=== PATIENT | male | born 1960 | race Caucasian/White ===

== ENCOUNTER 2023-03-01 18:35 | Emergency (ER) | payer OTHER, SELFPAY ==
[2023-03-01 18:36] VITALS: BP 174/98; PULSE 112; RESP 24; TEMP 36.7; O2SAT 95; BMI 31.4
[2023-03-01 18:44] VITALS: O2SAT 95
[2023-03-01 18:58] VITALS: PULSE 117; RESP 20
[2023-03-01] MEDS: Ipratropium/Albuterol Sulfate 3 ML AMPUL.NEB INHALATION (18:58)
[2023-03-01] MEDS: Albuterol 2.5 MG/3 ML VIAL.NEB. INHALATION ×3 (19:06→19:38)
[2023-03-01 19:08] LABS: Absolute Lymphocyte Count 1.52 X10^3/uL (0.83-4.51); Basophil# 0.08 X10^3/uL; Basophil% 0.9 % (0-1); Eosinophil# 0.14 X10^3/uL; Eosinophils% 1.6 % (0-5); Hematocrit 46.3 % (40-54); Hemoglobin 15.5 g/dL (13.0-16.5); Lymphocyte # 1.52 X10^3/ul (0.83-4.51); Lymphocyte % 17.6 % (19-41); Mean Corp Hgb Conc 33.5 g/dL (32-36); Mean Corpuscular Volume 89.6 fL (80-94); Mean Platelet Vol. 8.4 fl (6.2-12.0); Monocyte# 0.89 X10^3/uL; Monocyte% 10.3 % (0-10); NRBC Flagged by Analyzer 0 % (0-5); Neutrophil # 5.97 X10^3/uL (2.7-7.7); Neutrophil % 69.3 % (47-70); Platelet Count 230 K/mm3 (150-450); RBC Distribution Width CV 12.3 % (11.6-14.6); RBC Distribution Width SD 40.7 fl (35.1-43.9); Red Blood Count 5.17 M/mm3 (4.6-6.2); White Blood Count 8.6 K/mm3 (4.4-11.0)
--- NOTE | 2023-03-01 19:15 | RAD_ITS ---
STUDY: X-RAY CHEST REASON FOR EXAM: Male, 63 years old. Chest tightness and dyspnea with cough and wheezin TECHNIQUE: PA and lateral views of the chest. COMPARISON: None. FINDINGS: Mild linear atelectasis in the lung bases. No airspace consolidation. There is no demonstrated pleural abnormality. Normal size heart. Normal mediastinum and shantal. Normal visualized pulmonary arteries. There is atherosclerotic tortuosity of the aortic arch and descending thoracic aorta. There are diffuse degenerative changes of the visualized thoracic spine. Normal visualized ribs, clavicles, and shoulders. There is no demonstrated abnormality of the visualized soft tissue structures of the upper abdomen. RAD/Chest PA and Lateral IMPRESSION: No acute cardiopulmonary process. Electronically Signed: Kel Morales MD ([place]) at 19:30 EST ,
[2023-03-01 19:29] LABS: ALB/GLOB Ratio 1.1 RATIO (0.9-2.4); AST(SGOT) 16 U/L (15-37); Alanine Aminotransfer ALT/SGPT 34 U/L (16-61); Albumin, Serum 3.8 g/dL (3.2-5.0); Alkaline Phosphatase 86 U/L (45-117); Anion Gap 6 (5-15); BUN 20 mg/dL (7-18); BUN/Creat Ratio 22.7 RATIO (10-20); Calcium,Total 8.8 mg/dL (8.5-10.1); Chloride 103 mmol/L (98-107); Creatinine, Serum 0.88 mg/dL (0.70-1.30); EST Glomerular Filtration Rate 92 mL/min (>60); Est Glom Filt Rate - Afr Amer 112 mL/min (>60); Estimated Creatinine Clearance 82.05 ml/min; Globulin 3.5 g/dL (2.2-4.2); Glucose 191 mg/dL (74-106); Potassium 3.4 mmol/L (3.5-5.1); Protein, Total 7.3 g/dL (6.4-8.2); Sodium Level 136 mmol/L (136-145); Troponin-I HS 60 pg/mL (3.0-78.0)
[2023-03-01 19:31] VITALS: PULSE 108; RESP 20; O2SAT 91
[2023-03-01 19:40] LABS: Lactic Acid 3.1 mmol/L (0.4-1.9)
--- NOTE | 2023-03-01 20:10 | CPS ---
x3 Albuterol given to pt. in ER as well
[2023-03-01 20:23] VITALS: BP 174/98; PULSE 102; RESP 15; TEMP 36.1; O2SAT 100
--- NOTE | 2023-03-01 20:48 | EX.ED.DYSGE1 ---
HPI History of Present Illness Chief Complaint: Shortness of Breath Detail of Chief Complaint: Respiratory symptoms that started 2 to 3 weeks ago Informant: patient and spouse/S.O. Onset/Context/Timing Onset: Weeks Context: Gradual Onset Timing: Continuous and Waxes and wanes Quality: Cough, wheezing and dyspnea Location: Respiratory Current Severity: Mild Maximum Severity: Severe Worsened by: Activity Relieved by: Nothing Associated Symptoms Associated Symptoms: Upper respiratory symptoms. Narrative Narrative: Patient is a 63-year-old male who is a former smoker. He denies history of asthma or COPD. He denies fever or chills. He denies headache. He denies visual, ocular auditory symptoms. He has had problems with dysphonia for 1 year. Etiology of his voice change is unknown. He has a remote history of DVT, 2011. He is presently on no anticoagulant. He reports a cough and shortness of breath that started 2 to 3 weeks ago. His symptoms got worse today. He denies pleuritic chest pain. He denies abdominal pain, nausea, vomiting or diarrhea. He denies leg pain, swelling or discoloration. Prior similar symptoms: Yes Recent Illness/Hospitalization: No PFSH PFSH Medical History (Updated 03/01/23 @ 20:[address] Logan Callejas MD) DVT (deep venous thrombosis) Medical History no medical history Home Medications albuterol sulfate 90 mcg/actuation aerosol inhaler (Ventolin HFA) 2 puff inhalation Q4H PRN PRN Wheezing ##1 03/01/23 [Rx Last Taken Unknown] doxycycline monohydrate 100 mg capsule 100 mg PO BID #13 CAPSULES 03/01/23 [Rx Last Taken Unknown] prednisone 20 mg tablet 60 mg (3 x 20 mg) PO DAILY #12 TABLETS 03/01/23 [Rx Last Taken Unknown] Allergy/AdvReac Type Severity Reaction Status Date / Time bee venom protein (honey bee) Allergy Severe Anaphylaxis Verified 03/01/23 18:41 Penicillins Allergy Mild Hives Verified 03/01/23 18:41 Family History no significant family his Surgical History no surgical history Social History (Updated 03/01/23 @ 20:[address] Logan Callejas MD) household members: spouse Smoking Status: Former smoker alcohol intake: former substance use type: does not use ROS ROS ED Constitutional Constitutional ED: Denies chills, fever(s), subjective, sweats or weight loss Eyes Eyes: Denies blurry vision, change in vision or diplopia ENT ENT ED: Reports rhinorrhea; Denies ear pain or sore throat Cardiovascular Cardiovascular: Denies chest pain, orthopnea, palpitations, paroxysmal nocturnal dyspnea or racing heartbeat Respiratory/Chest Respiratory/Chest: Reports cough, dyspnea and dyspnea on exertion; Denies orthopnea, paroxysmal nocturnal dyspnea or sputum Gastrointestinal Gastrointestinal: Denies abdominal pain, diarrhea, nausea or vomiting Genitourinary Genitourinary ED: Denies dysuria, hematuria or urinary frequency Musculoskeletal Musculoskeletal: Denies arthralgias, myalgias or neck pain Integumentary Denies rash Neurologic Neurologic: Denies headache(s), paresthesias or weakness Psychiatric Psychiatric: Denies anxiety Hematologic/Lymphatic Hematologic/Lymphatic: Reports systems reviewed and no addt'l complaints, except as documented EXAM Physical Exam Const Vital Signs: 03/01/23 18:36 03/01/23 18:44 03/01/23 19:31 Temperature 98.1 F Temperature Source Oral Pulse Rate 112 H 108 H Respiratory Rate 24 H 20 H Respiratory Effort Short of Breath Labored Respiratory Pattern Blood Pressure 174/98 H Blood Pressure Mean 123 Pulse Ox 95 91 Oxygen Delivery Method Room Air Room Air Room Air 03/01/23 18:58 03/01/23 20:23 Temperature 97 F L Temperature Source Temporal Pulse Rate 117 H 102 H Respiratory Rate 20 H 15 Respiratory Effort Respiratory Pattern Normal Blood Pressure 174/98 H Blood Pressure Mean 123 Pulse Ox 100 Oxygen Delivery Method Room Air Positive well nourished, well developed and obese Constitutional Narrative: Patient speaks in short sentences. He is tachypneic. He does have dysphonia of unknown etiology. General Appearance ED: well developed; Negative for cyanotic, diaphoretic, NAD or pallor Nutritional Appearance: obese HEENT Reports moist mucous membranes HEENT Narrative: Head is atraumatic and normocephalic. Ears are normal. TMs are normal. Posterior pharynx not erythema or exudate. Nose remarkable for slight clear drainage. There is no frontal, ethmoid or maxillary sinus tenderness. Eyes PERRL and EOMs intact bilaterally General Eye ED: Negative for pale conjunctiva or scleral icterus Neck no lymphadenopathy, supple and no JVD Chest Wall inspection of chest normal and palpation of chest normal Resp No normal respiratory effort and No clear to auscultation bilaterally Resp Narrative: There is minimal use of accessory muscles. Effort and Inspection: Negative for retractions or pain with movement Auscultation: wheezes expiratory wheezes and throughout (There is delayed expiratory phase.) Cardio regular rhythm, S1 normal heart sound, S2 normal heart sound and no murmurs Rate: tachycardic GI normal to inspection, nondistended, normoactive bowel sounds, non-tender, non-distended and no masses; Negative for hepatosplenomegaly Back/Spine no CVA tenderness Extremity normal to inspection Extremity Narrative: There is no asymmetry, swelling, discoloration, leg vein distention, palpable cords or tenderness along the distribution of the deep venous system. General Extremety ED: Negative for edema or tenderness General Extremity: Negative for edema Neuro oriented x3, CN's II-XII intact bilaterally and no sensory deficits noted Sensorium / Orientation: alert Psych mental status grossly normal Skin no rashes or lesions noted, no wounds and skin turgor normal General Skin Exam: Negative for jaundice or pallor MDM MDM MDM Narrative Medical decision making narrative: With patient having respiratory symptoms started 2 to 3 weeks ago need to evaluate for chronic bronchitis versus pneumonia. Doubt pulmonary embolus. Patient's history and symptoms were not consistent with CHF. To evaluate patient's presentation chest x-ray was obtained as well as appropriate blood work to assess for endorgan dysfunction as well as white count differential. EKG was obtained per nurse protocol. History & Record Review Discussion w/independent historian: Patient and Significant other Lab Data Attestation: I reviewed the patient's lab results. Lab results narrative: Count is normal. Differential is normal. Comprehensive metabolic panel is remarkable for glucose of 191 with a normal CO2 and anion gap. Lactate is elevated. Labs: Laboratory Results - last 24 hr 03/01/23 03/01/23 18:45 19:01 WBC 8.6 RBC 5.17 Hgb 15.5 Hct 46.3 MCV 89.6 MCH 30.0 MCHC 33.5 RDW Std Deviation 40.7 RDW Coeff of Ruddy 12.3 Plt Count 230 MPV 8.4 Immature Gran % (Auto) 0.300 Neut % (Auto) 69.3 Lymph % (Auto) 17.6 L [place] % (Auto) 10.3 H Eos % (Auto) 1.6 Baso % (Auto) 0.9 Absolute Neuts (auto) 6.0 Absolute Lymphs (auto) 1.52 Nucleated RBC % 0 Sodium 136 Potassium 3.4 L Chloride 103 Carbon Dioxide 27.0 Anion Gap 6 BUN 20 H Creatinine 0.88 Estim Creat Clear Calc 82.05 Est GFR (MDRD) Af Amer 112 Est GFR (MDRD) Non-Af 92 BUN/Creatinine Ratio 22.7 H Glucose 191 H Lactic Acid 3.1 H* Calcium 8.8 Total Bilirubin 0.40 AST 16 ALT 34 Alkaline Phosphatase 86 Troponin I High Sens 60 Total Protein 7.3 Albumin 3.8 Globulin 3.5 Albumin/Globulin Ratio 1.1 Radiography Chest X-Ray - ED: 2 View and Read by ED Physician (2 view chest x-ray was independently reviewed interpreted by me as negative for any acute process. Cardiac silhouette and size normal. Lung parenchyma normal. Perihilar region normal. Osseous structures were unremarkable.) Diagnostic Testing: Clinical Impression(s) from Imaging Studies Chest X-Ray 03/01/23 19:15 IMPRESSION: No acute cardiopulmonary process. 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, pneumonia Reason(s) pneumonia less likely: Positive for no infiltrate on CXR, no elevation in WBC count and no noted fever, aortic dissection Reason(s) Aortic dissection less likely:: Positive for normal vascular exam, no history of HTN, normal neurological exam, no significant risk factors for dissection, no widened mediastinum on CXR, pain not sudden onset, no ripping/tearing pain, no pain to back and blood pressure appropriate in ED and CHF Reason(s) CHF less likely: Positive for no significant peripheral edema, no orthopnea and no evidence of fluid overload on CXR Treatment and Re-Evaluation :: Patient was reassessed at 2049. He is moving significantly more air. There is slight wheeze at the left base on forced expiration. Patient was discharged with prescription for albuterol metered-dose inhaler and burst of prednisone. He received his first dose of prednisone in the emergency department. Discharge Plan Triage Chief Complaint: Shortness of Breath ED Provider: Logan Callejas Dx/Rx/DC Orders Clinical Impression: Dyspnea, Acute bronchospasm, Chronic bronchitis Prescriptions: New prednisone 20 mg tablet 60 mg PO DAILY Qty: 12 0RF doxycycline monohydrate 100 mg capsule 100 mg PO BID Qty: 13 0RF albuterol sulfate [Ventolin HFA] 90 mcg/actuation HFA aerosol inhaler 2 puff inhalation Q4H PRN PRN (Reason: Wheezing) Qty: 1 0RF Primary Care Provider: Care Physician,No Primary Referrals: Xander Correia MD [Non-Staff] - 3-5 Days if not improving Care Physician,No Primary [Primary Care Provider] - Disposition Disposition: Home, Self Care
[2023-03-01] MEDS: Doxycycline 100 MG CAPSULE PO (21:06)
[2023-03-01] MEDS: predniSONE 20 MG Tablet 60 MG PO (21:06)
[2023-03-01 21:14] VITALS: PULSE 100; RESP 20; O2SAT 95
[2023-03-01 23:05] LABS: Reflex Lactate? Y
== END 2023-03-01 22:10 | disposition home or self-care (01) ==
PROVIDERS: Emergency Provider Emergency Medicine; Visit Provider Emergency Medicine
DX: R06.00 Dyspnea, unspecified (principal); J42 Unspecified chronic bronchitis; J98.01 Acute bronchospasm; E66.9 Obesity, unspecified; Z87.891 Personal history of nicotine dependence; Z86.718 Personal history of other venous thrombosis and embolism
CPT/HCPCS: 71046; 80053; 83605; 84484; 85025; 93005; 94640; 99285; A4216

== ENCOUNTER 2023-06-06 09:13 | Day surgery (SDC) | payer SELFPAY, OTHER ==
[2023-06-06 09:48] VITALS: BP 148/81; PULSE 88; RESP 18; TEMP 37.1; O2SAT 95; BMI 32.1
[2023-06-06] MEDS: Lactated Ringers 1,000 ML 15 ML IV (09:58)
--- OUTSIDE RECORDS SUMMARY | 2023-06-06 10:11 | XMS RPT_ITS | CCD ---
Author Name Unknown Address [address] [place] [address] Organization [facility] Care Team Providers Care Environmental Lead Name Role Phone Generic Provider MD, No Assigned Pcp Primary Car e Provider Unavailable GENERIC PROVIDER, NO ASSIGNED PCP Primary Care Unavailable ENOC DONG Attending UnavailDARLENE Rodriguez Admitting Unavailable ARIS SLAUGHTER Referring Unavailable GENERIC PROVIDER, NO ASSIGNED PCP Primary Care Unavailable Allergies Allergy Classification Reported Allergen(s) Allergy Type Date of Onset Reaction(s) Facility (2 sources) Penicillins; Translations: [PENICILLINS] Propensity to adverse reactions 3 Unknown [facility] Medications Current Medications Medication Drug Class(es) Dates Sig (Normalized) Sig (Original) acetaminophen 32 mg/ml oral solution (1 source) Start: 04-07-2023 acetaminophen (Tylenol) oral liquid 1,000 mg albuterol 0.83 mg/ml inhalation solution (1 source) beta2-Adrenergic Agonist Start: 04-06-2023 take 2.5 mg by inhalation every four hours as needed albuterol 2.5 mg /3 mL (0.083 %) nebulizer solution 2.5 mg b complex vitamins capsule (1 source) take 1 capsule by mouth once daily b complex vitamins capsule Take 1 capsule by mouth once daily. 0 Active chlorhexidine gluconate 1.2 mg/ml mouthwash (2 sources) Start: 04-05-2023 End: 04-06-2023 chlorhexidine (Peridex) 0.12 % solution 15 mL 1 ml heparin sodium, porcine 5000 unt/ml injection (2 sources) Unfractionated Heparin, Anti-coagulant Start: 04-05-2023 End: 04-06-2023 inject 5000 [IU] by subcutaneous injection every eight hours heparin (porcine) injection 5,000 Units 1 ml hydrALAZINE hydrochloride 20 mg/ml injection (1 source) Arteriolar Vasodilator Start: 04-05-2023 take 5 mg intravenously every four hours as needed hydrALAZINE (Apresoline) injection 5 mg lidocaine 0.04 mg/mg medicated patch (1 source) Antiarrhythmic, Amide Local Anesthetic Start: 04-06-2023 lidocaine 4 % patch 1 patch Naloxone (1 source) Opioid Antagonist Start: 04-05-2023 naloxone (Narcan) injection 0.2 mg 2 ml ondansetron 2 mg/ml injection (1 source) Serotonin-3 Receptor Antagonist Start: 04-05-2023 take 4 mg intravenously every eight hours as needed ondansetron (Zofran) injection 4 mg oxygen (O2) therapy (1 source) Start: 04-05-2023 oxygen (O2) therapy polyethylene glycol 3350 83587 mg powder for oral solution (2 sources) Osmotic Laxative Start: 04-05-2023 End: 04-06-2023 polyethylene glycol (Glycolax, Miralax) packet 17 g sennosides, intermediate 1.76 mg/ml oral solution (2 sources) Start: 04-05-2023 End: 04-06-2023 senna (Senokot) 8.8 mg/5 mL syrup 10 mL sodium chloride 9 mg/ml inhalation solution (2 sources) Start: 04-13-2023 sodium chloride 0.9 % nebulizer solution Indications: Lesion of glottis , Airway obstruction, anatomic , Acute on chronic respiratory failure with hypoxia (CMS/HCC) Take 3 mL by nebulization 3 times a day. Instill 2-3mL into the Tracheostomy tube as needed for thick secretions. 90 mL 12 04/13/2023 Active Completed/Discontinued Medications Medication Drug Class(es) Dates Sig (Normalized) Sig (Original) barium sulfate (Varibar [place], Varibar Honey) 40 % (w/v) suspension 10 mL (1 source) Start: 04-07-2023 End: 04-07-2023 barium sulfate (Varibar [place], Varibar Honey) 40 % (w/v) suspension 10 mL barium sulfate (Varibar Pudding) 40 % (w/v), 30% (w/w) oral paste 15 mL (1 source) Start: 04-07-2023 End: 04-07-2023 barium sulfate (Varibar Pudding) 40 % (w/v), 30% (w/w) oral paste 15 mL barium sulfate (Varibar THIN Liquid) 81 % (w/w) suspension 30 mL (1 source) Start: 04-07-2023 End: 04-07-2023 barium sulfate (Varibar THIN Liquid) 81 % (w/w) suspension 30 mL calcium chloride 0.0014 meq/ml / potassium chloride 0.004 meq/ml / sodium chloride 0.103 meq/ml / sodium lactate 0.028 meq/ml injectable solution (3 sources) Start: 04-05-2023 End: 04-07-2023 take 75 mL intravenously every hour 75 mL/hr, intravenous, Continuous, Starting on Mon04/05/23 at 2330 Problems Problem Classification Problem Date Documented Date Episodic/Chronic Complications of surgical procedures or medical care (3 sources) Postprocedural respiratory disorders; Translations: [Postprocedural pneumothorax] Onset: 04-05-2023 04-07-2023 Episodic Neoplasms of unspecified nature or uncertain behavior (2 sources) Neoplasm of uncertain behavior of glottis; 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] Onset: 04-05-2023 Resolved: 04-05-2023 04-05-2023 Episodic Other lower respiratory disease (4 sources) Dyspnea; Translations: [Shortness of breath] Onset: 04-05-2023 Resolved: 04-13-2023 04-07-2023 Episodic Other lower respiratory disease (3 sources) Respiratory obstruction; Translations: [Other specified respiratory disorders] Onset: 04-05-2023 04-13-2023 Episodic Other lower respiratory disease (1 source) Shortness of breath; Translations: [Shortness of breath] Onset: 04-13-2023 Episodic Other lower respiratory disease (2 sources) Other specified respiratory disorders; Translations: [Other specified respiratory disorders] Onset: 04-05-2023 Episodic Other upper respiratory disease (3 sources) Lesion of larynx; Translations: [Other diseases of larynx] Onset: 04-05-2023 04-07-2023 Episodic Other upper respiratory disease (2 sources) Stridor; Translations: [Stridor] Onset: 04-05-2023 04-07-2023 Episodic Other upper respiratory disease (2 sources) Biphasic stridor; Translations: [Stridor] Onset: 04-05-2023 Resolved: 04-13-2023 04-13-2023 Episodic Other upper respiratory disease (2 sources) Other diseases of larynx; Translations: [Other diseases of larynx] Onset: 04-05-2023 Episodic Other upper respiratory disease (1 source) Stridor; Translations: [Stridor] Onset: 04-05-2023 Episodic Respiratory failure; insufficiency; arrest (adult) (5 sources) [id number] respiratory failure; Translations: [Acute and chronic respiratory failure with hypoxia] Onset: 04-05-2023 04-13-2023 Chronic Results Test Name Value Interpretation Reference Range Facil ity Vital Signs Date Time Vital Sign Value Performing Clinician Facility 04-13-2023 08:56-0500 Body temperature 98.1 [degF] Guillermo Chand MD Work Phone: [facility] 04-13-2023 08:56-0500 Diastolic blood pressure 76 mm[Hg] Guillermo Chand MD Work Phone: [facility] 04-13-2023 08:56-0500 Heart rate 74 /min Guillermo Chand MD Work Phone: [facility] 04-13-2023 08:56-0500 Respiratory rate 18 /min Guillermo Chand MD Work Phone: [facility] 04-13-2023 08:56-0500 SaO2% (BldA) [Mass fraction] 93 % Guillermo Chand MD Work Phone: [facility] 04-13-2023 08:56-0500 Systolic blood pressure 116 mm[Hg] Guillermo Chand MD Work Phone: [facility] 04-06-2023 04:00-0500 Body mass index (BMI) [Ratio] 30.64 kg/m2 Guillermo Chand MD Work Phone: [facility] 04-06-2023 04:00-0500 Body weight 91.4 kg Guillermo Chand MD Work Phone: [facility] 04-06-2023 01:270500 Body temperature 37.0 degrees Celsius NO GENERIC PROVIDER [facility] Encounters Encounter Date Encounter Type Care Provider Facility Start: 04-05-2023 End: 04-06-2023 Emergency department patient visit ARIS SLAUGHTER [facility] Start: 04-05-2023 End: 04-13-2023 Evaluation and management of inpatient NO ASSIGNED PCP GENERIC PROVIDER [facility] Start: 04-05-2023 End: 04-13-2023 Evaluation and management of inpatient Guillermo Chand MD Work Phone: [facility] 5 Procedures Date Procedure Procedure Detail Performing Clinician Start: 04-13-2023 DISCHARGE PATIENT NO GE NERIC PROVIDER Start: 04-13-2023 DISCHARGE TRACH CARE NO GENERIC PROVIDER Start: 04-13-2023 STOMA CARE NO GENERIC PROVIDER Start: 04-13-2023 CT CHEST WO IV CONTRAST NO GENERIC PROVIDER Start: 04-12-2023 Ct thorax w/o contra st material Ana Haines MD Work Phone: Start: 04-11-2023 RENAL FUNCTION PANEL NO GENERIC PROVIDER Start: 04-11-2023 Renal function panel Deirdre Kurtz MD Work Phone: Start: 04-10-2023 CBC panel - Blood by Automated count NO GENERIC PROVIDER Start: 04-10-2023 Magnesium [Mass/volu me] in Serum or Plasma NO GENERIC PROVIDER Start: 04-10-2023 RENAL FUNCTION PANEL NO GENERIC PROVIDER Start: 04-10-2023 Renal function panel Jose Luis Garcia MD Work Phone: Start: 04-09-2023 CBC panel - Blood by Automated count NO GENERIC PROVIDER Start: 04-09-2023 Magnesium [Mass/volu me] in Serum or Plasma NO GENERIC PROVIDER Start: 04-09-2023 RENAL FUNCTION PANEL NO GENERIC PROVIDER Start: 04-09-2023 Renal function panel Jose Luis Garcia MD Work Phone: Start: 04-08-2023 CBC panel - Blood by Automated count NO GENERIC PROVIDER Start: 04-08-2023 Magnesium [Mass/volu me] in Serum or Plasma NO GENERIC PROVIDER Start: 04-08-2023 RENAL FUNCTION PANEL NO GENERIC PROVIDER Start: 04-08-2023 Renal function panel Jose Luis Garcia MD Work Phone: Start: 04-08-2023 Glucose [Mass/volume ] in Serum or Plasma NO GENERIC PROVIDER Start: 04-07-2023 Glucose quantitative blood xcpt reagent strip Enoc Dong MD Work Phone: Start: 04-07-2023 Glucose [Mass/volume ] in Serum or Plasma NO GENERIC PROVIDER Start: 04-07-2023 XR CHEST 1 VIEW NO GENE ANGELITO PROVIDER Start: 04-07-2023 Glucose quantitative blood xcpt reagent strip Enoc Dong MD Work Phone: Start: 04-07-2023 Radiologic exam ches t single view Marilyn Beasley PA-C Work Phone: Start: 04-07-2023 Glucose [Mass/volume ] in Serum or Plasma NO GENERIC PROVIDER Start: 04-07-2023 BAG MACHINE SET UP OPERATOR MODIFIED BARIUM SWALLOW EVALUATION NO GENERIC PROVIDER Start: 04-07-2023 XR CHEST 1 VIEW NO GENE ANGELITO PROVIDER Start: 04-07-2023 ADULT DISCHARGE DIET NO GENERIC PROVIDER Start: 04-07-2023 DISCHARGE ACTIVITY NO G ENERIC PROVIDER Start: 04-07-2023 DISCHARGE INSTRUCTIONS NO GENERIC PROVIDER Start: 04-07-2023 FL MODIFIED BARIUM S WALLOW STUDY NO GENERIC PROVIDER Start: 04-07-2023 Glucose quantitative blood xcpt reagent strip Enoc Dong MD Work Phone: Start: 04-07-2023 BAG MACHINE SET UP OPERATOR MODIFIED BARIUM SWALLOW EVALUATION Enoc Garcia MD Work Phone: Start: 04-07-2023 Radiologic exam ches t single view Tammy Garcia MD Work Phone: Start: 04-07-2023 HOME TRACH CARE SUPPLIES NO GENERIC PROVIDER Start: 04-07-2023 Radiologic exam swal low function contrast study Enoc Garcia MD Work Phone: Start: 04-07-2023 XR CHEST 1 VIEW NO GENE ANGELITO PROVIDER Start: 04-07-2023 CBC panel - Blood by Automated count NO GENERIC PROVIDER Start: 04-07-2023 Magnesium [Mass/volu me] in Serum or Plasma NO GENERIC PROVIDER Start: 04-07-2023 RENAL FUNCTION PANEL NO GENERIC PROVIDER Start: 04-07-2023 Radiologic exam ches t single view Enoc Garcia MD Work Phone: Start: 04-07-2023 Glucose [Mass/volume ] in Serum or Plasma NO GENERIC PROVIDER Start: 04-07-2023 Renal function panel Os car Emery Ochoayn DO Start: 04-07-2023 Glucose quantitative blood xcpt reagent strip Enoc Dong MD Work Phone: Start: 04-07-2023 Glucose [Mass/volume ] in Serum or Plasma NO GENERIC PROVIDER Start: 04-07-2023 Glucose quantitative blood xcpt reagent strip Enoc Dong MD Work Phone: Start: 04-07-2023 Glucose [Mass/volume ] in Serum or Plasma NO GENERIC PROVIDER Start: 04-06-2023 Glucose quantitative blood xcpt reagent strip Enoc Dong MD Work Phone: Start: 04-06-2023 Glucose [Mass/volume ] in Serum or Plasma NO GENERIC PROVIDER Start: 04-06-2023 TRANSFER PATIENT TO NEW UNIT NO GENERIC PROVIDER Start: 04-06-2023 Glucose quantitative blood xcpt reagent strip Enoc Dong MD Work Phone: Start: 04-06-2023 Glucose [Mass/volume ] in Serum or Plasma NO GENERIC PROVIDER Start: 04-06-2023 CHEST TUBE CARE NO GENE ANGELITO PROVIDER Start: 04-06-2023 Glucose quantitative blood xcpt reagent strip Enoc Dong MD Work Phone: Start: 04-06-2023 ECG 12-LEAD NO GENERIC PROVIDER Start: 04-06-2023 Glucose [Mass/volume ] in Serum or Plasma NO GENERIC PROVIDER Start: 04-06-2023 XR CHEST 1 VIEW NO GENE ANGELITO PROVIDER Start: 04-06-2023 Ecg routine ecg w/le ast 12 lds trcg only w/o i&r Enoc Garcia MD Work Phone: Start: 04-06-2023 Glucose quantitative blood xcpt reagent strip Enoc Dong MD Work Phone: Start: 04-06-2023 Radiologic exam ches t single view Jeanette Hopkins MD Work Phone: Start: 04-06-2023 CALCIUM, IONIZED NO GEN BRUNILDA PROVIDER Start: 04-06-2023 CBC panel - Blood by Automated count NO GENERIC PROVIDER Start: 04-06-2023 COAGULATION SCREEN NO G ENERIC PROVIDER Start: 04-06-2023 Magnesium [Mass/volu me] in Serum or Plasma NO GENERIC PROVIDER Start: 04-06-2023 RENAL FUNCTION PANEL NO GENERIC PROVIDER Start: 04-06-2023 Glucose [Mass/volume ] in Serum or Plasma NO GENERIC PROVIDER Start: 04-06-2023 End: 04-06-2023 Renal function panel Amy Casiano O Work Phone: Start: 04-06-2023 XR CHEST 1 VIEW NO GENE ANGELITO PROVIDER Start: 04-06-2023 ADMIT TO INPATIENT NO G ENERIC PROVIDER Start: 04-06-2023 CALCIUM, IONIZED NO GEN BRUNILDA PROVIDER Start: 04-06-2023 CBC panel - Blood by Automated count NO GENERIC PROVIDER Start: 04-06-2023 COAGULATION SCREEN NO G ENERIC PROVIDER Start: 04-06-2023 Magnesium [Mass/volu me] in Serum or Plasma NO GENERIC PROVIDER Start: 04-06-2023 RENAL FUNCTION PANEL NO GENERIC PROVIDER Start: 04-06-2023 BLOOD GAS ARTERIAL F ULL PANEL NO GENERIC PROVIDER Start: 04-06-2023 REASON FOR NO DVT PROPHYLAXIS - HOSPITAL ADMISSION - MEDICATIONS NO GENERIC PROVIDER Start: 04-06-2023 MEASURE HEIGHT NO GENER IC PROVIDER Start: 04-06-2023 OT EVAL AND TREAT NO GE NERIC PROVIDER Start: 04-06-2023 WEIGH PATIENT NO GENERI C PROVIDER Start: 04-06-2023 TRANSFER PATIENT TO NEW UNIT NO GENERIC PROVIDER Start: 04-05-2023 CHEST TUBE INSERTION NO GENERIC PROVIDER Start: 04-05-2023 Radiologic exam ches t single view Amy Crow DO Work Phone: Start: 04-05-2023 XR CHEST 1 VIEW NO GENE ANGELITO PROVIDER Start: 04-05-2023 End: 04-05-2023 Chloride bld Prasad Alberts MD Work Phone: Start: 04-05-2023 Tube thoracostomy in cludes water seal Scooby Santacruz MD Work Phone: Start: 04-05-2023 XR CHEST 1 VIEW NO GENE ANGELITO PROVIDER Start: 04-05-2023 Radiologic exam ches t single view Scooby Santacruz MD Work Phone: Start: 04-05-2023 OT EVAL AND TREAT NO GE NERIC PROVIDER Start: 04-05-2023 ADMIT TO INPATIENT NO G ENERIC PROVIDER Start: 04-05-2023 FULL CODE NO GENERIC PROVIDER Start: 04-05-2023 TELEMETRY MONITORING NO GENERIC PROVIDER Start: 04-05-2023 PULSE OXIMETRY, CONTINUOUS NO GENERIC PROVIDER Start: 04-05-2023 SURGICAL PATHOLOGY EXAM NO GENERIC PROVIDER Start: 04-05-2023 Radiologic exam ches t single view Prasad Alberts MD Work Phone: Start: 04-05-2023 ED TO FLOOR BED REQUEST NO GENERIC PROVIDER Start: 04-05-2023 PULSE OXIMETRY, CONTINUOUS Cristina Bailey MD Work Phone: Start: 04-05-2023 Surgical pathology study Guillermo Chand MD Work Phone: Start: 04-05-2023 CASE REQUEST OPERATI NG ROOM NO GENERIC PROVIDER Start: 04-05-2023 End: 04-05-2023 [facility] brushing/protected brushings Enoc Dong MD Work Phone: Start: 04-05-2023 End: 04-05-2023 Esophagoscopy flexible transoral diagnostic Enoc Dong MD Work Phone: Start: 04-05-2023 End: 04-05-2023 Tracheostomy emergency procedure transtracheal Enoc Dong MD Work Phone: Start: 12-27-2023 CT SOFT TISSUE NECK W IV CONTRAST NO GENERIC PROVIDER Start: 04-05-2023 ECG 12-LEAD NO GENERIC PROVIDER Start: 04-05-2023 Ct soft tissue neck w/contrast material Aris Slaughter PA-C Work Phone: Start: 04-05-2023 CBC W Auto Different ial panel - Blood NO GENERIC PROVIDER Start: 04-05-2023 COAGULATION SCREEN NO G ENERIC PROVIDER Start: 04-05-2023 Comprehensive metabo lic 2000 panel - Serum or Plasma NO GENERIC PROVIDER Start: 04-05-2023 TYPE AND SCREEN NO GENE ANGELITO PROVIDER Start: 04-05-2023 SARS-COV-2 AND INFLU KONG A/B PCR NO GENERIC PROVIDER Start: 04-05-2023 XR CHEST 1 VIEW NO GENE ANGELITO PROVIDER Start: 04-05-2023 BLOOD GAS VENOUS FUL L PANEL UNSOLICITED NO GENERIC PROVIDER Start: 04-05-2023 Ecg routine ecg w/le ast 12 lds trcg only w/o i&r Aris Slaughter PA-C Work Phone: Start: 04-05-2023 Blood typing serolog ic rh (d) Aris Slaughter PA-C Work Phone: Start: 04-05-2023 End: 04-05-2023 Comprehensive metabolic panel Aris Slaughter PA-C Work Phone: Start: 04-05-2023 Influenza virus A an d B and SARS-CoV-2 (COVID-19) identified in Respiratory specimen by LIBERTY with probe detection Aris Slaughter PA-C Work Phone: Start: 04-05-2023 Radiologic exam ches t single view Aris Slaughter PA-C Work Phone: Plan of Treatment Date Care Activity Detail Author Start: 04-28-2023 End: 04-28-2023 Patient encounter procedure 04/28/2023 1:30 PM EST Office Visit [facility] [address] [place] [address] John [place] [address] [place] [address] [facility] Start: 12-09-2022 Influenza vaccination Influenza Vaccine (#1) [facility] Start: 2009 Zoster Vaccines (1 of 2) Zoster Vaccines (1 of 2) [facility] Start: 1981 DTaP/Tdap/Td Vaccines (1 - Tdap) DTaP/Tdap/Td Vaccines (1 - Tdap) [facility] Start: 1977 Hepatitis C screening Hepatitis C Screening [facility] Start: 1965 Pneumococcal Vaccine: 65+ Years (1 - PCV) Pneumococcal Vaccine: 65+ Years (1 - PCV) [facility] Start: 1965 Pneumococcal Vaccine: Pediatrics (0 to 5 Years) and At-Risk Patients (6 to 64 Years) (1 - PCV) Pneumococcal Vaccine: Pediatrics (0 to 5 Years) and At-Risk Patients (6 to 64 Years) (1 - PCV) [facility] Start: 02-16-1960 MMR Vaccines (1 of 1 - Standard series) MMR Vaccines (1 of 1 - Standard series) [facility] Start: 1959 COVID-19 Vaccine (#1) COVID-19 Vaccine (#1) [facility] Start: 1959 HIV screening HIV Screening [facility] Start: 1959 Lipid panel Lipid Panel [facility] Start: 1959 Screening for malignant neoplasm of colon [facility] Start: 1959 Yearly Adult Physical Yearly Adult Physical [facility] Electrocardiogram, 12-lead PRN ACS symptoms Electrocardiogram, 12-lead PRN ACS symptoms ECG Routine As needed until discontinued starting 04/05/2023, 1 completed [facility] Work Phone: Payers Date Payer Category Payer Unknown [facility] [employer] [facility] [employer] [id number] 2023-Present [address] [place] [address] [id number] 2023 Unknown [id number] 1959 Unknown [id number] 1959 Unknown [id number] Social History Date Type Detail Facility Start: 04-06-2023 Tobacco smoking status NHIS Ex-smoker [facility] Start: 04-10-1984 End: 04-10-1989 History of tobacco use Current smoker [facility] Work Phone: Start: 04-10-1984 End: 04-10-1989 History of tobacco use Cigarette Smoker [facility] Work Phone: Start: 04-06-2023 Cigarettes smoked current (pack per day) - Reported 0.5 [facility] Work Phone: Start: 04-06-2023 Tobacco use and exposure Smokeless tobacco non-user [facility] Work Phone: Start: 04-06-2023 Alcohol Use Disorder Identification Test - Consumption [AUDIT-C] [facility] Work Phone: How often to you hav e a drink containing alcohol? Never [facility] Work Phone: How many standard dr inks containing alcohol do you have on a typical day? Patient does not drink [facility] Work Phone: In the past 12 month s, was there a time when you were not able to pay the mortgage or rent on time? No [facility] Work Phone: At any time in the p ast 12 months, were you homeless or living in jail [including now]? Yes [facility] Work Phone: Start: 1960 Sex Assigned At Not on file [facility] Work Phone: Start: 03-26-2023 End: 04-05-2023 Exposure to SARS-CoV-2 (event) Not sure [facility] Clinical Notes 04-05-2023 to 04-13-2023 Rae Torres RN - 04/13/2023 11:11 AM Radha Torres RN - 04/13/2023 11:11 AM ESTCare Plan - Rae Torres RN - 04/13/2023 10:36 AM ESTCare Plan - Edwige Jackson RN - 04/10/2023 2:48 PM EST Note Date & Type Note Facility 04-13-2023 Nurse Note Discharge Planning Note: 04/13/2022 @ 1100: Patient discharged home with tracheostomy in place. Patient and independent with suctioning and trach care. RN did review tracheostomy emergencies such as what to do if difficulty breathing or tracheostomy comes out. RN verified suction machine was delivered- which it was. RN did verbalize that it is battery operated and should be charged prior to leaving home. RN emphasized taking trach kit and suction machine whenever leaving the home. RN also gave patient's spouse written prescriptions for normal saline bottles and irrigation. RN explained these prescriptions and what they are for and recommended they be taken to a pharmacy to fill. Patient was not discharged with any other medications- which patient and spouse are aware. RN verbalized to resume diet a home, verbalized follow up appointment day/time/location, and stoma care. RN was unable select preferred pharmacy since patient and spouse do not use these services typically. All questions answered as needed. Bilateral peripheral Ivs were removed with tip and catheter intact. Patient to be transported off unit when ride arrives. Rae Torres RN [facility] 04-13-2023 Nurse Note Discharge Planning Note: 04/13/2022 @ 1100: Patient discharged home with tracheostomy in place. Patient and independent with suctioning and trach care. RN did review tracheostomy emergencies such as what to do if difficulty breathing or tracheostomy comes out. RN verified suction machine was delivered- which it was. RN did verbalize that it is battery operated and should be charged prior to leaving home. RN emphasized taking trach kit and suction machine whenever leaving the home. RN also gave patient's spouse written prescriptions for normal saline bottles and irrigation. RN explained these prescriptions and what they are for and recommended they be taken to a pharmacy to fill. Patient was not discharged with any other medications- which patient and spouse are aware. RN verbalized to resume diet a home, verbalized follow up appointment day/time/location, and stoma care. RN was unable select preferred pharmacy since patient and spouse do not use these services typically. All questions answered as needed. Bilateral peripheral Ivs were removed with tip and catheter intact. Patient to be transported off unit when ride arrives. Rae Torres RN documented in this encounter [facility] Work Phone: 04-13-2023 Plan of care note The patient's goals for the shift include Problem: Fall/Injury Goal: Not fall by end of shift Outcome: Adequate for Discharge Goal: Be free from injury by end of the shift Outcome: Adequate for Discharge Goal: Verbalize understanding of personal risk factors for fall in the hospital Outcome: Adequate for Discharge Goal: Verbalize understanding of risk factor reduction measures to prevent injury from fall in the home Outcome: Adequate for Discharge Goal: Use assistive devices by end of the shift Outcome: Adequate for Discharge Goal: Pace activities to prevent fatigue by end of the shift Outcome: Adequate for Discharge Problem: Pain Goal: My pain/discomfort is manageable Outcome: Adequate for Discharge Problem: Safety Goal: Patient will be injury free during hospitalization Outcome: Adequate for Discharge Goal: I will remain free of falls Outcome: Adequate for Discharge Problem: Daily Care Goal: Daily care needs are met Outcome: Adequate for Discharge Problem: Psychosocial Needs Goal: Demonstrates ability to cope with hospitalization/illness Outcome: Adequate for Discharge Goal: Collaborate with me, my family, and caregiver to identify my specific goals Outcome: Adequate for Discharge Problem: Discharge Barriers Goal: My discharge needs are met Outcome: Adequate for Discharge Problem: Pain Goal: Takes deep breaths with improved pain control throughout the shift Outcome: Adequate for Discharge Goal: Turns in bed with improved pain control throughout the shift Outcome: Adequate for Discharge Goal: Walks with improved pain control throughout the shift Outcome: Adequate for Discharge Goal: Performs ADL's with improved pain control throughout shift Outcome: Adequate for Discharge Goal: Participates in PT with improved pain control throughout the shift Outcome: Adequate for Discharge Goal: Free from opioid side effects throughout the shift Outcome: Adequate for Discharge Goal: Free from acute confusion related to pain meds throughout the shift Outcome: Adequate for Discharge Problem: Balance Goal: Pt will demonstrated ability to score at least 24/28 on the Tinetti balance assessment tool to ensure safety upon D/C. Outcome: Adequate for Discharge Problem: Mobility Goal: Pt will demonstrated ability to ambulate >/=300ft with proper form and no balance deficits for safe home going. Outcome: Adequate for Discharge Goal: Pt will be able to tolerate >15 minutes of standing activity continuously without seated rest break with stable vitals and RPD Outcome: Adequate for Discharge Problem: Transfers Goal: Pt will demonstrate ability to complete 5X STS in < 12 sec with good from and consistency between transfers for safe D/C. Outcome: Adequate for Discharge The clinical goals for the shift include Patient will be free from signs and symptoms of respiratory distress by 04/13/2023 1400 Over the shift, the patient did make progress to following goals. Patient was free from respiratory distress and independent with trach care and suctioning. [facility] Work Phone: 04-13-2023 Miscellaneous Notes The patient's goals for the shift include Problem: Fall/Injury Goal: Not fall by end of shift Outcome: Adequate for Discharge Goal: Be free from injury by end of the shift Outcome: Adequate for Discharge Goal: Verbalize understanding of personal risk factors for fall in the hospital Outcome: Adequate for Discharge Goal: Verbalize understanding of risk factor reduction measures to prevent injury from fall in the home Outcome: Adequate for Discharge Goal: Use assistive devices by end of the shift Outcome: Adequate for Discharge Goal: Pace activities to prevent fatigue by end of the shift Outcome: Adequate for Discharge Problem: Pain Goal: My pain/discomfort is manageable Outcome: Adequate for Discharge Problem: Safety Goal: Patient will be injury free during hospitalization Outcome: Adequate for Discharge Goal: I will remain free of falls Outcome: Adequate for Discharge Problem: Daily Care Goal: Daily care needs are met Outcome: Adequate for Discharge Problem: Psychosocial Needs Goal: Demonstrates ability to cope with hospitalization/illness Outcome: Adequate for Discharge Goal: Collaborate with me, my family, and caregiver to identify my specific goals Outcome: Adequate for Discharge Problem: Discharge Barriers Goal: My discharge needs are met Outcome: Adequate for Discharge Problem: Pain Goal: Takes deep breaths with improved pain control throughout the shift Outcome: Adequate for Discharge Goal: Turns in bed with improved pain control throughout the shift Outcome: Adequate for Discharge Goal: Walks with improved pain control throughout the shift Outcome: Adequate for Discharge Goal: Performs ADL's with improved pain control throughout shift Outcome: Adequate for Discharge Goal: Participates in PT with improved pain control throughout the shift Outcome: Adequate for Discharge Goal: Free from opioid side effects throughout the shift Outcome: Adequate for Discharge Goal: Free from acute confusion related to pain meds throughout the shift Outcome: Adequate for Discharge Problem: Balance Goal: Pt will demonstrated ability to score at least 24/28 on the Tinetti balance assessment tool to ensure safety upon D/C. Outcome: Adequate for Discharge Problem: Mobility Goal: Pt will demonstrated ability to ambulate >/=300ft with proper form and no balance deficits for safe home going. Outcome: Adequate for Discharge Goal: Pt will be able to tolerate >15 minutes of standing activity continuously without seated rest break with stable vitals and RPD </=3/10 and RPE </=13/20 for improved functional mobility Outcome: Adequate for Discharge Problem: Transfers Goal: Pt will demonstrate ability to complete 5X STS in < 12 sec with good from and consistency between transfers for safe D/C. Outcome: Adequate for Discharge The clinical goals for the shift include Patient will be free from signs and symptoms of respiratory distress by 04/13/2023 1400 Over the shift, the patient did make progress to following goals. Patient was free from respiratory distress and independent with trach care and suctioning. The patient's goals for the shift include The clinical goals for the shift include Pt will maintin patent airway overnight The patient's goals for the shift include comfort and safe discharge home. The clinical goals for the shift include Pt will maintain patent airway and prepare for safe discharge by end of shift. Over the shift, the patient did not make progress toward the following goals. Barriers to progression include . Recommendations to address these barriers include . Problem: Fall/Injury Goal: Not fall by end of shift Outcome: Progressing Goal: Be free from injury by end of the shift Outcome: Progressing Goal: Verbalize understanding of personal risk factors for fall in the hospital Outcome: Progressing Goal: Verbalize understanding of risk factor reduction measures to prevent injury from fall in the home Outcome: Progressing Goal: Use assistive devices by end of the shift Outcome: Progressing Goal: Pace activities to prevent fatigue by end of the shift Outcome: Progressing Problem: Pain Goal: My pain/discomfort is manageable Outcome: Progressing Problem: Safety Goal: Patient will be injury free during hospitalization Outcome: Progressing Goal: I will remain free of falls Outcome: Progressing Problem: Daily Care Goal: Daily care needs are met Outcome: Progressing Problem: Psychosocial Needs Goal: Demonstrates ability to cope with hospitalization/illness Outcome: Progressing Goal: Collaborate with me, my family, and caregiver to identify my specific goals Outcome: Progressing Problem: Discharge Barriers Goal: My discharge needs are met Outcome: Progressing Problem: Pain Goal: Takes deep breaths with improved pain control throughout the shift Outcome: Progressing Goal: Turns in bed with improved pain control throughout the shift Outcome: Progressing Goal: Walks with improved pain control throughout the shift Outcome: Progressing Goal: Performs ADL's with improved pain control throughout shift Outcome: Progressing Goal: Participates in PT with improved pain control throughout the shift Outcome: Progressing Goal: Free from opioid side effects throughout the shift Outcome: Progressing Goal: Free from acute confusion related to pain meds throughout the shift Outcome: Progressing The patient's goals for the shift include The clinical goals for the shift include Pt will maintain patent airway overnight. Problem: Fall/Injury Goal: Not fall by end of shift Outcome: Progressing Goal: Be free from injury by end of the shift Outcome: Progressing Goal: Verbalize understanding of personal risk factors for fall in the hospital Outcome: Progressing Goal: Verbalize understanding of risk factor reduction measures to prevent injury from fall in the home Outcome: Progressing Goal: Use assistive devices by end of the shift Outcome: Progressing Goal: Pace activities to prevent fatigue by end of the shift Outcome: Progressing Problem: Pain Goal: My pain/discomfort is manageable Outcome: Progressing The patient's goals for the shift include safe ambulation and preparation for discharge. The clinical goals for the shift include Pt will ambulate safely and remain free from falls throughout shift. Over the shift, the patient did not make progress toward the following goals. Barriers to progression include . Recommendations to address these barriers include . Problem: Fall/Injury Goal: Not fall by end of shift 04/11/2023 1007 by Nessa Gray RN Outcome: Progressing 04/11/2023 1006 by Nessa Gray RN Outcome: Progressing Goal: Be free from injury by end of the shift 04/11/2023 1007 by Nessa Gray RN Outcome: Progressing 04/11/2023 1006 by Nessa Gray RN Outcome: Progressing Goal: Verbalize understanding of personal risk factors for fall in the hospital 04/11/2023 1007 by Nessa Gray RN Outcome: Progressing 04/11/2023 1006 by Nessa Gray RN Outcome: Progressing Goal: Verbalize understanding of risk factor reduction measures to prevent injury from fall in the home 04/11/2023 1007 by Nessa Gray RN Outcome: Progressing 04/11/2023 1006 by Nessa Gray RN Outcome: Progressing Goal: Use assistive devices by end of the shift 04/11/2023 1007 by Nessa Gray RN Outcome: Progressing 04/11/2023 1006 by Nessa Gray RN Outcome: Progressing Goal: Pace activities to prevent fatigue by end of the shift 04/11/2023 1007 by Nessa Gray RN Outcome: Progressing 04/11/2023 1006 by Nessa Gray RN Outcome: Progressing Problem: Safety Goal: Patient will be injury free during hospitalization 04/11/2023 1007 by Nessa Gray RN Outcome: Progressing 04/11/2023 1006 by Nessa Gray RN Outcome: Progressing Goal: I will remain free of falls 04/11/2023 1007 by Nessa Gray RN Outcome: Progressing 04/11/2023 1006 by Nessa Gray RN Outcome: Progressing Problem: Daily Care Goal: Daily care needs are met 04/11/2023 1007 by Nessa Gray RN Outcome: Progressing 04/11/2023 1006 by Nessa Gray RN Outcome: Progressing Problem: Psychosocial Needs Goal: Demonstrates ability to cope with hospitalization/illness 04/11/2023 1007 by Nessa Gray RN Outcome: Progressing 04/11/2023 1006 by Nessa Gray RN Outcome: Progressing Goal: Collaborate with me, my family, and caregiver to identify my specific goals 04/11/2023 1007 by Nessa Gray RN Outcome: Progressing 04/11/2023 1006 by Nessa Gray RN Outcome: Progressing Problem: Discharge Barriers Goal: My discharge needs are met 04/11/2023 1007 by Nessa Gray RN Outcome: Progressing 04/11/2023 1006 by Nessa Gray RN Outcome: Progressing The clinical goals for the shift include pt will remain HDS by shift Patient remained safe and VSS during shift. Pt and at bedside have been able to suction and clean trach independently. The patient's & clinical goals for the shift include free of respiratory distress. Patient with stable VS. No pain or SOB. Refused pain meds. Patient suctioned self with 's assistance and cleaned inner cannula. Patient did very well! Continue to promote patient suctioning himself and have his due again. Patient remained safe this shift. Edwige Jackson RN The patient's goals for the shift include The clinical goals for the shift include Pt will remain HD stable and have an adequate pain control. Problem: Fall/Injury Goal: Not fall by end of shift Outcome: Progressing Goal: Be free from injury by end of the shift Outcome: Progressing Goal: Verbalize understanding of personal risk factors for fall in the hospital Outcome: Progressing Goal: Verbalize understanding of risk factor reduction measures to prevent injury from fall in the home Outcome: Progressing Goal: Use assistive devices by end of the shift Outcome: Progressing Goal: Pace activities to prevent fatigue by end of the shift Outcome: Progressing The patient's goals for the shift include The clinical goals for the shift include Pt will remain HD stable with adequate pain control overnight. Problem: Fall/Injury Goal: Not fall by end of shift Outcome: Progressing Goal: Be free from injury by end of the shift Outcome: Progressing Goal: Verbalize understanding of personal risk factors for fall in the hospital Outcome: Progressing Goal: Verbalize understanding of risk factor reduction measures to prevent injury from fall in the home Outcome: Progressing Goal: Use assistive devices by end of the shift Outcome: Progressing Goal: Pace activities to prevent fatigue by end of the shift Outcome: Progressing The patient's goals for the shift include more practice with suction and trach care. The clinical goals for the shift include Patient's airway will remain patent throughout shift Patient now on humidified room air. The patient's goals for the shift include The clinical goals for the shift include Pt's airway will remain patent throughout the nightshift Problem: Fall/Injury Goal: Not fall by end of shift 04/07/20232225 by Barbara Madera RN Outcome: Progressing 04/07/20232225 by Barbara Madera RN Outcome: Progressing Goal: Be free from injury by end of the shift 04/07/20232225 by Barbara Madera RN Outcome: Progressing 04/07/20232225 by Barbara Madera RN Outcome: Progressing Goal: Verbalize understanding of personal risk factors for fall in the hospital 04/07/20232225 by Barbara Madera RN Outcome: Progressing 04/07/20232225 by Barbara Madera RN Outcome: Progressing Goal: Verbalize understanding of risk factor reduction measures to prevent injury from fall in the home 04/07/20232225 by Barbara Madera RN Outcome: Progressing 04/07/20232225 by Barbara Madera RN Outcome: Progressing Goal: Use assistive devices by end of the shift 04/07/20232225 by Barbara Madera RN Outcome: Progressing 04/07/20232225 by Barbara Madera RN Outcome: Progressing Goal: Pace activities to prevent fatigue by end of the shift 04/07/20232225 by Barbara Madera RN Outcome: Progressing 04/07/20232225 by Barbara Madera RN Outcome: Progressing Fabricio Nunes is a 63 y.o. male with bilateral ulcerative glottic lesions with stridor who presented for emergent tracheostomy, triple endoscopy with biopsy from ED by Dr Dong on 04/05. Patient had an uncomplicated surgical course. While in PACU, patient was found to have large right pneumothorax necessitating pigtail catheter placement by thoracic surgery. Patient recovered in PACU and was transferred to [place] [id number] for post-operative care. Patient post-operative course was uncomplicated. Tracheostomy cuff was deflated 04/07. Daily chest imaging was followed and once pneumothorax was resolved chest catheter was removed by thoracic surgery. BAG MACHINE SET UP OPERATOR was consulted as well and MBS was done revealing no aspiration, ok for thin liquids and regular diet. Prior to discharge, 6-0 shiley cuffed tracheostomy tube was replaced with 6-0 cuffless shiley tracheostomy tube. On day of discharge, post-operative pain was well controlled with enteral pain medication, breathing on room air, voiding spontaneously, ambulating well, and was tolerating a diet. Follow-up arranged. Battery-powered trach suction was delivered to the patient's bedside prior to discharge. The patient's goals for the shift include The clinical goals for the shift include pain management Problem: Fall/Injury Goal: Not fall by end of shift Outcome: Progressing Goal: Be free from injury by end of the shift Outcome: Progressing Goal: Verbalize understanding of personal risk factors for fall in the hospital Outcome: Progressing Goal: Verbalize understanding of risk factor reduction measures to prevent injury from fall in the home Outcome: Progressing Goal: Use assistive devices by end of the shift Outcome: Progressing Goal: Pace activities to prevent fatigue by end of the shift Outcome: Progressing The patient's goals for the shift include Problem: Fall/Injury Goal: Not fall by end of shift Outcome: Progressing Goal: Be free from injury by end of the shift Outcome: Progressing Goal: Verbalize understanding of personal risk factors for fall in the hospital Outcome: Progressing Goal: Verbalize understanding of risk factor reduction measures to prevent injury from fall in the home Outcome: Progressing Goal: Use assistive devices by end of the shift Outcome: Progressing Goal: Pace activities to prevent fatigue by end of the shift Outcome: Progressing Problem: Skin Goal: Decreased wound size/increased tissue granulation at next dressing change Outcome: Progressing Goal: Participates in plan/prevention/treatment measures Outcome: Progressing Goal: Prevent/manage excess moisture Outcome: Progressing Goal: Prevent/minimize sheer/friction injuries Outcome: Progressing Goal: Promote/optimize nutrition Outcome: Progressing Goal: Promote skin healing Outcome: Progressing Problem: Pain Goal: My pain/discomfort is manageable Outcome: Progressing Problem: Safety Goal: Patient will be injury free during hospitalization Outcome: Progressing Goal: I will remain free of falls Outcome: Progressing Problem: Daily Care Goal: Daily care needs are met Outcome: Progressing Problem: Psychosocial Needs Goal: Demonstrates ability to cope with hospitalization/illness Outcome: Progressing Goal: Collaborate with me, my family, and caregiver to identify my specific goals Outcome: Progressing Problem: Discharge Barriers Goal: My discharge needs are met Outcome: Progressing Problem: Pain Goal: Takes deep breaths with improved pain control throughout the shift Outcome: Progressing Goal: Turns in bed with improved pain control throughout the shift Outcome: Progressing Goal: Walks with improved pain control throughout the shift Outcome: Progressing Goal: Performs ADL's with improved pain control throughout shift Outcome: Progressing Goal: Participates in PT with improved pain control throughout the shift Outcome: Progressing Goal: Free from opioid side effects throughout the shift Outcome: Progressing Goal: Free from acute confusion related to pain meds throughout the shift Outcome: Progressing The clinical goals for the shift include maintain trach site and control pain. Over the shift, the patient did not make progress toward the following goals. Barriers to progression include unable to take oral pills such as oxy. Recommendations to address these barriers include request order for iv diladid. Creation Tracheostomy, Direct Laryngoscopy, Bronchoscopy, Esophagoscopy Operative Note Date: 04/05/2023 OR Location: [facility] OR Name: Fabricio Nunes, : 1960, Age: 63 y.o., , Sex: male Diagnosis Pre-op Diagnosis * Lesion of glottis [J38.7] Post-op Diagnosis * Lesion of glottis [J38.7] Procedures Creation Tracheostomy 14609 - CT TRACHEOSTOMY EMERGENCY PROCEDURE TRANSTRACHEAL Bronchoscopy 32376 - CT [facility] BRUSHING/PROTECTED BRUSHINGS Esophagoscopy 48244 - CT ESOPHAGOSCOPY FLEXIBLE TRANSORAL DIAGNOSTIC Surgeons * Enoc Dong - Primary Resident/Fellow/Other Blanker Operator: Surgeon(s) and Role: * Jeanette Hopkins - Resident, Assisting * Lyndsay Mccrary - Resident, Assisting Procedure Summary Anesthesia: * No anesthesia type entered * ASA: III Anesthesia Staff: Anesthesiologist: Cristina Bailey MD C-AA: HERMELINDA Garcia Sample Case Porter: Darryl Burch MD Estimated Blood Loss: 10mL Intra-op Medications: Medication Name Total Dose lidocaine-epinephrine (Xylocaine W/EPI) 1 %-1:100,000 injection 20 mL Anesthesia Record Intraprocedure I/O Totals Intake Dexmedetomidine 0.00 mL The total shown is the total volume documented since Anesthesia Start was filed. Total Intake 0 mL Specimen: ID Type Source Tests Collected by Time 1 : GLOTTIC MASS FOR FROZEN Tissue SOFT TISSUE MASS BIOPSY SURGICAL PATHOLOGY EXAM Enoc Dong MD 04/05/2023 5147 2 : GLOTTIC MASSFOR PERMANENT Tissue SOFT TISSUE MASS BIOPSY SURGICAL PATHOLOGY EXAM Enoc Dong MD 04/05/2023 5642 Staff: Gasoline Finisher: Negrita Miek RN; Arina Matos RN Scrub Person: TIMO GREER Drains and/or Catheters: * None in log * Findings: 1) Awake tracheostomy completed with 6.0 cuffed Shiley placed via tracheal incision between rings 1-2 (no Henrik or window). Patient with vigorous coughing throughout, desaturation to mid-high 80s and low 90s partway through procedure, otherwise uncomplicated 2) Upon completion of tracheostomy but prior to DL, bronchoscopy, and esophagoscopy, mild crepitus was palpated over the left lateral neck. This was not accumulating and ventilation remained appropriate. We did perform a flexible bronchoscopy via the trach inner cannula and noted no obvious tracheal injuries, so the procedure continued. 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 Remainder of larynx, hypopharynx, and oropharynx without abnormality. 4) No lesions noted on bronchoscopy or esophagoscopy. 5) No evidence of tracheal wall injury on bronchoscopy distal to end of tracheostomy tube or in subglottis between vocal cords and superior aspect of tracheostomy tube. No evidence of esophageal injury on esophagoscopy. 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 Cuff hyperinflated; due to continued adequate oxygenation/clinical stability and improvement in crepitus palpable on examination, decision was made to proceed to PACU for recovery with postoperative CXR and close clinical monitoring Indications: Fabricio Nunes is an 63 y.o. male who presented with 1 year of dysphonia and 1 month of stridor. Flexible laryngoscopy and CT imaging demonstrated irregular mass of bilateral true vocal cords with laryngoscopy showing severe glottic narrowing to ~1mm. Though stable on room air, the patient did have significant biphasic stridor. Due to critical airway narrowing with risk of acute decompensation, asphyxiation, and potential without securement of alternate airway, the recommendation to proceed with awake tracheostomy, followed by direct laryngoscopy with biopsy, esophagoscopy, and bronchoscopy was discussed with the patient. The risks, benefits, and alternatives were reviewed. Risks include but are not limited to pain, bleeding, infection, scarring, loss of airway, injury to adjacent structures, esophageal injury, pneumothorax, . The patient expressed understanding and wished to proceed. Consent was signed, and we proceeded urgently to the operating room. Procedure Details: After appropriate patient identification, the patient was brought down to the operating room and transferred to the operating table in a supine position. A safety check was performed. The patient was strapped to the surgical table, and a shoulder roll was placed. The neck landmarks were palpated. A planned horizontal incision was traced over the cricoid, and the overlying soft tissues were infiltrated with 1% lidocaine with 1:100,000 epinephrine. An oxygen facemask was applied, and precedex was infused by our Anesthesia colleagues. A timeout was performed. The anterior neck was then prepped and draped in standard sterile fashion and a #15 blade was used to incise the planned incision. Dissection then proceeded to the midline raphe which was divided. The strap muscles were retracted laterally on each side and a combination of blunt dissection and cautery were used to expose the anterior surface of the trachea. The thyroid isthmus was divided with monopolar cautery. The anterior tracheal fascia was bluntly dissected off the tracheal surface to allow visualization of the tracheal rings. A 15-blade was used to incise sharply between tracheal rings 1 and 2, and a trach teacher learning disabled was used to widen the tracheal opening. A 6.0 cuffed Shiley tube was then passed through the tracheal incision without difficulty, the cuff was inflated, and the ventilator circuit was connected with confirmation of return of end-tidal CO2. The retractors were then removed. The tracheostomy tube was secured at 4 points with a 2-0 silk suture and a velcro trach collar was placed. At this point, a small amount of crepitus was palpated over the left lateral neck. We disconnected the circuit and performed a flexible bronchoscopy by passing the Ambu flexible bronchoscope through the trach inner cannula. The right and left mainstem bronchi as well as the subsegmental bronchi were visualized bilaterally. No concerning lesions or sources of tracheal injury were identified. Due to appropriate ventilation per the anesthesia circuitry, the decision was made to proceed with the remainder of our procedure, with plan to search for any potential tracheal sources of injury during the remainder of our panendoscopy. We proceeded with direct laryngoscopy using the Dedo laryngoscope. All sites of the upper aerodigestive tract were visualized including the uvula, soft palate, tonsils, vallecula, epiglottis, base of tongue, arytenoids, false and true vocal cords, post-cricoid region and pyriform sinuses. There was noted to be a lesion of the bilateral true vocal cords as described in the findings. Multiple biopsies were obtained from this lesion and submitted for both frozen and permanent pathology. 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 The Ambu flexible bronchoscope was inserted and passed through the Dedo scope and the posterior glottic inlet to better visualize the subglottis, with findings as above. 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 The scope was then removed, and the Dedo was taken out of suspension and removed. Flexible esophagoscopy was performed with the scope inserted to the level of the pylorus and retroflexed. On careful removal of the scope all sites of the gastric and esophageal mucosa were evaluated and there were not any concerning lesions noted. At this point the procedure was terminated. Patient was turned back over to the anesthesia team and was awakened and emerged from anesthesia. While awaiting transport to PACU, the patient began coughing vigorously, and the lateral neck tissues were noted to become edematous with palpable crepitus. Oxygenation remained stable. The trach cuff was slightly overinflated, and the crepitus appeared to subside over a subsequent additional period of observation and application of topical lidocaine to the airway. Due to maintenance of his oxygen status, Anesthesia-reported auscultation of bilateral breath sounds, and clinical stability per Anesthesia, the decision was made to transport the patient to the PACU for further recovery and monitoring. Complications: None except as described as above. Disposition: PACU - hemodynamically stable. Condition: stable Attending Attestation: I was present and scrubbed for the entire procedure. Enoc Dong documented in this encounter [facility] Work Phone: 04-13-2023 Hospital course Narrative Discharge Diagnosis Lesion of glottis Issues Requiring Follow-Up Follw up tracheostomy and to discuss plan of car Test Results Pending At Discharge Pending Labs No current pending labs. Hospital Course Fabricio Nunes is a 63 y.o. male with bilateral ulcerative glottic lesions with stridor who presented for emergent tracheostomy, triple endoscopy with biopsy from ED by Dr Dong on 04/05. Patient had an uncomplicated surgical course. While in PACU, patient was found to have large right pneumothorax necessitating pigtail catheter placement by thoracic surgery. Patient recovered in PACU and was transferred to [place] [id number] for post-operative care. Patient post-operative course was uncomplicated. Tracheostomy cuff was deflated 04/07. Daily chest imaging was followed and once pneumothorax was resolved chest catheter was removed by thoracic surgery. BAG MACHINE SET UP OPERATOR was consulted as well and MBS was done revealing no aspiration, ok for thin liquids and regular diet. Prior to discharge, 6-0 shiley cuffed tracheostomy tube was replaced with 6-0 cuffless shiley tracheostomy tube. On day of discharge, post-operative pain was well controlled with enteral pain medication, breathing on room air, voiding spontaneously, ambulating well, and was tolerating a diet. Follow-up arranged. Battery-powered trach suction was delivered to the patient's bedside prior to discharge. Pertinent Physical Exam At Time of Discharge Physical Exam Vitals reviewed Nose: Nose without drainage or epistaxis Ears: External ears normal Respiratory: Symmetric chest rise ; TC 30%FiO2; no stridor Oral cavity: No bleeding noted in oral cavity Neck: Neck supple, 6.0 cuffless shiley tracheostomy tube in good midline position, cuff deflated, trach tie in place, no oozing or bleeding noted, no crepitus noted Home Medications Medication List START taking these medications sodium chloride 0.9 % irrigation solution; Irrigate with 1,000 mL as directed 3 times a day. For use with tracheostomy care and suctioning sodium chloride 0.9 % nebulizer solution; Take 3 mL by nebulization 3 times a day. Instill 2-3mL into the Tracheostomy tube as needed for thick secretions. CONTINUE taking these medications b complex vitamins capsule thiamine 100 mg tablet; Commonly known as: Vitamin B-1 vitamin E 180 mg (400 unit) capsule Outpatient Follow-Up Future Appointments Date Time Provider Department Center 04/28/2023 1:30 PM John López MD [id number] [facility] Terri Noonan APRN, CNP Certified Family Nurse Practitioner Nurse Practitioner III Department of Otolaryngology: Head & Neck Surgery Personal Pager [phone] ENT Team Head and Neck Phone: [phone] documented in this encounter [facility] Work Phone: 04-13-2023 Note 1. No evidence of me tastatic disease within the chest. Evaluation is somewhat limited by postoperative atelectasis. Follow-up CT imaging as clinically indicated. 2. Small amount of pneumomediastinum, as well as soft tissue gas within the visualized paraglottic space and lower neck, likely postoperative in nature. 3. Additional chronic findings as above. I personally reviewed the images/study and I agree with the findings as stated. This study was interpreted at [facility], [place], [place]. MACRO: None Signed by: Ramin Estrella 04/13/2023 7:53 AM Dictation workstation: [id number] 04-12-2023 Plan of care note The patient's goals for the shift include The clinical goals for the shift include Pt will maintin patent airway overnight [facility] 04-12-2023 Note Received Date and Ti me: 04/05/2023 at 6:35 PM Called Date and Time: 04/05/2023 at 7:[address] 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 The specimen is entirely submitted for frozen section analysis in 1 cassette. CINDY B: Received in formalin, labeled with the patient's name and hospital number and glottic mass for permanent , are multiple brown-menendez cauterized soft tissue fragments aggregating to 0.9 x 0.5 x 0.2 cm. The specimen is submitted in toto in 1 cassette. R [facility] Work Phone: 04-12-2023 History of Present illness Narrative Physical Therapy Physical Therapy Treatment Patient Name: Fabricio Nunes Today's Date: 04/12/2023 Time Calculation Start Time: 1238 Stop Time: 1301 Time Calculation (min): 23 min Assessment/Plan PT Assessment End of Session Communication: Bedside nurse End of Session Patient Position: Bed, 3 rail up, Alarm on PT Plan Treatment/Interventions: Bed mobility, Transfer training, Gait training, Stair training, Balance training, Strengthening, Endurance training, Therapeutic activity, Therapeutic exercise PT Plan: Skilled PT PT Frequency: 2 times per week PT Discharge Recommendations: Low intensity level of continued care PT Recommended Transfer Status: Contact guard PT - OK to Discharge: Yes General Visit Information: PT Visit PT Received On: 04/12/23 General Prior to Session Communication: Bedside nurse Patient Position Received: Bed, 3 rail up, Alarm on General Comment: Pt is pleasant and cooperative. pt ambmulates multiple 300' trials. not SOb or fatiguue noted Subjective Precautions: Vital Signs: Objective Pain: Pain Assessment Pain Score: 0 - No pain Cognition: Cognition Orientation Level: Oriented X4 Treatments: Therapeutic Exercise Therapeutic Exercise Performed: Yes Therapeutic Exercise Activity 1: instructted pt in sitting Ap, LAq, and hip flexioin nx15 rerps AROm Bed Mobility Bed Mobility: Yes Bed Mobility 1 Bed Mobility 1: Supine to sitting, Sitting to supine Level of Assistance 1: Modified independent Ambulation/Gait Training 1 Surface 1: Level tile Device 1: No device Assistance 1: Close supervision Comments/Distance (ft) 1: 2x300, cues to inhbit excessive latetral sway Transfer 1 Technique 1: Sit to stand, Stand to sit Transfer Level of Assistance 1: Modified independent Outcome Measures: [facility] Basic Mobility Turning from your back to your side while in a flat bed without using bedrails: None Moving from lying on your back to sitting on the side of a flat bed without using bedrails: None Moving to and from bed to chair (including a wheelchair): None Standing up from a chair using your arms (e.g. wheelchair or bedside chair): None To walk in hospital room: A little Climbing 3-5 steps with railing: A little Basic Mobility - Total Score: 22 Education Documentation Mobility Training, taught by Nikolay Garcia PTA at 04/12/2023 1:25 PM. Learner: Patient Readiness: Acceptance Method: Explanation Response: Verbalizes Understanding Education Comments No comments found. OP EDUCATION: Encounter Problems Encounter Problems (Active) Balance Pt will demonstrated ability to score at least 24/28 on the Tinetti balance assessment tool to ensure safety upon D/C. (Progressing) Start: 04/06/23 Expected End: 04/13/23 Mobility Pt will demonstrated ability to ambulate >/=300ft with proper form and no balance deficits for safe home going. (Progressing) Start: 04/06/23 Expected End: 04/13/23 Pt will be able to tolerate >15 minutes of standing activity continuously without seated rest break with stable vitals and RPD </=3/10 and RPE </=13/20 for improved functional mobility (Progressing) Start: 04/06/23 Expected End: 04/13/23 Transfers Pt will demonstrate ability to complete 5X STS in < 12 sec with good from and consistency between transfers for safe D/C. (Progressing) Start: 04/06/23 Expected End: 04/13/23 Fabricio Nunes is a 63 y.o. male on day 7 of admission presenting with Lesion of glottis. Subjective No acute changes or concerns overnight. Doing well with trach teaching. Objective Physical Exam Vitals reviewed Nose: Nose without drainage or epistaxis Ears: External ears normal Respiratory: Symmetric chest rise ; TC 30%FiO2; no stridor Oral cavity: No bleeding noted in oral cavity Neck: Neck supple, 6.0 cuffless shiley tracheostomy tube in good midline position, cuff deflated, trach tie in place, no oozing or bleeding noted, no crepitus noted Last Recorded Vitals Blood pressure 113/71, pulse 78, temperature 35.2 C (95.4 F), temperature source Temporal, resp. rate 18, height 1.727 m (5' 8 ), weight 91.4 kg (201 lb 8 oz), SpO2 97 %. Intake/Output last 3 Shifts: No intake/output data recorded. Assessment/Plan Principal Problem: Lesion of glottis Active Problems: Shortness of breath Biphasic stridor Acute on chronic respiratory failure with hypoxia (CMS/HCC) Airway obstruction, anatomic Fabricio Nunes is a 63 y.o. male with one year of dysphonia and one month of stridor who presented to [place] ED with SOB and transferred to [facility] for further ENT evaluation. 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 Chest drain was removed 04/07 without issue. On regular nursing floor for trach care. - Neuro: acetaminophen scheduled; lidoderm to chest tube site prn pain - Resp: wean O2 as able, IS q1h while awake, thoracics signed off; PMV per BAG MACHINE SET UP OPERATOR if able to tolerate with glottis lesion, thoracic re: ok for PMV in setting of recent pneumothorax; Continue trach care every 4-6 hours as per nursing protocol; clean inner cannula daily; Trach changed to 6-0 CFLS 04/10 - CV: Vitals q4h - GI: Bowel regimen; Passed MBS 04/07- regular diet;; zofran prn - FEN: Regular diet; monitor electrolytes and replete as needed - : Voiding spontaneously - ID: Ancef q8h 04/06 x3 doses - Heme: CBC stable - Endo: none - Embolic PPx: SQH, SCDs while in bed - Dispo: PT recs; will follow up pathology results; 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 Tentative discharge on 04/11 - will discuss with SW re: electricity-friendly suction machine/battery operated, waiting on delivery now Cheo Crockett MD ENT [id number] Fabricio Nunes is a 63 y.o. male on day 7 of admission presenting with Lesion of glottis. Medical service [employer] no longer can accept patient for supplies. TCC sent out blanket referrals to [employer] and [employer] for trach supplies. Team updated on barrier. TCC will continue to follow 04/11/22 4:46pm- [facility] will begin order for suction machine. TCC will continue to follow. 04/12/22 1035am- TCC contacted [facility] at [phone] to pay for patients medical supplies. [facility] gave fax number of [phone]. TCC called [employer] with fax number to get payment for supplies. TCC will continue to follow. OZZY CAT, TINA Fabricio Nunes is a 63 y.o. male on day 6 of admission presenting with Lesion of glottis. Medical service [employer] no longer can accept patient for supplies. TCC sent out blanket referrals to [employer] and [employer] for trach supplies. Team updated on barrier. TCC will continue to follow 04/11/22 4:46pm- [facility] will begin order for suction machine. TCC will continue to follow. OZZY CAT RN Fabricio Nunes is a 63 y.o. male on day 6 of admission presenting with Lesion of glottis. Medical service company no longer can accept patient for supplies. TCC sent out blanket referrals to [employer] and [employer] for trach supplies. Team updated on barrier. TCC will continue to follow OZZY CAT RN Speech-Language Pathology Adult Inpatient Swallow Treatment Patient Name: Fabricio Nunes Today's Date: 04/11/2023 Start Time: 1030 Stop Time: 1045 Time Calculation (min): 15 minutes Impression: Dysphagia tx completed to ensure tolerance of recommended oral diet. BAG MACHINE SET UP OPERATOR educ pt's re: MBSS results/recommendations. Pt consuming thin liquids - Water via straw via single sips. Pt reported no difficulty swallowing current oral diet. Given unknown results of biopsy, BAG MACHINE SET UP OPERATOR unable to dictate dysphagia POC at this time. BAG MACHINE SET UP OPERATOR educ pt re: role in dysphagia management pending results of biopsy. Pt's /pt verbalized understanding and in agreement. BAG MACHINE SET UP OPERATOR to follow peripherally to determine ongoing dysphagia needs/intervention POC. Recommendations: Regular diet w/ Thin liquids Frequent, aggressive oral care is strongly recommended to improve infection control as well as reduce dental plaque and bacteria on oropharyngeal surfaces which may increase the risk nosocomial infections, including pneumonia. BAG MACHINE SET UP OPERATOR to follow-up pending dx Goal: Pt will tolerate least restrictive diet and recall/utilize safe swallow guidelines independently with no clinical s/s of aspiration 100% of time Plan: BAG MACHINE SET UP OPERATOR Services Indicated: Yes Frequency: 2x week Discussed POC with patient and spouse BAG MACHINE SET UP OPERATOR - OK to Discharge Pain: 0-10 0 = No pain. Inpatient Education: Extensive education provided to patient and spouse regarding current swallow function, recommendations/results, and POC. Consultations/Referrals/Coordina tion of Services: N/A Speech-Language Pathology Adult Inpatient External Speaking Valve Placement (PMSV) Patient Name: Farbicio Nunes Today's Date: 04/11/2023 Start Time: 950 Stop Time: 1030 Time Calculation (min): 40 History of Present Illness: Fabricio Nunes is a 63 y.o. male with no pmhx presenting with one year of hoarseness and one month of inspiratory stridor. Notably, he recently presented to [place] ED with dysphonia and SOB where he was treated for bronchitis and discharged. Today, patient presented to [place] ED today and transferred to [facility] for further evaluation by ENT for possible tracheostomy placement, after Scope exam showed bilateral ulcerative lesions and minimal glottic gap patient was taken to the OR with ENT for tracheostomy due to concerns for impending airway compromise,post operatively patient was noted to have crepitus around right neck and chest and patient had desaturations to 85% and had increasing oxygen requirements. CXR obtained showed a large right sided pneumothorax, Thoracic surgery placed a right sided chest tube.. Per chart review, patient has had 1 year of progressive hoarseness of his voice. About 1 month prior to this visit, patient states that he was diagnosed with bronchitis and completed a course of antibiotics. Shortly after, patient noted worsening SOB and loud breathing. Patient states that he does not have SOB at rest, but endorses MUÑIZ and SOB after speaking. He also endorses 8 pound weight loss over the last month, which he believes is due to a poor appetite as he has not been able to work with his SOB. Patient denies dysphagia, neck pain, fever, chills, productive cough, or previous history of SOB. Tracheostomy Type: 6 Shiley, cuffless On Vent: No Impression: Initial external speaking valve placement completed. Pt received awake/alert and upright in bed with at bedside. reports pt with significant difficulty breathing + dysphonia/aphonia prior to admission/tracheostomy procedure. Pt communicated via written word/mouthing throughout session; endorses significant improvement in respiratory status s/p trach. Minimal secretions noted e/b wet airway sounds with production of /h/. Pt reports most recent suctioning ~4 hours prior to session. Attempted placement of PMSV. Pt declined trial 2/2 difficulty breathing through nasal/oral cavity. Pt stated, I can't breathe when it's [trach] is covered. Pt agreeable to trials of finger occlusion to assess upper airway patency/voicing ability. Finger occlusion trialed w/o success; pt unable to produce voice and with air escaping through trach around occlusion. Further trials deferred 2/2 pt request/performance with finger occlusion. Education provided re: utility of PMSV and subsequent POC. Pt and spouse verbalized understanding. PMSV remained with BAG MACHINE SET UP OPERATOR upon exit. Recommend Speech Therapy Services: Yes; Targeting PMSV trials as pt able/schedule permits. Goal(s): Pt will complete PMSV trials with no significant changes to vital signs >30 min at a time. Plan: BAG MACHINE SET UP OPERATOR Services Indicated: Yes Frequency: 2x week Discussed POC with patient and spouse BAG MACHINE SET UP OPERATOR - OK to Discharge Pain: 0-10 0 = No pain. Inpatient Education: Extensive education provided to patient and spouse regarding current function, recommendations/results, and POC. Consultations/Referrals/Coordina tion of Services: N/A Fabricio Nunes is a 63 y.o. male on day 5 of admission presenting with Lesion of glottis. Subjective No acute changes or concerns overnight. Doing well with trach teaching. Objective Physical Exam Vitals reviewed Nose: Nose without drainage or epistaxis Ears: External ears normal Respiratory: Symmetric chest rise ; TC 30%FiO2; no stridor Oral cavity: No bleeding noted in oral cavity Neck: Neck supple, 6.0 shiley tracheostomy tube in good midline position, cuff deflated, stitches and trach tie in place, no oozing or bleeding noted, very minimal L supraclavicular crepitus improved from prior exam Last Recorded Vitals Blood pressure 123/82, pulse 85, temperature 37.3 C (99.1 F), temperature source Temporal, resp. rate 18, height 1.727 m (5' 8 ), weight 91.4 kg (201 lb 8 oz), SpO2 92 %. Intake/Output last 3 Shifts: I/O last 3 completed shifts: In: 300 (3.3 mL/kg) [P.O.:300] Out: - (0 mL/kg) Weight: 91.4 kg Assessment/Plan Principal Problem: Lesion of glottis Active Problems: Shortness of breath Biphasic stridor Acute on chronic respiratory failure with hypoxia (CMS/HCC) Airway obstruction, anatomic Fabricio Nunes is a 63 y.o. male with one year of dysphonia and one month of stridor who presented to [place] ED with SOB and transferred to [facility] for further ENT evaluation. 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 Chest drain was removed 04/07 without issue. On regular nursing floor for trach care. - Neuro: acetaminophen scheduled; lidoderm to chest tube site prn pain - Resp: wean O2 as able, IS q1h while awake, thoracics signed off; PMV per BAG MACHINE SET UP OPERATOR if able to tolerate with glottis lesion, thoracic re: ok for PMV in setting of recent pneumothorax; Continue trach care every 4-6 hours as per nursing protocol; clean inner cannula daily; Trach change to 6-0 CFLS 04/10 - CV: Vitals q4h - GI: Bowel regimen; Passed MBS 04/07- regular diet;; zofran prn - FEN: Regular diet; monitor electrolytes and replete as needed - : Voiding spontaneously - ID: Ancef q8h 04/06 x3 doses - Heme: CBC stable - Endo: none - Embolic PPx: SQH, SCDs while in bed - Dispo: PT recs; will follow up pathology results; 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 Tentative discharge on 04/11 - will discuss with SW re: electricity-friendly suction machine/battery operated Patient seen and discussed with Dr. Zahida Mccrary MD ENT [id number] Fabricio Nunes is a 63 y.o. male on day 3 of admission presenting with Lesion of glottis. Subjective No acute changes or concerns overnight. Clamp trial successful and chest tube removed by thoracic team. CXR without pneumothorax. Patient tolerating regular diet Objective Physical Exam Vitals reviewed Nose: Nose without drainage or epistaxis Ears: External ears normal Respiratory: Symmetric chest rise ; TC 30%FiO2; no stridor Oral cavity: No bleeding noted in oral cavity Neck: Neck supple, 6.0 shiley tracheostomy tube in good midline position, cuff deflated, stitches and trach tie in place, no oozing or bleeding noted, L supraclavicular crepitus improved from prior exam Last Recorded Vitals Blood pressure 125/83, pulse 95, temperature 37.1 C (98.8 F), resp. rate 16, height 1.727 m (5' 8 ), weight 91.4 kg (201 lb 8 oz), SpO2 95 %. Intake/Output last 3 Shifts: I/O last 3 completed shifts: In: 2150 (23.5 mL/kg) [P.O.:100; I.V.:1950 (21.3 mL/kg); IV Piggyback:100] Out: 301 (3.3 mL/kg) [Urine:300 (0.1 mL/kg/hr); Stool:1] Weight: 91.4 kg Relevant Results Scheduled medications acetaminophen, 1,000 mg, oral, q8h MARIAMA chlorhexidine, 15 mL, Mouth/Throat, TID after meals heparin (porcine), 5,000 Units, subcutaneous, q8h lidocaine, 1 patch, transdermal, Daily polyethylene glycol, 17 g, nasoduodenal tube, Daily senna, 10 mL, nasoduodenal tube, BID Continuous medications PRN medications PRN medications: albuterol, hydrALAZINE, naloxone, ondansetron, oxygen Assessment/Plan Principal Problem: Lesion of glottis Active Problems: Shortness of breath Biphasic stridor Acute on chronic respiratory failure with hypoxia (CMS/HCC) Airway obstruction, anatomic Fabricio Nunes is a 63 y.o. male with one year of dysphonia and one month of stridor who presented to [facility] with SOB and transferred to [facility] for further ENT evaluation. 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 Chest drain was removed 04/07 without issue. - Neuro: acetaminophen scheduled; lidoderm to chest tube site prn pain - Resp: wean O2 as able, IS q1h while awake, pigtail chest catheter removed, thoracics signed off ; Continue trach care every 4-6 hours as per nursing protocol; clean inner cannula daily; sutures out POD 5 - CV: hydralazine prn; Vitals q4h - GI: Bowel regimen; Passed MBS 04/07;; zofran prn - FEN: Regular diet; monitor electrolytes and replete as needed - : Voiding spontaneously - ID: Ancef q8h 04/06 x3 doses - Heme: daily CBC - Endo: SSI - Embolic PPx: SQH, SCDs while in bed - Dispo: PT recs; will follow up pathology results; 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 Tentative discharge on 04/10 versus 04/11 Patient seen and discussed with Dr. Teague. Benjamin Kurtz MD ENT [id number] Transitional Care Coordination Progress Note: Patient discussed during interdisciplinary rounds. Team members present: PRINCIPAL ARCHITECT, SW, RD, TCC and PCN Plan per Medical/Surgical team: Fabricio Nunes is a 63 y.o. male with one year of dysphonia and one month of stridor who presented to [facility] with SOB and transferred to [facility] for further ENT evaluation. 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 -- Pt passed swallow evaluation today and will advance to regular diet. Pt to have chest tube removed tomorrow most likely per team. Status: IP Payor source: [facility] Discharge disposition: home with , HC TBD; Met with pt and at the bedside to complete admission assessment. Pt lives with and is normally independent with ADLs. Pt lives in [facility]. Pt and are willing to learn trach care. Pt is open to receiving home care. However no accepting HC agencies at this time. Referral sent to Medical Service for trach supplies. Medical services asked for cost breakdown for supplies. Potential Barriers: none ADOD: 04/10- Tammy Devine RN, TCC Doc [facility] Speech-Language Pathology Therapy Communication Note Patient Name: Fabricio Nunes Today's Date: 04/07/2023 Time: 745 Discipline: Speech-Language Pathology Reason: Attempt Comment: Passy marv speaking valve (PMSV) deferred at this time per attending. MBSS to be completed as pt able/radiology schedule permits. Fabricio Nunes is a 63 y.o. male presenting with right sided pneumothorax after tracheostomy placement. Pigtail placed at bedside 04/05/23 with appropriate expansion of lung. Subjective NAEO. Patient resting comfortably in bed. Endorsing no SOB or CP. No air leak on CT. Objective Physical Exam Constitutional: General: He is not in acute distress. Appearance: Normal appearance. He is not ill-appearing, toxic-appearing or diaphoretic. HENT: Head: Normocephalic and atraumatic. Eyes: General: No scleral icterus. Pupils: Pupils are equal, round, and reactive to light. Neck: Trachea: Tracheostomy present. Cardiovascular: Rate and Rhythm: Regular rhythm. Tachycardia present. Pulmonary: Effort: Pulmonary effort is normal. No respiratory distress. Breath sounds: Normal breath sounds. No wheezing. Comments: CT in place on right side with no air leak, on WS Abdominal: General: There is no distension. Palpations: Abdomen is soft. Tenderness: There is no abdominal tenderness. There is no guarding. Musculoskeletal: General: Normal range of motion. Skin: General: Skin is warm and dry. Coloration: Skin is not jaundiced. Findings: No rash. Neurological: Mental Status: He is alert and oriented to person, place, and time. Mental status is at baseline. Psychiatric: Mood and Affect: Mood normal. Behavior: Behavior normal. Judgment: Judgment normal. Last Recorded Vitals Blood pressure 147/86, pulse 86, temperature 36 C (96.8 F), resp. rate 18, height 1.727 m (5' 8 ), weight 91.4 kg (201 lb 8 oz), SpO2 95 %. Intake/Output last 3 Shifts: I/O last 3 completed shifts: In: 3410 (37.3 mL/kg) [I.V.:2610 (28.6 mL/kg); IV Piggyback:800] Out: 1550 (17 mL/kg) [Urine:1550 (0.5 mL/kg/hr)] Weight: 91.4 kg Relevant Results Results for orders placed or performed during the hospital encounter of 04/05/23 (from the past 24 hour(s)) POCT GLUCOSE Result Value Ref Range POCT Glucose 126 (H) 74 - 99 mg/dL Electrocardiogram, 12-lead PRN ACS symptoms Result Value Ref Range Ventricular Rate 107 BPM Atrial Rate [address] Interval 160 ms QRS Duration 90 ms QT Interval 356 ms QTC Calculation(Bazett) 475 ms P Chamberlain 34 degrees R Chamberlain -14 degrees T Chamberlain 111 degrees QRS Count 18 beats Q Onset 218 ms P Onset 138 ms P Offset 200 ms T Offset 396 ms QTC Fredericia 431 ms POCT GLUCOSE Result Value Ref Range POCT Glucose 97 74 - 99 mg/dL POCT GLUCOSE Result Value Ref Range POCT Glucose 122 (H) 74 - 99 mg/dL POCT GLUCOSE Result Value Ref Range POCT Glucose 119 (H) 74 - 99 mg/dL POCT GLUCOSE Result Value Ref Range POCT Glucose 88 74 - 99 mg/dL Pending AM CXR Assessment/Plan Principal Problem: Lesion of glottis Active Problems: Shortness of breath Biphasic stridor Acute on chronic respiratory failure with hypoxia (CMS/HCC) Airway obstruction, anatomic Fabricio Nunes is a 63 y.o. male presenting with right sided pneumothorax after tracheostomy placement. Pigtail placed at bedside 04/05/23 with appropriate expansion of lung. - clamped CT at bedside at 0630 - obtain CXR at 1030. If no pneumothorax present, thoracic surgery will DC CT and obtain repeat imaging post-pull Patient seen and discussed with fellow Dr. Oconnell and attending Dr. Vince Garcia MD General Surgery PGY2 Thoracic surgery [id number] Fabricio Nunes is a 63 y.o. male on day 2 of admission presenting with Lesion of glottis. Subjective S/p awake trach, triple, biopsy c/b R pneumonthorax now s/p R pigtail. Clamp trial today per thoracic team. AM CXR pending. Objective Physical Exam Vitals reviewed Nose: Nose without drainage or epistaxis Ears: External ears normal Respiratory: Symmetric chest rise ; TC 30%FiO2; no stridor Oral cavity: No bleeding noted in oral cavity Neck: Neck supple, 6.0 shiley tracheostomy tube in good midline position, cuff deflated, stitches and trach tie in place, no oozing or bleeding noted, L supraclavicular crepitus improved from prior exam Last Recorded Vitals Blood pressure 147/86, pulse 80, temperature 36 C (96.8 F), resp. rate 18, height 1.727 m (5' 8 ), weight 91.4 kg (201 lb 8 oz), SpO2 98 %. Intake/Output last 3 Shifts: I/O last 3 completed shifts: In: 2791.3 (30.5 mL/kg) [I.V.:2091.3 (22.9 mL/kg); IV Piggyback:700] Out: 1250 (13.7 mL/kg) [Urine:1250 (0.4 mL/kg/hr)] Weight: 91.4 kg Relevant Results Scheduled medications acetaminophen, 1,000 mg, nasoduodenal tube, q8h MARIAMA chlorhexidine, 15 mL, Mouth/Throat, TID after meals heparin (porcine), 5,000 Units, subcutaneous, q8h insulin lispro, 0-5 Units, subcutaneous, q4h lidocaine, 1 patch, transdermal, Daily polyethylene glycol, 17 g, nasoduodenal tube, Daily senna, 10 mL, nasoduodenal tube, BID Continuous medications lactated Ringer's, 75 mL/hr, Last Rate: 75 mL/hr (04/06/231999) PRN medications PRN medications: albuterol, dextrose, glucagon, hydrALAZINE, naloxone, ondansetron, oxygen Assessment/Plan Principal Problem: Lesion of glottis Active Problems: Shortness of breath Biphasic stridor Acute on chronic respiratory failure with hypoxia (CMS/HCC) Airway obstruction, anatomic Fabricio Nunes is a 63 y.o. male with one year of dysphonia and one month of stridor who presented to [facility] with SOB and transferred to [facility] for further ENT evaluation. 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 - Neuro: acetaminophen scheduled; lidoderm to chest tube site prn pain - Resp: wean O2 as able, IS q1h while awake, pigtail chest catheter clamp trial today per thoracic; repeat am CXR pending; appreciate thoracic recs; Continue trach care every 4-6 hours as per nursing protocol; clean inner cannula daily; sutures out POD5 - CV: hydralazine prn; Vitals q4h - GI: Bowel regimen; npo until MBS 04/07; consider DHT if fails po trial; zofran prn - FEN: mIVF while npo; monitor electrolytes and replete as needed - : Voiding spontaneously - ID: Ancef q8h 04/06 x3 doses - Heme: daily CBC - Endo: SSI - Embolic PPx: SQH, SCDs while in bed - Dispo: PT recs; will follow up pathology results; 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 Whitt. Victor Manuel Lomax, DO ENT [id number] PLAN: SICU from OR s/p awake trach, bronchoscopy, endoscopy and biopsy with Dr Dong 04/05: serial exams with symptom management, MAP goals, R pigtail- thoracics following, pulm toilet PRN, nutrition consult, plan for MBS tomorrow, trend labs, skin, line, ICU tlc. PAYOR: [facility] [employer] DISPO: home vs home with hhc SUPPORT/CONTACT: Olivia (spouse) [phone] Met with patient and spouse to complete assessment. Confirmed demographics on file. Patient lives on ground level of home with [address]STE. DEVENA, active with [facility]. No barriers to follow-up care. Patient and spouse state he will have 24/7 assist at discharge and would be amenable to HHC if needed. Available to assist with any developing needs. Occupational Therapy Evaluation Patient Name: Fabricio Nunes Today's Date: 04/06/2023 Time: 8647-8364 Assessment IP OT Assessment OT Assessment: Pt appears close to functional baseline from OT setting. Demo's ability to manage self-care and functional mobility tasks, Evaluation/Treatment Tolerance: Patient tolerated treatment well Medical Staff Made Aware: Yes End of Session Communication: Bedside nurse End of Session Patient Position: Bed, 3 rail up, Alarm on Plan: No Skilled OT: No acute OT goals identified OT Recommended Transfer Status: Stand by assist OT - OK to Discharge: Yes (Per OT eval) Subjective Current Problem: 1. Shortness of breath 2. Lesion of glottis Case Request Operating Room: Creation Tracheostomy, Bronchoscopy, Esophagoscopy, Direct Laryngoscopy Case Request Operating Room: Creation Tracheostomy, Bronchoscopy, Esophagoscopy, Direct Laryngoscopy Surgical Pathology Exam Surgical Pathology Exam 3. Stridor 4. Postprocedural pneumothorax Chest Tube Insertion Chest Tube Insertion General: Reason for Referral: Pt transferred to [facility] for further ENT evaluation. 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 Past Medical History Relevant to Rehab: No PMH on file. Does endorse one year of hoarseness and one month of inspiratory stridor. Prior to Session Communication: Bedside nurse Patient Position Received: Bed, 3 rail up, Alarm on Family/Caregiver Present: Yes Caregiver Feedback: present during session General Comment: Pt is pleasant and cooperative. He puts forth good effort and able to complete all tasks asked of him. nHe has a dry erase board and able to effectively communicate his needs. (Vent collar on 40% FiO2.) Precautions: Medical Precautions: Oxygen therapy device and L/min, Fall precautions Vital Signs: Heart Rate: 99 Resp: 20 SpO2: 97 % BP: (!) 156/93 MAP (mmHg): 94 Pain: Pain Assessment Pain Score: 0 - No pain Lines/Tubes/Drains: Surgical Airway 6 (Active) Number of days: 0 Chest Tube Right (Active) Number of days: 0 Objective Cognition: Orientation Level: Oriented X4 Home Living: Type of Home: House Lives With: Spouse Home Adaptive Equipment: None Home Layout: One level Prior Function: Level of [place]: Independent with ADLs and functional transfers, Independent with homemaking with ambulation Receives Help From: Family (Family is helpful as needed) ADL Assistance: Independent Homemaking Assistance: Independent Ambulatory Assistance: Independent Prior Function Comments: Pt reports needing increased assist from family over past few weeks. IADL History: ADL: Eating Assistance: Independent Grooming Assistance: Independent Bathing Assistance: Stand by Bathing Deficit: Setup UE Dressing Assistance: Stand by UE Dressing Deficit: Setup LE Dressing Assistance: Modified independent (Device) LE Dressing Deficit: Setup (Able to fully manage socks while seated EOB) Toileting Assistance with Device: Stand by Activity Tolerance: Endurance: Endurance does not limit participation in activity Early Mobility/Exercise Safety Screen: Proceed with mobilization - No exclusion criteria met Balance: Dynamic Sitting Balance Dynamic Sitting-Comments: Good balance while managing soxcks seated EOB Static Sitting Balance Static Sitting-Level of Assistance: Distant supervision Static Standing Balance Static Standing-Level of Assistance: Close supervision Bed Mobility/Transfers: Bed Mobility Bed Mobility: Yes Bed Mobility 1 Bed Mobility 1: Supine to sitting, Sitting to supine Level of Assistance 1: Contact guard Bed Mobility Comments 1: HOB raised and cues for hand placement and technique and Transfers Transfer: Yes Transfer 1 Transfer From 1: Sit to Transfer to 1: Stand Technique 1: Sit to stand, Stand to sit Transfer Level of Assistance 1: Close supervision Trials/Comments 1: No AD Transfers 2 Trials/Comments 2: Pt able to take a few lateral steps towards HOB without AD with Sup IADL's: Vision: and Vision - Complex Assessment Ocular Range of Motion: Within Functional Limits Sensation: Light Touch: No apparent deficits Strength: Strength Comments: BUE observed through task completion to be at least 3+/5 Perception: Coordination: Movements are Fluid and Coordinated: Yes Hand Function: Hand Function Gross Grasp: Functional Outcome Measures: [facility] Daily Activity Putting on and taking off regular lower body clothing: None Bathing (including washing, rinsing, drying): A little Putting on and taking off regular upper body clothing: None Toileting, which includes using toilet, bedpan or urinal: A little Taking care of personal grooming such as brushing teeth: None Eating Meals: None Daily Activity - Total Score: 22 ICU Mobility Screen Early Mobility/Exercise Safety Screen: Proceed with mobilization - No exclusion criteria met, Education Documentation Body Mechanics, taught by Kim Guillaume OT at 04/06/2023 3:34 PM. Learner: Family, Patient Readiness: Acceptance Method: Explanation, Demonstration Response: Verbalizes Understanding, Demonstrated Understanding ADL Training, taught by Kim Guillaume OT at 04/06/2023 3:34 PM. Learner: Family, Patient Readiness: Acceptance Method: Explanation, Demonstration Response: Verbalizes Understanding, Demonstrated Understanding Education Comments No comments found. 04/06/23 at 3:35 PM Kim Guillaume OT Rehab Office: [phone] Physical Therapy Physical Therapy Evaluation & Treatment Patient Name: Fabricio Nunes Today's Date: 04/06/2023 Time Calculation Start Time: 1213 Stop Time: 1249 Time Calculation (min): 36 min Assessment/Plan PT Assessment PT Assessment Results: Decreased strength, Decreased endurance, Impaired balance, Decreased mobility Rehab Prognosis: Excellent Medical Staff Made Aware: Yes End of Session Communication: Bedside nurse Assessment Comment: Pt demonstrated ability to complete bed mobility, sit<>stand transfer and ambulation. No instability noted during session. Vital stable with all functional mobility. End of Session Patient Position: Up in chair, Alarm off, not on at start of session IP OR SWING BED PT PLAN Inpatient or Swing Bed: Inpatient PT Plan Treatment/Interventions: Bed mobility, Transfer training, Gait training, Stair training, Balance training, Strengthening, Endurance training, Therapeutic activity, Therapeutic exercise PT Plan: Skilled PT PT Frequency: 2 times per week PT Discharge Recommendations: Low intensity level of continued care PT Recommended Transfer Status: Contact guard PT - OK to Discharge: Yes Subjective General Visit Information: General Reason for Referral: Awake trach, triple, biopsy c/b R pneumonthorax now s/p R pigtail. Past Medical History Relevant to Rehab: No past medical history Family/Caregiver Present: Yes Caregiver Feedback: present at bedside throughout session Prior to Session Communication: Bedside nurse Patient Position Received: Bed, 3 rail up, Alarm off, not on at start of session Preferred Learning Style: auditory, verbal General Comment: Awake, alert and willing to participate in PT session Home Living: Home Living Type of Home: House Lives With: Spouse Home Adaptive Equipment: None Home Layout: (1 TAN, bed/bath - 1st floor, tub/shower) Prior Level of Function: Prior Function Per Pt/Caregiver Report Level of [place]: Independent with ADLs and functional transfers, Independent with homemaking with ambulation Receives Help From: Family ADL Assistance: Independent Homemaking Assistance: Independent Ambulatory Assistance: Independent Vocational: supervising deputy employment Precautions: Precautions Hearing/Visual Limitations: WFL Medical Precautions: Fall precautions, Chest tube Vital Signs: Vital Signs Heart Rate: 110 (End of session: 108) Heart Rate Source: Monitor Resp: 18 (End of session: 24) SpO2: 96 % (End of session: 95) BP: (!) 148/94 (EO/97; End of session: 145/92) MAP (mmHg): 108 (EOB: 113; End of session: 106) BP Location: Right arm BP Method: Automatic Patient Position: (Supine start, sitting end of session) Objective Pain: Pain Assessment Pain Assessment: (Pain at chest tube side - unrated) Cognition: Cognition Overall Cognitive Status: Within Functional Limits (Pt able to mouth words, nod head yes/no and write on white board) Orientation Level: Oriented X4 General Assessments: General Observation General Observation: IV, chest tube, teley, trach collar (50%, 9L - RT transitioned pt to portable O2 to complete ambulation this date) Activity Tolerance Endurance: Tolerates 10 - 20 min exercise with multiple rests Early Mobility/Exercise Safety Screen: Proceed with mobilization - No exclusion criteria met Sensation Light Touch: No apparent deficits Strength Strength Comments: Not formally assessed however at least 3/5 shown through functional mobility Postural Control Postural Control: Within Functional Limits Static Sitting Balance Static Sitting-Balance Support: Bilateral upper extremity supported, Feet supported Static Sitting-Level of Assistance: Distant supervision Static Standing Balance Static Standing-Balance Support: Bilateral upper extremity supported Static Standing-Level of Assistance: Contact guard Static Standing-Comment/Number of Minutes: FWW Functional Assessments: ADL ADL's Addressed: No Bed Mobility Bed Mobility: Yes Bed Mobility 1 Bed Mobility 1: Supine to sitting Level of Assistance 1: Contact guard Bed Mobility Comments 1: HOB elevated, cues for hand placement Transfers Transfer: Yes Transfer 1 Transfer From 1: Sit to, Stand to Transfer to 1: Sit, Stand Technique 1: Sit to stand, Stand to sit Transfer Device 1: Walker Transfer Level of Assistance 1: Contact guard Trials/Comments 1: Cues for hand placement and proper use of AD Ambulation/Gait Training Ambulation/Gait Training Performed: Yes Ambulation/Gait Training 1 Surface 1: Level tile Device 1: Rolling walker Assistance 1: Contact guard Comments/Distance (ft) 1: ~300ft Stairs Stairs: No Extremity/Trunk Assessments: RUE RUE : Within Functional Limits LUE LUE: Within Functional Limits RLE RLE : Within Functional Limits LLE LLE : Within Functional Limits Treatments: Therapeutic Activity Therapeutic Activity Performed: Yes Therapeutic Activity 1: ~60 sec static stand to attempt to use urinal. x2 sit<>stand transfer from chair, x1 sit<>stand transfer from toilet, pt demonstrating ability to complete BM clean up from toilet without assistance. Pt completed chair<>toilet transfer without use of AD, CGA via therapist. Outcome Measures: [facility] Basic Mobility Turning from your back to your side while in a flat bed without using bedrails: A little Moving from lying on your back to sitting on the side of a flat bed without using bedrails: A little Moving to and from bed to chair (including a wheelchair): A little Standing up from a chair using your arms (e.g. wheelchair or bedside chair): A little To walk in hospital room: A little Climbing 3-5 steps with railing: A little Basic Mobility - Total Score: 18 FSS-ICU Ambulation: Walks >/ or equal to 150 feet with supervision Rolling: Supervision or set-up only Sitting: Supervision or set-up only Transfer [id number]: Supervision or set-up only Transfer [id number]: Supervision or set-up only Total Score: 25 Encounter Problems Encounter Problems (Active) Balance Pt will demonstrated ability to score at least 24/28 on the Tinetti balance assessment tool to ensure safety upon D/C. (Progressing) Start: 04/06/23 Expected End: 04/20/23 Mobility Pt will demonstrated ability to ambulate >/=300ft with proper form and no balance deficits for safe home going. (Progressing) Start: 04/06/23 Expected End: 04/20/23 Pt will be able to tolerate >15 minutes of standing activity continuously without seated rest break with stable vitals and RPD </=3/10 and RPE </=13/20 for improved functional mobility (Progressing) Start: 04/06/23 Expected End: 04/20/23 Transfers Pt will demonstrate ability to complete 5X STS in < 12 sec with good from and consistency between transfers for safe D/C. (Progressing) Start: 04/06/23 Expected End: 04/20/23 Education Documentation Body Mechanics, taught by Zakia Helms PT at 04/06/2023 3:30 PM. Learner: Significant Other, Patient Readiness: Acceptance Method: Explanation, Demonstration Response: Verbalizes Understanding, Demonstrated Understanding Mobility Training, taught by Zakia Helms PT at 04/06/2023 3:30 PM. Learner: Significant Other, Patient Readiness: Acceptance Method: Explanation, Demonstration Response: Verbalizes Understanding, Demonstrated Understanding Education Comments No comments found. Fabricio Nunes is a 63 y.o. male on day 1 of admission presenting with Lesion of glottis. Subjective S/p awake trach, triple, biopsy c/b R pneumonthorax now s/p R pigtail. Interval resolution of pneumothorax on AM CXR. Objective Physical Exam AFVSS, on CPAP, PEEP 5 Nose without drainage or epistaxis External ears normal Symmetric chest rise No bleeding noted in oral cavity Neck supple, 6.0 shiley tracheostomy tube in good midline position, stitches and trach tie in place, no oozing or bleeding noted, L supraclavicular crepitus improved from prior exam Last Recorded Vitals Blood pressure (!) 147/95, pulse 103, temperature 36.6 C (97.9 F), temperature source Temporal, resp. rate (!) 35, height 1.727 m (5' 8 ), weight 91.4 kg (201 lb 8 oz), SpO2 94 %. Intake/Output last 3 Shifts: I/O last 3 completed shifts: In: 1612.5 (17.6 mL/kg) [I.V.:1512.5 (16.5 mL/kg); IV Piggyback:100] Out: 0 (0 mL/kg) Weight: 91.4 kg Relevant Results Scheduled medications acetaminophen, 1,000 mg, nasoduodenal tube, q8h MARIAMA ceFAZolin, 2 g, intravenous, q8h chlorhexidine, 15 mL, Mouth/Throat, TID after meals pantoprazole, 40 mg, oral, Daily before breakfast Or esomeprazole, 40 mg, nasoduodenal tube, Daily before breakfast Or pantoprazole, 40 mg, intravenous, Daily before breakfast heparin (porcine), 5,000 Units, subcutaneous, q8h insulin lispro, 0-5 Units, subcutaneous, q4h lidocaine, 1 patch, transdermal, Daily polyethylene glycol, 17 g, nasoduodenal tube, Daily senna, 10 mL, nasoduodenal tube, BID Continuous medications lactated Ringer's, 75 mL/hr, Last Rate: 75 mL/hr (04/06/23 0817) PRN medications PRN medications: albuterol, calcium gluconate, calcium gluconate, dextrose 10 % in water (D10W), dextrose, glucagon, hydrALAZINE, HYDROmorphone, magnesium sulfate, magnesium sulfate, naloxone, ondansetron, oxyCODONE, oxygen, potassium chloride CR OR potassium chloride, potassium chloride CR OR potassium chloride This patient currently has cardiac telemetry ordered; if you would like to modify or discontinue the telemetry order, click here to go to the orders activity to modify/discontinue the order. Assessment/Plan Principal Problem: Lesion of glottis Active Problems: Shortness of breath Biphasic stridor Acute on chronic respiratory failure with hypoxia (CMS/HCC) Airway obstruction, anatomic Fabricio Nunes is a 63 y.o. male with one year of dysphonia and one month of stridor who presented to [facility] ED with SOB and transferred to [facility] for further ENT evaluation. 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 - Follow up thoracic recommendations re pigtail management - Recommend BAG MACHINE SET UP OPERATOR for swallow eval, consider DHT if fails PO trial - Will follow up pathology results - Trach site is clean and healthy appearing, cuff remains up while on PPV - Continue trach care every 4-6 hours as per nursing protocol - Please clean the inner cannula daily - Sutures will come out on POD5 - ENT team will arrange for follow up appointment and update discharge profile accordingly - Call ENT with questions Patient seen and discussed with Dr. Whitt. Enoc Garcia MD Associated attestation - Michael Whitt MD - 04/06/2023 12:01 PM EST I saw the patient and agree with the note as written. Speech-Language Pathology Therapy Communication Note Patient Name: Fabricio Nunes Today's Date: 04/06/2023 Discipline: Speech Language Pathology Missed Visit Reason: New orders placed for a swallow evaluation. Spoke w/ ENT, requesting PMSV (not swallow evaluation at this time). Given pt had trach placed at 1700 previous date, BAG MACHINE SET UP OPERATOR to hold for 24 hrs and complete valve trials next date in AM as appropriate. ENT aware and in agreement. Missed Time: Attempt Comment: Fabricio Nunes is a 63 y.o. male on day 1 of admission presenting with Lesion of glottis. Subjective FiO2 weaned to 40% overnight. Otherwise NAEON Objective Physical Exam Constitutional: Appearance: Normal appearance. HENT: Head: Atraumatic. Eyes: Extraocular Movements: Extraocular movements intact. Neck: Comments: Trach in place Cardiovascular: Rate and Rhythm: Regular rhythm. Tachycardia present. Pulses: Normal pulses. Heart sounds: Normal heart sounds. Pulmonary: Effort: Pulmonary effort is normal. Breath sounds: Normal breath sounds. Abdominal: Palpations: Abdomen is soft. Skin: General: Skin is warm. Neurological: General: No focal deficit present. Mental Status: He is alert and oriented to person, place, and time. Mental status is at baseline. Last Recorded Vitals Blood pressure (!) 154/99, pulse 106, temperature 36.6 C (97.9 F), temperature source Temporal, resp. rate 23, height 1.727 m (5' 8 ), weight 91.4 kg (201 lb 8 oz), SpO2 94 %. Intake/Output last 3 Shifts: I/O last 3 completed shifts: In: 1612.5 (17.6 mL/kg) [I.V.:1512.5 (16.5 mL/kg); IV Piggyback:100] Out: 0 (0 mL/kg) Weight: 91.4 kg Relevant Results Scheduled medications acetaminophen, 1,000 mg, nasoduodenal tube, q8h MARIAMA ceFAZolin, 2 g, intravenous, q8h chlorhexidine, 15 mL, Mouth/Throat, TID after meals pantoprazole, 40 mg, oral, Daily before breakfast Or esomeprazole, 40 mg, nasoduodenal tube, Daily before breakfast Or pantoprazole, 40 mg, intravenous, Daily before breakfast heparin (porcine), 5,000 Units, subcutaneous, q8h insulin lispro, 0-5 Units, subcutaneous, q4h lidocaine, 1 patch, transdermal, Daily polyethylene glycol, 17 g, nasoduodenal tube, Daily senna, 10 mL, nasoduodenal tube, BID Continuous medications lactated Ringer's, 75 mL/hr, Last Rate: Stopped (04/06/23 0500) PRN medications PRN medications: calcium gluconate, calcium gluconate, dextrose 10 % in water (D10W), dextrose, glucagon, hydrALAZINE, HYDROmorphone, magnesium sulfate, magnesium sulfate, naloxone, ondansetron, oxyCODONE, oxygen, potassium chloride CR OR potassium chloride, potassium chloride CR OR potassium chloride Results for orders placed or performed during the hospital encounter of 04/05/23 (from the past 24 hour(s)) Blood Gas Venous Full Panel Unsolicited Result Value Ref Range POCT pH, Venous 7.44 (H) 7.33 - 7.43 pH POCT pCO2, Venous 48 41 - 51 mm Hg POCT pO2, Venous 56 (H) 35 - 45 mm Hg POCT SO2, Venous 89 (H) 45 - 75 % POCT Oxy Hemoglobin, Venous 87.1 (H) 45.0 - 75.0 % POCT Hematocrit Calculated, Venous 52.0 41.0 - 52.0 % POCT Sodium, Venous 135 (L) 136 - 145 mmol/L POCT Potassium, Venous 4.1 3.5 - 5.3 mmol/L POCT Chloride, Venous 99 98 - 107 mmol/L POCT Ionized Calicum, Venous 1.14 1.10 - 1.33 mmol/L POCT Glucose, Venous 116 (H) 74 - 99 mg/dL POCT Lactate, Venous 0.9 0.4 - 2.0 mmol/L POCT Base Excess, Venous 6.9 (H) -2.0 - 3.0 mmol/L POCT HCO3 Calculated, Venous 32.6 (H) 22.0 - 26.0 mmol/L POCT Hemoglobin, Venous 17.3 13.5 - 17.5 g/dL POCT Anion Gap, Venous 8.0 (L) 10.0 - 25.0 mmol/L Patient Temperature 37.0 degrees Celsius Sars-CoV-2 and Influenza A/B PCR Result Value Ref Range Flu A Result Not Detected Not Detected Flu B Result Not Detected Not Detected Coronavirus 2018, PCR Not Detected Not Detected Comprehensive metabolic panel Result Value Ref Range Glucose 109 (H) 74 - 99 mg/dL Sodium 137 136 - 145 mmol/L Potassium 3.8 3.5 - 5.3 mmol/L Chloride 99 98 - 107 mmol/L Bicarbonate 30 21 - 32 mmol/L Anion Gap 12 10 - 20 mmol/L Urea Nitrogen 14 6 - 23 mg/dL Creatinine 0.73 0.50 - 1.30 mg/dL eGFR >90 >60 mL/min/1.73m*2 Calcium 9.9 8.6 - 10.6 mg/dL Albumin 4.7 3.4 - 5.0 g/dL Alkaline Phosphatase 60 33 - 136 U/L Total Protein 7.3 6.4 - 8.2 g/dL AST 18 9 - 39 U/L Bilirubin, Total 0.6 0.0 - 1.2 mg/dL ALT 22 10 - 52 U/L Coagulation Screen Result Value Ref Range Protime 11.3 9.8 - 12.8 seconds INR 1.0 0.9 - 1.1 aPTT 37 27 - 38 seconds Type and Screen Result Value Ref Range ABO TYPE O Rh TYPE POS ANTIBODY SCREEN NEG CBC and Auto Differential Result Value Ref Range WBC 8.5 4.4 - 11.3 x10*3/uL nRBC 0.0 0.0 - 0.0 /100 WBCs RBC 5.54 4.50 - 5.90 x10*6/uL Hemoglobin 16.9 13.5 - 17.5 g/dL Hematocrit 47.1 41.0 - 52.0 % MCV 85 80 - 100 fL MCH 30.5 26.0 - 34.0 pg MCHC 35.9 32.0 - 36.0 g/dL RDW 11.8 11.5 - 14.5 % Platelets 278 150 - 450 x10*3/uL Neutrophils % 70.0 40.0 - 80.0 % Immature Granulocytes %, Automated 0.4 0.0 - 0.9 % Lymphocytes % 19.1 13.0 - 44.0 % Monocytes % 8.6 2.0 - 10.0 % Eosinophils % 1.1 0.0 - 6.0 % Basophils % 0.8 0.0 - 2.0 % Neutrophils Absolute 5.96 1.20 - 7.70 x10*3/uL Immature Granulocytes Absolute, Automated 0.03 0.00 - 0.70 x10*3/uL Lymphocytes Absolute 1.62 1.20 - 4.80 x10*3/uL Monocytes Absolute 0.73 0.10 - 1.00 x10*3/uL Eosinophils Absolute 0.09 0.00 - 0.70 x10*3/uL Basophils Absolute 0.07 0.00 - 0.10 x10*3/uL ECG 12 lead Result Value Ref Range Ventricular Rate 104 BPM Atrial Rate [address] Interval 156 ms QRS Duration 92 ms QT Interval 346 ms QTC Calculation(Bazett) 454 ms P Chamberlain 35 degrees R Chamberlain 3 degrees T Chamberlain 59 degrees QRS Count 17 beats Q Onset 217 ms P Onset 139 ms P Offset 188 ms T Offset 390 ms QTC Fredericia 415 ms Blood Gas Arterial Full Panel Result Value Ref Range POCT pH, Arterial 7.42 7.38 - 7.42 pH POCT pCO2, Arterial 48 (H) 38 - 42 mm Hg POCT pO2, Arterial 100 (H) 85 - 95 mm Hg POCT SO2, Arterial 98 94 - 100 % POCT Oxy Hemoglobin, Arterial 96.6 94.0 - 98.0 % POCT Hematocrit Calculated, Arterial 51.0 41.0 - 52.0 % POCT Sodium, Arterial 133 (L) 136 - 145 mmol/L POCT Potassium, Arterial 4.8 3.5 - 5.3 mmol/L POCT Chloride, Arterial 101 98 - 107 mmol/L POCT Ionized Calcium, Arterial 1.17 1.10 - 1.33 mmol/L POCT Glucose, Arterial 165 (H) 74 - 99 mg/dL POCT Lactate, Arterial 1.2 0.4 - 2.0 mmol/L POCT Base Excess, Arterial 5.3 (H) -2.0 - 3.0 mmol/L POCT HCO3 Calculated, Arterial 31.1 (H) 22.0 - 26.0 mmol/L POCT Hemoglobin, Arterial 17.0 13.5 - 17.5 g/dL POCT Anion Gap, Arterial 6 (L) 10 - 25 mmo/L Patient Temperature 37.0 degrees Celsius FiO2 70 % CBC Result Value Ref Range WBC 13.0 (H) 4.4 - 11.3 x10*3/uL nRBC 0.0 0.0 - 0.0 /100 WBCs RBC 5.33 4.50 - 5.90 x10*6/uL Hemoglobin 16.4 13.5 - 17.5 g/dL Hematocrit 47.2 41.0 - 52.0 % MCV 89 80 - 100 fL MCH 30.8 26.0 - 34.0 pg MCHC 34.7 32.0 - 36.0 g/dL RDW 12.1 11.5 - 14.5 % Platelets 267 150 - 450 x10*3/uL Renal function panel Result Value Ref Range Glucose 147 (H) 74 - 99 mg/dL Sodium 138 136 - 145 mmol/L Potassium 4.8 3.5 - 5.3 mmol/L Chloride 98 98 - 107 mmol/L Bicarbonate 30 21 - 32 mmol/L Anion Gap 15 10 - 20 mmol/L Urea Nitrogen 19 6 - 23 mg/dL Creatinine 0.83 0.50 - 1.30 mg/dL eGFR >90 >60 mL/min/1.73m*2 Calcium 9.6 8.6 - 10.6 mg/dL Phosphorus 4.4 2.5 - 4.9 mg/dL Albumin 4.7 3.4 - 5.0 g/dL Magnesium Result Value Ref Range Magnesium 2.22 1.60 - 2.40 mg/dL Calcium, Ionized Result Value Ref Range POCT Calcium, Ionized 1.15 1.1 - 1.33 mmol/L Coagulation Screen Result Value Ref Range Protime 11.1 9.8 - 12.8 seconds INR 1.0 0.9 - 1.1 aPTT 33 27 - 38 seconds POCT GLUCOSE Result Value Ref Range POCT Glucose 144 (H) 74 - 99 mg/dL Calcium, Ionized Result Value Ref Range POCT Calcium, Ionized 1.16 1.1 - 1.33 mmol/L CBC Result Value Ref Range WBC 11.6 (H) 4.4 - 11.3 x10*3/uL nRBC 0.0 0.0 - 0.0 /100 WBCs RBC 5.01 4.50 - 5.90 x10*6/uL Hemoglobin 15.2 13.5 - 17.5 g/dL Hematocrit 44.3 41.0 - 52.0 % MCV 88 80 - 100 fL MCH 30.3 26.0 - 34.0 pg MCHC 34.3 32.0 - 36.0 g/dL RDW 12.1 11.5 - 14.5 % Platelets 249 150 - 450 x10*3/uL Coagulation Screen Result Value Ref Range Protime 11.8 9.8 - 12.8 seconds INR 1.0 0.9 - 1.1 aPTT 34 27 - 38 seconds Magnesium Result Value Ref Range Magnesium 2.04 1.60 - 2.40 mg/dL Renal Function Panel Result Value Ref Range Glucose 132 (H) 74 - 99 mg/dL Sodium 139 136 - 145 mmol/L Potassium 4.5 3.5 - 5.3 mmol/L Chloride 100 98 - 107 mmol/L Bicarbonate 30 21 - 32 mmol/L Anion Gap 14 10 - 20 mmol/L Urea Nitrogen 21 6 - 23 mg/dL Creatinine 0.75 0.50 - 1.30 mg/dL eGFR >90 >60 mL/min/1.73m*2 Calcium 9.3 8.6 - 10.6 mg/dL Phosphorus 4.8 2.5 - 4.9 mg/dL Albumin 4.2 3.4 - 5.0 g/dL Assessment/Plan Principal Problem: Lesion of glottis Active Problems: Shortness of breath Biphasic stridor Acute on chronic respiratory failure with hypoxia (CMS/HCC) Airway obstruction, anatomic Assessment: Fabricio Nunes is a 63 y.o. male with no pmhx presenting with one year of hoarseness and one month of inspiratory stridor presenting to SICU from OR s/p awake trach, bronchoscopy, endoscopy and biopsy with Dr Dong 04/05, presenting with one year of hoarseness and one month of inspiratory stridor,after Scope exam showed bilateral ulcerative lesions and minimal glottic gap patient was taken to the OR with ENT for tracheostomy due to concerns for impending airway compromise,post operatively patient was noted to have crepitus around right neck and chest and patient had desaturations to 85% and had increasing oxygen requirements. CXR obtained showed a large right sided pneumothorax, Thoracic surgery placed a right sided chest tube. Plan: NEURO: Acute post-op pain. Drowsy s/p OR procedure. - ongoing neuro and pain assessments - scheduled tylenol - PRN hydromorphone for pain control - lidoderm patches surrounding surgical incision - PT/OT consult CV: No known medical History . Vitally stable in SR. - continuous EKG/abp monitoring - Goal map range 65-90 - thoracic placed pigtail in R chest, thoracic following PULM/ ENT: Scope exam with bilateral ulcerative lesions and minimal glottic gap representing likely malignant lesion and concerning for impending airway compromise, s/p awake trach, bronchoscopy, endoscopy and biopsy,post OP patient was noted to have crepitus around right neck and chest and patient had desaturations to 85% and had increasing oxygen requirements. CXR obtained showed a large right sided pneumothorax, Thoracic surgery placed a right sided chest tube, Arrived to SICU on CPAP FiO2 of 70, PEEP 5. Latest CXR shows re-expansion of the right lung status post pigtail catheter placement. - on trach collar this morning - Due to bilateral ulcerative lesions and minimal glottic gap representing likely malignant lesion will need to determine with ENT further work up plan. - R pigtail placed by thoracic to wall suction for 24 hours - Q1h incentive spirometer while awake - additional pulm toilet prn. GI: - NPO - Advance diet per surgical service - per speech, plan for MBS tomorrow - Nutrition consulted to follow up on their recommendation. - Holding Bowel regimen until Dobbhoff placement if fails MBS : No history of renal disease. Baseline creatinine 0.75. - Maintenance fluid @ 75 ml/hr - Volume resuscitation as needed - Maintain U/O >0.5ml/kg/hr - Check renal function panel post op and daily - Replete electrolytes to goal K>4, Mg>2, Phos>2.5, ionized Ca>1.10. HEME: No known PMH. - Check CBC and coags post op and daily - SCDs for DVT prophylaxis - SQ heparin per surgical team. - ongoing monitoring for s/s bleeding ENDO: No history of DM or thyroid disease - Q6h BG - SSI Lispro per ICU protocol. ID: Afebrile. post op WBC 8. - temp q4h, wbc daily - cheryl-op cefazolin for 24hrs - ongoing monitoring for s/s infection Lines: - PIV Dispo: If tolerating trach collar in afternoon, plan to transfer patient to regular nursing floor. Patient seen and discussed with ICU attending Dr. Marroquin. SICU phone [phone] Devon Silva MD Associated attestation - Jonathan Marroquin MD - 04/06/2023 12:35 PM EST I evaluated this patient with a warehouse receiving supervisor. I oversaw this patient's care, and I participated in their medical decision-making. 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 Optimize fluid status; ST eval today; start SQH; floor transfer [place] S[place] P. [phone] Fabricio Nunes is a 63 y.o. male presenting with right sided pneumothorax after tracheostomy placement. Pigtail placed at bedside 04/05/23 with appropriate expansion of lung. Subjective NAEO. Patient now on 40% FiO2 (down from 70%). Endorsing no SOB or CP. Objective Physical Exam Constitutional: General: He is not in acute distress. Appearance: Normal appearance. He is not ill-appearing, toxic-appearing or diaphoretic. HENT: Head: Normocephalic and atraumatic. Eyes: General: No scleral icterus. Pupils: Pupils are equal, round, and reactive to light. Neck: Trachea: Tracheostomy present. Cardiovascular: Rate and Rhythm: Regular rhythm. Tachycardia present. Pulmonary: Effort: Pulmonary effort is normal. No respiratory distress. Breath sounds: Normal breath sounds. No wheezing. Comments: CT in place on right side with no air leak, on WS Abdominal: General: There is no distension. Palpations: Abdomen is soft. Tenderness: There is no abdominal tenderness. There is no guarding. Musculoskeletal: General: Normal range of motion. Skin: General: Skin is warm and dry. Coloration: Skin is not jaundiced. Findings: No rash. Neurological: Mental Status: He is alert and oriented to person, place, and time. Mental status is at baseline. Psychiatric: Mood and Affect: Mood normal. Behavior: Behavior normal. Judgment: Judgment normal. Last Recorded Vitals Blood pressure (!) 144/92, pulse 110, temperature 36.6 C (97.9 F), temperature source Temporal, resp. rate 21, height 1.727 m (5' 8 ), weight 91.4 kg (201 lb 8 oz), SpO2 93 %. Intake/Output last 3 Shifts: I/O last 3 completed shifts: In: 1612.5 (17.6 mL/kg) [I.V.:1512.5 (16.5 mL/kg); IV Piggyback:100] Out: 0 (0 mL/kg) Weight: 91.4 kg Relevant Results Results for orders placed or performed during the hospital encounter of 04/05/23 (from the past 24 hour(s)) Blood Gas Venous Full Panel Unsolicited Result Value Ref Range POCT pH, Venous 7.44 (H) 7.33 - 7.43 pH POCT pCO2, Venous 48 41 - 51 mm Hg POCT pO2, Venous 56 (H) 35 - 45 mm Hg POCT SO2, Venous 89 (H) 45 - 75 % POCT Oxy Hemoglobin, Venous 87.1 (H) 45.0 - 75.0 % POCT Hematocrit Calculated, Venous 52.0 41.0 - 52.0 % POCT Sodium, Venous 135 (L) 136 - 145 mmol/L POCT Potassium, Venous 4.1 3.5 - 5.3 mmol/L POCT Chloride, Venous 99 98 - 107 mmol/L POCT Ionized Calicum, Venous 1.14 1.10 - 1.33 mmol/L POCT Glucose, Venous 116 (H) 74 - 99 mg/dL POCT Lactate, Venous 0.9 0.4 - 2.0 mmol/L POCT Base Excess, Venous 6.9 (H) -2.0 - 3.0 mmol/L POCT HCO3 Calculated, Venous 32.6 (H) 22.0 - 26.0 mmol/L POCT Hemoglobin, Venous 17.3 13.5 - 17.5 g/dL POCT Anion Gap, Venous 8.0 (L) 10.0 - 25.0 mmol/L Patient Temperature 37.0 degrees Celsius Sars-CoV-2 and Influenza A/B PCR Result Value Ref Range Flu A Result Not Detected Not Detected Flu B Result Not Detected Not Detected Coronavirus 2019, PCR Not Detected Not Detected Comprehensive metabolic panel Result Value Ref Range Glucose 109 (H) 74 - 99 mg/dL Sodium 137 136 - 145 mmol/L Potassium 3.8 3.5 - 5.3 mmol/L Chloride 99 98 - 107 mmol/L Bicarbonate 30 21 - 32 mmol/L Anion Gap 12 10 - 20 mmol/L Urea Nitrogen 14 6 - 23 mg/dL Creatinine 0.73 0.50 - 1.30 mg/dL eGFR >90 >60 mL/min/1.73m*2 Calcium 9.9 8.6 - 10.6 mg/dL Albumin 4.7 3.4 - 5.0 g/dL Alkaline Phosphatase 60 33 - 136 U/L Total Protein 7.3 6.4 - 8.2 g/dL AST 18 9 - 39 U/L Bilirubin, Total 0.6 0.0 - 1.2 mg/dL ALT 22 10 - 52 U/L Coagulation Screen Result Value Ref Range Protime 11.3 9.8 - 12.8 seconds INR 1.0 0.9 - 1.1 aPTT 37 27 - 38 seconds Type and Screen Result Value Ref Range ABO TYPE O Rh TYPE POS ANTIBODY SCREEN NEG CBC and Auto Differential Result Value Ref Range WBC 8.5 4.4 - 11.3 x10*3/uL nRBC 0.0 0.0 - 0.0 /100 WBCs RBC 5.54 4.50 - 5.90 x10*6/uL Hemoglobin 16.9 13.5 - 17.5 g/dL Hematocrit 47.1 41.0 - 52.0 % MCV 85 80 - 100 fL MCH 30.5 26.0 - 34.0 pg MCHC 35.9 32.0 - 36.0 g/dL RDW 11.8 11.5 - 14.5 % Platelets 278 150 - 450 x10*3/uL Neutrophils % 70.0 40.0 - 80.0 % Immature Granulocytes %, Automated 0.4 0.0 - 0.9 % Lymphocytes % 19.1 13.0 - 44.0 % Monocytes % 8.6 2.0 - 10.0 % Eosinophils % 1.1 0.0 - 6.0 % Basophils % 0.8 0.0 - 2.0 % Neutrophils Absolute 5.96 1.20 - 7.70 x10*3/uL Immature Granulocytes Absolute, Automated 0.03 0.00 - 0.70 x10*3/uL Lymphocytes Absolute 1.62 1.20 - 4.80 x10*3/uL Monocytes Absolute 0.73 0.10 - 1.00 x10*3/uL Eosinophils Absolute 0.09 0.00 - 0.70 x10*3/uL Basophils Absolute 0.07 0.00 - 0.10 x10*3/uL ECG 12 lead Result Value Ref Range Ventricular Rate 104 BPM Atrial Rate [address] Interval 156 ms QRS Duration 92 ms QT Interval 346 ms QTC Calculation(Bazett) 454 ms P Chamberlain 35 degrees R Chamberlain 3 degrees T Chamberlain 59 degrees QRS Count 17 beats Q Onset 217 ms P Onset 139 ms P Offset 188 ms T Offset 390 ms QTC Fredericia 415 ms Blood Gas Arterial Full Panel Result Value Ref Range POCT pH, Arterial 7.42 7.38 - 7.42 pH POCT pCO2, Arterial 48 (H) 38 - 42 mm Hg POCT pO2, Arterial 100 (H) 85 - 95 mm Hg POCT SO2, Arterial 98 94 - 100 % POCT Oxy Hemoglobin, Arterial 96.6 94.0 - 98.0 % POCT Hematocrit Calculated, Arterial 51.0 41.0 - 52.0 % POCT Sodium, Arterial 133 (L) 136 - 145 mmol/L POCT Potassium, Arterial 4.8 3.5 - 5.3 mmol/L POCT Chloride, Arterial 101 98 - 107 mmol/L POCT Ionized Calcium, Arterial 1.17 1.10 - 1.33 mmol/L POCT Glucose, Arterial 165 (H) 74 - 99 mg/dL POCT Lactate, Arterial 1.2 0.4 - 2.0 mmol/L POCT Base Excess, Arterial 5.3 (H) -2.0 - 3.0 mmol/L POCT HCO3 Calculated, Arterial 31.1 (H) 22.0 - 26.0 mmol/L POCT Hemoglobin, Arterial 17.0 13.5 - 17.5 g/dL POCT Anion Gap, Arterial 6 (L) 10 - 25 mmo/L Patient Temperature 37.0 degrees Celsius FiO2 70 % CBC Result Value Ref Range WBC 13.0 (H) 4.4 - 11.3 x10*3/uL nRBC 0.0 0.0 - 0.0 /100 WBCs RBC 5.33 4.50 - 5.90 x10*6/uL Hemoglobin 16.4 13.5 - 17.5 g/dL Hematocrit 47.2 41.0 - 52.0 % MCV 89 80 - 100 fL MCH 30.8 26.0 - 34.0 pg MCHC 34.7 32.0 - 36.0 g/dL RDW 12.1 11.5 - 14.5 % Platelets 267 150 - 450 x10*3/uL Renal function panel Result Value Ref Range Glucose 147 (H) 74 - 99 mg/dL Sodium 138 136 - 145 mmol/L Potassium 4.8 3.5 - 5.3 mmol/L Chloride 98 98 - 107 mmol/L Bicarbonate 30 21 - 32 mmol/L Anion Gap 15 10 - 20 mmol/L Urea Nitrogen 19 6 - 23 mg/dL Creatinine 0.83 0.50 - 1.30 mg/dL eGFR >90 >60 mL/min/1.73m*2 Calcium 9.6 8.6 - 10.6 mg/dL Phosphorus 4.4 2.5 - 4.9 mg/dL Albumin 4.7 3.4 - 5.0 g/dL Magnesium Result Value Ref Range Magnesium 2.22 1.60 - 2.40 mg/dL Calcium, Ionized Result Value Ref Range POCT Calcium, Ionized 1.15 1.1 - 1.33 mmol/L Coagulation Screen Result Value Ref Range Protime 11.1 9.8 - 12.8 seconds INR 1.0 0.9 - 1.1 aPTT 33 27 - 38 seconds POCT GLUCOSE Result Value Ref Range POCT Glucose 144 (H) 74 - 99 mg/dL Calcium, Ionized Result Value Ref Range POCT Calcium, Ionized 1.16 1.1 - 1.33 mmol/L CBC Result Value Ref Range WBC 11.6 (H) 4.4 - 11.3 x10*3/uL nRBC 0.0 0.0 - 0.0 /100 WBCs RBC 5.01 4.50 - 5.90 x10*6/uL Hemoglobin 15.2 13.5 - 17.5 g/dL Hematocrit 44.3 41.0 - 52.0 % MCV 88 80 - 100 fL MCH 30.3 26.0 - 34.0 pg MCHC 34.3 32.0 - 36.0 g/dL RDW 12.1 11.5 - 14.5 % Platelets 249 150 - 450 x10*3/uL Coagulation Screen Result Value Ref Range Protime 11.8 9.8 - 12.8 seconds INR 1.0 0.9 - 1.1 aPTT 34 27 - 38 seconds Magnesium Result Value Ref Range Magnesium 2.04 1.60 - 2.40 mg/dL Renal Function Panel Result Value Ref Range Glucose 132 (H) 74 - 99 mg/dL Sodium 139 136 - 145 mmol/L Potassium 4.5 3.5 - 5.3 mmol/L Chloride 100 98 - 107 mmol/L Bicarbonate 30 21 - 32 mmol/L Anion Gap 14 10 - 20 mmol/L Urea Nitrogen 21 6 - 23 mg/dL Creatinine 0.75 0.50 - 1.30 mg/dL eGFR >90 >60 mL/min/1.73m*2 Calcium 9.3 8.6 - 10.6 mg/dL Phosphorus 4.8 2.5 - 4.9 mg/dL Albumin 4.2 3.4 - 5.0 g/dL Pending AM CXR Assessment/Plan Principal Problem: Lesion of glottis Active Problems: Shortness of breath Biphasic stridor Acute on chronic respiratory failure with hypoxia (CMS/HCC) Airway obstruction, anatomic Fabricio Nunes is a 63 y.o. male presenting with right sided pneumothorax after tracheostomy placement. Pigtail placed at bedside 04/05/23 with appropriate expansion of lung. - maintain CT to WS for 24 hours - obtain dailly morning CXR to evaluate for stability of pneumothorax - thoracic surgery will continue to follow Patient seen and discussed with fellow Dr. Oconnell and attending Dr. Vince Garcia MD General Surgery PGY2 Thoracic surgery 22009 Associated attestation - Kirsten Clarke MD - 04/06/2023 7:59 PM EST Bedside. Doing much better. Off ventilator. On trach collar now. Hemodynamic stable. Pigtail in place with no airleak on suction. Chest x-ray personally reviewed showed proper position of the pigtail with full expand right lung. Will keep pigtail today. Will try clamp trial tomorrow. If no recurrent pneumothorax, will remove with pigtail. I have reviewed the history, examination, labarotory results, and imaging studies were reviewed/performed by myself. In particular any available CT scans, ultrasounds and/or X-rays were personally reviewed by myself in order to determine if any significant concerns. We have developed an assessment and plan as described. This patient is currently suffering from a critical illness/injury that acutely impairs one or more vital organ systems such that there is a high probability of imminent or life threatening deterioration in the patient's condition. Time involved in the performance of separately reportable procedures was not counted toward critical care time. Critical Care Time 30min Thank you for involving me in the care of this patient. Kirsten Clarke MD Thoracic Surgeon [facility] [employer] Managerpromotions coordinator [facility] [employer] Office phone: Pager: [phone] documented in this encounter [facility] Work Phone: 04-12-2023 Plan of care note The patient's goals for the shift include comfort and safe discharge home. The clinical goals for the shift include Pt will maintain patent airway and prepare for safe discharge by end of shift. Over the shift, the patient did not make progress toward the following goals. Barriers to progression include . Recommendations to address these barriers include . Problem: Fall/Injury Goal: Not fall by end of shift Outcome: Progressing Goal: Be free from injury by end of the shift Outcome: Progressing Goal: Verbalize understanding of personal risk factors for fall in the hospital Outcome: Progressing Goal: Verbalize understanding of risk factor reduction measures to prevent injury from fall in the home Outcome: Progressing Goal: Use assistive devices by end of the shift Outcome: Progressing Goal: Pace activities to prevent fatigue by end of the shift Outcome: Progressing Problem: Pain Goal: My pain/discomfort is manageable Outcome: Progressing Problem: Safety Goal: Patient will be injury free during hospitalization Outcome: Progressing Goal: I will remain free of falls Outcome: Progressing Problem: Daily Care Goal: Daily care needs are met Outcome: Progressing Problem: Psychosocial Needs Goal: Demonstrates ability to cope with hospitalization/illness Outcome: Progressing Goal: Collaborate with me, my family, and caregiver to identify my specific goals Outcome: Progressing Problem: Discharge Barriers Goal: My discharge needs are met Outcome: Progressing Problem: Pain Goal: Takes deep breaths with improved pain control throughout the shift Outcome: Progressing Goal: Turns in bed with improved pain control throughout the shift Outcome: Progressing Goal: Walks with improved pain control throughout the shift Outcome: Progressing Goal: Performs ADL's with improved pain control throughout shift Outcome: Progressing Goal: Participates in PT with improved pain control throughout the shift Outcome: Progressing Goal: Free from opioid side effects throughout the shift Outcome: Progressing Goal: Free from acute confusion related to pain meds throughout the shift Outcome: Progressing [facility] 04-11-2023 Plan of care note The patient's goals for the shift include The clinical goals for the shift include Pt will maintain patent airway overnight. Problem: Fall/Injury Goal: Not fall by end of shift Outcome: Progressing Goal: Be free from injury by end of the shift Outcome: Progressing Goal: Verbalize understanding of personal risk factors for fall in the hospital Outcome: Progressing Goal: Verbalize understanding of risk factor reduction measures to prevent injury from fall in the home Outcome: Progressing Goal: Use assistive devices by end of the shift Outcome: Progressing Goal: Pace activities to prevent fatigue by end of the shift Outcome: Progressing Problem: Pain Goal: My pain/discomfort is manageable Outcome: Progressing [facility] Work Phone: 04-11-2023 Plan of care note The patient's goals for the shift include safe ambulation and preparation for discharge. The clinical goals for the shift include Pt will ambulate safely and remain free from falls throughout shift. Over the shift, the patient did not make progress toward the following goals. Barriers to progression include . Recommendations to address these barriers include . Problem: Fall/Injury Goal: Not fall by end of shift 04/11/2023 1007 by Nessa Gray RN Outcome: Progressing 04/11/2023 1006 by Nessa Gray RN Outcome: Progressing Goal: Be free from injury by end of the shift 04/11/2023 1007 by Nessa Gray RN Outcome: Progressing 04/11/2023 1006 by Nessa Gray RN Outcome: Progressing Goal: Verbalize understanding of personal risk factors for fall in the hospital 04/11/2023 1007 by Nessa Gray RN Outcome: Progressing 04/11/2023 1006 by Nessa Gray RN Outcome: Progressing Goal: Verbalize understanding of risk factor reduction measures to prevent injury from fall in the home 04/11/2023 1007 by Nessa Gray RN Outcome: Progressing 04/11/2023 1006 by Nessa Gray RN Outcome: Progressing Goal: Use assistive devices by end of the shift 04/11/2023 1007 by Nessa Gray RN Outcome: Progressing 04/11/2023 1006 by Nessa Gray RN Outcome: Progressing Goal: Pace activities to prevent fatigue by end of the shift 04/11/2023 1007 by Nessa Gray RN Outcome: Progressing 04/11/2023 1006 by Nessa Gray RN Outcome: Progressing Problem: Safety Goal: Patient will be injury free during hospitalization 04/11/2023 1007 by Nessa Gray RN Outcome: Progressing 04/11/2023 1006 by Nessa Gray RN Outcome: Progressing Goal: I will remain free of falls 04/11/2023 1007 by Nessa Gray RN Outcome: Progressing 04/11/2023 1006 by Nessa Gray RN Outcome: Progressing Problem: Daily Care Goal: Daily care needs are met 04/11/2023 1007 by Nessa Gray RN Outcome: Progressing 04/11/2023 1006 by Nessa Gray RN Outcome: Progressing Problem: Psychosocial Needs Goal: Demonstrates ability to cope with hospitalization/illness 04/11/2023 1007 by Nessa Gray RN Outcome: Progressing 04/11/2023 1006 by Nessa Gray RN Outcome: Progressing Goal: Collaborate with me, my family, and caregiver to identify my specific goals 04/11/2023 1007 by Nessa Gray RN Outcome: Progressing 04/11/2023 1006 by Nessa Gray RN Outcome: Progressing Problem: Discharge Barriers Goal: My discharge needs are met 04/11/2023 1007 by Nessa Gray RN Outcome: Progressing 04/11/2023 1006 by Nessa Gray RN Outcome: Progressing [facility] Work Phone: 04-10-2023 Plan of care note The clinical goals for the shift include pt will remain HDS by shift Patient remained safe and VSS during shift. Pt and at bedside have been able to suction and clean trach independently. [facility] 04-10-2023 Plan of care note The patient's & clinical goals for the shift include free of respiratory distress. Patient with stable VS. No pain or SOB. Refused pain meds. Patient suctioned self with 's assistance and cleaned inner cannula. Patient did very well! Continue to promote patient suctioning himself and have his due again. Patient remained safe this shift. Edwige Jackson RN [facility] 04-10-2023 Plan of care note The patient's goals for the shift include The clinical goals for the shift include Pt will remain HD stable and have an adequate pain control. Problem: Fall/Injury Goal: Not fall by end of shift Outcome: Progressing Goal: Be free from injury by end of the shift Outcome: Progressing Goal: Verbalize understanding of personal risk factors for fall in the hospital Outcome: Progressing Goal: Verbalize understanding of risk factor reduction measures to prevent injury from fall in the home Outcome: Progressing Goal: Use assistive devices by end of the shift Outcome: Progressing Goal: Pace activities to prevent fatigue by end of the shift Outcome: Progressing [facility] Work Phone: 04-08-2023 Plan of care note The patient's goals for the shift include The clinical goals for the shift include Pt will remain HD stable with adequate pain control overnight. [facility] Work Phone: 04-08-2023 Plan of care note Problem: Fall/Injury Goal: Not fall by end of shift Outcome: Progressing Goal: Be free from injury by end of the shift Outcome: Progressing Goal: Verbalize understanding of personal risk factors for fall in the hospital Outcome: Progressing Goal: Verbalize understanding of risk factor reduction measures to prevent injury from fall in the home Outcome: Progressing Goal: Use assistive devices by end of the shift Outcome: Progressing Goal: Pace activities to prevent fatigue by end of the shift Outcome: Progressing The patient's goals for the shift include more practice with suction and trach care. The clinical goals for the shift include Patient's airway will remain patent throughout shift [facility] 04-08-2023 Note Formatting of this n ote might be different from the original. Patient now on humidified room air. [facility] Work Phone: 04-08-2023 Note Swallow evaluation a s dictated above by speech pathology. I personally reviewed the image(s)/study and resident interpretation. I agree with the findings as stated by resident Maxwell Canela. Data analyzed and images interpreted at [facility], [place], [place]. MACRO: None Signed by: Derrell Fagan 04/08/2023 2:24 AM Dictation workstation: [id number] MMODAL 04-07-2023 Plan of care note The patient's goals for the shift include The clinical goals for the shift include Pt's airway will remain patent throughout the nightshift Problem: Fall/Injury Goal: Not fall by end of shift 04/07/20232225 by Barbara Madera RN Outcome: Progressing 04/07/20232225 by Barbara Madera RN Outcome: Progressing Goal: Be free from injury by end of the shift 04/07/2023 222 by Barbara Madera RN Outcome: Progressing 04/07/2023 222 by Barbara Madera RN Outcome: Progressing Goal: Verbalize understanding of personal risk factors for fall in the hospital 04/07/2023 222 by Barbara Madera RN Outcome: Progressing 04/07/2023 222 by Barbara Madera RN Outcome: Progressing Goal: Verbalize understanding of risk factor reduction measures to prevent injury from fall in the home 04/07/20232225 by Barbara Madera RN Outcome: Progressing 04/07/2023 222 by Barbara Madera RN Outcome: Progressing Goal: Use assistive devices by end of the shift 04/07/2023 222 by Barbara Madera RN Outcome: Progressing 04/07/2023 222 by Barbara Madera RN Outcome: Progressing Goal: Pace activities to prevent fatigue by end of the shift 04/07/2023 222 by Barbara Madera RN Outcome: Progressing 04/07/20232225 by Barbara Madera RN Outcome: Progressing [facility] Work Phone: 04-07-2023 Procedure note Associated Ord er(s): BAG MACHINE SET UP OPERATOR MODIFIED BARIUM SWALLOW EVALUATION Speech-Language Pathology Modified Barium Swallow Study Patient Name: Fabricio Nunes : 1960 Today's Date: 04/07/23 Recommendations: Regular diet with Thin liquids. PO meds as tolerated. Complete oral care frequently throughout the day. Follow up with BAG MACHINE SET UP OPERATOR as an outpatient at [facility] pending diagnosis and treatment pathway. PMSV once cleared by MD. Assessment/Impression: Oropharyngeal phases of the swallow WFL. Pt currently with cuffed tracheostomy tube Shiley #6 with cuff deflated and no PMSV. Patient with slowed oral prepping skills but adequate bolus formulation and propulsion across all consistencies. No evidence of penetration or aspiration with before, during or after the swallow on all consistencies. Following the swallow no evidence of pharyngeal stasis throughout the lumen. Full detailed BAG MACHINE SET UP OPERATOR/Radiologist Modified Barium Swallow study report can be found under Chart Review tab, Imaging tab and titled [place] Modified Barium Swallow Study Pt. Presenting with safe and efficient swallow mechanics for a PO diet. Plan: Treatment/Interventions: Pharyngeal exercises and Patient/family education, pending POC for laryngeal ulcerations. BAG MACHINE SET UP OPERATOR Plan: No treatment needs identified at this time BAG MACHINE SET UP OPERATOR Frequency: To be determined, pending tx POC Duration: 30 days Discussed POC: Patient, Discussed Risks/Benefits: Yes Patient/Caregiver Agreeable: Yes GOALS: Pt. to tolerate least restrictive diet without pulmonary compromise Education: Pt. Educated on results of MBS study, recommended diet and recommended safe swallow strategies [facility] Work Phone: 04-07-2023 Procedure note Associated Ord er(s): BAG MACHINE SET UP OPERATOR MODIFIED BARIUM SWALLOW EVALUATION Speech-Language Pathology Modified Barium Swallow Study Patient Name: Fabricio Nunes : 1960 Today's Date: 04/07/23 Recommendations: Regular diet with Thin liquids. PO meds as tolerated. Complete oral care frequently throughout the day. Follow up with BAG MACHINE SET UP OPERATOR as an outpatient at [facility] pending diagnosis and treatment pathway. PMSV once cleared by MD. Assessment/Impression: Oropharyngeal phases of the swallow WFL. Pt currently with cuffed tracheostomy tube Shiley #6 with cuff deflated and no PMSV. Patient with slowed oral prepping skills but adequate bolus formulation and propulsion across all consistencies. No evidence of penetration or aspiration with before, during or after the swallow on all consistencies. Following the swallow no evidence of pharyngeal stasis throughout the lumen. Full detailed BAG MACHINE SET UP OPERATOR/Radiologist Modified Barium Swallow study report can be found under Chart Review tab, Imaging tab and titled [place] Modified Barium Swallow Study Pt. Presenting with safe and efficient swallow mechanics for a PO diet. Plan: Treatment/Interventions: Pharyngeal exercises and Patient/family education, pending POC for laryngeal ulcerations. BAG MACHINE SET UP OPERATOR Plan: No treatment needs identified at this time BAG MACHINE SET UP OPERATOR Frequency: To be determined, pending tx POC Duration: 30 days Discussed POC: Patient, Discussed Risks/Benefits: Yes Patient/Caregiver Agreeable: Yes GOALS: Pt. to tolerate least restrictive diet without pulmonary compromise Education: Pt. Educated on results of MBS study, recommended diet and recommended safe swallow strategies Associated Order(s): Chest Tube Insertion Post-Procedure Diagnose(s): Postprocedural pneumothorax Chest Tube Insertion Date/Time: 04/05/2023 9:58 PM Performed by: Scooby Santacruz MD Authorized by: Kirsten Clarke MD Consent: Consent obtained: Written Consent given by: Spouse and patient Risks discussed: Damage to surrounding structures, bleeding, infection, nerve damage and pain Alternatives discussed: No treatment, delayed treatment and alternative treatment Mascot protocol: Procedure explained and questions answered to patient or proxy's satisfaction: yes Relevant documents present and verified: yes Imaging studies available: yes Required blood products, implants, devices, and special equipment available: no Site/side marked: no Immediately prior to procedure, a time out was called: yes Patient identity confirmed: Arm band and hospital-assigned identification number Pre-procedure details: Skin preparation: Chlorhexidine Preparation: Patient was prepped and draped in the usual sterile fashion Sedation: Sedation type: Anxiolysis Anesthesia: Anesthesia method: Local infiltration Local anesthetic: Lidocaine 1% WITH epi Procedure details: Placement location: R lateral Scalpel size: 11 Tube size (Slovak): 14 Fr pigtail. Ultrasound guidance: no Tension pneumothorax: yes Tube connected to: Suction Drainage characteristics: Air only Suture material: 2-0 silk Dressinx4 sterile gauze Post-procedure details: Post-insertion x-ray findings: tube in good position Procedure completion: Tolerated Comments: After informed consent was obtained patient was placed in supine position with right arm above his head and tilted slightly to his left. Pigtail site was identified and prepped and draped in usual sterile fashion. Local anesthesia was infiltrated at the site of pigtail placement. needle was inserted into the chest while aspirating at the fifth intercostal space and midaxillary line. Air was aspirated and syringe was removed. Guide wire was inserted through the needle and the needle was removed. A stab incision was made at the skin at the guide wire insertion site and a dilator was inserted over the wire to dilated the track for the pigtail. The pigtail catheter with stylette in place was inserted over the guide wire and the stylette and guide wire were removed after entry into the thoracic space. Once the catheter was in place it was attached to the adaptor and connected to atrium at -20mmHg suction. The catheter was secured to the chest wall with suture and sterile dressing placed. chest radiographs were obtained confirming catheter positioning. Patient tolerated procedure with no issues. documented in this encounter [facility] Work Phone: 04-07-2023 Hospital Note Formatting of t his note might be different from the original. Fabricio Nunes is a 63 y.o. male with bilateral ulcerative glottic lesions with stridor who presented for emergent tracheostomy, triple endoscopy with biopsy from ED by Dr Dong on 04/05. Patient had an uncomplicated surgical course. While in PACU, patient was found to have large right pneumothorax necessitating pigtail catheter placement by thoracic surgery. Patient recovered in PACU and was transferred to [place] [id number] for post-operative care. Patient post-operative course was uncomplicated. Tracheostomy cuff was deflated 04/07. Daily chest imaging was followed and once pneumothorax was resolved chest catheter was removed by thoracic surgery. BAG MACHINE SET UP OPERATOR was consulted as well and MBS was done revealing no aspiration, ok for thin liquids and regular diet. Prior to discharge, 6-0 shiley cuffed tracheostomy tube was replaced with 6-0 cuffless shiley tracheostomy tube. On day of discharge, post-operative pain was well controlled with enteral pain medication, breathing on room air, voiding spontaneously, ambulating well, and was tolerating a diet. Follow-up arranged. Battery-powered trach suction was delivered to the patient's bedside prior to discharge. [facility] Work Phone: 04-06-2023 Plan of care note The patient's goals for the shift include The clinical goals for the shift include pain management Problem: Fall/Injury Goal: Not fall by end of shift Outcome: Progressing Goal: Be free from injury by end of the shift Outcome: Progressing Goal: Verbalize understanding of personal risk factors for fall in the hospital Outcome: Progressing Goal: Verbalize understanding of risk factor reduction measures to prevent injury from fall in the home Outcome: Progressing Goal: Use assistive devices by end of the shift Outcome: Progressing Goal: Pace activities to prevent fatigue by end of the shift Outcome: Progressing [facility] Work Phone: 04-06-2023 Plan of care note The patient's goals for the shift include Problem: Fall/Injury Goal: Not fall by end of shift Outcome: Progressing Goal: Be free from injury by end of the shift Outcome: Progressing Goal: Verbalize understanding of personal risk factors for fall in the hospital Outcome: Progressing Goal: Verbalize understanding of risk factor reduction measures to prevent injury from fall in the home Outcome: Progressing Goal: Use assistive devices by end of the shift Outcome: Progressing Goal: Pace activities to prevent fatigue by end of the shift Outcome: Progressing Problem: Skin Goal: Decreased wound size/increased tissue granulation at next dressing change Outcome: Progressing Goal: Participates in plan/prevention/treatment measures Outcome: Progressing Goal: Prevent/manage excess moisture Outcome: Progressing Goal: Prevent/minimize sheer/friction injuries Outcome: Progressing Goal: Promote/optimize nutrition Outcome: Progressing Goal: Promote skin healing Outcome: Progressing Problem: Pain Goal: My pain/discomfort is manageable Outcome: Progressing Problem: Safety Goal: Patient will be injury free during hospitalization Outcome: Progressing Goal: I will remain free of falls Outcome: Progressing Problem: Daily Care Goal: Daily care needs are met Outcome: Progressing Problem: Psychosocial Needs Goal: Demonstrates ability to cope with hospitalization/illness Outcome: Progressing Goal: Collaborate with me, my family, and caregiver to identify my specific goals Outcome: Progressing Problem: Discharge Barriers Goal: My discharge needs are met Outcome: Progressing Problem: Pain Goal: Takes deep breaths with improved pain control throughout the shift Outcome: Progressing Goal: Turns in bed with improved pain control throughout the shift Outcome: Progressing Goal: Walks with improved pain control throughout the shift Outcome: Progressing Goal: Performs ADL's with improved pain control throughout shift Outcome: Progressing Goal: Participates in PT with improved pain control throughout the shift Outcome: Progressing Goal: Free from opioid side effects throughout the shift Outcome: Progressing Goal: Free from acute confusion related to pain meds throughout the shift Outcome: Progressing The clinical goals for the shift include maintain trach site and control pain. Over the shift, the patient did not make progress toward the following goals. Barriers to progression include unable to take oral pills such as oxy. Recommendations to address these barriers include request order for iv diladid. [facility] 04-05-2023 History and physical note SICU History & Physical Subjective HPI: Fabricio Nunes is a 63 y.o. male with no pmhx presenting with one year of hoarseness and one month of inspiratory stridor. Notably, he recently presented to [place] ED with dysphonia and SOB where he was treated for bronchitis and discharged. Today, patient presented to [place] ED today and transferred to [facility] for further evaluation by ENT for possible tracheostomy placement, after Scope exam showed bilateral ulcerative lesions and minimal glottic gap patient was taken to the OR with ENT for tracheostomy due to concerns for impending airway compromise,post operatively patient was noted to have crepitus around right neck and chest and patient had desaturations to 85% and had increasing oxygen requirements. CXR obtained showed a large right sided pneumothorax, Thoracic surgery placed a right sided chest tube.. Per chart review, patient has had 1 year of progressive hoarseness of his voice. About 1 month prior to this visit, patient states that he was diagnosed with bronchitis and completed a course of antibiotics. Shortly after, patient noted worsening SOB and loud breathing. Patient states that he does not have SOB at rest, but endorses MUÑIZ and SOB after speaking. He also endorses 8 pound weight loss over the last month, which he believes is due to a poor appetite as he has not been able to work with his SOB. Patient denies dysphagia, neck pain, fever, chills, productive cough, or previous history of SOB. Cardiac Testing: TTE: No echocardiogram results found for the past 12 months OR Course: EBL: 10 ml UOP: NA Cellsaver: NA Products: NA Intubation: NA Lines/Access: IV No past medical history on file. No past surgical history on file. No medications prior to admission. Penicillins No family history on file. Scheduled Medications: acetaminophen, 1,000 mg, nasoduodenal tube, q8h MARIAMA chlorhexidine, 15 mL, Mouth/Throat, TID after meals heparin (porcine), 5,000 Units, subcutaneous, q8h lidocaine, 0.1 mL, subcutaneous, Once polyethylene glycol, 17 g, nasoduodenal tube, Daily senna, 10 mL, nasoduodenal tube, BID Continuous Medications: lactated Ringer's, 100 mL/hr, Last Rate: 100 mL/hr (04/05/231913) sodium chloride 0.9%, 75 mL/hr PRN Medications: PRN medications: albuterol, diphenhydrAMINE, droperidol, hydrALAZINE, HYDROmorphone, HYDROmorphone, HYDROmorphone, labetaloL, meperidine, naloxone, ondansetron, ondansetron, oxyCODONE, oxyCODONE, oxyCODONE, oxygen Objective Vitals: Most Recent: Vitals: 04/05/23 2215 BP: 124/75 Pulse: 90 Resp: 14 Temp: 36 C (96.8 F) SpO2: 94% 24hr Min/Max: Temp Min: 36 C (96.8 F) Max: 36.8 C (98.2 F) Pulse Min: 87 Max: 109 BP Min: 117/80 Max: 178/90 Resp Min: 11 Max: 26 SpO2 Min: 85 % Max: 96 % I/O: No intake/output data recorded. Hemodynamic parameters for last 24 hours: Vent settings: Vent Mode: Pressure support FiO2 (%): [70 %-100 %] 70 % PEEP/CPAP (cm H2O): [5 cm H20] [address] SUP: [12 cm H20] 12 cm H20 MAP (cm H2O): [8.4] 8.4 LDA: Surgical Airway (Active) No placement date or time found. Surgical Airway Type: Tracheostomy Number of days: Chest Tube Right (Active) Placement Date/Time: 04/05/23 (c) 2157 Chest Tube Orientation: Right Chest Tube Drain Tube Size (Fr): (c) Chest Tube Drainage System: Suction Number of days: 0 Physical Exam: Physical Exam Constitutional: General: He is not in acute distress. Appearance: Normal appearance. He is not ill-appearing. Eyes: Extraocular Movements: Extraocular movements intact. Neck: Comments: tracheostomy tube in place, crepitus over right neck Cardiovascular: Rate and Rhythm: Normal rate and regular rhythm. Heart sounds: Normal heart sounds. Pulmonary: Effort: Pulmonary effort is normal. Breath sounds: Normal breath sounds. Abdominal: General: Abdomen is flat. There is no distension. Palpations: Abdomen is soft. Tenderness: There is no abdominal tenderness. There is no guarding or rebound. Musculoskeletal: General: No swelling or tenderness. Normal range of motion. Skin: General: Skin is warm. Neurological: General: No focal deficit present. Mental Status: He is alert and oriented to person, place, and time. Motor: No weakness. Psychiatric: Mood and Affect: Mood normal. Behavior: Behavior normal. Lab/Radiology/Diagnostic Review: Results for orders placed or performed during the hospital encounter of 04/05/23 (from the past 24 hour(s)) Blood Gas Venous Full Panel Unsolicited Result Value Ref Range POCT pH, Venous 7.44 (H) 7.33 - 7.43 pH POCT pCO2, Venous 48 41 - 51 mm Hg POCT pO2, Venous 56 (H) 35 - 45 mm Hg POCT SO2, Venous 89 (H) 45 - 75 % POCT Oxy Hemoglobin, Venous 87.1 (H) 45.0 - 75.0 % POCT Hematocrit Calculated, Venous 52.0 41.0 - 52.0 % POCT Sodium, Venous 135 (L) 136 - 145 mmol/L POCT Potassium, Venous 4.1 3.5 - 5.3 mmol/L POCT Chloride, Venous 99 98 - 107 mmol/L POCT Ionized Calicum, Venous 1.14 1.10 - 1.33 mmol/L POCT Glucose, Venous 116 (H) 74 - 99 mg/dL POCT Lactate, Venous 0.9 0.4 - 2.0 mmol/L POCT Base Excess, Venous 6.9 (H) -2.0 - 3.0 mmol/L POCT HCO3 Calculated, Venous 32.6 (H) 22.0 - 26.0 mmol/L POCT Hemoglobin, Venous 17.3 13.5 - 17.5 g/dL POCT Anion Gap, Venous 8.0 (L) 10.0 - 25.0 mmol/L Patient Temperature 37.0 degrees Celsius Sars-CoV-2 and Influenza A/B PCR Result Value Ref Range Flu A Result Not Detected Not Detected Flu B Result Not Detected Not Detected Coronavirus 2018, PCR Not Detected Not Detected Comprehensive metabolic panel Result Value Ref Range Glucose 109 (H) 74 - 99 mg/dL Sodium 137 136 - 145 mmol/L Potassium 3.8 3.5 - 5.3 mmol/L Chloride 99 98 - 107 mmol/L Bicarbonate 30 21 - 32 mmol/L Anion Gap 12 10 - 20 mmol/L Urea Nitrogen 14 6 - 23 mg/dL Creatinine 0.73 0.50 - 1.30 mg/dL eGFR >90 >60 mL/min/1.73m*2 Calcium 9.9 8.6 - 10.6 mg/dL Albumin 4.7 3.4 - 5.0 g/dL Alkaline Phosphatase 60 33 - 136 U/L Total Protein 7.3 6.4 - 8.2 g/dL AST 18 9 - 39 U/L Bilirubin, Total 0.6 0.0 - 1.2 mg/dL ALT 22 10 - 52 U/L Coagulation Screen Result Value Ref Range Protime 11.3 9.8 - 12.8 seconds INR 1.0 0.9 - 1.1 aPTT 37 27 - 38 seconds Type and Screen Result Value Ref Range ABO TYPE O Rh TYPE POS ANTIBODY SCREEN NEG CBC and Auto Differential Result Value Ref Range WBC 8.5 4.4 - 11.3 x10*3/uL nRBC 0.0 0.0 - 0.0 /100 WBCs RBC 5.54 4.50 - 5.90 x10*6/uL Hemoglobin 16.9 13.5 - 17.5 g/dL Hematocrit 47.1 41.0 - 52.0 % MCV 85 80 - 100 fL MCH 30.5 26.0 - 34.0 pg MCHC 35.9 32.0 - 36.0 g/dL RDW 11.8 11.5 - 14.5 % Platelets 278 150 - 450 x10*3/uL Neutrophils % 70.0 40.0 - 80.0 % Immature Granulocytes %, Automated 0.4 0.0 - 0.9 % Lymphocytes % 19.1 13.0 - 44.0 % Monocytes % 8.6 2.0 - 10.0 % Eosinophils % 1.1 0.0 - 6.0 % Basophils % 0.8 0.0 - 2.0 % Neutrophils Absolute 5.96 1.20 - 7.70 x10*3/uL Immature Granulocytes Absolute, Automated 0.03 0.00 - 0.70 x10*3/uL Lymphocytes Absolute 1.62 1.20 - 4.80 x10*3/uL Monocytes Absolute 0.73 0.10 - 1.00 x10*3/uL Eosinophils Absolute 0.09 0.00 - 0.70 x10*3/uL Basophils Absolute 0.07 0.00 - 0.10 x10*3/uL XR chest 1 view Result Date: 04/05/2023 STUDY: XR CHEST 1 VIEW; 04/05/2023 7:43 pm INDICATION: Signs/Symptoms:postop after trach, crepitus to chest. COMPARISON: Radiograph 04/05/2023 ACCESSION NUMBER(S): [id number] ORDERING CLINICIAN: PRASAD ALBERTS FINDINGS: AP radiograph of the chest was provided. Tracheostomy cannula is seen. Large volume subcutaneous emphysema in the lateral neck bilaterally. CARDIOMEDIASTINAL SILHOUETTE: Cardiomediastinal silhouette is normal in size and configuration. Mild leftward mediastinal shift. LUNGS: Large right-sided pneumothorax with collapse of the right lung. ABDOMEN: No remarkable upper abdominal findings. BONES: No acute osseous changes. 1. Large right-sided pneumothorax with collapse of the right lung. Mild leftward mediastinal shift raising concern for tension pneumothorax. 2. Large volume subcutaneous emphysema in the lateral neck bilaterally with tracheostomy cannula. Findings were discussed in person with member of the treatment team but did not obtain providers name. Critical finding chatted to ordering provider as well. I personally reviewed the images/study and I agree with the findings as stated by Emime Tamayo MD. This study was interpreted at [facility], [place], [place]. MACRO: Emmie Tamayo discussed the significance and urgency of this critical finding by secure chat with PRASAD ALBERTS on 04/05/2023 at 8:18 pm. (-RCF-) Findings: Pneumothorax. Dictation workstation: [id number] CT soft tissue neck w IV contrast Result Date: 04/05/2023 Interpreted By: Guillermo Martinez, STUDY: CT SOFT TISSUE NECK W IV CONTRAST; 04/05/2023 2:49 pm INDICATION: Signs/Symptoms:concern for airway mass. COMPARISON: None. ACCESSION NUMBER(S): [id number] ORDERING CLINICIAN: ARIS SLAUGHTER TECHNIQUE: Axial CT images through the soft tissues of the neck were obtained following intravenous contrast administration and reconstructed in the coronal and sagittal planes. The patient received 90 mL of Omnipaque 350 contrast intravenously. FINDINGS: There is nonspecific narrowing of the airway in the transverse dimension at the level of the glottis which may be related to timing of imaging during respiration; however, correlation with direct visualization is recommended to exclude an underlying mucosal lesion. There is minimal asymmetric prominence of the right laryngeal ventricle when compared with the left which may represent an incidental finding although asymmetric prominence of the laryngeal ventricle can be seen with ipsilateral vocal cord dysfunction and this latter possibility therefore can not be completely excluded. Otherwise, the nasopharynx, oropharynx, hypopharynx, and visualized trachea are patent. The parotid glands, submandibular glands, and thyroid gland are within normal limits. There are scattered morphologically normal size lymph nodes noted within the neck. No abnormally enlarged lymph nodes are noted within the neck. The paranasal sinuses are clear. There is nasal septal deviation. A bony spurs noted along the left aspect of the nasal septum centered between the left middle and inferior turbinates. The bilateral middle ear cavities and mastoid air cells are clear. The patient is missing several upper and lower teeth. There is multilevel cervical spondylosis with the most pronounced anterior and posterior osteophytic spurring noted at the C5/6 and C6/7 levels. There is nonspecific narrowing of the airway in the transverse dimension at the level of the glottis which may be related to timing of imaging during respiration; however, correlation with direct visualization is recommended to exclude an underlying mucosal lesion. There is minimal asymmetric prominence of the right laryngeal ventricle when compared with the left which may represent an incidental finding although asymmetric prominence of the laryngeal ventricle can be seen with ipsilateral vocal cord dysfunction and this latter possibility therefore can not be completely excluded. There are scattered morphologically normal size lymph nodes noted within the neck. No abnormally enlarged lymph nodes are noted within the neck. MACRO: None. Signed by: Guillermo Martinez 04/05/2023 3:37 PM Dictation workstation: [id number] XR chest 1 view Result Date: 04/05/2023 STUDY: Chest Radiograph; 04/05/2023 at 12:09 PM. INDICATION: Shortness of breath. COMPARISON: None available. ACCESSION NUMBER(S): [id number] ORDERING CLINICIAN: ARIS SLAUGHTER TECHNIQUE: Frontal chest was obtained at 12:09 hours. FINDINGS: CARDIOMEDIASTINAL SILHOUETTE: Cardiomediastinal silhouette is normal in size and configuration. LUNGS: There is mild elevation the right hemidiaphragm with right basilar subsegmental atelectasis. ABDOMEN: No remarkable upper abdominal findings. BONES: No acute osseous changes. Subsegmental atelectasis of the right lung base. Signed by Zachary Nunes MD Assessment/Plan Assessment: Fabricio Nunes is a 63 y.o. male with no pmhx presenting with one year of hoarseness and one month of inspiratory stridor presenting to SICU from OR s/p awake trach, bronchoscopy, endoscopy and biopsy with Dr Dong 04/05,presenting with one year of hoarseness and one month of inspiratory stridor,after Scope exam showed bilateral ulcerative lesions and minimal glottic gap patient was taken to the OR with ENT for tracheostomy due to concerns for impending airway compromise,post operatively patient was noted to have crepitus around right neck and chest and patient had desaturations to 85% and had increasing oxygen requirements. CXR obtained showed a large right sided pneumothorax, Thoracic surgery placed a right sided chest tube. Plan: NEURO: Acute post-op pain. Drowsy s/p OR procedure. - ongoing neuro and pain assessments - PRN hydromorphone for pain control - lidoderm patches surrounding surgical incision - PT/OT consult CV: No known medical History . Vitally stable in SR. - continuous EKG/abp monitoring - Goal map range 65-90 PULM/ ENT: Scope exam with bilateral ulcerative lesions and minimal glottic gap representing likely malignant lesion and concerning for impending airway compromise, s/p awake trach, bronchoscopy, endoscopy and biopsy,post OP patient was noted to have crepitus around right neck and chest and patient had desaturations to 85% and had increasing oxygen requirements. CXR obtained showed a large right sided pneumothorax, Thoracic surgery placed a right sided chest tube, Arrived to SICU on CPAP FiO2 of 70, PEEP 5. Latest CXR shows re-expansion of the right lung status post pigtail catheter placement. - Wean FiO2 as tolerated. - Can increase PEEP if patient needs it. - Due to bilateral ulcerative lesions and minimal glottic gap representing likely malignant lesion will need to determine with ENT further work up plan. - Q1h incentive spirometer while awake - additional pulm toilet prn. - F/U post op CXR GI: - NPO - Advance diet per surgical service - ENT plans to place a Dobbhoff tomorrow - Nutrition consulted to follow up on their recommendation. - Holding Bowel regimen until Dobbhoff placement - PPI for GI prophylaxis : No history of renal disease. Baseline creatinine 0.75. - Maintenance fluid @ 75 ml/hr - Volume resuscitation as needed - Maintain U/O >0.5ml/kg/hr - Check renal function panel post op and daily - Replete electrolytes to goal K>4, Mg>2, Phos>2.5, ionized Ca>1.10. HEME: No known PMH. - Check CBC and coags post op and daily - SCDs for DVT prophylaxis - SQ heparin per surgical team. - ongoing monitoring for s/s bleeding ENDO: No history of DM or thyroid disease - Q4h BG - SSI Lispro per ICU protocol. ID: Afebrile. post op WBC 8. - temp q4h, wbc daily - cheryl-op cefazolin for 24hrs - ongoing monitoring for s/s infection Lines: - PIV Dispo: Admit to ICU. Patient seen and discussed with ICU attending Dr. Villarreal. SICU phone [phone] Associated attestation - Darlene Villarreal MD - 04/06/2023 5:52 AM EST Brief Attending Summary: 63 yo M presenting to OSH with h/o hoarseness and inspiratory stridor complaining of dysphonia and SOB. Transferred to [facility]. ENT consulted - scope with b/l ulcerating lesions near vocal cords with minimal glottic opening (c/f malignancy). Patient taken to OR for awake tracheostomy for definitive airway. Postop course c/b R PTX now s/p pigtail placement with thoracic. Now admitted to SICU for management of hypoxic pulm insufficiency requiring CPAP. 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 This patient was critically ill and required continued critical care treatment. Teaching and any separately billable procedures are not included in the time calculation. Billing Provider Critical Care Time: 41 minutes [facility] Work Phone: 04-05-2023 History and physical note SICU History & Physical Subjective HPI: Fabricio Nunes is a 63 y.o. male with no pmhx presenting with one year of hoarseness and one month of inspiratory stridor. Notably, he recently presented to [place] ED with dysphonia and SOB where he was treated for bronchitis and discharged. Today, patient presented to [place] ED today and transferred to [facility] for further evaluation by ENT for possible tracheostomy placement, after Scope exam showed bilateral ulcerative lesions and minimal glottic gap patient was taken to the OR with ENT for tracheostomy due to concerns for impending airway compromise,post operatively patient was noted to have crepitus around right neck and chest and patient had desaturations to 85% and had increasing oxygen requirements. CXR obtained showed a large right sided pneumothorax, Thoracic surgery placed a right sided chest tube.. Per chart review, patient has had 1 year of progressive hoarseness of his voice. About 1 month prior to this visit, patient states that he was diagnosed with bronchitis and completed a course of antibiotics. Shortly after, patient noted worsening SOB and loud breathing. Patient states that he does not have SOB at rest, but endorses MUÑIZ and SOB after speaking. He also endorses 8 pound weight loss over the last month, which he believes is due to a poor appetite as he has not been able to work with his SOB. Patient denies dysphagia, neck pain, fever, chills, productive cough, or previous history of SOB. Cardiac Testing: TTE: No echocardiogram results found for the past 12 months OR Course: EBL: 10 ml UOP: NA Cellsaver: NA Products: NA Intubation: NA Lines/Access: IV No past medical history on file. No past surgical history on file. No medications prior to admission. Penicillins No family history on file. Scheduled Medications: acetaminophen, 1,000 mg, nasoduodenal tube, q8h MARIAMA chlorhexidine, 15 mL, Mouth/Throat, TID after meals heparin (porcine), 5,000 Units, subcutaneous, q8h lidocaine, 0.1 mL, subcutaneous, Once polyethylene glycol, 17 g, nasoduodenal tube, Daily senna, 10 mL, nasoduodenal tube, BID Continuous Medications: lactated Ringer's, 100 mL/hr, Last Rate: 100 mL/hr (04/05/23 191) sodium chloride 0.9%, 75 mL/hr PRN Medications: PRN medications: albuterol, diphenhydrAMINE, droperidol, hydrALAZINE, HYDROmorphone, HYDROmorphone, HYDROmorphone, labetaloL, meperidine, naloxone, ondansetron, ondansetron, oxyCODONE, oxyCODONE, oxyCODONE, oxygen Objective Vitals: Most Recent: Vitals: 04/05/23 2215 BP: 124/75 Pulse: 90 Resp: 14 Temp: 36 C (96.8 F) SpO2: 94% 24hr Min/Max: Temp Min: 36 C (96.8 F) Max: 36.8 C (98.2 F) Pulse Min: 87 Max: 109 BP Min: 117/80 Max: 178/90 Resp Min: 11 Max: 26 SpO2 Min: 85 % Max: 96 % I/O: No intake/output data recorded. Hemodynamic parameters for last 24 hours: Vent settings: Vent Mode: Pressure support FiO2 (%): [70 %-100 %] 70 % PEEP/CPAP (cm H2O): [5 cm H20] [address] SUP: [12 cm H20] 12 cm H20 MAP (cm H2O): [8.4] 8.4 LDA: Surgical Airway (Active) No placement date or time found. Surgical Airway Type: Tracheostomy Number of days: Chest Tube Right (Active) Placement Date/Time: 04/05/23 (c) 2157 Chest Tube Orientation: Right Chest Tube Drain Tube Size (Fr): (c) Chest Tube Drainage System: Suction Number of days: 0 Physical Exam: Physical Exam Constitutional: General: He is not in acute distress. Appearance: Normal appearance. He is not ill-appearing. Eyes: Extraocular Movements: Extraocular movements intact. Neck: Comments: tracheostomy tube in place, crepitus over right neck Cardiovascular: Rate and Rhythm: Normal rate and regular rhythm. Heart sounds: Normal heart sounds. Pulmonary: Effort: Pulmonary effort is normal. Breath sounds: Normal breath sounds. Abdominal: General: Abdomen is flat. There is no distension. Palpations: Abdomen is soft. Tenderness: There is no abdominal tenderness. There is no guarding or rebound. Musculoskeletal: General: No swelling or tenderness. Normal range of motion. Skin: General: Skin is warm. Neurological: General: No focal deficit present. Mental Status: He is alert and oriented to person, place, and time. Motor: No weakness. Psychiatric: Mood and Affect: Mood normal. Behavior: Behavior normal. Lab/Radiology/Diagnostic Review: Results for orders placed or performed during the hospital encounter of 04/05/23 (from the past 24 hour(s)) Blood Gas Venous Full Panel Unsolicited Result Value Ref Range POCT pH, Venous 7.44 (H) 7.33 - 7.43 pH POCT pCO2, Venous 48 41 - 51 mm Hg POCT pO2, Venous 56 (H) 35 - 45 mm Hg POCT SO2, Venous 89 (H) 45 - 75 % POCT Oxy Hemoglobin, Venous 87.1 (H) 45.0 - 75.0 % POCT Hematocrit Calculated, Venous 52.0 41.0 - 52.0 % POCT Sodium, Venous 135 (L) 136 - 145 mmol/L POCT Potassium, Venous 4.1 3.5 - 5.3 mmol/L POCT Chloride, Venous 99 98 - 107 mmol/L POCT Ionized Calicum, Venous 1.14 1.10 - 1.33 mmol/L POCT Glucose, Venous 116 (H) 74 - 99 mg/dL POCT Lactate, Venous 0.9 0.4 - 2.0 mmol/L POCT Base Excess, Venous 6.9 (H) -2.0 - 3.0 mmol/L POCT HCO3 Calculated, Venous 32.6 (H) 22.0 - 26.0 mmol/L POCT Hemoglobin, Venous 17.3 13.5 - 17.5 g/dL POCT Anion Gap, Venous 8.0 (L) 10.0 - 25.0 mmol/L Patient Temperature 37.0 degrees Celsius Sars-CoV-2 and Influenza A/B PCR Result Value Ref Range Flu A Result Not Detected Not Detected Flu B Result Not Detected Not Detected Coronavirus 2018, PCR Not Detected Not Detected Comprehensive metabolic panel Result Value Ref Range Glucose 109 (H) 74 - 99 mg/dL Sodium 137 136 - 145 mmol/L Potassium 3.8 3.5 - 5.3 mmol/L Chloride 99 98 - 107 mmol/L Bicarbonate 30 21 - 32 mmol/L Anion Gap 12 10 - 20 mmol/L Urea Nitrogen 14 6 - 23 mg/dL Creatinine 0.73 0.50 - 1.30 mg/dL eGFR >90 >60 mL/min/1.73m*2 Calcium 9.9 8.6 - 10.6 mg/dL Albumin 4.7 3.4 - 5.0 g/dL Alkaline Phosphatase 60 33 - 136 U/L Total Protein 7.3 6.4 - 8.2 g/dL AST 18 9 - 39 U/L Bilirubin, Total 0.6 0.0 - 1.2 mg/dL ALT 22 10 - 52 U/L Coagulation Screen Result Value Ref Range Protime 11.3 9.8 - 12.8 seconds INR 1.0 0.9 - 1.1 aPTT 37 27 - 38 seconds Type and Screen Result Value Ref Range ABO TYPE O Rh TYPE POS ANTIBODY SCREEN NEG CBC and Auto Differential Result Value Ref Range WBC 8.5 4.4 - 11.3 x10*3/uL nRBC 0.0 0.0 - 0.0 /100 WBCs RBC 5.54 4.50 - 5.90 x10*6/uL Hemoglobin 16.9 13.5 - 17.5 g/dL Hematocrit 47.1 41.0 - 52.0 % MCV 85 80 - 100 fL MCH 30.5 26.0 - 34.0 pg MCHC 35.9 32.0 - 36.0 g/dL RDW 11.8 11.5 - 14.5 % Platelets 278 150 - 450 x10*3/uL Neutrophils % 70.0 40.0 - 80.0 % Immature Granulocytes %, Automated 0.4 0.0 - 0.9 % Lymphocytes % 19.1 13.0 - 44.0 % Monocytes % 8.6 2.0 - 10.0 % Eosinophils % 1.1 0.0 - 6.0 % Basophils % 0.8 0.0 - 2.0 % Neutrophils Absolute 5.96 1.20 - 7.70 x10*3/uL Immature Granulocytes Absolute, Automated 0.03 0.00 - 0.70 x10*3/uL Lymphocytes Absolute 1.62 1.20 - 4.80 x10*3/uL Monocytes Absolute 0.73 0.10 - 1.00 x10*3/uL Eosinophils Absolute 0.09 0.00 - 0.70 x10*3/uL Basophils Absolute 0.07 0.00 - 0.10 x10*3/uL XR chest 1 view Result Date: 04/05/2023 STUDY: XR CHEST 1 VIEW; 04/05/2023 7:43 pm INDICATION: Signs/Symptoms:postop after trach, crepitus to chest. COMPARISON: Radiograph 04/05/2023 ACCESSION NUMBER(S): [id number] ORDERING CLINICIAN: PRASAD ALBERTS FINDINGS: AP radiograph of the chest was provided. Tracheostomy cannula is seen. Large volume subcutaneous emphysema in the lateral neck bilaterally. CARDIOMEDIASTINAL SILHOUETTE: Cardiomediastinal silhouette is normal in size and configuration. Mild leftward mediastinal shift. LUNGS: Large right-sided pneumothorax with collapse of the right lung. ABDOMEN: No remarkable upper abdominal findings. BONES: No acute osseous changes. 1. Large right-sided pneumothorax with collapse of the right lung. Mild leftward mediastinal shift raising concern for tension pneumothorax. 2. Large volume subcutaneous emphysema in the lateral neck bilaterally with tracheostomy cannula. Findings were discussed in person with member of the treatment team but did not obtain providers name. Critical finding chatted to ordering provider as well. I personally reviewed the images/study and I agree with the findings as stated by Emmie Tamayo MD. This study was interpreted at [facility], [place], [place]. MACRO: Emmie Tamayo discussed the significance and urgency of this critical finding by secure chat with PRASAD ALBERTS on 04/05/2023 at 8:18 pm. (-RCF-) Findings: Pneumothorax. Dictation workstation: [id number] CT soft tissue neck w IV contrast Result Date: 04/05/2023 Interpreted By: Guillermo Martinez, STUDY: CT SOFT TISSUE NECK W IV CONTRAST; 04/05/2023 2:49 pm INDICATION: Signs/Symptoms:concern for airway mass. COMPARISON: None. ACCESSION NUMBER(S): [id number] ORDERING CLINICIAN: ARIS SLAUGHTER TECHNIQUE: Axial CT images through the soft tissues of the neck were obtained following intravenous contrast administration and reconstructed in the coronal and sagittal planes. The patient received 90 mL of Omnipaque 350 contrast intravenously. FINDINGS: There is nonspecific narrowing of the airway in the transverse dimension at the level of the glottis which may be related to timing of imaging during respiration; however, correlation with direct visualization is recommended to exclude an underlying mucosal lesion. There is minimal asymmetric prominence of the right laryngeal ventricle when compared with the left which may represent an incidental finding although asymmetric prominence of the laryngeal ventricle can be seen with ipsilateral vocal cord dysfunction and this latter possibility therefore can not be completely excluded. Otherwise, the nasopharynx, oropharynx, hypopharynx, and visualized trachea are patent. The parotid glands, submandibular glands, and thyroid gland are within normal limits. There are scattered morphologically normal size lymph nodes noted within the neck. No abnormally enlarged lymph nodes are noted within the neck. The paranasal sinuses are clear. There is nasal septal deviation. A bony spurs noted along the left aspect of the nasal septum centered between the left middle and inferior turbinates. The bilateral middle ear cavities and mastoid air cells are clear. The patient is missing several upper and lower teeth. There is multilevel cervical spondylosis with the most pronounced anterior and posterior osteophytic spurring noted at the C5/6 and C6/7 levels. There is nonspecific narrowing of the airway in the transverse dimension at the level of the glottis which may be related to timing of imaging during respiration; however, correlation with direct visualization is recommended to exclude an underlying mucosal lesion. There is minimal asymmetric prominence of the right laryngeal ventricle when compared with the left which may represent an incidental finding although asymmetric prominence of the laryngeal ventricle can be seen with ipsilateral vocal cord dysfunction and this latter possibility therefore can not be completely excluded. There are scattered morphologically normal size lymph nodes noted within the neck. No abnormally enlarged lymph nodes are noted within the neck. MACRO: None. Signed by: Guillermo Martinez 04/05/2023 3:37 PM Dictation workstation: [id number] XR chest 1 view Result Date: 04/05/2023 STUDY: Chest Radiograph; 04/05/2023 at 12:09 PM. INDICATION: Shortness of breath. COMPARISON: None available. ACCESSION NUMBER(S): [id number] ORDERING CLINICIAN: ARIS SLAUGHTER TECHNIQUE: Frontal chest was obtained at 12:09 hours. FINDINGS: CARDIOMEDIASTINAL SILHOUETTE: Cardiomediastinal silhouette is normal in size and configuration. LUNGS: There is mild elevation the right hemidiaphragm with right basilar subsegmental atelectasis. ABDOMEN: No remarkable upper abdominal findings. BONES: No acute osseous changes. Subsegmental atelectasis of the right lung base. Signed by Zachary Nunes MD Assessment/Plan Assessment: Fabricio Nunes is a 63 y.o. male with no pmhx presenting with one year of hoarseness and one month of inspiratory stridor presenting to SICU from OR s/p awake trach, bronchoscopy, endoscopy and biopsy with Dr Dong 04/05,presenting with one year of hoarseness and one month of inspiratory stridor,after Scope exam showed bilateral ulcerative lesions and minimal glottic gap patient was taken to the OR with ENT for tracheostomy due to concerns for impending airway compromise,post operatively patient was noted to have crepitus around right neck and chest and patient had desaturations to 85% and had increasing oxygen requirements. CXR obtained showed a large right sided pneumothorax, Thoracic surgery placed a right sided chest tube. Plan: NEURO: Acute post-op pain. Drowsy s/p OR procedure. - ongoing neuro and pain assessments - PRN hydromorphone for pain control - lidoderm patches surrounding surgical incision - PT/OT consult CV: No known medical History . Vitally stable in SR. - continuous EKG/abp monitoring - Goal map range 65-90 PULM/ ENT: Scope exam with bilateral ulcerative lesions and minimal glottic gap representing likely malignant lesion and concerning for impending airway compromise, s/p awake trach, bronchoscopy, endoscopy and biopsy,post OP patient was noted to have crepitus around right neck and chest and patient had desaturations to 85% and had increasing oxygen requirements. CXR obtained showed a large right sided pneumothorax, Thoracic surgery placed a right sided chest tube, Arrived to SICU on CPAP FiO2 of 70, PEEP 5. Latest CXR shows re-expansion of the right lung status post pigtail catheter placement. - Wean FiO2 as tolerated. - Can increase PEEP if patient needs it. - Due to bilateral ulcerative lesions and minimal glottic gap representing likely malignant lesion will need to determine with ENT further work up plan. - Q1h incentive spirometer while awake - additional pulm toilet prn. - F/U post op CXR GI: - NPO - Advance diet per surgical service - ENT plans to place a Dobbhoff tomorrow - Nutrition consulted to follow up on their recommendation. - Holding Bowel regimen until Dobbhoff placement - PPI for GI prophylaxis : No history of renal disease. Baseline creatinine 0.75. - Maintenance fluid @ 75 ml/hr - Volume resuscitation as needed - Maintain U/O >0.5ml/kg/hr - Check renal function panel post op and daily - Replete electrolytes to goal K>4, Mg>2, Phos>2.5, ionized Ca>1.10. HEME: No known PMH. - Check CBC and coags post op and daily - SCDs for DVT prophylaxis - SQ heparin per surgical team. - ongoing monitoring for s/s bleeding ENDO: No history of DM or thyroid disease - Q4h BG - SSI Lispro per ICU protocol. ID: Afebrile. post op WBC 8. - temp q4h, wbc daily - cheryl-op cefazolin for 24hrs - ongoing monitoring for s/s infection Lines: - PIV Dispo: Admit to ICU. Patient seen and discussed with ICU attending Dr. Villarreal. SICU phone [phone] Associated attestation - Darlene Villarreal MD - 04/06/2023 5:52 AM EST Brief Attending Summary: 63 yo M presenting to OSH with h/o hoarseness and inspiratory stridor complaining of dysphonia and SOB. Transferred to [facility]. ENT consulted - scope with b/l ulcerating lesions near vocal cords with minimal glottic opening (c/f malignancy). Patient taken to OR for awake tracheostomy for definitive airway. Postop course c/b R PTX now s/p pigtail placement with thoracic. Now admitted to SICU for management of hypoxic pulm insufficiency requiring CPAP. 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 This patient was critically ill and required continued critical care treatment. Teaching and any separately billable procedures are not included in the time calculation. Billing Provider Critical Care Time: 41 minutes History Of Present Illness Fabricio Nunes is a 63 y.o. male with no pmhx presenting with one year of hoarseness and one month of inspiratory stridor. Notably, he recently presented to [place] ED with dysphonia and SOB where he was treated for bronchitis and discharged. Today, patient presented to [place] ED today and transferred to [facility] for further evaluation by ENT for possible tracheostomy placement. Per interview with patient and his , patient has had 1 year of progressive hoarseness of his voice. About 1 month prior to this visit, patient states that he was diagnosed with bronchitis and completed a course of antibiotics. Shortly after, patient noted worsening SOB and loud breathing. Patient states that he does not have SOB at rest, but endorses MUÑIZ and SOB after speaking. He also endorses 8 pound weight loss over the last month, which he believes is due to a poor appetite as he has not been able to work with his SOB. Patient denies dysphagia, neck pain, fever, chills, productive cough, or previous history of SOB. Past Medical History History reviewed. No pertinent past medical history. Surgical History History reviewed. No pertinent surgical history. Social History Patient denies alcohol or illicit drug use. Patient has a history of smoking 1/2 ppd for 4-5 years, but quit smoking 30 years ago. Family History No family history on file. Allergies Penicillins ROS negative except per HPI. PHYSICAL EXAMINATION: Constitutional: No acute distress Voice: Grade: 2, Roughness: 0, Breathiness: 2, Asthenia: 1, Strain: 1 Respiration: Inspiratory stridor, satting well on room air Cardiovascular: No clubbing/cyanosis/edema in hands Eyes: EOM intact, sclera normal Neuro: Alert and oriented times 3, Cranial nerves II-XII grossly intact and symmetric bilaterally Head and Face: Symmetric facial features, no masses or lesions Right Ear: Normal external ear Left Ear: Normal external ear Nose: External nose midline Oral Cavity/Oropharynx/Lips: Normal mucous membranes, normal floor of mouth/tongue/OP, no masses or lesions Pharynx: no masses or lesions Neck/Lymph: No LAD, no thyroid masses, trachea midline Skin: Neck skin is without scar or injury Psych: Alert and oriented with appropriate mood and affect Last Recorded Vitals Blood pressure 137/87, pulse 97, temperature 36.3 C (97.3 F), temperature source Temporal, resp. rate 18, height 1.727 m (5' 8 ), weight 91.4 kg (201 lb 8 oz), SpO2 98 %. Relevant Results I personally reviewed the CT Neck which demonstrates narrowing at the level of the glottis with irregularity of the bilateral true vocal cords. No lymphadenopathy Procedure Note: Flexible Nasolaryngoscopy Verbal informed consent was obtained from the patient/patient's guardian. 4% lidocaine mixed with phenylephrine was prepared and dripped into the nose. It was placed in the bilateral nares. Following an appropriate amount of time to allow for adequate anesthesia, a flexible fiberoptic nasolaryngoscope was placed into the patient's left naris. The nasal cavity, nasopharynx, oropharynx, hypopharynx, and all endolaryngeal structures were visualized and were normal except as listed below. Significant findings included: -ulcerative, exophytic lesions of bilateral vocal cords with 1-2 mm glottic gap posteriorly, inability to see below level of lesions, interarytenoid banding, decent adduction but minimal abduction Assessment/Plan Principal Problem: Lesion of glottis Active Problems: Shortness of breath Biphasic stridor Acute on chronic respiratory failure with hypoxia (CMS/HCC) Airway obstruction, anatomic Fabricio Nunes is a 63 y.o. male with one year of dysphonia and one month of stridor who presented to [place] ED with SOB and transferred to [facility] for further ENT evaluation. 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 Recs: - Emergently taken to OR for awake trach, triple endoscopy and biopsy - Admit to ENT Patient seen and discussed with Dr. Dong who agrees with plan. Eleni Pierce MD PGY-1 Otolaryngology - Head & Neck Surgery [facility] ENT Consult Pager: [phone] Head and Neck Phone: [phone] ENT Peds Pager: [phone] ENT Subspecialty Team: EpicChat Associated attestation - Enoc Dong MD - 04/07/2023 5:58 PM EST I saw and evaluated the patient. I personally obtained the guzman and critical portions of the history and physical exam or was physically present for guzman and critical portions performed by the resident/fellow. I reviewed the resident/fellow's documentation and discussed the patient with the resident/fellow. I agree with the resident/fellow's medical decision making as documented in the note. This patient presents with [id number] respiratory failure due to airway obstruction from glottic mass, suspicious for malignancy or possible inflammatory process. Due to 1mm glottic airway and risk for decompensation, discussion was had to proceed with urgent awake tracheostomy and direct laryngoscopy with biopsy, bronchoscopy, and esophagoscopy. Patient and are agreeable and consent was signed. I spent over 90 minutes evaluating the patient, including supervision of the flexible laryngoscopy, coordination of OR procedure, and discussion with anesthesiology staff. documented in this encounter [facility] Work Phone: 04-05-2023 Procedure note Associated Ord er(s): Chest Tube Insertion Post-Procedure Diagnose(s): Postprocedural pneumothorax Chest Tube Insertion Date/Time: 04/05/2023 9:58 PM Performed by: Scooby Santacruz MD Authorized by: Kirsten Clarke MD Consent: Consent obtained: Written Consent given by: Spouse and patient Risks discussed: Damage to surrounding structures, bleeding, infection, nerve damage and pain Alternatives discussed: No treatment, delayed treatment and alternative treatment Mascot protocol: Procedure explained and questions answered to patient or proxy's satisfaction: yes Relevant documents present and verified: yes Imaging studies available: yes Required blood products, implants, devices, and special equipment available: no Site/side marked: no Immediately prior to procedure, a time out was called: yes Patient identity confirmed: Arm band and hospital-assigned identification number Pre-procedure details: Skin preparation: Chlorhexidine Preparation: Patient was prepped and draped in the usual sterile fashion Sedation: Sedation type: Anxiolysis Anesthesia: Anesthesia method: Local infiltration Local anesthetic: Lidocaine 1% WITH epi Procedure details: Placement location: R lateral Scalpel size: 11 Tube size (Slovak): 14 Fr pigtail. Ultrasound guidance: no Tension pneumothorax: yes Tube connected to: Suction Drainage characteristics: Air only Suture material: 2-0 silk Dressinx4 sterile gauze Post-procedure details: Post-insertion x-ray findings: tube in good position Procedure completion: Tolerated Comments: After informed consent was obtained patient was placed in supine position with right arm above his head and tilted slightly to his left. Pigtail site was identified and prepped and draped in usual sterile fashion. Local anesthesia was infiltrated at the site of pigtail placement. needle was inserted into the chest while aspirating at the fifth intercostal space and midaxillary line. Air was aspirated and syringe was removed. Guide wire was inserted through the needle and the needle was removed. A stab incision was made at the skin at the guide wire insertion site and a dilator was inserted over the wire to dilated the track for the pigtail. The pigtail catheter with stylette in place was inserted over the guide wire and the stylette and guide wire were removed after entry into the thoracic space. Once the catheter was in place it was attached to the adaptor and connected to atrium at -20mmHg suction. The catheter was secured to the chest wall with suture and sterile dressing placed. chest radiographs were obtained confirming catheter positioning. Patient tolerated procedure with no issues. [facility] Work Phone: 04-05-2023 Consult note Formatting of th is note might be different from the original. Reason For Consult Right sided pneumothorax History Of Present Illness Fabricio Nunes is a 63 y.o. male presenting with right sided pneumothorax after tracheostomy placement. Per chart review patient presented with one year of hoarseness and one month of inspiratory stridor, dysphonia and SOB where he was treated for bronchitis and discharged. after Scope exam showed bilateral ulcerative lesions and minimal glottic gap patient was taken to the OR with ENT for tracheostomy due to concerns for impending airway compromise. Post operatively patient was noted to have crepitus around right neck and chest and patient had desaturations to 85% and had increasing oxygen requirements. CXR obtained showed a large right sided pneumothorax and thoracic surgery was consulted for evaluation. Past Medical History He has no past medical history on file. Surgical History He has no past surgical history on file. Social History He has no history on file for tobacco use, alcohol use, and drug use. Family History No family history on file. Allergies Penicillins Review of Systems Unable to obtain due to patient just coming off anesthesia and having a tracheostomy. Physical Exam Constitutional: No acute distress Respiration: non labored breathing on CPAP to trach. 100% FiO2 and PEEP 5. Decreased breath sounds on auscultation of right lung with crepitus over right neck and chest. Cardiovascular: tachycardic to 100 on monitor. Eyes: EOM intact, sclera normal Neuro: Alert and oriented times. Nods to questions and wrote responses. HEENT: tracheostomy tube in place. Abdomen: soft, non tended, non distended. Last Recorded Vitals Blood pressure 142/81, pulse 96, temperature 36 C (96.8 F), temperature source Tympanic, resp. rate 11, height 1.727 m (5' 8 ), weight 90.7 kg (200 lb), SpO2 95 %. Relevant Results XR chest 1 view Result Date: 04/05/2023 1. Large right-sided pneumothorax with collapse of the right lung. Mild leftward mediastinal shift raising concern for tension pneumothorax. 2. Large volume subcutaneous emphysema in the lateral neck bilaterally with tracheostomy cannula. Assessment/Plan 63 yo M with glottic lesion s/p tracheostomy presenting with new large right sided pneumothorax and increased oxygen requirements. Recs: Thoracic surgery will place a right sided chest tube. Post procedure CXR obtained. Please obtain daily CXR while pigtail is in place. Patient seen and discussed with Dr. Clarke. Scooby Santacruz MD Thoracic surgery [id number] Associated attestation - Kirsten Clarke MD - 04/06/2023 7:56 PM EST This patient has new finding vocal cord obstruction lesion require tracheostomy placement by ENT service. Postop he desaturated. Chest x-ray confirmed large right pneumothorax with collapse of the right lung. I was consulted for further management. Etiology of the pneumothorax is likely from positive airway ventilation. Given the large pneumothorax and complete collapse of right lung, I recommend urgent pigtail placement. I will continue to follow the patient Thank you for involving me in the care of this patient. I saw and evaluated the patient. I personally obtained the guzman and critical portions of the history and physical exam or was physically present for guzman and critical portions performed by the resident/fellow. I reviewed the resident/fellow's documentation and discussed the patient with the resident/fellow. I agree with the resident/fellow's medical decision making as documented in the note. Kirsten Clarke MD Thoracic Surgeon [facility] [employer] Managerpromotions coordinator [facility] [employer] Office phone: Pager: [phone] [facility] Work Phone: 04-05-2023 Consult note Formatting of th is note might be different from the original. Reason For Consult Right sided pneumothorax History Of Present Illness Fabricio Nunes is a 63 y.o. male presenting with right sided pneumothorax after tracheostomy placement. Per chart review patient presented with one year of hoarseness and one month of inspiratory stridor, dysphonia and SOB where he was treated for bronchitis and discharged. after Scope exam showed bilateral ulcerative lesions and minimal glottic gap patient was taken to the OR with ENT for tracheostomy due to concerns for impending airway compromise. Post operatively patient was noted to have crepitus around right neck and chest and patient had desaturations to 85% and had increasing oxygen requirements. CXR obtained showed a large right sided pneumothorax and thoracic surgery was consulted for evaluation. Past Medical History He has no past medical history on file. Surgical History He has no past surgical history on file. Social History He has no history on file for tobacco use, alcohol use, and drug use. Family History No family history on file. Allergies Penicillins Review of Systems Unable to obtain due to patient just coming off anesthesia and having a tracheostomy. Physical Exam Constitutional: No acute distress Respiration: non labored breathing on CPAP to trach. 100% FiO2 and PEEP 5. Decreased breath sounds on auscultation of right lung with crepitus over right neck and chest. Cardiovascular: tachycardic to 100 on monitor. Eyes: EOM intact, sclera normal Neuro: Alert and oriented times. Nods to questions and wrote responses. HEENT: tracheostomy tube in place. Abdomen: soft, non tended, non distended. Last Recorded Vitals Blood pressure 142/81, pulse 96, temperature 36 C (96.8 F), temperature source Tympanic, resp. rate 11, height 1.727 m (5' 8 ), weight 90.7 kg (200 lb), SpO2 95 %. Relevant Results XR chest 1 view Result Date: 04/05/2023 1. Large right-sided pneumothorax with collapse of the right lung. Mild leftward mediastinal shift raising concern for tension pneumothorax. 2. Large volume subcutaneous emphysema in the lateral neck bilaterally with tracheostomy cannula. Assessment/Plan 63 yo M with glottic lesion s/p tracheostomy presenting with new large right sided pneumothorax and increased oxygen requirements. Recs: Thoracic surgery will place a right sided chest tube. Post procedure CXR obtained. Please obtain daily CXR while pigtail is in place. Patient seen and discussed with Dr. Clarke. Scooby Santacruz MD Thoracic surgery [id number] Associated attestation - Kirsten Clarke MD - 04/06/2023 7:56 PM EST This patient has new finding vocal cord obstruction lesion require tracheostomy placement by ENT service. Postop he desaturated. Chest x-ray confirmed large right pneumothorax with collapse of the right lung. I was consulted for further management. Etiology of the pneumothorax is likely from positive airway ventilation. Given the large pneumothorax and complete collapse of right lung, I recommend urgent pigtail placement. I will continue to follow the patient Thank you for involving me in the care of this patient. I saw and evaluated the patient. I personally obtained the guzman and critical portions of the history and physical exam or was physically present for guzman and critical portions performed by the resident/fellow. I reviewed the resident/fellow's documentation and discussed the patient with the resident/fellow. I agree with the resident/fellow's medical decision making as documented in the note. Kirsten Clarke MD Thoracic Surgeon [facility] [employer] Managerpromotions coordinator [facility] [employer] Office phone: Pager: [phone] documented in this encounter [facility] Work Phone: 04-05-2023 Note Formatting of this n ote is different from the original. Creation Tracheostomy, Direct Laryngoscopy, Bronchoscopy, Esophagoscopy Operative Note Date: 04/05/2023 OR Location: [facility] OR Name: Fabricio Nunes, : 1960, Age: 63 y.o., , Sex: male Diagnosis Pre-op Diagnosis * Lesion of glottis [J38.7] Post-op Diagnosis * Lesion of glottis [J38.7] Procedures Creation Tracheostomy 37091 - CT TRACHEOSTOMY EMERGENCY PROCEDURE TRANSTRACHEAL Bronchoscopy 90579 - [facility] BRUSHING/PROTECTED BRUSHINGS Esophagoscopy 86460 - CT ESOPHAGOSCOPY FLEXIBLE TRANSORAL DIAGNOSTIC Surgeons * Enoc Dong - Primary Resident/Fellow/Other Blanker Operator: Surgeon(s) and Role: * Jeanette Hopkins - Resident, Assisting * Lyndsay Mccrary - Resident, Assisting Procedure Summary Anesthesia: * No anesthesia type entered * ASA: III Anesthesia Staff: Anesthesiologist: Cristina Bailey MD C-AA: HERMELINDA Garcia Sample Case Porter: Darryl Burch MD Estimated Blood Loss: 10mL Intra-op Medications: Medication Name Total Dose lidocaine-epinephrine (Xylocaine W/EPI) 1 %-1:100,000 injection 20 mL Anesthesia Record Intraprocedure I/O Totals Intake Dexmedetomidine 0.00 mL The total shown is the total volume documented since Anesthesia Start was filed. Total Intake 0 mL Specimen: ID Type Source Tests Collected by Time 1 : GLOTTIC MASS FOR FROZEN Tissue SOFT TISSUE MASS BIOPSY SURGICAL PATHOLOGY EXAM Enoc Dong MD 04/05/2023 1807 2 : GLOTTIC MASSFOR PERMANENT Tissue SOFT TISSUE MASS BIOPSY SURGICAL PATHOLOGY EXAM Enoc Dong MD 04/05/2023 [id number] Staff: Gasoline Finisher: Negrita Mike RN; Arina Matos RN Scrub Person: AFRICAG, TIMO Drains and/or Catheters: * None in log * Findings: 1) Awake tracheostomy completed with 6.0 cuffed Shiley placed via tracheal incision between rings 1-2 (no Henrik or window). Patient with vigorous coughing throughout, desaturation to mid-high 80s and low 90s partway through procedure, otherwise uncomplicated 2) Upon completion of tracheostomy but prior to DL, bronchoscopy, and esophagoscopy, mild crepitus was palpated over the left lateral neck. This was not accumulating and ventilation remained appropriate. We did perform a flexible bronchoscopy via the trach inner cannula and noted no obvious tracheal injuries, so the procedure continued. 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 Remainder of larynx, hypopharynx, and oropharynx without abnormality. 4) No lesions noted on bronchoscopy or esophagoscopy. 5) No evidence of tracheal wall injury on bronchoscopy distal to end of tracheostomy tube or in subglottis between vocal cords and superior aspect of tracheostomy tube. No evidence of esophageal injury on esophagoscopy. 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 Cuff hyperinflated; due to continued adequate oxygenation/clinical stability and improvement in crepitus palpable on examination, decision was made to proceed to PACU for recovery with postoperative CXR and close clinical monitoring Indications: Fabricio Nunes is an 63 y.o. male who presented with 1 year of dysphonia and 1 month of stridor. Flexible laryngoscopy and CT imaging demonstrated irregular mass of bilateral true vocal cords with laryngoscopy showing severe glottic narrowing to ~1mm. Though stable on room air, the patient did have significant biphasic stridor. Due to critical airway narrowing with risk of acute decompensation, asphyxiation, and potential without securement of alternate airway, the recommendation to proceed with awake tracheostomy, followed by direct laryngoscopy with biopsy, esophagoscopy, and bronchoscopy was discussed with the patient. The risks, benefits, and alternatives were reviewed. Risks include but are not limited to pain, bleeding, infection, scarring, loss of airway, injury to adjacent structures, esophageal injury, pneumothorax, . The patient expressed understanding and wished to proceed. Consent was signed, and we proceeded urgently to the operating room. Procedure Details: After appropriate patient identification, the patient was brought down to the operating room and transferred to the operating table in a supine position. A safety check was performed. The patient was strapped to the surgical table, and a shoulder roll was placed. The neck landmarks were palpated. A planned horizontal incision was traced over the cricoid, and the overlying soft tissues were infiltrated with 1% lidocaine with 1:100,000 epinephrine. An oxygen facemask was applied, and precedex was infused by our Anesthesia colleagues. A timeout was performed. The anterior neck was then prepped and draped in standard sterile fashion and a #15 blade was used to incise the planned incision. Dissection then proceeded to the midline raphe which was divided. The strap muscles were retracted laterally on each side and a combination of blunt dissection and cautery were used to expose the anterior surface of the trachea. The thyroid isthmus was divided with monopolar cautery. The anterior tracheal fascia was bluntly dissected off the tracheal surface to allow visualization of the tracheal rings. A 15-blade was used to incise sharply between tracheal rings 1 and 2, and a trach teacher learning disabled was used to widen the tracheal opening. A 6.0 cuffed Shiley tube was then passed through the tracheal incision without difficulty, the cuff was inflated, and the ventilator circuit was connected with confirmation of return of end-tidal CO2. The retractors were then removed. The tracheostomy tube was secured at 4 points with a 2-0 silk suture and a velcro trach collar was placed. At this point, a small amount of crepitus was palpated over the left lateral neck. We disconnected the circuit and performed a flexible bronchoscopy by passing the Ambu flexible bronchoscope through the trach inner cannula. The right and left mainstem bronchi as well as the subsegmental bronchi were visualized bilaterally. No concerning lesions or sources of tracheal injury were identified. Due to appropriate ventilation per the anesthesia circuitry, the decision was made to proceed with the remainder of our procedure, with plan to search for any potential tracheal sources of injury during the remainder of our panendoscopy. We proceeded with direct laryngoscopy using the Dedo laryngoscope. All sites of the upper aerodigestive tract were visualized including the uvula, soft palate, tonsils, vallecula, epiglottis, base of tongue, arytenoids, false and true vocal cords, post-cricoid region and pyriform sinuses. There was noted to be a lesion of the bilateral true vocal cords as described in the findings. Multiple biopsies were obtained from this lesion and submitted for both frozen and permanent pathology. 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 The Ambu flexible bronchoscope was inserted and passed through the Dedo scope and the posterior glottic inlet to better visualize the subglottis, with findings as above. 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 The scope was then removed, and the Dedo was taken out of suspension and removed. Flexible esophagoscopy was performed with the scope inserted to the level of the pylorus and retroflexed. On careful removal of the scope all sites of the gastric and esophageal mucosa were evaluated and there were not any concerning lesions noted. At this point the procedure was terminated. Patient was turned back over to the anesthesia team and was awakened and emerged from anesthesia. While awaiting transport to PACU, the patient began coughing vigorously, and the lateral neck tissues were noted to become edematous with palpable crepitus. Oxygenation remained stable. The trach cuff was slightly overinflated, and the crepitus appeared to subside over a subsequent additional period of observation and application of topical lidocaine to the airway. Due to maintenance of his oxygen status, Anesthesia-reported auscultation of bilateral breath sounds, and clinical stability per Anesthesia, the decision was made to transport the patient to the PACU for further recovery and monitoring. Complications: None except as described as above. Disposition: PACU - hemodynamically stable. Condition: stable Attending Attestation: I was present and scrubbed for the entire procedure. Enoc Dong [facility] Work Phone: 04-05-2023 History and physical note History Of Present Illness Fabricio Nunes is a 63 y.o. male with no pmhx presenting with one year of hoarseness and one month of inspiratory stridor. Notably, he recently presented to [place] ED with dysphonia and SOB where he was treated for bronchitis and discharged. Today, patient presented to [place] ED today and transferred to [facility] for further evaluation by ENT for possible tracheostomy placement. Per interview with patient and his , patient has had 1 year of progressive hoarseness of his voice. About 1 month prior to this visit, patient states that he was diagnosed with bronchitis and completed a course of antibiotics. Shortly after, patient noted worsening SOB and loud breathing. Patient states that he does not have SOB at rest, but endorses MUÑIZ and SOB after speaking. He also endorses 8 pound weight loss over the last month, which he believes is due to a poor appetite as he has not been able to work with his SOB. Patient denies dysphagia, neck pain, fever, chills, productive cough, or previous history of SOB. Past Medical History History reviewed. No pertinent past medical history. Surgical History History reviewed. No pertinent surgical history. Social History Patient denies alcohol or illicit drug use. Patient has a history of smoking 1/2 ppd for 4-5 years, but quit smoking 30 years ago. Family History No family history on file. Allergies Penicillins ROS negative except per HPI. PHYSICAL EXAMINATION: Constitutional: No acute distress Voice: Grade: 2, Roughness: 0, Breathiness: 2, Asthenia: 1, Strain: 1 Respiration: Inspiratory stridor, satting well on room air Cardiovascular: No clubbing/cyanosis/edema in hands Eyes: EOM intact, sclera normal Neuro: Alert and oriented times 3, Cranial nerves II-XII grossly intact and symmetric bilaterally Head and Face: Symmetric facial features, no masses or lesions Right Ear: Normal external ear Left Ear: Normal external ear Nose: External nose midline Oral Cavity/Oropharynx/Lips: Normal mucous membranes, normal floor of mouth/tongue/OP, no masses or lesions Pharynx: no masses or lesions Neck/Lymph: No LAD, no thyroid masses, trachea midline Skin: Neck skin is without scar or injury Psych: Alert and oriented with appropriate mood and affect Last Recorded Vitals Blood pressure 137/87, pulse 97, temperature 36.3 C (97.3 F), temperature source Temporal, resp. rate 18, height 1.727 m (5' 8 ), weight 91.4 kg (201 lb 8 oz), SpO2 98 %. Relevant Results I personally reviewed the CT Neck which demonstrates narrowing at the level of the glottis with irregularity of the bilateral true vocal cords. No lymphadenopathy Procedure Note: Flexible Nasolaryngoscopy Verbal informed consent was obtained from the patient/patient's guardian. 4% lidocaine mixed with phenylephrine was prepared and dripped into the nose. It was placed in the bilateral nares. Following an appropriate amount of time to allow for adequate anesthesia, a flexible fiberoptic nasolaryngoscope was placed into the patient's left naris. The nasal cavity, nasopharynx, oropharynx, hypopharynx, and all endolaryngeal structures were visualized and were normal except as listed below. Significant findings included: -ulcerative, exophytic lesions of bilateral vocal cords with 1-2 mm glottic gap posteriorly, inability to see below level of lesions, interarytenoid banding, decent adduction but minimal abduction Assessment/Plan Principal Problem: Lesion of glottis Active Problems: Shortness of breath Biphasic stridor Acute on chronic respiratory failure with hypoxia (CMS/HCC) Airway obstruction, anatomic Fabricio Nunes is a 63 y.o. male with one year of dysphonia and one month of stridor who presented to [place] ED with SOB and transferred to [facility] for further ENT evaluation. 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 Recs: - Emergently taken to OR for awake trach, triple endoscopy and biopsy - Admit to ENT Patient seen and discussed with Dr. Dong who agrees with plan. Eleni Pierce MD PGY-1 Otolaryngology - Head & Neck Surgery [facility] ENT Consult Pager: [phone] Head and Neck Phone: [phone] ENT Peds Pager: [phone] ENT Subspecialty Team: EpicChat Associated attestation - Enoc Dong MD - 04/07/2023 5:58 PM EST I saw and evaluated the patient. I personally obtained the guzman and critical portions of the history and physical exam or was physically present for guzman and critical portions performed by the resident/fellow. I reviewed the resident/fellow's documentation and discussed the patient with the resident/fellow. I agree with the resident/fellow's medical decision making as documented in the note. This patient presents with [id number] respiratory failure due to airway obstruction from glottic mass, suspicious for malignancy or possible inflammatory process. Due to 1mm glottic airway and risk for decompensation, discussion was had to proceed with urgent awake tracheostomy and direct laryngoscopy with biopsy, bronchoscopy, and esophagoscopy. Patient and are agreeable and consent was signed. I spent over 90 minutes evaluating the patient, including supervision of the flexible laryngoscopy, coordination of OR procedure, and discussion with anesthesiology staff. [facility] Work Phone: 04-05-2023 Emergency department Note This is a 63-year-old male with past medical history of bronchitis who presents to the ED for shortness of breath. Patient was initially evaluated at [place] ED today and was sent here for further evaluation as well as evaluation by ENT for possible tracheostomy placement. History was obtained from the patient and his who was at bedside. Per them over the past 1 year patient has had progressive hoarseness of his voice and over the past 1 month has had an 8 pound weight loss. He states over the past 2 weeks has had progressive shortness of breath that is worse with laying flat. The patient's states that his breathing has gotten much louder over the past 2 weeks. He has had a minimally productive cough. He has never had this happen previously. No history of any airway obstruction or masses. He denies any personal history of cancer. He does endorse having a maternal grandmother with oral cancer. He endorses a remote history of smoking, however said he only smoked for a few years in his 20s. History provided by: Patient and significant other intensive care specialist used: No Visit Vitals BP (!) 157/96 Pulse 109 Temp 36.8 C (98.2 F) Resp 18 Ht 1.727 m (5' 8 ) Wt 90.7 kg (200 lb) SpO2 94% BMI 30.41 kg/m BSA 2.09 m Physical Exam Physical Exam: Appearance: Alert, oriented , cooperative, audible airway stridor. Well nourished & well hydrated. Skin: Intact, dry skin, no lesions, rash, petechiae or purpura. Eyes: PERRLA, EOMs intact, Conjunctiva pink with no redness or exudates. Cornea & anterior chamber are clear, Eyelids without lesions. No scleral icterus. ENT: Hearing grossly intact. Nares patent, mucus membranes moist. Normal phonation. Neck: Supple, without meningismus. FROM. Pulmonary: Lungs clear bilaterally with good chest wall excursion. No rales, rhonchi or wheezing. Significant stridor present. Cardiac: Regular Rate and Rhythm. Normal S1, S2 without murmur, rub, gallop or extrasystole. Abdomen: Soft, nontender, active bowel sounds. No palpable organomegaly. No rebound or guarding. No CVA tenderness. Back: No midline or paraspinal T or L spine TTP. No obvious deformity or step off. Musculoskeletal: Full range of motion. no pain or deformity. Pulses full and equal. No cyanosis, clubbing, or edema. Neurological: Cranial nerves II through XII are grossly intact, normal sensation, no weakness, no focal findings identified. Psychiatric: Appropriate mood and affect. Labs Reviewed COMPREHENSIVE METABOLIC PANEL - Abnormal Result Value Glucose 109 (*) Sodium 137 Potassium 3.8 Chloride 99 Bicarbonate 30 Anion Gap 12 Urea Nitrogen 14 Creatinine 0.73 eGFR >90 Calcium 9.9 Albumin 4.7 Alkaline Phosphatase 60 Total Protein 7.3 AST 18 Bilirubin, Total 0.6 ALT 22 BLOOD GAS VENOUS FULL PANEL UNSOLICITED - Abnormal POCT pH, Venous 7.44 (*) POCT pCO2, Venous 48 POCT pO2, Venous 56 (*) POCT SO2, Venous 89 (*) POCT Oxy Hemoglobin, Venous 87.1 (*) POCT Hematocrit Calculated, Venous 52.0 POCT Sodium, Venous 135 (*) POCT Potassium, Venous 4.1 POCT Chloride, Venous 99 POCT Ionized Calicum, Venous 1.14 POCT Glucose, Venous 116 (*) POCT Lactate, Venous 0.9 POCT Base Excess, Venous 6.9 (*) POCT HCO3 Calculated, Venous 32.6 (*) POCT Hemoglobin, Venous 17.3 POCT Anion Gap, Venous 8.0 (*) Patient Temperature 37.0 COAGULATION SCREEN - Normal Protime 11.3 INR 1.0 aPTT 37 Narrative: The APTT is no longer used for monitoring Unfractionated Heparin Therapy. For monitoring Heparin Therapy, use the Heparin Assay. CBC WITH AUTO DIFFERENTIAL WBC 8.5 nRBC 0.0 RBC 5.54 Hemoglobin 16.9 Hematocrit 47.1 MCV 85 MCH 30.5 MCHC 35.9 RDW 11.8 Platelets 278 Neutrophils % 70.0 Immature Granulocytes %, Automated 0.4 Lymphocytes % 19.1 Monocytes % 8.6 Eosinophils % 1.1 Basophils % 0.8 Neutrophils Absolute 5.96 Immature Granulocytes Absolute, Automated 0.03 Lymphocytes Absolute 1.62 Monocytes Absolute 0.73 Eosinophils Absolute 0.09 Basophils Absolute 0.07 BLOOD GAS VENOUS FULL PANEL SARS-COV-2 AND INFLUENZA A/B PCR TYPE AND SCREEN CT soft tissue neck w IV contrast Final Result There is nonspecific narrowing of the airway in the transverse dimension at the level of the glottis which may be related to timing of imaging during respiration; however, correlation with direct visualization is recommended to exclude an underlying mucosal lesion. There is minimal asymmetric prominence of the right laryngeal ventricle when compared with the left which may represent an incidental finding although asymmetric prominence of the laryngeal ventricle can be seen with ipsilateral vocal cord dysfunction and this latter possibility therefore can not be completely excluded. There are scattered morphologically normal size lymph nodes noted within the neck. No abnormally enlarged lymph nodes are noted within the neck. MACRO: None. Signed by: Guillermo Martinez 04/05/2023 3:37 PM Dictation workstation: [id number] XR chest 1 view Final Result Subsegmental atelectasis of the right lung base. Signed by Zachary Nunes MD ED Course & MDM Medical Decision Making This is a 63-year-old male with no significant past medical history presents to the ED with concern for upper airway obstruction with obvious stridor. Upon arrival to the ED SpO2 at 94% on room air. On examination patient did have significant stridor. Breath sounds were equal bilaterally and lungs were clear throughout. No palpable mass to the anterior neck. CT neck ordered as well as laboratory studies. ENT consulted. Laboratory studies grossly unremarkable. CT scan of patient's neck showed nonspecific narrowing of the airway in the transverse dimension at the level of the glottis and there was minimal asymmetric prominence of the right laryngeal ventricle when compared to the left. Patient signed out to oncoming team pending ENT recommendations. Amount and/or Complexity of Data Reviewed Labs: ordered. Radiology: ordered. Details: CT neck without any significant mass or fluid collection within the neck. ECG/medicine tests: ordered and independent interpretation performed. Details: EKG sinus tachycardia at 104 bpm without any acute ST elevation or depression. No T wave inversions. Normal axis. Diagnoses as of 04/05/23 1543 Shortness of breath Procedures QING Whittington, SILVINA Slaughter PA-C 04/05/23 1544 Associated attestation - Guillermo Chand MD - 04/10/2023 3:34 PM EST This patient was seen by the advanced practice provider. I have personally performed a substantive portion of the encounter. I have seen and examined the patient; agree with the workup, evaluation, MDM, management and diagnosis. The care plan has been discussed. I personally saw the patient and made/approved the management plan and take responsibility for the patient management. History: 63-year-old with no similar past medical history who has been developing progressively worsening stridor and was sent from outside hospital for ENT evaluation. Exam: Audible stridor. Increased work of breathing when laying flat with accessory muscle use. MDM: Very pleasant gentleman came in with worsening stridor both over the last months to acutely worsening over the last 5 days. ENT was consulted and they came and saw him at the bedside. No concerned about significant airway obstruction, and wanted to admit him with likely plan for surgical intervention. Pt reports he has been SOB for a while and his voice is hoarse. States it has been like that for 2-3 weeks. Was sent here from [place] for ENT and possible trach. When asked what caused the breathing issue, they report that they are unsure but that the pt has bronchitis. documented in this encounter [facility] Work Phone: 04-05-2023 Emergency department Triage note Pt reports he has been SOB for a while and his voice is hoarse. States it has been like that for 2-3 weeks. Was sent here from [place] for ENT and possible trach. When asked what caused the breathing issue, they report that they are unsure but that the pt has bronchitis. [facility] Work Phone: 04-05-2023 Physician Emergency department Note This is a 63-year-old male with past medical history of bronchitis who presents to the ED for shortness of breath. Patient was initially evaluated at [place] ED today and was sent here for further evaluation as well as evaluation by ENT for possible tracheostomy placement. History was obtained from the patient and his who was at bedside. Per them over the past 1 year patient has had progressive hoarseness of his voice and over the past 1 month has had an 8 pound weight loss. He states over the past 2 weeks has had progressive shortness of breath that is worse with laying flat. The patient's states that his breathing has gotten much louder over the past 2 weeks. He has had a minimally productive cough. He has never had this happen previously. No history of any airway obstruction or masses. He denies any personal history of cancer. He does endorse having a maternal grandmother with oral cancer. He endorses a remote history of smoking, however said he only smoked for a few years in his 20s. History provided by: Patient and significant other intensive care specialist used: No Visit Vitals BP (!) 157/96 Pulse 109 Temp 36.8 C (98.2 F) Resp 18 Ht 1.727 m (5' 8 ) Wt 90.7 kg (200 lb) SpO2 94% BMI 30.41 kg/m BSA 2.09 m Physical Exam Physical Exam: Appearance: Alert, oriented , cooperative, audible airway stridor. Well nourished & well hydrated. Skin: Intact, dry skin, no lesions, rash, petechiae or purpura. Eyes: PERRLA, EOMs intact, Conjunctiva pink with no redness or exudates. Cornea & anterior chamber are clear, Eyelids without lesions. No scleral icterus. ENT: Hearing grossly intact. Nares patent, mucus membranes moist. Normal phonation. Neck: Supple, without meningismus. FROM. Pulmonary: Lungs clear bilaterally with good chest wall excursion. No rales, rhonchi or wheezing. Significant stridor present. Cardiac: Regular Rate and Rhythm. Normal S1, S2 without murmur, rub, gallop or extrasystole. Abdomen: Soft, nontender, active bowel sounds. No palpable organomegaly. No rebound or guarding. No CVA tenderness. Back: No midline or paraspinal T or L spine TTP. No obvious deformity or step off. Musculoskeletal: Full range of motion. no pain or deformity. Pulses full and equal. No cyanosis, clubbing, or edema. Neurological: Cranial nerves II through XII are grossly intact, normal sensation, no weakness, no focal findings identified. Psychiatric: Appropriate mood and affect. Labs Reviewed COMPREHENSIVE METABOLIC PANEL - Abnormal Result Value Glucose 109 (*) Sodium 137 Potassium 3.8 Chloride 99 Bicarbonate 30 Anion Gap 12 Urea Nitrogen 14 Creatinine 0.73 eGFR >90 Calcium 9.9 Albumin 4.7 Alkaline Phosphatase 60 Total Protein 7.3 AST 18 Bilirubin, Total 0.6 ALT 22 BLOOD GAS VENOUS FULL PANEL UNSOLICITED - Abnormal POCT pH, Venous 7.44 (*) POCT pCO2, Venous 48 POCT pO2, Venous 56 (*) POCT SO2, Venous 89 (*) POCT Oxy Hemoglobin, Venous 87.1 (*) POCT Hematocrit Calculated, Venous 52.0 POCT Sodium, Venous 135 (*) POCT Potassium, Venous 4.1 POCT Chloride, Venous 99 POCT Ionized Calicum, Venous 1.14 POCT Glucose, Venous 116 (*) POCT Lactate, Venous 0.9 POCT Base Excess, Venous 6.9 (*) POCT HCO3 Calculated, Venous 32.6 (*) POCT Hemoglobin, Venous 17.3 POCT Anion Gap, Venous 8.0 (*) Patient Temperature 37.0 COAGULATION SCREEN - Normal Protime 11.3 INR 1.0 aPTT 37 Narrative: The APTT is no longer used for monitoring Unfractionated Heparin Therapy. For monitoring Heparin Therapy, use the Heparin Assay. CBC WITH AUTO DIFFERENTIAL WBC 8.5 nRBC 0.0 RBC 5.54 Hemoglobin 16.9 Hematocrit 47.1 MCV 85 MCH 30.5 MCHC 35.9 RDW 11.8 Platelets 278 Neutrophils % 70.0 Immature Granulocytes %, Automated 0.4 Lymphocytes % 19.1 Monocytes % 8.6 Eosinophils % 1.1 Basophils % 0.8 Neutrophils Absolute 5.96 Immature Granulocytes Absolute, Automated 0.03 Lymphocytes Absolute 1.62 Monocytes Absolute 0.73 Eosinophils Absolute 0.09 Basophils Absolute 0.07 BLOOD GAS VENOUS FULL PANEL SARS-COV-2 AND INFLUENZA A/B PCR TYPE AND SCREEN CT soft tissue neck w IV contrast Final Result There is nonspecific narrowing of the airway in the transverse dimension at the level of the glottis which may be related to timing of imaging during respiration; however, correlation with direct visualization is recommended to exclude an underlying mucosal lesion. There is minimal asymmetric prominence of the right laryngeal ventricle when compared with the left which may represent an incidental finding although asymmetric prominence of the laryngeal ventricle can be seen with ipsilateral vocal cord dysfunction and this latter possibility therefore can not be completely excluded. There are scattered morphologically normal size lymph nodes noted within the neck. No abnormally enlarged lymph nodes are noted within the neck. MACRO: None. Signed by: Guillermo Martinez 04/05/2023 3:37 PM Dictation workstation: [id number] XR chest 1 view Final Result Subsegmental atelectasis of the right lung base. Signed by Zachary Nunes MD ED Course & MDM Medical Decision Making This is a 63-year-old male with no significant past medical history presents to the ED with concern for upper airway obstruction with obvious stridor. Upon arrival to the ED SpO2 at 94% on room air. On examination patient did have significant stridor. Breath sounds were equal bilaterally and lungs were clear throughout. No palpable mass to the anterior neck. CT neck ordered as well as laboratory studies. ENT consulted. Laboratory studies grossly unremarkable. CT scan of patient's neck showed nonspecific narrowing of the airway in the transverse dimension at the level of the glottis and there was minimal asymmetric prominence of the right laryngeal ventricle when compared to the left. Patient signed out to oncoming team pending ENT recommendations. Amount and/or Complexity of Data Reviewed Labs: ordered. Radiology: ordered. Details: CT neck without any significant mass or fluid collection within the neck. ECG/medicine tests: ordered and independent interpretation performed. Details: EKG sinus tachycardia at 104 bpm without any acute ST elevation or depression. No T wave inversions. Normal axis. Diagnoses as of 04/05/23 1543 Shortness of breath Procedures QING Whittington PA-C Abigail E Wilch, PA-C 04/05/23 1544 Associated attestation - Guillermo Chand MD - 04/10/2023 3:34 PM EST This patient was seen by the advanced practice provider. I have personally performed a substantive portion of the encounter. I have seen and examined the patient; agree with the workup, evaluation, MDM, management and diagnosis. The care plan has been discussed. I personally saw the patient and made/approved the management plan and take responsibility for the patient management. History: 63-year-old with no similar past medical history who has been developing progressively worsening stridor and was sent from outside hospital for ENT evaluation. Exam: Audible stridor. Increased work of breathing when laying flat with accessory muscle use. MDM: Very pleasant gentleman came in with worsening stridor both over the last months to acutely worsening over the last 5 days. ENT was consulted and they came and saw him at the bedside. No concerned about significant airway obstruction, and wanted to admit him with likely plan for surgical intervention. [facility] Work Phone: documented in this encounter [facility] Work Phone: Advance Directives No Advanced Directives Records FoundLatest Code Status on File Code Status Date Activated Date Inactivated Comments Full Code 04/05/2023 6:42 PM Question Answer Comments Plan of Care: Code Status Discussion Completed Decision Maker: Patient Summary Purpose Family History No Family History Records FoundNo Family History Records Found Additional Source Comments Reason for Visit (unrecogniz ed section and content) Specialty Diagnoses / Procedures Referred By Contac t Referred To Contact Diagnoses Shortness of breath Stridor Lesion of glottis Procedures n/[place] [id number] [place] [address] [facility] [address] [place] [address] Referral ID Status Reason Start Date Expiration Date Visits Re quested Visits Authorized [id number] 1 1 Scheduled Active and Recently Administ ered Medications (unrecognized section and content) PRN Medication Order 04/11/2023 04/12/2023 04/13/2023 albuterol 2.5 mg /3 mL (0.083 %) nebulizer solution 2.5 mg 2.5 mg, nebulization, Every 4 hours PRN, wheezing, Starting on Hannah 04/06/23 at 0857 hydrALAZINE (Apresoline) injection 5 mg 5 mg, intravenous, Every 4 hours PRN, Give if SBP >150, hold if HR >100, Starting on 04/05/23 at 2322 naloxone (Narcan) injection 0.2 mg 0.2 mg, intravenous, Every 5 min PRN, respiratory depression, Starting on Mon04/05/23 at 1833, If respiratory rate is less than 8 breaths/minute or patient is difficult to arouse stop any narcotics and contact physician. Administer slow IV push. Repeat as ordered until patient's respiratory rate is greater than 12 breaths/minute. ondansetron (Zofran) injection 4 mg 4 mg, intravenous, Every 8 hours PRN, nausea/vomiting, first line, Starting on Mon04/05/23 at 1840, 1st Line. Give IV if patient is unable to take orally. If inadequate response within 60 minutes, proceed to next-line agent for same PRN reason or contact provider if no further options ordered. When administering via IV Push, administer over 3-5 minutes. oxygen (O2) therapy inhalation, Continuous PRN - O2/gases, other, Starting on Mon04/05/23 at 2002, Device: Ventilator, FIO2: 100, Keep O2 Sat Above: 90% 1137 (Rate/Dose Verify - Provider: Edmar De Souza, [employer] ATTENDANT) Care Teams (unrecognized sec tion and content) (unrecognized sect ion and content) No Status Records FoundNo Status Records Found INFORMATION SOURCE (unrecogn ized section and content) DATE CREATED AUTHOR AUTHOR'S ORGANIZ ATION 05/07/2023 [facility] FOR RECORDS PERTAINING TO PATIENTS WHO ARE OR HAVE BEEN ENROLLED IN A CHEMICAL DEPENDENCY/SUBSTANCEABUSE PROGRAM, SOME INFORMATION MAY BE OMITTED. This clinical summary was aggregated from multiple sources. Caution should be exercised in using it in the provision of clinical care. This summary normalizes information from multiple sources, and as a consequence, information in this document may materially change the coding, format and clinical context of patient data. In addition, data may be omitted in some cases. CLINICAL DECISIONS SHOULD BE BASED ON THE PRIMARY CLINICAL RECORDS. [employer] provides no warranty or guarantee of the accuracy or completeness of information in this document.
--- NOTE | 2023-06-06 10:23 | HP.PCM_ITS ---
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 Accompanied by: Is patient in pain?: No Allergies bee venom protein (honey bee) Allergy (Severe, Verified 06/02/23 09:06) AnaphylaxisPenicillins Allergy (Mild, Verified 06/02/23 09:06) Hives Medications omega 4-xru-fet-fish oil 60 mg-90 mg-500 mg capsule (Fish Oil) 1 cap PO DAILY 06/02/23 [History Confirmed 06/02/23] PFSH Medical History Cancer of glottis DVT (deep venous thrombosis) Dysphonia Tracheostomy present Family History Grandmother CancerGrandmother Cancer Social History household members: spouse Smoking Status: Former smoker alcohol intake: former substance use type: does not use HPI HPI HPI: The patient is here for PEG tube placement before his radiation for his laryngeal cancer. He already underwent chemotherapy. He has a tracheostomy in place. ROS General General: No weight change, appetite, fatigue, colon cancer, breast cancer or weakness HEENT HEENT: No difficulty swallowing, eye injury, eye surgery, swollen glands or ho arseness Endo Endocrine: No thyroid disease, diabetes mellitus, thyroid cancer, Hair loss, heat intolerance or cold intolerance Skin Skin: No rash or changing moles Musc Musculoskeletal: No back problems, arthritis, rheumatoid arthritis, gout or joint pain Cardio Cardiovascular: No murmur, pacemaker, heart disease, atrial fibrillation, high blood pressure, heart attack, heart stent, palpitations, shortness of breat with exertion or chest pain Psych Psychiatric: No depression, anxiety or hearing voices Resp Respiratory: No shortness of breath, No sleep apnea, No cough, No COPD, No asthma, No emphysema and No wheezing Gastro Gastrointestinal: No abdominal pain, No nausea or vomiting, No diarrhea, No constipation, No blood in stool, No acid reflux, No hemorrhoids, No ulcers, No gallbladder problem and No black,tarry stools Go Hematologic: No blood thinners, No blood disorders, No bleeding, No anemia and No blood clots Neuro Neurologic: No numbness and No weakness Exam Const General: cooperative Orientation: alert and oriented x3 HENMT Head: normal to inspection Neck Neck: normal visual inspection and full ROM Chest Chest palpation & inspection: normal inspection of the chest Resp Effort & Inspection: normal respiratory effort Auscultation: clear to auscultation bilaterally Cardio Rate: regular rate Rhythm: regular rhythm GI Inspection: non-distended Palpation: soft and nontender Skin General: no rashes or lesions noted Neuro General: patient alert and patient oriented x3 Extrem General: full ROM Psych Appearance: grossly normal Mental Status: mental status grossly normal Assessment and Plan Assessment and Plan (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 I discussed this with him in detail. I explained endoscopy in detail to the patient. I explained the risks including but not limited to stroke or heart attack with anesthesia, perforation of the GI tract, bleeding, infection. I explained that any of these could necessitate further emergency surgery. The patient understands and all questions were answered sufficiently. The patient wishes to proceed with procedure. Rasheed Alcaraz MD Pager: [facility] [address] [place] [address], [address] [place] [address] Office: I have examined the patient and the H&P has been reviewed. There are no clinical changes since date of exam.
[2023-06-06] MEDS: Clindamycin 900 MG/50 ML BAG 75 MG IV (10:33)
--- NOTE | 2023-06-06 10:57 | OP.EGD_ITS ---
Patient Name: Fabricio Aggarwal Procedure Date: 06/06/2023 10:14 AM Date of : 1960 Age: 63 Procedure: Upper GI endoscopy Indications: Place PEG because patient is unable to eat Providers: Rasheed Alcaraz MD Medicines: Propofol per Anesthesia Patient Profile: This is a 63 year old male. Refer to note in patient chart for documentation of history and physical. Complications: No immediate complications. Estimated blood loss: Minimal. Procedure: Pre-Anesthesia Assessment: - Prior to the procedure, a History and Physical was performed, and patient medications and allergies were reviewed. The patient's tolerance of previous anesthesia was also reviewed. The risks and benefits of the procedure and the sedation options and risks were discussed with the patient. All questions were answered, and informed consent was obtained. Prior Anticoagulants: The patient has taken no anticoagulant or antiplatelet agents. After reviewing the risks and benefits, the patient was deemed in satisfactory condition to undergo the procedure. After obtaining informed consent, the endoscope was passed under direct vision. Throughout the procedure, the patient's blood pressure, pulse, and oxygen saturations were monitored continuously. The gastroscope was introduced through the mouth, and advanced to the second part of duodenum. The upper GI endoscopy was accomplished without difficulty. The patient tolerated the procedure well. Scope In: 10:45:36 AM Scope Out: 10:52:16 AM Total Procedure Duration Time 0 hours 6 minutes 40 seconds Findings: The esophagus was normal. The stomach was normal. The examined duodenum was normal. The patient was placed in the supine position for PEG placement. The stomach was insufflated to appose gastric and abdominal trujillo. A site was located in the body of the stomach with good transillumination and manual external pressure for placement. The abdominal wall was marked and prepped in a sterile manner. The area was anesthetized with 5 mL of 0.5% lidocaine. The trocar needle was introduced through the abdominal wall and into the stomach under direct endoscopic view. A snare was introduced through the endoscope and opened in the gastric lumen. The guide wire was passed through the trocar and into the open snare. The snare was closed around the guide wire. The endoscope and snare were removed, pulling the wire out through the mouth. A skin incision was made at the site of needle insertion. The externally removable 20 Fr EndoVive Safety gastrostomy tube was lubricated. The G-tube was tied to the guide wire and pulled through the mouth and into the stomach. The trocar needle was removed, and the gastrostomy tube was pulled out from the stomach through the skin. The external bumper was attached to the gastrostomy tube, and the tube was cut to remove the guide wire. The final position of the gastrostomy tube was confirmed by relook endoscopy, and skin marking noted to be 3 cm at the external bumper. The final tension and compression of the abdominal wall by the PEG tube and external bumper were checked and revealed that the bumper was loose and lightly touching the skin and that the PEG balloon was loose and lightly touching the stomach. The feeding tube was capped, and the tube site cleaned and dressed. Impression: - Normal esophagus. - Normal stomach. - Normal examined duodenum. - An externally removable PEG placement was successfully completed. - No specimens collected. Recommendation: - Discharge patient to home. - Resume previous diet. - Continue present medications. Procedure Code(s): --- Professional --- 09557, Esophagogastroduodenoscopy, flexible, transoral; with directed placement of percutaneous gastrostomy tube Diagnosis Code(s): --- Professional --- R63.39, Other feeding difficulties Z43.1, Encounter for attention to gastrostomy CPT copyright 2021 [employer]. All rights reserved. The codes documented in this report are preliminary and upon package maker review may be revised to meet current compliance requirements. Rasheed Alcaraz MD 06/06/2023 10:57:19 AM This report has been signed electronically. Number of Addenda: 0 Note Initiated On: 06/06/2023 10:14 AM
--- NOTE | 2023-06-06 10:57 | OP.CCLET_ITS ---
06/06/2023 No Primary Care Physician Re : Upper GI endoscopy procedure for Fabricio Aggarwal Dear Care Physician This procedure was performed on Tuesday, June 06, 2023. My impressions and recommendations are as follows: Impressions : - Normal esophagus. - Normal stomach. - Normal examined duodenum. - An externally removable PEG placement was successfully completed. - No specimens collected. Recommendations : - Discharge patient to home. - Resume previous diet. - Continue present medications. My findings are described in the full procedure note, which is enclosed. If I can be of further assistance, please feel free to contact me at Doctor phone number(s): , Work: . Sincerely, Rasheed Alcaraz MD 06/06/2023 10:57:19 AM This report has been signed electronically.
[2023-06-06 11:03] VITALS: BP 143/90; BP 148/81; PULSE 84; RESP 14; TEMP 36.4; O2SAT 94
[2023-06-06 11:05] VITALS: BP 143/90; BP 148/81; PULSE 84; RESP 12; O2SAT 92
[2023-06-06 11:10] VITALS: BP 131/85; BP 148/81; PULSE 82; RESP 18; O2SAT 93
[2023-06-06 11:26] VITALS: BP 129/98; BP 148/81; PULSE 80; RESP 12; TEMP 36.4; O2SAT 93
[2023-06-06 11:59] VITALS: BP 148/81
== END 2023-06-06 12:47 | disposition home or self-care (01) ==
LOC: EN 09:15 → AC 09:17
PROVIDERS: Referring Provider Surgery; Visit Provider Surgery
PROC: 0DJ08ZZ Inspection of Upper Intestinal Tract, Via Natural or Artificial Opening Endoscopic (ICD-10-PCS; CPT 43235; principal; 2023-06-06 10:25)
DX: C32.0 Malignant neoplasm of glottis (principal); Z93.0 Tracheostomy status; R63.39 Other feeding difficulties; Z87.891 Personal history of nicotine dependence
CPT/HCPCS: 43246; J7120

== ENCOUNTER 2023-06-22 09:46 | Day surgery (SDC) | payer SELFPAY, OTHER ==
[2023-06-22] VITALS (7 sets, daily range): BP systolic 94–119; BP diastolic 64–83; PULSE 75–82; RESP 16; TEMP 36.2–36.4; O2SAT 90–96; BMI 32.3
--- NOTE | 2023-06-22 11:32 | HP.PCM_ITS ---
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 Accompanied by: Is patient in pain?: No Allergies bee venom protein (honey bee) Allergy (Severe, Verified 06/02/23 09:06) AnaphylaxisPenicillins Allergy (Mild, Verified 06/02/23 09:06) Hives Medications omega 9-lbu-kbw-fish oil 60 mg-90 mg-500 mg capsule (Fish Oil) 1 cap PO DAILY 06/02/23 [History Confirmed 06/02/23] PFSH Medical History Cancer of glottis DVT (deep venous thrombosis) Dysphonia Tracheostomy present Family History Grandmother CancerGrandmother Cancer Social History household members: spouse Smoking Status: Former smoker alcohol intake: former substance use type: does not use HPI HPI HPI: The patient is here for PEG tube placement before his radiation for his laryngeal cancer. He already underwent chemotherapy. He has a tracheostomy in place. ROS General General: No weight change, appetite, fatigue, colon cancer, breast cancer or weakness HEENT HEENT: No difficulty swallowing, eye injury, eye surgery, swollen glands or ho arseness Endo Endocrine: No thyroid disease, diabetes mellitus, thyroid cancer, Hair loss, heat intolerance or cold intolerance Skin Skin: No rash or changing moles Musc Musculoskeletal: No back problems, arthritis, rheumatoid arthritis, gout or joint pain Cardio Cardiovascular: No murmur, pacemaker, heart disease, atrial fibrillation, high blood pressure, heart attack, heart stent, palpitations, shortness of breat with exertion or chest pain Psych Psychiatric: No depression, anxiety or hearing voices Resp Respiratory: No shortness of breath, No sleep apnea, No cough, No COPD, No asthma, No emphysema and No wheezing Gastro Gastrointestinal: No abdominal pain, No nausea or vomiting, No diarrhea, No constipation, No blood in stool, No acid reflux, No hemorrhoids, No ulcers, No gallbladder problem and No black,tarry stools Go Hematologic: No blood thinners, No blood disorders, No bleeding, No anemia and No blood clots Neuro Neurologic: No numbness and No weakness Exam Const General: cooperative Orientation: alert and oriented x3 HENMT Head: normal to inspection Neck Neck: normal visual inspection and full ROM Chest Chest palpation & inspection: normal inspection of the chest Resp Effort & Inspection: normal respiratory effort Auscultation: clear to auscultation bilaterally Cardio Rate: regular rate Rhythm: regular rhythm GI Inspection: non-distended Palpation: soft and nontender Skin General: no rashes or lesions noted Neuro General: patient alert and patient oriented x3 Extrem General: full ROM Psych Appearance: grossly normal Mental Status: mental status grossly normal Assessment and Plan Assessment and Plan (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 I discussed this with him in detail. I explained endoscopy in detail to the patient. I explained the risks including but not limited to stroke or heart attack with anesthesia, perforation of the GI tract, bleeding, infection. I explained that any of these could necessitate further emergency surgery. The patient understands and all questions were answered sufficiently. The patient wishes to proceed with procedure. Rasheed Alcaraz MD Pager: [facility] [address] [place] [address], [address] [place] [address] Office: The patient had PEG tube placed successfully but he returns for placement of port. Nothing is changed on his physical exam and he is doing well. I discussed right chest port placement with him in detail. I discussed the risks including but not limited to bleeding, infection, pneumothorax or line infection or DVT. Patient understands the risks and is willing to proceed.
[2023-06-22] MEDS: Clindamycin 900 MG/50 ML BAG 75 MG IV (11:50)
[2023-06-22] MEDS: Bupivacaine Mpf 0.5% 30 ML VIAL (12:13)
[2023-06-22] MEDS: Lidocaine 1% /Epi 1:100 (20ml) 20 ML Vial (12:14)
--- NOTE | 2023-06-22 12:30 | OP.PCM_ITS ---
Report of Operation Date of Procedure: 06/22/23 Pre-Operative Diagnosis: Laryngeal cancer and need for vascular access for chem otherapy Post-Operative Diagnosis: Same Surgery/Procedure Performed:: Ultrasound and fluoroscopy guided right chest port placement utilizing right IJ Type of Anesthesia: Local MAC Estimated Blood Loss (mL): 5 Description of Procedure: After obtaining informed consent patient was brought back to the operating room MAC anesthesia was induced and the right chest and neck were prepped in normal sterile fashion. Ultrasound was used to evaluate both IJs and the right IJ was selected. Next, using a needle, the right IJ was accessed and a guidewire was passed on into the superior vena cava under fluoroscopy guidance. A small incision was made over the puncture site and the dilator introducer was placed over the guidewire. Next this was capped and the pocket was made for the port. 1% lidocaine with epinephrine was injected in the proposed port site. An incis ion was made with scalpel. Electrocautery was used to make a pocket under the skin and subcutaneous tissue. Hemostasis was obtained. Next, the catheter was tunneled up to the neck incision site and placed through the introducer. The peel-away introducer was removed and the position of the catheter was confirmed on fluoroscopy. Next, the catheter was trimmed and attached to the port with the locking device. Interrupted 2-0 Vicryl sutures were used to anchor the port to the chest wall and then the port was placed inside the pocket. The pocket was then flushed with saline and the port irrigated with saline. There was good blood return and the port flushed easily. Next, heparin was injected into the port. The skin was closed with subcutaneous interrupted 3-0 Vicryl sutures. A single 3-0 Vicryl sutures placed under the skin at the neck incision site. Steri-Strips were placed as well as op sites. Patient tolerated procedure well, was taken to PACU in stable condition. Chest x-ray will be obtained. Grafts/Implants Used: 8 [employer] Power[employer] Admit VTE Documentation VTE Mechan Device Prophylaxis: SCD's
--- NOTE | 2023-06-22 12:31 | DCINST_ITS ---
Discharge Instructions Diet Discharge Diet: Light diet - advance as tolerated Activity Discharge Activity: Return to Normal Activity and May Shower (with your bandage in place in 1 to 2 days after surgery. DO NOT SHOWER WHEN YOUR PORT IS ACCESSED.) Dressing / Incision Call your doctor if your incision/area has: Continuous Slow Oozing, Sudden Increased Bleeding, Increased Pain/ Swelling, Increased Redness and Foul Smelling Discharge Call your doctor if you observe: Fever of 101 or Higher Remove Dressing in: 2 days (Remove steri strips in 7-10 days) Cleanse incision/area with: Soap & Water Follow Up Care Please Follow Up With: Rasheed Alcaraz MD When: As needed at [phone] Test Results: Test results from this visit will be discussed in further detail at your follow- up appointment, if applicable. Discharge Plan Admission Attending Provider: Rasheed Alcaraz Primary Care Provider: Eugenio PhysicianCynthia Primary Discharge Orders/Prescriptions Prescriptions: No Action omega 0-ukv-wcg-fish oil [Fish Oil] 60-90-500 mg capsule 1 cap PO DAILY ondansetron 8 mg tablet,disintegrating 8 mg PO Q8H PRN (Reason: nausea and vomiting) Qty: 30 2RF lidocaine-prilocaine 2.5-2.5 % cream 1 applic topical ONCE PRN (Reason: port access) 30 Days Qty: 30 2RF dexamethasone 4 mg tablet 8 mg PO .COMPLEX Qty: 42 0RF Rx Instructions: 8 mg orally daily ONLY days 2, 3, 4 of chemotherapy cycle ascorbic acid (vitamin C) [Vitamin C] 500 mg tablet 500 mg PO DAILY PRN (Reason: supplement) vitamin B complex Tablet 1 tab PO DAILY vitamin E 268 mg (400 unit) capsule 268 mg PO DAILY thiamine HCl (vitamin B1) [Vitamin B-1] 50 mg tablet 50 mg PO DAILY oxycodone 5 mg tablet 5 mg PO Q6H PRN (Reason: pain) 5 Days Qty: 10 0RF Referrals / Follow Up: Care Physician,No Primary [Primary Care Provider] - Disposition Disposition (needs filled in before D/C Order can be placed): Home, Self Care
--- NOTE | 2023-06-22 12:35 | RAD_ITS ---
STUDY: X-RAY CHEST REASON FOR EXAM: Male, 63 years old. Line placement -- in pacu TECHNIQUE: Single AP portable view of the chest. COMPARISON: Comparison is made with prior study dated March 01, 2023. FINDINGS: A tracheostomy tube is in situ with the tip at 3.7 cm proximal to the willie. A right-sided Port-A-Cath is seen with the tip in the right atrium. Limited inspiratory effort with increased markings at the lung bases suggestive of mild bibasilar atelectasis. There is no demonstrated pleural abnormality. Normal size heart. Normal mediastinum and shantal. Normal visualized pulmonary arteries. There is atherosclerotic tortuosity of the aortic arch and descending thoracic aorta. There are diffuse degenerative changes of the visualized thoracic spine. Normal visualized ribs, clavicles, and shoulders. There is no demonstrated abnormality of the visualized soft tissue structures of the upper abdomen. RAD/CXR for Line Placement IMPRESSION: The tip of the right Port-A-Cath is in the right atrium. Mild increased markings at the lung bases suggestive of basilar atelectasis. Electronically Signed: Sohail Alanis MD at 13:12 EDT ,
== END 2023-06-22 13:39 | disposition home or self-care (01) ==
LOC: SDC 09:47 → AC 09:48
PROVIDERS: Referring Provider Surgery; Visit Provider Surgery
PROC: (CPT 36561; principal; 2023-06-22 12:05)
DX: Z45.2 Encounter for adjustment and management of vascular access device (principal); Z93.0 Tracheostomy status; C32.9 Malignant neoplasm of larynx, unspecified; Z92.21 Personal history of antineoplastic chemotherapy; Z92.3 Personal history of irradiation; Z87.891 Personal history of nicotine dependence; Z86.718 Personal history of other venous thrombosis and embolism
CPT/HCPCS: 36561; 71045; 77001; J7120; C1788; J2405

== ENCOUNTER 2023-07-04 08:00 | Outpatient (CLI) | payer OTHER, SELFPAY | END 2023-07-04 20:00 | disposition home or self-care (01) | LOC: RAD 11-22 14:12 | PROVIDERS: Referring Provider Student in an Organized Health Care Education/Training Program; Visit Provider Student in an Organized Health Care Education/Training Program | DX: C32.9 Malignant neoplasm of larynx, unspecified (principal) | CPT/HCPCS: 77386 ==

== ENCOUNTER → 2023-10-10 | Outpatient (CLI) | payer OTHER, SELFPAY ==
--- NOTE | 2023-10-10 10:25 | SP.MBSS_ITS ---
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 Medical History: PMH: Heartburn, Wears glasses, Depression, Alcohol use, History of steroid therapy, Former smoker, History of rheumatic fever, Tracheostomy present, Dysphonia, Cancer of glottis, DVT. 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 06/26/2023 ? 08/11/2023 he received definitive chemoradiation. He is currently consuming all food/drink by mouth without concerns for swallowing difficulty. Per most recent radiation oncology progress note, he is cleared for removal of PEG tube. He reports no xerostomia or odynophagia, but mild dysgeusia s/p chemoradiation treatment. He is unsure whether his trach will be removed until after his upcoming PET scan in November 2023. He declined participation in dysphagia treatment during chemoradiation treatment, but he was agreeable to follow-up MBSS to assess risk for worsening dysphagia s/p chemoradiation for laryngeal cancer. Current Diet Ordered: Regular textures / Thin liquids Dentition: Natural Teeth and Missing Teeth Mental Status: WNL Respiratory Status: Oxygenating on Room Air Penetration-Aspiration Scale Penetration-Aspiration Scale: OBJECTIVE ASSESSMENT OF SWALLOW FUNCTION (QUANTITATIVE ? PER TRIAL): PENETRATION / ASPIRATION SCALE (TORRES): 1 = does not enter airway 2 = enters airway/above vocal folds/ejected 3 = enters airway/above vocal folds/not ejected 4 = enters airway/contacts vocal folds/ejected 5 = enters airway/contacts vocal folds/not ejected 6 = enters airway/below vocal folds/ejected 7 = enters airway/below vocal folds/not ejected despite effort 8 = enters airway/below vocal folds/no effort VIDEOFLOROSCOPIC SCALE SCORE (TORRES): Grade I = aspiration of material that has penetrated into the laryngeal vestibule, intact cough reflex Grade II = aspiration < 10 % of the bolus, intact cough reflex Grade III = aspiration of < 10 % of the bolus, reduced cough reflex or aspiration of > 10 % of the bolus, intact cough reflex Grade IV = aspiration of > 10 % of the bolus, reduced cough reflex Penetration-Aspiration Scale Score Thin Liquid via teaspoon: Result: 1= does not enter airway Thin Liquid via teaspoon Trial 2: Result: 1= does not enter airway Thin Liquid via small single sip: cup: Result: 1= does not enter airway [place] Thick Liquid via small single sip: cup: Result: 1= does not enter airway Pudding via teaspoon: Result: 1= does not enter airway Comment: Esophageal screen - Retention of pudding in mid esophagus. Thin Liquid via single sip: straw: Result: 1= does not enter airway Comment: Esophageal screen - Retention of pudding in mid esophagus did not clear with liquid wash. 1/2 Cookie: Result: 1= does not enter airway Comment: Esophageal screen - Pudding appeared to clear, but there appeared to be retention of cookie in mid esophagus. Thin Liquid via sequential sips:straw: Result: 1= does not enter airway Comment: Esophageal screen - Liquid wash effectively cleared retention of barium coated cookie. Oral Phase Labial Seal: Interlabial escape, no progression to anterior lip Tongue Control During Bolus Hold: Escape to lateral buccal cavity/floor of mouth Bolus Preparation/Mastication: Timely and efficient chewing and mashing Bolus Transport/Lingual Motion: Brisk tongue motion Oral Residue: Residue collection on oral structures (Piecemeal deglutition of bite of pudding) Pharyngeal Phase Initiation of Pharyngeal Swallow: Bolus head at posterior laryngeal surgace of epiglottis Soft Palate Elevation: Trace column of contrast/air between soft palate and pharyngeal wall Laryngeal Elevation: Comp. Superior move thyroid cart w/comp. apprx arytenoid cart-epig pet Anterior Hyoid Excursion: Partial anterior movement Epiglottic Movement: Complete inversion Laryngeal Vestibule Closure at Height of Swallow: Complete; no air/contrast in laryngeal vestibule Pharyngeal Stripping Wave: Present - complete Pharyngoesophageal Segment Opening: Parital distension and partial duration; parital obstruction of flow Tongue Base Retraction: Narrow column of contrast between tongue base & post. pharyngeal wall Pharyngeal Residue: Trace residue within or on pharyngeal structures Esophageal Phase Esophageal Clearance: Esophageal retention Diagnosis/Impression Diagnosis: Mild pharyngoesophageal dysphagia R13.13 Impression: The oral phase is grossly WNL. The pharyngeal phase is primarily marked by... -Decreased anterior hyoid excursion; however, he demonstrated good airway closure during the swallow with no laryngeal penetration or aspiration throughout the study. -Mildly decreased tongue base retraction and UES opening/duration with only trace residues in the vallecula and cricopharyngeus. The esophageal phase is primarily marked by... -Retention of pudding and cookie in the mid esophagus. Sequential thin liquids via straw effectively cleared esophageal retention of cookie. Recommendations Diet: Regular Textures and Thin Liquids Compensatory Strategies: Small Bites, Small Sips, Slow Rate, Alternate bites/solids and sips/liquids (Take 2-3 sips after every 1-2 bites), Sitting upright and Remain sitting upright for 30 minutes after PO intake Recommend Repeat Modified Barium Swallow: Yes Comment: Repeat MBS study in 6-12 months to monitor swallow function as the patient is at risk for worsening dysphagia and aspiration risk s/p chemoradiation treatment. Need for Skilled Speech Therapy Services: Yes Comment: Follow up OP dysphagia therapy to review results of MBSS and implement maintenance oropharyngeal exercise (Steffanie, Clive, Effortful swallow, Shaker) and neck ROM program due to risk for worsening dysphagia s/p chemoradiation treatment for laryngeal cancer. Education Completed: 1. Described result of evaluation., 2. Pt understands evaluation & agrees with goals and treatment plan. and 4. Family/caregivers understand evaluation & agree w/ goals & tx plan. Comment: No immediate GI consult recommended as the patient was able to clear esophageal retention effectively with liquid wash; however, if increased sensation of retention, reflux symptoms, or regurgitation, please inform PCP for GI consult. Pt and verbalized good understanding. Status Active ST Patient: Active Contact Information [facility] Speech Therapy:: Annia Mcnulty M.A. CCC-TACTICAL/MOBILE WATCH OFFICER? Speech-Language Pathologist?? [facility] [address] [place] [address]? [email or web address]?? [phone]
== END | disposition home or self-care (01) ==
LOC: RAD 09:12
PROVIDERS: Referring Provider Student in an Organized Health Care Education/Training Program; Visit Provider Student in an Organized Health Care Education/Training Program
DX: C32.9 Malignant neoplasm of larynx, unspecified (principal)
CPT/HCPCS: 74230; 92611

== ENCOUNTER 2023-11-24 08:12 | Outpatient (RCR) | payer OTHER, SELFPAY ==
--- NOTE | 2023-11-24 11:14 | HP.SP.EVAL ---
Visit History Visit Info Date of Eval: 11/24/23 Visit: 1 Electronic Organ Mechanic: IMELDA History Attending Doctor: Referring Doctor: Reason for Referral: MALIGNANT NEOPLASM OF LARYNX/RX SCANNED Medical Diagnosis: Malignant neoplasm of the larynx C32.9 Date of Onset of Diagnosis: 04/05/2023 Previous speech therapy: Yes Results: MBSS 10/10/2023 revealed mild pharyngeal dysphagia and had the following recommendations: Diet: Regular Textures and Thin Liquids Compensatory Strategies: Small Bites, Small Sips, Slow Rate, Alternate bites/solids and sips/liquids (Take 2-3 sips after every 1-2 bites), Sitting upright and Remain sitting upright for 30 minutes after PO intake Recommend Repeat Modified Barium Swallow: Yes Comment: Repeat MBS study in 6-12 months to monitor swallow function as the patient is at risk for worsening dysphagia and aspiration risk s/p chemoradiation treatment. Need for Skilled Speech Therapy Services: Yes Comment: Follow up OP dysphagia therapy to review results of MBSS and implement maintenance oropharyngeal exercise (Steffanie, Clive, Effortful swallow, Shaker) and neck ROM program due to risk for worsening dysphagia s/p chemoradiation treatment for laryngeal cancer. Education Completed: 1. Described result of evaluation., 2. Pt understands evaluation & agrees with goals and treatment plan. and 4. Family/caregivers understand evaluation & agree w/ goals & tx plan. Comment: No immediate GI consult recommended as the patient was able to clear esophageal retention effectively with liquid wash; however, if increased sensation of retention, reflux symptoms, or regurgitation, please inform PCP for GI consult. Pt and verbalized good understanding. Other Relevant Medical History/Diagnoses/Surgery: PMH: Heartburn, Wears glasses, Depression, Alcohol use, History of steroid therapy, Former smoker, History of rheumatic fever, Tracheostomy present, Dysphonia, Cancer of glottis, DVT. 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 06/26/2023 ? 08/11/2023 he received definitive chemoradiation. He is currently consuming all food/drink by mouth without concerns for swallowing difficulty. Per most recent radiation oncology progress note, he is cleared for removal of PEG tube. He reports no xerostomia or odynophagia, but mild dysgeusia s/p chemoradiation treatment. He is unsure whether his trach will be removed until after his upcoming PET scan in November 2023. He declined participation in dysphagia treatment during chemoradiation treatment, but he was agreeable to follow-up MBSS to assess risk for worsening dysphagia s/p chemoradiation for laryngeal cancer. MBSS results and recommendations are in Previous speech therapy section above. Currently, he has no use of his PEG tube. Taste WNL. No xerostomia. No odynophagia. He is consuming Regular textures / Thin liquids. He is meeting w/ Dr. You, ENT, today. No esophageal complaints at this time. Sensation of esophageal retention 1X since MBSS, which cleared with liquid wash. Smoking Status: Former smoker Pain Is pain an issue with your current prescribed condition?: No Personal Preferred language: [place]an Patient Allergies Allergies Allergies: Allergies bee venom protein (honey bee) Allergy (Severe, Verified 11/24/23 09:05) Anaphylaxis Penicillins Allergy (Mild, Verified 11/24/23 09:05) Hives Subjective Dysphagia Symptoms Reported Symptoms/Problems with: Food gets stuck Other: Food stuck 1X, cleared w/ water Current Diet Solids Current Diet: Regular Current Diet Liquids Current Liquids: Thin Objective Dysphagia Thin Liquids Administred via: Cup Oral Transit: WNL Bolus clearance: fully cleared Comments: No overt s/s of aspiration, good oral clearance, timely swallow Pureed Administered via: Spoon Oral Transit: WNL Cough: none observed/unable to assess Comments: No overt s/s of aspiration, good oral clearance, timely swallow Regular Oral Preparation: WNL Oral Transit: WNL Comments: timely mastication, no overt s/s of aspiration, no sensation of retention, oral residue WNL Impact Impact on Safety & Functioning: Risk for Aspiration Diet Texture Recommendations Solids: Regular (Level 7) Liquids: Thin (Level 0) Other: Small Bites, Small Sips, Slow Rate, Alternate bites/solids and sips/liquids (Take 2-3 sips after every 1-2 bites), Sitting upright and Remain sitting upright for 30 minutes after PO intake Results Swallowing Diagnosis: Pharyngeal Phase Dysphagia (R13.13) Severity: Mild LEAD SYSTEMS DEVELOPER V Trigeminal Nerve V Trigeminal Nerve Response: Intact VII Facial Nerve VII Facial Nerve Result: Intact X Vagus Nerve X Vagus Nerve Result: Other - see comment below Comment:: Unable to assess vocal quality - patient aphonic w/ trach present XII Hypoglossal Nerve XII Hypoglossal Nerve Result: Intact Swallowing Performance Scale Swallowing Performance Scale Swallowing Performance Scale Result: 3 Mild Reference: Neuro-QoL instrument Radiation Oncology Patient FOIS Functional Oral Intake Scale Total oral diet with multiple consistencies without special preparation, but with specific food limitations: Level 6 Plan Plan Plan: Will recommend the patient for skilled outpatient dysphagia therapy to address mild pharyngeal dysphagia due to malignant neoplasm of the larynx s/p definitive chemoradiation (06/26/2023 ? 08/11/2023) with current tracheostomy. Speech therapy POC to include further education re: prophylactic pharyngeal exercise program, aspiration precautions, and compensatory strategies to decrease risk for aspiration. Additionally, will provide ongoing assessment of diet tolerance post chemoradiation treatment. Without skilled ST services, the patient is at increased risk for aspiration. POC also includes placement of [place] Speech and Swallowing Valve (PMSV) if cleared by ENT to decrease risk for aspiration given presence of trach; however, the patient is meeting with ENT, Dr. You, today to see if the trach can be removed. In case of the patient requiring continued use of trach, DISPUTE COORDINATOR added goals to POC for implementation of PMSV. Recommendations Treatment Warranted: Yes Treatment Warranted: Dysphagia Comment: Annual MBSS (Next MBSS 10/2024) Progress Prognosis: Good Frequency Frequency: Monthly Duration: 2-4 Months Goals that are Established Determination:: Goals will be added/modified as deemed necessary and appropriate. Therapy will be discontinued when results of re-evaluation indicate therapy is no longer needed or lack of progress has been documented. Goal #1-5 Goal #1: (LTG) The patient will consume least restrictive diet textures without overt s/s of aspiration with independent use of compensatory strategies to decrease risk for aspiration. Goal #2: (STG) The patient will complete an oropharyngeal exercise program X10-15 reps, 3-5X daily with minimal verbal cues to improve strength, ROM, and coordination of swallowing mechanism. Goal #3: (LTG) The patient will tolerate [place] Speech and Swallowing Valve (PMSV) at meals without s/s of respiratory distress to decrease risk for aspiration with oral intake. [PT MUST BE CLEARED BY ENT FOR PMSV PRIOR TO TRIALS W/ DISPUTE COORDINATOR - PT IS MEETING W/ ENT 11/24/23.] Goal #4: (STG) The patient will independently don/doff PMSV to facilitate safe and hygienic use of valve. [PT MUST BE CLEARED BY ENT FOR PMSV PRIOR TO TRIALS W/ DISPUTE COORDINATOR - PT IS MEETING W/ ENT 11/24/23.] Education Patient has Indicated that the Following Identified Educational Needs: None The Patient has indicated that they have no educational or learning abilities that may effect their care.: Yes Patient Instruction Patient Education: Diagnosis, Treatment Plan, Goals, Safety Precautions, Diet Level and Home Exercise Program Other Education: DISPUTE COORDINATOR instructed patient in pharyngeal exercise program via verbal instruction, demonstration, teach back (2-10 reps of each exercise), and education re: rationale for each exercise. He completed Steffanie, Effortful, Clive, (also instructed in Shaker and neck ROM exercises - verbal instruction only). DISPUTE COORDINATOR recommended pharyngeal exercises X10 reps, 3-5X daily. Neck ROM PRN. Education was provided re: continuous churn buttermaker impacts of chemoradiation that impact swallow function, such as radiation fibrosis. Patient does not feel he needs further instruction. DISPUTE COORDINATOR requested patient make additional appointments if requiring addition education re: exercise program. Also, if trach is not removed, please consider return to ST for placement of PMSV if cleared by ENT. Pt's verbalized understanding. Person Taught: Patient and Significant Other Teaching Method: Discussion, Demonstration and Handout Response to teaching: Return Demonstration, Verbalize Understanding and Reinforcement Needed
--- NOTE | 2024-04-09 12:19 | HP.SP.DC ---
ST Discharge Summary Discharged: Discharge: Pt has PMH including SCC of glottic larynx s/p placement of tracheostomy, and chemoradiation from 06/26/2023 ? 08/11/2023. MBSS 10/10/2023 revealed mild pharyngeal dysphagia and had the following recommendations: Diet: Regular Textures and Thin Liquids; Compensatory Strategies: Small Bites, Small Sips, Slow Rate, Alternate bites/solids and sips/liquids (Take 2-3 sips after every 1-2 bites), Sitting upright and Remain sitting upright for 30 minutes after PO intake; Recommend Repeat Modified Barium Swallow: Yes Comment: Repeat MBS study in 6-12 months to monitor swallow function as the patient is at risk for worsening dysphagia and aspiration risk s/p chemoradiation treatment. Need for Skilled Speech Therapy Services: Yes; Comment: Follow up OP dysphagia therapy to review results of MBSS and implement maintenance oropharyngeal exercise (Steffanie, Clive, Effortful swallow, Shaker) and neck ROM program due to risk for worsening dysphagia s/p chemoradiation treatment for laryngeal cancer. He attended Bedside Swallow Evaluation w/ diagnostic treatment on 11/24/2023. He has not returned for additional speech therapy and will be discharged at this time. Will recommend participation in annual MBSS to monitor swallow function s/p chemoradiation treatment for SCC of larynx.
== END 2023-11-24 19:00 | disposition home or self-care (01) ==
LOC: SP 08:12
PROVIDERS: Referring Provider Student in an Organized Health Care Education/Training Program; Visit Provider Student in an Organized Health Care Education/Training Program
DX: C32.9 Malignant neoplasm of larynx, unspecified (principal)
CPT/HCPCS: 92610

== ENCOUNTER → 2024-11-22 | Outpatient (CLI) | payer SELFPAY, OTHER ==
--- NOTE | 2024-11-22 07:51 | CT_ITS ---
PROCEDURE: SOFT TISSUE NECK WITH CONTRAST 11/22/2024 REASON FOR EXAM: FOLLOW UP TREATED LARYNGEAL CANCER TECHNIQUE: SOFT TISSUE NECK WITH CONTRAST CONTRAST: 100 cc VOLUME: Isovue 370 mL One or more dose reduction techniques were used (e.g., Automated exposure control, adjustment of the mA and/or kV according to patient size, use of iterative reconstruction technique). RADIATION DOSE SUMMARY: CTDlvol: 51 mGy DLP: 1161 mGycm COMPARISON: 04/05/2023, with no report available FINDINGS: Symmetric appearance of the orbits and nasopharynx. Normal parotid glands. No asymmetry of the palatine tonsils, oral cavity, tongue base or submandibular glands. No asymmetry at the level of the true cords or false cords. Normal hyoid bone, cricoid cartilage and thyroid cartilage. Tracheostomy in the midline. Intact appearing thoracic inlet. No enlarged cervical lymph nodes. CT/Soft Tissue Neck WITH Contrast IMPRESSION: No residual or recurrent neoplasm Reading [facility]
--- NOTE | 2024-11-22 07:51 | CT_ITS ---
PROCEDURE: CHEST WITH CONTRAST 11/22/2024 REASON FOR EXAM: H/O TREATED LARYNGEAL CANCER TECHNIQUE: CHEST WITH CONTRAST Coronal and Sagittal reconstruction series were provided. CONTRAST: Isovue 370 VOLUME: 100 mL One or more dose reduction techniques were used (e.g., Automated exposure control, adjustment of the mA and/or kV according to patient size, use of iterative reconstruction technique). RADIATION DOSE SUMMARY: CTDlvol: 19 mGy DLP: 1161 mGycm FINDINGS: Negative for adenopathy. Tracheostomy in place. Lungs are clear. No masses or nodules. No mediastinal adenopathy. Upper abdomen unremarkable. CT/Chest WITH Contrast IMPRESSION: Coronary artery calcification (CAC) is absent No acute findings. No neoplastic findings Reading Location[facility]
--- OUTSIDE RECORDS SUMMARY | 2024-11-22 07:54 | XMS RPT_ITS | CCD ---
Author Organization [facility] MOV[facility] Care Team Providers Care Public Address Systems Mechanic Name Role Phone Generic Provider MD, No Assigned Pcp Primary Car e Provider Unavailable Care Physician, No Primary Primary Care Provider Unavailable Dr. Nikolas Coreas Attending Provider Dr. Prasad Myers Referring Provider Dr. Nikolas Coreas Referring Provider [phone] Dr. Rasheed Alcaraz Attending Provider [phone] Dr. Rasheed Alcaraz Referring Provider Dr. Rasheed Alcaraz Other Provider Care Physician, No Primary Referring Provider Un available Dr. Clarence Ng Attending Provider Ameya JAVIER, CONCEPCION-Elle Fletcher Attending Provider GENERIC PROVIDER, NO ASSIGNED PCP Primary Care Unavailable ENOC BROOKS Attending Unavailabl DARLENE Nichols Admitting Unavailable WILCH, ARIS E Referring Unavailable GENERIC PROVIDER, NO ASSIGNED PCP Primary Care Unavailable Care Physician, No Primary Primary Care Unava ilable Nikolas Coreas Attending Unavailable Nikolas Coreas Referring Unavailable Rasheed Alcaraz Attending Unavailable Care Physician, No Primary Referring Unava ilable Care Physician, No Primary Primary Care Unava ilable Rasheed Alcaraz Attending Unavailable Care Physician, No Primary Referring Unava ilable Care Physician, No Primary Primary Care Unava ilable Justine Hou NP Attending Unavailable Care Physician, No Primary Referring Unava ilable Care Physician, No Primary Primary Care Unava ilable Nikolas Coreas Attending Unavailable Care Physician, No Primary Referring Unava ilable Care Physician, No Primary Primary Care Unava ilable Clarence Ng Attending Unavailable Care Physician, No Primary Referring Unava ilable Care Physician, No Primary Primary Care Unava ilable Care Physician, No Primary Referring Unava ilable Care Physician, No Primary Primary Care Unava ilable Nikolas Coreas Attending Unavailable Care Physician, No Primary Primary Care Unava ilable Nikolas Coreas Attending Unavailable Lyudmila Nikolas Referring Unavailable Nikolas Coreas Attending Unavailable Care Physician, No Primary Primary Care Unava ilable Nikolas Coreas Referring Unavailable Nikolas Coreas Attending Unavailable Care Physician, No Primary Primary Care Unava ilable Lyudmila Nikolas Referring Unavailable Allergies Allergy Classification Reported Allergen(s) Allergy Type Date of Onset Reaction(s) Facility (3 sources) Penicillins; Translations: [PENICILLINS] Allergy to substance [address] [facility] (2 sources) bee venom protein (honey bee) Allergy to substance [address] [facility] (1 source) Penicillins Propensity to adverse reactions 3 [facility] (1 source) Penicillins Drug allergy (disorder) [address] [facility] (1 source) bee venom protein (honey bee) Drug allergy (disorder) [address] [facility] Medications Current Medications Medication Drug Class(es) Dates Sig (Normalized) Sig (Original) acetaminophen 32 mg/ml oral solution (1 source) Start: 04-07-2023 acetaminophen (Tylenol) oral liquid 1,000 mg albuterol 0.83 mg/ml inhalation solution (3 sources) beta2-Adrenergic Agonist Start: 04-06-2023 take 2.5 mg by inhalation every four hours as needed albuterol 2.5 mg /3 mL (0.083 %) nebulizer solution 2.5 mg Start: 03-01-2023 End: 05-26-2023 take 1 puff(s) by inhalation every four hours as needed Albuterol Sulfate (Ventolin Hfa) 90 mcg/actuation HFA aerosol inhaler Discontinued 2 PUFF INHALATION EVERY 4 HOURS NEEDED March 01, 2023 1:00am May 26, 2023 9:57am ascorbic acid 500 mg oral tablet (1 source) Vitamin C Start: 06-06-2023 take 1 tablet by mouth once daily Ascorbic Acid (Vitamin C) (Vitamin C) 500 mg tablet Active 500 MG PO DAILY June 06, 2023 1:00am b complex vitamins capsule (1 source) take 1 capsule by mouth once daily b complex vitamins capsule Take 1 capsule by mouth once daily. 0 Active chlorhexidine gluconate 1.2 mg/ml mouthwash (2 sources) Start: 04-05-2023 End: 04-06-2023 chlorhexidine (Peridex) 0.12 % solution 15 mL dexamethasone 4 mg oral tablet (1 source) Corticosteroid Start: 06-15-2023 Dexamethasone Active 8 MG PO .COMPLEX 42 June 15, 2023 1:00am 8 mg orally daily ONLY days 2, 3, 4 of chemotherapy cycle 1 ml heparin sodium, porcine 5000 unt/ml [...] 04-06-2023 lidocaine 4 % patch 1 patch lidocaine 25 mg/ml / prilocaine 25 mg/ml topical cream (1 source) Antiarrhythmic, Amide Local Anesthetic Start: 06-15-2023 Lidocaine-Priloca ine Active 1 APPLIC TOPICAL ONCE June 15, 2023 1:00am Naloxone (1 source) Opioid Antagonist Start: 04-05-2023 naloxone (Narcan) injection 0.2 mg [place] 9-Fzi-Vhu-Fish Oil (Fish Oil) 60-90-500 mg capsule (1 source) Start: 06-02-2023 take 1 capsule by mouth once daily [place] 7-Ike-Ylw-Fish Oil (Fish Oil) 60-90-500 mg capsule Active 1 CAP PO DAILY June 02, 2023 1:00am ondansetron 8 mg disintegrating oral tablet (2 sources) Serotonin-3 Receptor Antagonist Start: 06-15-2023 take 8 mg by mouth every eight hours Ondansetron Active 8 MG PO Q8H June 15, 2023 1:00am Start: 04-05-2023 take 4 mg intravenou sly every eight hours as needed ondansetron (Zofran) injection 4 mg oxyCODONE hydrochloride 5 mg oral tablet (1 source) Opioid Agonist Start: 06-06-2023 take 5 mg by mouth every six hours Oxycodone Active 5 MG PO EVERY 6 HOURS 10 5 June 06, 2023 oxygen (O2) therapy (1 source) Start: 04-05-2023 oxygen (O2) th erapy polyethylene glycol 3350 18799 mg powder for oral solution (2 sources) Osmotic Laxative Start: 04-05-2023 End: 04-06-2023 polyethylene glycol (Glycolax, Miralax) packet 17 g sennosides, care home 1.76 mg/ml oral solution (2 sources) Start: 04-05-2023 End: 04-06-2023 senna (Senokot) 8.8 mg/5 mL syrup 10 mL sodium chloride 9 mg/ml inhalation solution (2 sources) Start: 04-13-2023 sodium chlorid e 0.9 % nebulizer solution Indications: Lesion of glottis , Airway obstruction, anatomic , Acute on chronic respiratory failure with hypoxia (CMS/HCC) Take 3 mL by nebulization 3 times a day. Instill 2-3mL into the Tracheostomy tube as needed for thick secretions. 90 mL 12 04/13/2023 Active Start: 04-13-2023 sodium chlorid e 0.9 % irrigation solution Indications: Lesion of glottis , Airway obstruction, anatomic , Acute on chronic respiratory failure with hypoxia (CMS/HCC) Irrigate with 1,000 mL as directed 3 times a day. For use with tracheostomy care and suctioning 6000 mL 2 04/13/2023 Active thiamine 50 mg oral tablet (2 sources) Start: 06-06-2023 take 1 tablet by mouth once daily Thiamine Hcl (Vitamin B1) (Vitamin B-1) 50 mg tablet Active 50 MG PO DAILY June 06, 2023 1:00am take 1 tablet by mouth once tabatha y thiamine 100 mg tablet Take 1 tablet (100 mg) by mouth once daily. 0 Active Vitamin B Complex (1 source) Start: 06-06-2023 take 1 tablet by mouth once daily Vitamin B Complex Active 1 TABLET PO DAILY June 06, 2023 1:00am vitamin e 180 mg oral capsule (2 sources) Start: 06-06-2023 take 268 mg by mouth once daily Vitamin E Active 268 MG PO DAILY June 06, 2023 1:00am take 1 capsule by mouth once maximo ly vitamin E 180 mg (400 unit) capsule Take 1 capsule (400 Units) by mouth once daily. 0 Active Completed/Discontinued Medications Medication Drug Class(es) Dates Sig (Normalized) Sig (Original) barium sulfate (Varibar [place], Varibar Honey) 40 % (w/v) suspension 10 mL (1 source) Start: 04-07-2023 End: 04-07-2023 barium sulfate (Varibar [place], Varibar Honey) 40 % (w/v) suspension 10 [...] intravenous, Continuous, Starting on Mon04/05/23 at 2330 Start: 04-05-2023 End: 04-06-2023 lactated Ringer's bolus 500 mL ceFAZolin 2000 mg injection (1 source) Cephalosporin Antibacterial Start: 04-06-2023 End: 04-06-2023 take 2 g intravenously every eight hours ceFAZolin in dextrose (iso-os) (Ancef) IVPB 2 g doxycycline monohydrate 100 mg oral capsule (2 sources) Tetracycline-class Drug Start: 03-01-2023 End: 05-26-2023 take 100 mg by mouth twice daily Doxycycline Monohydrate Discontinued 100 MG PO TWICE A DAY March 01, 2023 1:00am May 26, 2023 9:57am 1 ml HYDROmorphone hydrochloride 1 mg/ml cartridge (3 sources) Opioid Agonist Start: 04-05-2023 End: 04-07-2023 HYDROmorphone (Dilaudid) injection 0.2 mg Start: 04-05-2023 End: 04-05-2023 HYDROmorphone (Dilaudid) inj ection 0.4 mg insulin lispro 100 unt/ml injectable solution (1 source) Insulin Analog Start: 04-05-2023 End: 04-08-2023 0-5 Units, subcutaneous, [place] ry 4 hours, First dose on Mon04/05/23 at 2330 Insulin Lispro Corrective Scale #1 Hypoglycemia protocol Call LIP unit(s) if Blood Glucose is between 0 - 70 mg/dL 0 unit(s) if Blood glucose is between 71-150 1 unit(s) if Blood glucose is between 151-200 2 unit(s) if Blood glucose is between 201-250 3 unit(s) if Blood glucose is between 251-300 4 unit(s) if Blood glucose is between 301-350 5 unit(s) if Blood glucose is between 351-400 Notify provider unit(s) if Blood Glucose is greater than 400 mg/dL iohexol (OMNIPaque) 350 mg iodine/mL solution 90 mL (1 source) Start: 04-05-2023 End: 04-05-2023 iohexol (OMNIPaque) 350 mg iodine/mL solution 90 mL 5 ml midazolam 1 mg/ml injection (1 source) Benzodiazepine Start: 04-05-2023 End: 04-05-2023 midazolam (Versed) injection 2 mg Start: 04-05-2023 End: 04-05-2023 midazolam (Versed) injection 2 mg potassium chloride 20 meq powder for oral solution (1 source) Start: 04-08-2023 End: 04-08-2023 potassium chloride (Klor-Con) packet 20 mEq predniSONE 20 mg oral tablet (2 sources) Start: 03-01-2023 End: 05-26-2023 take 60 mg by mouth once daily Prednisone Discontinued 60 MG PO DAILY March 01, 2023 1:00am May 26, 2023 9:57am Problems Active Problems Problem Classification Problem Date Documented Da te Episodic/Chronic Administrative/social admission (2 sources) Patient encounter status; Translations: [Counseling, unspecified] 06-15-2023 Episodic Cancer of head and neck (7 sources) Squamous cell carcinoma of larynx; Translations: [Malignant neoplasm of larynx, unspecified] Onset: 08-19-2024 05-26-2023 Chronic Chronic obstructive pulmonary disease and bronchiectasis (2 sources) Chronic bronchitis; Translations: [Unspecified chronic bronchitis] 03-01-2023 Chronic Diabetes mellitus without complication (2 sources) Hyperglycemia; Translations: [Hyperglycemia, unspecified] 03-01-2023 Episodic Neoplasms of unspecified nature or uncertain behavior (2 sources) Neoplasm of uncertain behavior of glottis; 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] Onset: 04-05-2023 Resolved: 04-05-2023 04-05-2023 Episodic Other circulatory disease (2 sources) Elevated blood-pressure reading without diagnosis of hypertension; Translations: [Elevated blood-pressure reading, without diagnosis of hypertension] 03-01-2023 Episodic Other lower respiratory disease (5 sources) Dyspnea; Translations: [Dyspnea, unspecified] Onset: 04-05-2023 Resolved: 04-13-2023 03-01-2023 Episodic Other lower respiratory disease (3 sources) Respiratory obstruction; Translations: [Other specified respiratory disorders] Onset: 04-05-2023 04-13-2023 Episodic Other upper respiratory disease (2 sources) Acute bronchospasm; Translations: [Acute bronchospasm] 03-01-2023 Episodic Other upper respiratory disease (3 sources) Lesion of larynx; Translations: [Other diseases of larynx] Onset: 04-05-2023 04-07-2023 Episodic Other upper respiratory disease (2 sources) Biphasic stridor; Translations: [Stridor] Onset: 04-05-2023 Resolved: 04-13-2023 04-13-2023 Episodic Respiratory failure; insufficiency; arrest (adult) (5 sources) [id number] respiratory failure; Translations: [Acute and chronic respiratory failure with hypoxia] Onset: 12-27-2023 01-04-2024 Chronic Past or Other Problems Problem Classification Problem Date Documented Date Episodic/Chronic Complications of surgical procedures or medical care (3 sources) Postprocedural respiratory disorders; Translations: [Postprocedural pneumothorax] Onset: 04-05-2023 04-07-2023 Episodic Other lower respiratory disease (2 sources) Shortness of breath; Translations: [Shortness of breath] Onset: 04-05-2023 Episodic Other lower respiratory disease (2 sources) Other specified respiratory disorders; Translations: [Other specified respiratory disorders] Onset: 04-05-2023 Episodic Other upper respiratory disease (2 sources) Stridor; Translations: [Stridor] Onset: 04-05-2023 04-07-2023 Episodic Other upper respiratory disease (2 sources) Other diseases of larynx; Translations: [Other diseases of larynx] Onset: 04-05-2023 Episodic Other upper respiratory disease (1 source) Stridor; Translations: [Stridor] Onset: 04-05-2023 Episodic Results Test Name Value Interpretation Reference Range Facility CBC W/Diff, Automatedon 05- Absolute Lymph 0.76 X10 3/uL Low 0.83-4.[address] [facility] Comment on above: Performed By: #### L 500.4050, L100.0100 #### [facility] [address] [place], [address] Absolute Neut 4.1 X10 3/uL Normal 2.0-7.[address] [facility] Comment on above: Performed By: #### L 500.4050, L100.0100 #### [facility] [address] [place], [address] Basophils/100 WBC (Bld) 0.9 % Normal 0-[address] [facility] Comment on above: Performed By: #### L 500.4050, L100.0100 #### [facility] [address] [place], [address] Eosinophils/100 WBC (Bld) 1.9 % Normal 0-[address] [facility] Comment on above: Performed By: #### L 500.4050, L100.0100 #### [facility] [address] [place], [address] Erythrocyte distribution width (RBC) [Ratio] 13.0 % Normal 11.6-14.[address] [facility] Comment on above: Performed By: #### L 500.4050, L100.0100 #### [facility] [address] [place], [address] Hematocrit (Bld) [Volume fraction] 44.1 % Normal 40-[address] [facility] Comment on above: Performed By: #### L 500.4050, L100.0100 #### [facility] [address] [place], [address] Hemoglobin (Bld) [Mass/Vol] 14.7 g/dL Normal 13.0-16.[address] [facility] Comment on above: Performed By: #### L 500.4050, L100.0100 #### [facility] [address] [place], [address] IG% 0.400 Normal 0.0-0.[address] [facility] Comment on above: Result Comment: IG% - Immature Granulocytes (promyelocytes, myelocytes and metamyelocytes) > 1% indicates that a LEFT SHIFT is Present. Performed By: #### L 500.4050, L100.0100 #### [facility] [address] [place], [address] Lymphocytes/100 WBC (Bld) 13.3 % Low 19-[address] [facility] Comment on above: Performed By: #### L 500.4050, L100.0100 #### [facility] [address] [place], [address] MCH (RBC) [Entitic mass] 31.0 pg Normal 27.0-32.[address] [facility] Comment on above: Performed By: #### L 500.4050, L100.0100 #### [facility] [address] [place], [address] MCHC (RBC) [Mass/Vol] 33.3 g/dL Normal 32-[address] [facility] Comment on above: Performed By: #### L 500.4050, L100.0100 #### [facility] [address] [place], [address] MCV (RBC) [Entitic vol] 93.0 fL Normal 80-[address] [facility] Comment on above: Performed By: #### L 500.4050, L100.0100 #### [facility] [address] [place], [address] Monocytes/100 WBC (Bld) 11.9 % High 0-[address] [facility] Comment on above: Performed By: #### L 500.4050, L100.0100 #### [facility] [address] [place], [address] Neutrophils/100 WBC (Bld) 71.6 % High 47-[address] [facility] Comment on above: Performed By: #### L 500.4050, L100.0100 #### [facility] [address] [place], [address] Nucleated RBC (Bld) [#/Vol] 0 10*3/uL Normal 0-[address] [facility] Comment on above: Performed By: #### L 500.4050, L100.0100 #### [facility] [address] [place], [address] Platelet mean volume (Bld) [Entitic vol] 7.9 fL Normal 6.2-12.[address] [facility] Comment on above: Performed By: #### L 500.4050, L100.0100 #### [facility] [address] [place], [address] Platelets (Bld) [#/Vol] 187 10*3/uL Normal 150-[address] [facility] Comment on above: Performed By: #### L 500.4050, L100.0100 #### [facility] [address] [place], [address] RBC (Bld) [#/Vol] 4.74 10*6/uL Normal 4.6-6.2 [facility] Comment on above: Performed By: #### L 500.4050, L100.0100 #### [facility] [address] [place], [address] RDW SD 44.3 fl High 35.1-43.[address] [facility] Comment on above: Performed By: #### L 500.4050, L100.0100 #### [facility] [address] [place], [address] WBC (Bld) [#/Vol] 5.7 10*3/uL Normal 4.4-11.0 [facility] Comment on above: Performed By: #### L 500.4050, L100.0100 #### [facility] [address] [place], [address] Comprehensive Metabolic Prof [facility] 08-19-2024 Albumin [Mass/Vol] 4.2 g/dL Normal 3.4-4.8 [facility] Comment on above: Performed By: #### L 500.4050, L100.0100 #### [facility] [address] [place], [address] Albumin/Globulin [Mass ratio] 1.6 {ratio} Normal 0.9-2.[address] [facility] Comment on above: Performed By: #### L 500.4050, L100.0100 #### [facility] [address] [place], [address] ALK PHOS 72 U/L Normal 40-[address] [facility] Comment on above: Performed By: #### L 500.4050, L100.0100 #### [facility] [address] [place], [address] ALT [Catalytic activity/Vol] 23 U/L Normal <=[address] [facility] Comment on above: Performed By: #### L 500.4050, L100.0100 #### [facility] [address] [place], [address] AST [Catalytic activity/Vol] 18 U/L Normal <=[address] [facility] Comment on above: Performed By: #### L 500.4050, L100.0100 #### [facility] [address] [place], [address] Bilirubin [Mass/Vol] 0.47 mg/dL Normal 0.00-1.[address] [facility] Comment on above: Performed By: #### L 500.4050, L100.0100 #### [facility] [address] [place], [address] BUN/CRE 29.8 RATIO High 10-[address] [facility] Comment on above: Performed By: #### L 500.4050, L100.0100 #### [facility] [address] [place], [address] Calcium [Mass/Vol] 9.4 mg/dL Normal 7.6-11.0 [facility] Comment on above: Performed By: #### L 500.4050, L100.0100 #### [facility] [address] [place], [address] Chloride [Moles/Vol] 104 mmol/L Normal 98-[address] [facility] Comment on above: Performed By: #### L 500.4050, L100.0100 #### [facility] [address] [place], [address] CO2 [Moles/Vol] 26.2 mmol/L Normal 21.0-32.[address] [facility] Comment on above: Performed By: #### L 500.4050, L100.0100 #### [facility] [address] [place], [address] Creatinine [Mass/Vol] 0.72 mg/dL Normal 0.70-1.[address] [facility] Comment on above: Performed By: #### L 500.4050, L100.0100 #### [facility] [address] [place], [address] ECRCL 98.74 ml/min Normal 50-[address] [facility] Comment on above: Performed By: #### L 500.4050, L100.0100 #### [facility] [address] [place], [address] GAP 9 Normal 5-[address] [facility] Comment on above: Performed By: #### L 500.4050, L100.0100 #### [facility] [address] [place], [address] GFR/1.73 sq M.predicted among non-blacks MDRD (S/P/Bld) [Vol rate/Area] 101 mL/min/{1.73_m2} Normal >[address] [facility] Comment on above: Result Comment: mL/m in/1.73m2 CKD-EPI Creatinine Equation (2020) Performed By: #### L 500.4050, L100.0100 #### [facility] [address] [place], [address] Globulin (S) [Mass/Vol] 2.6 g/dL Normal 2.2-4.[address] [facility] Comment on above: Performed By: #### L 500.4050, L100.0100 #### [facility] [address] [place], [address] Glucose [Mass/Vol] 94 mg/dL Normal 70-99 [facility] Comment on above: Performed By: #### L 500.4050, L100.0100 #### [facility] [address] [place], [address] Potassium [Moles/Vol] 4.3 mmol/L Normal 3.3-5.[address] [facility] Comment on above: Performed By: #### L 500.4050, L100.0100 #### [facility] [address] [place], [address] Sodium [Moles/Vol] 139 mmol/L Normal 133-145 [facility] Comment on above: Performed By: #### L 500.4050, L100.0100 #### [facility] [address] [place], [address] T PROT 6.9 g/dL Normal 5.9-8.[address] [facility] Comment on above: Performed By: #### L 500.4050, L100.0100 #### [facility] [address] [place], [address] Urea nitrogen [Mass/Vol] 22 mg/dL High 4-[address] [facility] Comment on above: Performed By: #### L 500.4050, L100.0100 #### [facility] [address] [place], [address] Oncology Visit Reporton 08-08 Oncology Visit Report [facility] [address] [place] [address] OFFICE VISIT Date of Service: 08/19/24 0956 MR#: [id number] Acct: [id number] Name: FABRICIO NUNES Rep #: [id number] : 1960 From: Clarence Ng MD Age/Sex: 64/M Location: [facility] Status: Signed HPI Subjective Date of Service 08/19/24 Chief Complaint Larynx ca History of Present Illness 64-year-old male transferring care for laryngeal cancer June 14, 2023. Patient initially presented with increasing hoarseness for about 1 year then increasing breathing distress in March 2023. 04/05/2023: CT neck: narrowing of the airway in the transverse dimension at the level of the glottis , no abnormally enlarged lymph nodes are noted within the neck. 04/05/2023: bronchoscopy and biopsy:??? 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 04/2022 tracheostomy 04/12/2023: CT chest: no evidence of metastatic disease within the chest.??? 11/21/2023 PET/CT end of treatment: IMPRESSION: 1. NEGATIVE EXAMINATION. There is no definitive quantitative scintigraphic evidence of recurrent-metastatic/viable neoplasm. 2. Enhanced tracer uptake noted in the anterior midline neck is most consistent with tracheostomy tube placement. 3. There is no definitive scintigraphic evidence of locoregional and/or distant metastatic disease. Treatment summary and response: April 2023-May 31, 2023; 3 cycles of neoadjuvant chemotherapy of carboplatin and taxane at outside facility. June 26, 2023 concomitant weekly low-dose cisplatin with radiation, compliance was not optimal (declined weeks 2 and 6). Patient received definitive chemoradiation consisting of 6996 cGy delivered to the gross glottic tumor and bilateral questionable LNs, 5940 cGy delivered to the remaining larynx and bilateral neck and 5412 cGy delivered to the supraclavicular region all in 33 fractions. He was treated with a VMAT plan using 6 MV photons. Date of First Treatment: 06/26/2023 Date of Last Treatment: 08/11/2023 Total Elapsed Days (including weekend and holidays): 46 Missed Treatments: 2 [facility] Medical History Encounter for education Heartburn Wears glasses Depression Alcohol use History of steroid therapy Former smoker History of rheumatic fever Tracheostomy present Dysphonia Cancer of glottis DVT (deep venous thrombosis) Surgical History History of esophagogastroduodenoscopy (EGD) Family History Grandmother Cancer Grandmother Cancer Social History household members: spouse Smoking Status: Former smoker alcohol intake: former substance use type: does not use ROS Constitutional Constitutional: Reports systems reviewed and no addt'l complaints, except as documented; Denies fatigue, fever(s) or weight loss Eyes Eyes: Reports systems reviewed and no addt'l complaints, except as documented; Denies change in vision ENT HEENT: Reports systems reviewed and no addt'l complaints, except as documented, dysphagia and hoarseness; Denies mouth lesions, neck mass or sore throat Cardiovascular Cardiovascular: Reports systems reviewed and no addt'l complaints, except as documented; Denies chest pain with activity or edema Respiratory/Chest Respiratory/Chest: Reports systems reviewed and no addt'l complaints, except as documented and cough; Denies dyspnea or hemoptysis Gastrointestinal Gastrointestinal: Reports systems reviewed and no addt'l complaints, except as documented; Denies abdominal pain, change in bowel habits or dysphagia Genitourinary Genitourinary: Reports systems reviewed and no addt'l complaints, except as documented; Denies dysuria Musculoskeletal Musculoskeletal: Reports systems reviewed and no addt'l complaints, except as documented; Denies back pain Integumentary Integumentary: Reports systems reviewed and no addt'l complaints, except as documented; Denies new lesions Neurologic Neurologic: Reports systems reviewed and no addt'l complaints, except as documented; Denies focal weakness or paresthesias Psychiatric Psychiatric: Reports systems reviewed and no addt'l complaints, except as documented Endocrine Endocrinology: Reports systems reviewed and no addt'l complaints, except as documented Hematologic/Lymphatic Hematologic/Lymphatic: Reports systems reviewed and no addt'l complaints, except as documented; Denies lymphadenopathy Allergic/Immunologic Allergic/Immunologic: Reports systems reviewed and no addt'l complaints, except as documented Intake Vital Signs 03/27/24 11:37 05/24/24 08:33 08/19/24 09:56 (more content not included)... Normal [facility] Radiation Oncology Visiton 0 05-24-2024 Radiation Oncology Visit [facility] [place] [address] OFFICE VISIT Date of Service: 05/24/24830 MR#: [id number] Acct: [id number] Name: FABRICIO NUNES Rep #: [id number] : 1960 From: Nikolas Coreas DO Age/Sex: 64/M Location[place] [facility] [place]: Signed Intake Vital Signs 11/24/23 09:03 03/27/24 11:37 05/24/24 08:33 Height 5 ft 7 in 5 ft 7 in 5 ft 7 in Weight: 197 lb 2 oz 199 lb 6 oz BMI 30.9 31.2 BP 109/71 136/80 H Blood Pressure Location Lt brachial Lt brachial Position Sitting Sitting Respiration 18 18 Pulse 72 58 L Pulse Source Monitor Monitor Temp 98.9 F 97.9 F Temperature Source Temporal Artery Temporal Artery Pulse Oximetry (%) 97 99 Oxygen Delivery Method room air room air Intake Visit Reasons: 6 MONTH F/U H/N Is patient in pain?: No Allergies bee venom protein (honey bee) Allergy (Severe, Verified 05/24/24 08:34) Anaphylaxis Penicillins Allergy (Mild, Verified 05/24/24 08:34) Hives Medications ???Medication ???Instructions ???Recorded ???Confirmed ???Type ascorbic acid (vitamin C) 500 mg 500 mg PO DAILY PRN supplement 05/24/24 History tablet (Vitamin C) thiamine HCl (vitamin B1) 50 mg 50 mg PO DAILY 06/06/23 05/24/24 H istory tablet (Vitamin B-1) vitamin B complex 1 tab PO DAILY 06/06/23 05/24/24 H istory vitamin E 268 mg (400 unit) capsule 268 mg PO DAILY 06/06/23 History silver sulfadiazine 1 % topical 1 applic topical BID #85 grams 05/24/24 Rx cream (Silvadene) Have you fallen in the past year?: No PFSH PFSH Medical History Encounter for education Heartburn Wears glasses Depression Alcohol use History of steroid therapy Former smoker History of rheumatic fever Tracheostomy present Dysphonia Cancer of glottis DVT (deep venous thrombosis) Home Medications ???Medication ???Instructions ???Recorded ???Last Taken ???Type ascorbic acid (vitamin C) 500 mg 500 mg PO DAILY PRN supplement Unknown History tablet (Vitamin C) thiamine HCl (vitamin B1) 50 mg 50 mg PO DAILY 06/06/23 Unknown Hi story tablet (Vitamin B-1) vitamin B complex 1 tab PO DAILY 06/06/23 Unknown Hi story vitamin E 268 mg (400 unit) capsule 268 mg PO DAILY 06/06/23 Unknow n History silver sulfadiazine 1 % topical 1 applic topical BID #85 grams Unknown Rx cream (Silvadene) Allergy/AdvReac Type Severity Reaction Status Date / Time bee venom protein (honey bee) Allergy Severe Anaphylaxis Verified 05/24/24 08:34 Penicillins Allergy Mild Hives Verified 05/24/24 08:34 Family History Grandmother Cancer Grandmother Cancer Surgical History History of esophagogastroduodenoscopy (EGD) Social History household members: spouse Smoking Status: Former smoker alcohol intake: former substance use type: does not use Diagnosis: Fabricio Nunes is a 64-year-old male diagnosed with at least 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 06/26/2023 ??? 08/11/2023 he received definitive chemoradiation. History of Present Illness: 04/05/2023: CT neck with contrast was performed.??? There is a nonspecific narrowing of the airway in the transverse dimension at the level of the glottis which may be related to timing of imaging during respiration however correlation with direct visualization is recommended to exclude an underlying mucosal lesion.??? There is minimal asymmetric prominence of the right laryngeal ventricle when compared to the left which may represent vocal cord dysfunction or other lesion.??? There are scattered morphologically normal size lymph nodes noted within the neck, no abnormally enlarged lymph nodes are noted within the neck. 04/05/2023: Patient completed bronchoscopy and biopsy.??? 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 04/12/2023: CT chest without contrast was performed.??? This demonstrated no evidence of metastatic disease within the chest.??? There is evidence for postoperative atelectasis and recommend follow-up CT as clinically indicated.??? Small amount of pneumomediastinum as well as soft tissue gas visualized in the paraglottic space and lower neck likely postoperative in nature. April ??? Roshan (more content not included)... Normal [facility] D/C Summary- SPon 04-09-2024 D/C Summary- SP [facility] spital Speech Pathology [facility] [address] [place] [address] / REHABILITATION SERVICES DISCHARGE SUMMARY MR#: [id number] Acct: [id number] Name: FABRICIO NUNES Rep #: [id number] : 1960 64 From: Annia Mcnulty M.A., CCC-DISABILITY SERVICES COORDINATOR Referring Dr.: Dr. Nikolas Coreas, DO Status: RE G R Insurance: [employer]URANCE Discharge Summary Discharged: Discharge: Pt has PMH including SCC of glottic larynx s/p placement of tracheostomy, and chemoradiation from 06/26/2023 ??? 08/11/2023. MBSS 10/10/2023 revealed mild pharyngeal dysphagia and had the following recommendations: Diet: Regular Textures and Thin Liquids; Compensatory Strategies: Small Bites, Small Sips, Slow Rate, Alternate bites/solids and sips/liquids (Take 2-3 sips after every 1-2 bites), Sitting upright and Remain sitting upright for 30 minutes after PO intake; Recommend Repeat Modified Barium Swallow: Yes Comment: Repeat MBS study in 6-12 months to monitor swallow function as the patient is at risk for worsening dysphagia and aspiration risk s/p chemoradiation treatment. Need for Skilled Speech Therapy Services: Yes; Comment: Follow up OP dysphagia therapy to review results of MBSS and implement maintenance oropharyngeal exercise (Steffanie, Clive, Effortful swallow, Shaker) and neck ROM program due to risk for worsening dysphagia s/p chemoradiation treatment for laryngeal cancer. He attended Bedside Swallow Evaluation w/ diagnostic treatment on 11/24/2023. He has not returned for additional speech therapy and will be discharged at this time. Will recommend participation in annual MBSS to monitor swallow function s/p chemoradiation treatment for SCC of larynx. 04/09/24 1219 CC: Dr. Nikolas Coreas, DO; No Primary Care Physician MW Signed Normal [facility] CBC W/Diff, Automatedon 03-10 Absolute Lymph 0.72 X10 3/uL Low 0.83-4.[address] [facility] Comment on above: Performed By: #### L 501.5200, L100.0100, L500.4050, L501.9520, L501.2300 #### [facility] [address] [place], [address] Absolute Neut 3.8 X10 3/uL Normal 2.0-7.[address] [facility] Comment on above: Performed By: #### L 501.5200, L100.0100, L500.4050, L501.9520, L501.2300 #### [facility] [address] [place], [address] Basophils/100 WBC (Bld) 0.9 % Normal 0-[address] [facility] Comment on above: Performed By: #### L 501.5200, L100.0100, L500.4050, L501.9520, L501.2300 #### [facility] [address] [place], [address] Eosinophils/100 WBC (Bld) 2.8 % Normal 0-[address] [facility] Comment on above: Performed By: #### L 501.5200, L100.0100, L500.4050, L501.9520, L501.2300 #### [facility] [address] [place], [address] Erythrocyte distribution width (RBC) [Ratio] 13.4 % Normal 11.6-14.[address] [facility] Comment on above: Performed By: #### L 501.5200, L100.0100, L500.4050, L501.9520, L501.2300 #### [facility] [address] [place], [address] Hematocrit (Bld) [Volume fraction] 44.2 % Normal 40-[address] [facility] Comment on above: Performed By: #### L 501.5200, L100.0100, L500.4050, L501.9520, L501.2300 #### [facility] [address] [place], [address] Hemoglobin (Bld) [Mass/Vol] 15.1 g/dL Normal 13.0-16.[address] [facility] Comment on above: Performed By: #### L 501.5200, L100.0100, L500.4050, L501.9520, L501.2300 #### [facility] [address] [place], [address] IG% 0.400 Normal 0.0-0.[address] [facility] Comment on above: Result Comment: IG% - Immature Granulocytes (promyelocytes, myelocytes and metamyelocytes) > 1% indicates that a LEFT SHIFT is Present. Performed By: #### L 501.5200, L100.0100, L500.4050, L501.9520, L501.2300 #### [facility] [address] [place], [address] Lymphocytes/100 WBC (Bld) 13.6 % Low 19-[address] [facility] Comment on above: Performed By: #### L 501.5200, L100.0100, L500.4050, L501.9520, L501.2300 #### [facility] [address] [place], [address] MCH (RBC) [Entitic mass] 30.6 pg Normal 27.0-32.[address] [facility] Comment on above: Performed By: #### L 501.5200, L100.0100, L500.4050, L501.9520, L501.2300 #### [facility] [address] [place], [address] MCHC (RBC) [Mass/Vol] 34.2 g/dL Normal 32-[address] [facility] Comment on above: Performed By: #### L 501.5200, L100.0100, L500.4050, L501.9520, L501.2300 #### [facility] [address] [place], [address] MCV (RBC) [Entitic vol] 89.5 fL Normal 80-[address] [facility] Comment on above: Performed By: #### L 501.5200, L100.0100, L500.4050, L501.9520, L501.2300 #### [facility] [address] [place], [address] Monocytes/100 WBC (Bld) 11.3 % High 0-[address] [facility] Comment on above: Performed By: #### L 501.5200, L100.0100, L500.4050, L501.9520, L501.2300 #### [facility] [address] [place], [address] Neutrophils/100 WBC (Bld) 71.0 % High 47-[address] [facility] Comment on above: Performed By: #### L 501.5200, L100.0100, L500.4050, L501.9520, L501.2300 #### [facility] [address] [place], [address] Nucleated RBC (Bld) [#/Vol] 0 10*3/uL Normal 0-[address] [facility] Comment on above: Performed By: #### L 501.5200, L100.0100, L500.4050, L501.9520, L501.2300 #### [facility] [address] [place], [address] Platelet mean volume (Bld) [Entitic vol] 7.8 fL Normal 6.2-12.[address] [facility] Comment on above: Performed By: #### L 501.5200, L100.0100, L500.4050, L501.9520, L501.2300 #### [facility] [address] [place], [address] Platelets (Bld) [#/Vol] 178 10*3/uL Normal 150-[address] [facility] Comment on above: Performed By: #### L 501.5200, L100.0100, L500.4050, L501.9520, L501.2300 #### [facility] [address] [place], [address] RBC (Bld) [#/Vol] 4.94 10*6/uL Normal 4.6-6.2 [facility] Comment on above: Performed By: #### L 501.5200, L100.0100, L500.4050, L501.9520, L501.2300 #### [facility] [address] [place], [address] RDW SD 43.6 fl Normal 35.1-43.[address] [facility] Comment on above: Performed By: #### L 501.5200, L100.0100, L500.4050, L501.9520, L501.2300 #### [facility] [address] [place], [address] WBC (Bld) [#/Vol] 5.3 10*3/uL Normal 4.4-11.0 [facility] Comment on above: Performed By: #### L 501.5200, L100.0100, L500.4050, L501.9520, L501.2300 #### [facility] [address] [place], [address] Comprehensive Metabolic [facility] 03-27-2024 Albumin [Mass/Vol] 3.8 g/dL Normal 3.2-5.0 [facility] Comment on above: Performed By: #### L 501.5200, L100.0100, L500.4050, L501.9520, L501.2300 #### [facility] [address] [place], [address] Albumin/Globulin [Mass ratio] 1.0 {ratio} Normal 0.9-2.[address] [facility] Comment on above: Performed By: #### L 501.5200, L100.0100, L500.4050, L501.9520, L501.2300 #### [facility] [address] [place], [address] ALK P 78 U/L Normal 45-[address] [facility] Comment on above: Performed By: #### L 501.5200, L100.0100, L500.4050, L501.9520, L501.2300 #### [facility] [address] [place], [address] ALT [Catalytic activity/Vol] 32 U/L Normal 16-[address] [facility] Comment on above: Performed By: #### L 501.5200, L100.0100, L500.4050, L501.9520, L501.2300 #### [facility] [address] [place], [address] AST [Catalytic activity/Vol] 12 U/L Low 15-[address] [facility] Comment on above: Performed By: #### L 501.5200, L100.0100, L500.4050, L501.9520, L501.2300 #### [facility] [address] [place], [address] Bilirubin [Mass/Vol] 0.60 mg/dL Normal 0.20-1.[address] [facility] Comment on above: Result Comment: For patients on eltrombopag therapy, use of Dimension Brunson TBIL is not recommended. Performed By: #### L 501.5200, L100.0100, L500.4050, L501.9520, L501.2300 #### [facility] [address] [place], [address] BUN/CRE 40.1 RATIO High 10-[address] [facility] Comment on above: Performed By: #### L 501.5200, L100.0100, L500.4050, L501.9520, L501.2300 #### [facility] [address] [place], [address] CA,Total 9.2 mg/dL Normal 8.5-10.[address] [facility] Comment on above: Performed By: #### L 501.5200, L100.0100, L500.4050, L501.9520, L501.2300 #### [facility] [address] [place], [address] Chloride [Moles/Vol] 108 mmol/L High 98-[address] [facility] Comment on above: Performed By: #### L 501.5200, L100.0100, L500.4050, L501.9520, L501.2300 #### [facility] [address] [place], [address] CO2 [Moles/Vol] 31.0 mmol/L Normal 21.0-32.[address] [facility] Comment on above: Performed By: #### L 501.5200, L100.0100, L500.4050, L501.9520, L501.2300 #### [facility] [address] [place], [address] Creatinine [Mass/Vol] 0.75 mg/dL Normal 0.70-1.[address] [facility] Comment on above: Result Comment: The validity of the calculated GFR GFRAA in patients over 70 years has not been determined. Clinical correlation is essential. Performed By: #### L 501.5200, L100.0100, L500.4050, L501.9520, L501.2300 #### [facility] [address] [place], [address] ECRCL 96.88 ml/min Normal [facility] Comment on above: Performed By: #### L 501.5200, L100.0100, L500.4050, L501.9520, L501.2300 #### [facility] [address] [place], [address] EST GFR - AA 135 mL/min Normal >[address] [facility] Comment on above: Result Comment: Afri can Nigerien GFR Calc Performed By: #### L 501.5200, L100.0100, L500.4050, L501.9520, L501.2300 #### [facility] [address] [place], [address] GAP 1 Low 5-[address] [facility] Comment on above: Performed By: #### L 501.5200, L100.0100, L500.4050, L501.9520, L501.2300 #### [facility] [address] [place], [address] GFR/1.73 sq M.predicted among non-blacks MDRD (S/P/Bld) [Vol rate/Area] 111 mL/min/{1.73_m2} Normal >[address] [facility] Comment on above: Result Comment: Non- GFR Calc Performed By: #### L 501.5200, L100.0100, L500.4050, L501.9520, L501.2300 #### [facility] [address] [place], [address] Globulin (S) [Mass/Vol] 3.7 g/dL Normal 2.2-4.[address] [facility] Comment on above: Performed By: #### L 501.5200, L100.0100, L500.4050, L501.9520, L501.2300 #### [facility] [address] [place], [address] Glucose [Mass/Vol] 96 mg/dL Normal 74-106 [facility] Comment on above: Performed By: #### L 501.5200, L100.0100, L500.4050, L501.9520, L501.2300 #### [facility] [address] [place], [address] Potassium [Moles/Vol] 3.9 mmol/L Normal 3.5-5.[address] [facility] Comment on above: Performed By: #### L 501.5200, L100.0100, L500.4050, L501.9520, L501.2300 #### [facility] [address] [place], [address] Sodium [Moles/Vol] 140 mmol/L Normal 136-145 [facility] Comment on above: Performed By: #### L 501.5200, L100.0100, L500.4050, L501.9520, L501.2300 #### [facility] [address] [place], [address] T PROT 7.5 g/dL Normal 6.4-8.[address] [facility] Comment on above: Performed By: #### L 501.5200, L100.0100, L500.4050, L501.9520, L501.2300 #### [facility] [address] [place], [address] Urea nitrogen [Mass/Vol] 30 mg/dL High 7-[address] [facility] Comment on above: Performed By: #### L 501.5200, L100.0100, L500.4050, L501.9520, L501.2300 #### [facility] [address] [place], [address] Magnesiumon 12-18-2024 Magnesium [Mass/Vol] 2.2 mg/dL Normal 1.6-2.[address] [facility] Comment on above: Performed By: #### L 501.5200, L100.0100, L500.4050, L501.9520, L501.2300 #### [facility] [address] [place], [address] Oncology Visit Reporton 03-10 Oncology Visit Report [facility] [place] [facility] [address] [place] [address] OFFICE VISIT Date of Service: 03/27/24 1135 MR#: [id number] Acct: [id number] Name: FABRICIO NUNES Rep #: [id number] : 1960 From: Justine Hou NP YOUTH PROGRAM DIRECTOR -C Age/Sex: 64/M Location: [facility] Status: Signed HPI Subjective Date of Service 03/27/24 Chief Complaint H/o larynx ca History of Present Illness 64-year-old male transferring care for laryngeal cancer June 14, 2023. Patient initially presented with increasing hoarseness for about 1 year then increasing breathing distress in March 2023. 04/05/2023: CT neck: narrowing of the airway in the transverse dimension at the level of the glottis , no abnormally enlarged lymph nodes are noted within the neck. 04/05/2023: bronchoscopy and biopsy:??? 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 April 2022 tracheostomy 04/12/2023: CT chest: no evidence of metastatic disease within the chest.??? 11/21/23 PET/CT Tumor Base -Thigh Subs IMPRESSION: 1. NEGATIVE EXAMINATION. There is no definitive quantitative scintigraphic evidence of recurrent-metastatic/viable neoplasm. 2. Enhanced tracer uptake noted in the anterior midline neck is most consistent with tracheostomy tube placement. 3. There is no definitive scintigraphic evidence of locoregional and/or distant metastatic disease. Treatment summary and response: April 2023-May 31, 2023; 3 cycles of neoadjuvant chemotherapy of carboplatin and taxane at outside facility. June 26, 2023 concomitant weekly low-dose cisplatin with radiation, compliance suboptimal (declined weeks 2 and 6). Patient received definitive chemoradiation consisting of 6996 cGy delivered to the gross glottic tumor and bilateral questionable LNs, 5940 cGy delivered to the remaining larynx and bilateral neck and 5412 cGy delivered to the supraclavicular region all in 33 fractions. He was treated with a VMAT plan using 6 MV photons. Date of First Treatment: 06/26/2023 Date of Last Treatment: 08/11/2023 Total Elapsed Days (including weekend and holidays): 46 Missed Treatments: 2 Interval History The patient is presenting to clinic accompanied by spouse for a planned 3 month follow up. Cough infrequent, still using suction to trach BID. Numbness/tingling involving fingertips experienced during chemotherapy has completely resolved. Specifically denies headaches, dizziness, dysphagia, tinnitus, hearing loss, CP, palpitations, abd pain, swelling/pain of his extremities. Appetite too good, PO fluid intake likely inadequate. Met with ENT earlier this morning for exam. [facility] Medical History Encounter for education Heartburn Wears glasses Depression Alcohol use History of steroid therapy Former smoker History of rheumatic fever Tracheostomy present Dysphonia Cancer of glottis DVT (deep venous thrombosis) Surgical History History of esophagogastroduodenoscopy (EGD) Family History Grandmother Cancer Grandmother Cancer Social History household members: spouse Smoking Status: Former smoker alcohol intake: former substance use type: does not use ROS ROS Narrative Negative except as documented in the interval HPI Intake Vital Signs 10/10/23 10:46 11/24/23 09:03 03/27/24 11:37 03/27/24 11:37 Height 5 ft 7 in 5 ft 7 in 5 ft 7 in 5 ft 7 in Weight: 197 lb 2 oz BMI 30.9 BP 109/71 Blood Pressure Location Lt brachial Position Sitting Respiration 18 Pulse 72 Pulse Source Monitor Temp 98.9 F Temperature Source Temporal Artery Pulse Oximetry (%) 97 Oxygen Delivery Method room air Intake Is patient in pain?: No Allergies bee venom protein (honey bee) Allergy (Severe, Verified 03/27/24 11:37) Anaphylaxis Penicillins Allergy (Mild, Verified 03/27/24 11:37) Hives Medications ???Medication ???Instructions ???Recorded ???Confirmed ???Type ascorbic acid (vitamin C) 500 mg 500 mg PO DAILY PRN supplement 06/06/23 03/27/24 History tablet (Vitamin C) thiamine HCl (vitamin B1) 50 mg 50 mg PO DAILY 06/06/23 03/27/24 History tablet (Vitamin B-1) vitamin B complex 1 tab PO DAILY 06/06/23 03/27/24 History vitamin E 268 mg (400 unit) capsule 268 mg PO DAILY 06/06/23 03/27/24 History silver sulfadiazine 1 % topical 1 applic topical BID #85 grams 08/02/23 03/27/24 Rx cream (Silvadene) Have you fallen in the past year?: No Central Venous Access Central Venous Access: No Laboratory Results 03/27/24 09:55 WBC 5.3 Hgb 15.1 (more content not included)... Normal [facility] Phosphoruson 03-27-2024 Phosphate [Mass/Vol] 3.3 mg/dL Normal 2.5-4.[address] [facility] Comment on above: Performed By: #### L 501.5200, L100.0100, L500.4050, L501.9520, L501.2300 #### [facility] [address] [place], [place], [id number] Thyroid Stim Hormone (TSH)on 03-27-2024 TSH 2.480 uIU/mL Normal 0.358-3.[address] [facility] Comment on above: Order Comment: ADD T SH TO BLOOD IN LAB!! THANK YOU Performed By: #### L 501.5200, L100.0100, L500.4050, L501.9520, L501.2300 #### [facility] [address] [place], [place], [id number] Surgery Visit Reporton 01-23 Surgery Visit Report [employer] [facility] [address] [place] [address] OFFICE VISIT Date of Service: 01/24/24 MR#: [id number] Acct: [id number] Name: FABRICIO NUNES Rep #: [id number] : 1960 Provider: Dr. Rasheed sutton MD Age/Sex: 63/M Location: [facility] Status: Signed Intake Vital Signs 11/24/23 09:03 Height 5 ft 7 in Weight: 191 lb 8 oz BMI 29.9 BP 114/73 Blood Pressure Location Lt brachial Position Sitting Respiration 18 Pulse 68 Pulse Source Monitor Temp 98.6 F Pulse Oximetry (%) 96 Oxygen Delivery Method room air Intake Visit Reasons: PORT REMOVAL Chief Complaint: port removal Security Tester Required: No Is patient in pain?: No Allergies bee venom protein (honey bee) Allergy (Severe, Verified 01/24/24 09:06) Anaphylaxis Penicillins Allergy (Mild, Verified 01/24/24 09:06) Hives Medications ???Medication ???Instructions ???Recorded ???Confirmed ???Type ascorbic acid (vitamin C) 500 mg 500 mg PO DAILY PRN supplement 06/06/23 01/24/24 History tablet (Vitamin C) thiamine HCl (vitamin B1) 50 mg 50 mg PO DAILY 06/06/23 01/24/24 History tablet (Vitamin B-1) vitamin B complex 1 tab PO DAILY 06/06/23 01/24/24 History vitamin E 268 mg (400 unit) capsule 268 mg PO DAILY 06/06/23 01/24/24 History silver sulfadiazine 1 % topical 1 applic topical BID #85 grams 08/02/23 01/24/24 Rx cream (Silvadene) Have you fallen in the past year?: No PFSH Medical History Encounter for education Heartburn Wears glasses Depression Alcohol use History of steroid therapy Former smoker History of rheumatic fever Tracheostomy present Dysphonia Cancer of glottis DVT (deep venous thrombosis) Surgical History History of esophagogastroduodenoscopy (EGD) Family History Grandmother Cancer Grandmother Cancer Social History household members: spouse Smoking Status: Former smoker alcohol intake: former substance use type: does not use HPI HPI HPI: Patient is a 63-year-old male here for port removal Office Procedures Port/Peg Provider Documentation Details:: The right chest was prepped and draped in the usual sterile fashion. The prior incision was injected with local anesthetic. The incision was reincised. The port was then removed sharply. The cavity was irrigated and then closed with interrupted 3-0 Vicryl sutures. Steri-Strips and bandage were applied. Patient tolerated the procedure well. Alert Injection Maintenance Technician Alert Billing: Yes Port/Peg Port/Pe Port Removal Procedure Time Out Time Out Informed consent given: Yes Consent signed: Yes Time out checklist: patient, procedure, site marked/identified, positioning of patient, supplies available, allergies confirmed and team agrees on procedure Time out staff in room: Yes Time out verified: Yes Time out date: 01/24/24 Time out time: 08:50 Assessment and Plan Assessment and Plan (1) Encounter for adjustment and management of vascular access device: Status: Acute Plan: The patient underwent port removal in the office today which he tolerated well. Follow-up as needed. Rasheed Alcaraz MD Pager: [facility] [address] [place] [address], [address] [place] [address] Office: Orders: Orders Port/Cath Removal Today Coding Level of Care Code Attention Injection Maintenance Technician Diagnoses Encounter for adjustment and management of vascular access device Z45.2 Clinical Quality Measures Falls Risk Screening/Assistive Devices Have you fallen in the past year?: No 01/24/24 0917 Date Rasheed Alcaraz MD Cosigner Signature: Date (if applicable) CC: Normal [facility] Surgery Visit Reporton 12-03 Surgery Visit Report [facility] [address] [place] [address] OFFICE VISIT Date of Service: 12/04/23 MR#: [id number] Acct: [id number] Name: FABRICIO NUNES Rep #: [id number] : 1960 Provider: Dr. Rasheed sutton MD Age/Sex: 63/M Location: [facility] Status: Signed Intake Vital Signs 11/24/23 09:03 Height 5 ft 7 in Weight: 191 lb 8 oz BMI 29.9 BP 114/73 Blood Pressure Location Lt brachial Position Sitting Respiration 18 Pulse 68 Pulse Source Monitor Temp 98.6 F Pulse Oximetry (%) 96 Oxygen Delivery Method room air Intake Visit Reasons: PEG TUBE REMOVAL Chief Complaint: peg tube removal Security Tester Required: No Is patient in pain?: No Allergies bee venom protein (honey bee) Allergy (Severe, Verified 12/04/23 08:52) Anaphylaxis Penicillins Allergy (Mild, Verified 12/04/23 08:52) Hives Medications ???Medication ???Instructions ???Recorded ???Confirmed ???Type omega 3-acx-drp-fish oil 60 mg-90 1 cap PO DAILY 06/02/23 12/04/23 History mg-500 mg capsule (Fish Oil) ascorbic acid (vitamin C) 500 mg 500 mg PO DAILY PRN supplement 06/06/23 12/04/23 History tablet (Vitamin C) oxycodone 5 mg tablet 5 mg PO Q6H PRN pain 5 days #10 06/06/23 12/04/23 Rx tabs thiamine HCl (vitamin B1) 50 mg 50 mg PO DAILY 06/06/23 12/04/23 History tablet (Vitamin B-1) vitamin B complex 1 tab PO DAILY 06/06/23 12/04/23 History vitamin E 268 mg (400 unit) capsule 268 mg PO DAILY 06/06/23 12/04/23 History lidocaine-prilocaine 2.5 %-2.5 % 1 applic topical ONCE PRN port 06/15/23 12/04/23 Rx topical cream access 30 days #30 grams ondansetron 8 mg disintegrating 8 mg PO Q8H PRN nausea and 06/15/23 12/04/23 Rx tablet vomiting #30 tabs silver sulfadiazine 1 % topical 1 applic topical BID #85 grams 08/02/23 12/04/23 Rx cream (Silvadene) PFSH Medical History Encounter for education Heartburn Wears glasses Depression Alcohol use History of steroid therapy Former smoker History of rheumatic fever Tracheostomy present Dysphonia Cancer of glottis DVT (deep venous thrombosis) Surgical History History of esophagogastroduodenoscopy (EGD) Family History Grandmother Cancer Grandmother Cancer Social History household members: spouse Smoking Status: Former smoker alcohol intake: former substance use type: does not use HPI HPI HPI: Patient is a 63-year-old male here for PEG tube removal. ROS Cardio Cardiovascular: No palpitations Resp Respiratory: No cough Gastro Gastrointestinal: No abdominal pain, No diarrhea and No constipation Neuro Neurologic: No abnormal gait, No numbness and No tingling Exam Const General: cooperative Orientation: alert and oriented x3 HENMT Head: normal to inspection Neck Neck: normal visual inspection and full ROM Chest Chest palpation inspection: normal inspection of the chest Resp Effort Inspection: normal respiratory effort Auscultation: clear to auscultation bilaterally Cardio Rate: regular rate Rhythm: regular rhythm GI Inspection: non-distended Palpation: soft and nontender Skin General: no rashes or lesions noted Neuro General: patient alert and patient oriented x3 Extrem General: full ROM Psych Appearance: grossly normal Mental Status: mental status grossly normal Office Procedures Procedure Time Out Time Out Informed consent given: Yes Consent signed: Yes Time out checklist: patient, procedure, site marked/identified, positioning of patient, supplies available, allergies confirmed and team agrees on procedure Time out staff in room: Yes Time out verified: Yes Time out date: 12/04/23 Time out time: 09:15 Assessment and Plan Assessment and Plan (1) Presence of externally removable percutaneous endoscopic gastrostomy (PEG) tube: Status: Acute Plan: PEG tube was removed in the office today. He tolerated the procedure well. He was instructed to eat small frequent meals for the next 48 hours. Follow-up as needed. Rasheed Alcaraz MD Pager: [facility] [address] [place] [address], [address] [place] [address] Office: Coding Level of Care Code Off vis,est,level 3 Diagnoses Presence of externally removable percutaneous endoscopic gastrostomy (PEG) tube Z93.1 12/04/23930 Date Rasheed Alcaraz MD Cosigner Signature: Date (if applicable) CC: Normal [facility] Radiation Oncology Visiton 0 11-24-2023 Radiation Oncology Visit [facility] [address] [address] OFFICE VISIT Date of Service: 11/24/23 0900 MR#: [id number] Acct: [id number] Name: FABRICIO NUNES Rep #: [id number] : 1960 From: Nikolas Coreas DO Age/Sex: 63/M Location[place] [facility] [place] Status: Signed Intake Vital Signs 09/19/23 09:19 10/10/23 11:43 11/24/23 09:03 Height 5 ft 7 in 5 ft 7 in 5 ft 7 in Weight: 191 lb 8 oz BMI 29.9 BP 114/73 Blood Pressure Location Lt brachial Position Sitting Respiration 18 Pulse 68 Pulse Source Monitor Temp 98.6 F Temperature Source Temporal Artery Pulse Oximetry (%) 96 Oxygen Delivery Method room air Intake Visit Reasons: REVIEW PET FROM 11/20 Is patient in pain?: No Allergies bee venom protein (honey bee) Allergy (Severe, Verified 11/24/23 09:05) Anaphylaxis Penicillins Allergy (Mild, Verified 11/24/23 09:05) Hives Medications ???Medication ???Instructions ???Recorded ???Confirmed ???Type omega 7-ogy-piq-fish oil 60 mg-90 1 cap PO DAILY 06/02/23 11/24/23 History mg-500 mg capsule (Fish Oil) ascorbic acid (vitamin C) 500 mg 500 mg PO DAILY PRN supplement 06/06/23 11/24/23 History tablet (Vitamin C) oxycodone 5 mg tablet 5 mg PO Q6H PRN pain 5 days #10 06/06/23 11/24/23 Rx tabs thiamine HCl (vitamin B1) 50 mg 50 mg PO DAILY 06/06/23 11/24/23 History tablet (Vitamin B-1) vitamin B complex 1 tab PO DAILY 06/06/23 11/24/23 History vitamin E 268 mg (400 unit) capsule 268 mg PO DAILY 06/06/23 11/24/23 History lidocaine-prilocaine 2.5 %-2.5 % 1 applic topical ONCE PRN port 06/15/23 11/24/23 Rx topical cream access 30 days #30 grams ondansetron 8 mg disintegrating 8 mg PO Q8H PRN nausea and 06/15/23 11/24/23 Rx tablet vomiting #30 tabs silver sulfadiazine 1 % topical 1 applic topical BID #85 grams 08/02/23 11/24/23 Rx cream (Silvadene) PFSH PFSH Medical History Encounter for education Heartburn Wears glasses Depression Alcohol use History of steroid therapy Former smoker History of rheumatic fever Tracheostomy present Dysphonia Cancer of glottis DVT (deep venous thrombosis) Home Medications ???Medication ???Instructions ???Recorded ???Last Taken ???Type omega 3-qtd-lfe-fish oil 60 mg-90 1 cap PO DAILY 06/02/23 06/05/23 History mg-500 mg capsule (Fish Oil) ascorbic acid (vitamin C) 500 mg 500 mg PO DAILY PRN supplement 06/06/23 Unknown History tablet (Vitamin C) oxycodone 5 mg tablet 5 mg PO Q6H PRN pain 5 days #10 06/06/23 Unknown Rx tabs thiamine HCl (vitamin B1) 50 mg 50 mg PO DAILY 06/06/23 Unknown History tablet (Vitamin B-1) vitamin B complex 1 tab PO DAILY 06/06/23 Unknown History vitamin E 268 mg (400 unit) capsule 268 mg PO DAILY 06/06/23 Unknown History lidocaine-prilocaine 2.5 %-2.5 % 1 applic topical ONCE PRN port 06/15/23 Unknown Rx topical cream access 30 days #30 grams ondansetron 8 mg disintegrating 8 mg PO Q8H PRN nausea and 06/15/23 Unknown Rx tablet vomiting #30 tabs silver sulfadiazine 1 % topical 1 applic topical BID #85 grams 08/02/23 Unknown Rx cream (Silvadene) Allergy/AdvReac Type Severity Reaction Status Date / Time bee venom protein (honey bee) Allergy Severe Anaphylaxis Verified 11/24/23 09:05 Penicillins Allergy Mild Hives Verified 11/24/23 09:05 Family History Grandmother Cancer Grandmother Cancer Surgical History History of esophagogastroduodenoscopy (EGD) Social History household members: spouse Smoking Status: Former smoker alcohol intake: former substance use type: does not use Diagnosis: Fabricio Nunes is a 63-year-old male diagnosed with at least 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 06/26/2023 ??? 08/11/2023 he received definitive chemoradiation. History of Present Illness: 04/05/2023: CT neck with contrast was performed.??? There is a nonspecific narrowing of the airway in the transverse dimension at the level of the glottis which may be related to timing of imaging during respiration however correlation with direct visualization is recommended to exclude an underlying mucosal lesion.??? There is minimal asymmetric prominence of the right laryngeal ventricle when compared to the left which may represent vocal cord dysfunction or other lesion.??? The (more content not included)... Normal [facility] SP/HP.SP.Bianka 11-24-2023 SP/HP.SP.EV [facility] spital Speech Pathology [facility] [address] [place] [address] / REHABILITATION SERVICES INITIAL EVALUATION MR#: [id number] Acct: [id number] Name: FABRICIO NUNES Rep #: [id number] : 1960 63 From: Annia Mcnulty M.A., CCC-DISABILITY SERVICES COORDINATOR Referring Dr.: Dr. Nikolas Coreas, DO Status: RE G RCR Insurance: [employer] [facility] SELF PAY INSURANCE Visit History Visit Info Date of Eval: 11/24/23 Visit: 1 Infrastructure Engineer: IMELDA History Attending Doctor: Referring Doctor: Reason for Referral: MALIGNANT NEOPLASM OF LARYNX/RX SCANNED Medical Diagnosis: Malignant neoplasm of the larynx C32.9 Date of Onset of Diagnosis: 04/05/2023 Previous speech therapy: Yes Results: MBSS 10/10/2023 revealed mild pharyngeal dysphagia and had the following recommendations: Diet: Regular Textures and Thin Liquids Compensatory Strategies: Small Bites, Small Sips, Slow Rate, Alternate bites/solids and sips/liquids (Take 2-3 sips after every 1-2 bites), Sitting upright and Remain sitting upright for 30 minutes after PO intake Recommend Repeat Modified Barium Swallow: Yes Comment: Repeat MBS study in 6-12 months to monitor swallow function as the patient is at risk for worsening dysphagia and aspiration risk s/p chemoradiation treatment. Need for Skilled Speech Therapy Services: Yes Comment: Follow up OP dysphagia therapy to review results of MBSS and implement maintenance oropharyngeal exercise (Steffanie, Clive, Effortful swallow, Shaker) and neck ROM program due to risk for worsening dysphagia s/p chemoradiation treatment for laryngeal cancer. Education Completed: 1. Described result of evaluation., 2. Pt understands evaluation agrees with goals and treatment plan. and 4. Family/caregivers understand evaluation agree w/ goals tx plan. Comment: No immediate GI consult recommended as the patient was able to clear esophageal retention effectively with liquid wash; however, if increased sensation of retention, reflux symptoms, or regurgitation, please inform PCP for GI consult. Pt and verbalized good understanding. Other Relevant Medical History/Diagnoses/Surgery: PMH: Heartburn, Wears glasses, Depression, Alcohol use, History of steroid therapy, Former smoker, History of rheumatic fever, Tracheostomy present, Dysphonia, Cancer of glottis, DVT. 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 06/26/2023 ??? 08/11/2023 he received definitive chemoradiation. He is currently consuming all food/drink by mouth without concerns for swallowing difficulty. Per most recent radiation oncology progress note, he is cleared for removal of PEG tube. He reports no xerostomia or odynophagia, but mild dysgeusia s/p chemoradiation treatment. He is unsure whether his trach will be removed until after his upcoming PET scan in November 2023. He declined participation in dysphagia treatment during chemoradiation treatment, but he was agreeable to follow-up MBSS to assess risk for worsening dysphagia s/p chemoradiation for laryngeal cancer. MBSS results and recommendations are in Previous speech therapy section above. Currently, he has no use of his PEG tube. Taste WNL. No xerostomia. No odynophagia. He is consuming Regular textures / Thin liquids. He is meeting w/ Dr. You, ENT, today. No esophageal complaints at this time. Sensation of esophageal retention 1X since MBSS, which cleared with liquid wash. Smoking Status: Former smoker Pain Is pain an issue with your current prescribed condition?: No Personal Preferred language: Maori Patient Allergies Allergies Allergies: Allergies bee venom protein (honey bee) Allergy (Severe, Verified 11/24/23 09:05) Anaphylaxis Penicillins Allergy (Mild, Verified 11/24/23 09:05) Hives Subjective Dysphagia Symptoms Reported Symptoms/Problems with: Food gets stuck Other: Food stuck 1X, cleared w/ water Current Diet Solids Current Diet: Regular Current Diet Liquids Current Liquids: Thin Objective Dysphagia Thin Liquids Administred via: Cup Oral Transit: WNL Bolus clearance: fully cleared Comments: No overt s/s of aspiration, good oral clearance, timely swallow Pureed Administered via: Spoon Oral Transit: WNL Cough: none observed/unable to assess Comments: No overt s/s of aspiration, good oral clearance, timely swallow Regular Oral Preparation: WNL Oral Transit: WNL Comments: timely mastication, no overt s/s of aspiration, no sensation of retention, oral residue WNL (more content not included)... Normal [facility] Absolute lymphocyte countOrd ered By: [facility] on [facility] Lymphocytes Auto (Unsp spec) [#/Vol] 1.33 10*3/uL 0.83-4.[address] [facility] Automated lymphocyte count a s percentage of total leukocytesOrdered By: Clarence Ng on 06-14-2023 Lymphocytes/100 WBC Auto (Unsp spec) 24.1 % 19-[address] [facility] Basophil percentageOrdered B y: Clarence Ng on 06-14-2023 Basophil percentage 3.6 mg/dL 2.5-4.9 [facility] Basophils/100 WBC (Bld) 1.8 % 0-[address] [facility] Bilirubin [Mass/Vol] 0.50 mg/dL 0.20-1.[address] [facility] Comment on above: For patients on eltr ombopag therapy, use of Dimension Brunson TBIL is not recommended. Chloride [Moles/Vol] 105 mmol/L 98-[address] [facility] Eosinophils/100 WBC (Bld) 0.7 % 0-[address] [facility] Glucose [Mass/Vol] 98 mg/dL 74-106 [facility] Hemoglobin (Bld) [Mass/Vol] 12.0 g/dL 13.0-16.[address] [facility] Monocytes/100 WBC (Bld) 13.6 % 0-[address] [facility] Neutrophils (Bld) [#/Vol] 3.3 10*3/uL 2.0-7.[address] [facility] Neutrophils/100 WBC (Bld) 58.7 % 47-[address] [facility] Potassium [Moles/Vol] 4.0 mmol/L 3.5-5.[address] [facility] Protein [Mass/Vol] 7.6 g/dL 6.4-8.2 [facility] Sodium [Moles/Vol] 139 mmol/L 136-145 [facility] WBC (Bld) [#/Vol] 5.5 10*3/uL 4.4-11.0 [facility] Determination of erythrocyte mean corpuscular volume (MCV)Ordered By: Clarence Ng on 06-14-2023 MCV (RBC) [Entitic vol] 90.7 fL 80-[address] [facility] Erythrocyte distribution wid th ratioOrdered By: [facility] Berenice on 06-14-2023 Erythrocyte distribution width (RBC) [Ratio] 14.6 % 11.6-14.[address] [facility] Erythrocyte distribution wid th standard deviationOrdered By: [facility] Berenice on 06-14-2023 Erythrocyte distribution width (RBC) [Entitic vol] 47.8 fL 35.1-43.[address] [facility] Hematocrit Auto (Bld) [Volum e fraction]Or[facility] By: [facility] on 06-14-2023 Hematocrit (Bld) [Volume fraction] 37.1 % 40-[address] [facility] Immature granulocytes/100 WB C Auto (Bld)Ordered By: [facility] Berenice on 06-14-2023 Immature granulocytes/100 WBC (Bld) 1.100 % 0.0-0.[address] [facility] Comment on above: IG% - Immature Granu locytes (promyelocytes, myelocytes and metamyelocytes) > 1% indicates that a LEFT SHIFT is Present. Laboratory - Chemistry and C hemistry - challengeOrdered By: Clarence Ng on 06-14-2023 Albumin/Globulin [Mass ratio] 0.7 {ratio} 0.9-2.[address] [facility] ALP [Catalytic activity/Vol] 94 U/L 45-[address] [facility] ALT [Catalytic activity/Vol] 32 U/L 16-[address] [facility] CO2 [Moles/Vol] 29.0 mmol/L 21.0-32.[address] [facility] Globulin (S) [Mass/Vol] 4.4 g/dL 2.2-4.[address] [facility] Magnesium [Mass/Vol] 2.3 mg/dL 1.6-2.[address] [facility] Urea nitrogen/Creatinine [Mass ratio] 20.7 mg/mg 10-[address] [facility] Laboratory - Hematology and Cell countsOrdered By: Clarence Ng on 06-14-2023 MCH (RBC) [Entitic mass] 29.3 pg 27.0-32.[address] [facility] MCHC (RBC) [Mass/Vol] 32.3 g/dL 32-[address] [facility] Nucleated RBC/100 WBC (Bld) [Ratio] 0 % 0-[address] [facility] Platelet mean volume (Bld) [Entitic vol] 8.1 fL 6.2-12.[address] [facility] Platelets (Bld) [#/Vol] 200 10*3/uL 150-[address] [facility] No Panel InformationOrdered By: Clarence Ng on 06-14-2023 Estimated GFR (MDRD) Amer 165 mL/min >[address] [facility] Comment on above: GFR Calc Estimated GFR (MDRD) Non-Af Amer 136 mL/min >[address] [facility] Comment on above: Non- GFR Calc RBC Auto (Bld) [#/Vol]Ordere d By: Clarence Ng on 06-14-2023 RBC (Bld) [#/Vol] 4.09 10*6/uL 4.6-6.2 [facility] Serum or plasma calcium radha urement (mass/volume)Ordered By: Clarence Ng on 06-14-2023 Calcium [Mass/Vol] 9.2 mg/dL 8.5-10.1 [facility] Serum or plasma creatinine m easurement (mass/volume)Ordered By: Clarence Ng on 06-14-2023 Creatinine [Mass/Vol] 0.63 mg/dL 0.70-1.[address] [facility] Comment on above: The validity of the calculated GFR & GFRAA in patients over 70 years has not been determined. Clinical correlation is essential. Serum or plasma urea nitroge n measurement (mass/volume)Ordered By: Clarence Ng on 06-14-2023 Urea nitrogen [Mass/Vol] 13 mg/dL 7-[address] [facility] Thin prep Papanicolaou smear with manual screeningOrdered By: Clarence Ng on 06-14-2023 Thin prep Papanicolaou smear with manual screening 3.2 g/dL 3.2-5.[address] [facility] Thin prep Papanicolaou smear with manual screening 15 U/L 15-[address] [facility] Thin prep Papanicolaou smear with manual screening 5 5-[address] [facility] CT Chest WO contraston 04-13 Interpreted By: Ramin Alberto and Baker Zachary STUDY: CT CHEST WO IV CONTRAST; 04/12/2023 10:02 pm INDICATION: Signs/Symptoms:rule out lung mets in new glottic squamous cell carcinoma. COMPARISON: CT neck on 04/05/2022.. ACCESSION NUMBER(S): [id number] ORDERING CLINICIAN: JULISA PRIETO TECHNIQUE: Helical data acquisition of the chest was obtained without IV contrast material. Images were reformatted in axial, coronal, and sagittal planes. FINDINGS: LUNGS AND AIRWAYS: The trachea and central airways are patent. Tracheostomy cannula visualized in place. No endobronchial lesion. Bandlike opacities in the bilateral lung bases, likely atelectasis. Otherwise no consolidation, pleural effusion, or pneumothorax. No lung masses or discrete pulmonary nodules identified. MEDIASTINUM AND JAQUI, LOWER NECK AND AXILLA: The visualized thyroid gland is within normal limits. No evidence of thoracic lymphadenopathy by CT criteria. Multiple air foci throughout the anterior mediastinum, likely postoperative in nature. Esophagus appears within normal limits as seen. Multiple foci of air within the visualized paraglottic space, likely postoperative in nature. Additional subcutaneous soft tissue gas within the neck bases, rovp-erlxabc-jgvy-right. HEART AND VESSELS: The thoracic aorta is of normal course and caliber mild vascular calcifications. Main pulmonary artery and its branches are normal in caliber. Severe coronary artery calcifications. The study is not optimized for evaluation of coronary arteries. The cardiac chambers are not enlarged. No evidence of pericardial effusion. UPPER ABDOMEN: The visualized subdiaphragmatic structures demonstrate no remarkable findings. CHEST WALL AND OSSEOUS STRUCTURES: There are no suspicious osseous lesions. Multilevel degenerative changes are present [facility] Vinayak Estrella MD - 04/13/2023 Interpreted By: Ramin Estrella and Baker Zachary STUDY: CT CHEST WO IV CONTRAST; 04/12/2023 10:02 pm INDICATION: Signs/Symptoms:rule out lung mets in new glottic squamous cell carcinoma. COMPARISON: CT neck on 04/05/2022.. ACCESSION NUMBER(S): [id number] ORDERING CLINICIAN: JULISA PRIETO TECHNIQUE: Helical data acquisition of the chest was obtained without IV contrast material. Images were reformatted in axial, coronal, and sagittal planes. FINDINGS: LUNGS AND AIRWAYS: The trachea and central airways are patent. Tracheostomy cannula visualized in place. No endobronchial lesion. Bandlike opacities in the bilateral lung bases, likely atelectasis. Otherwise no consolidation, pleural effusion, or pneumothorax. No lung masses or discrete pulmonary nodules identified. MEDIASTINUM AND JAQUI, LOWER NECK AND AXILLA: The visualized thyroid gland is within normal limits. No evidence of thoracic lymphadenopathy by CT criteria. Multiple air foci throughout the anterior mediastinum, likely postoperative in nature. Esophagus appears within normal limits as seen. Multiple foci of air within the visualized paraglottic space, likely postoperative in nature. Additional subcutaneous soft tissue gas within the neck bases, vxdy-zidibqd-bsqn-right. HEART AND VESSELS: The thoracic aorta is of normal course and caliber mild vascular calcifications. Main pulmonary artery and its branches are normal in caliber. Severe coronary artery calcifications. The study is not optimized for evaluation of coronary arteries. The cardiac chambers are not enlarged. No evidence of pericardial effusion. UPPER ABDOMEN: The visualized subdiaphragmatic structures demonstrate no remarkable findings. CHEST WALL AND OSSEOUS STRUCTURES: There are no suspicious osseous lesions. Multilevel degenerative changes are present IMPRESSION: 1. No evidence of metastatic disease within the chest. Evaluation is somewhat [...] as stated. This study was interpreted at [place], [place]. MACRO: None Signed by: Ramin Estrella 04/13/2023 7:53 AM Dictation workstation: [id number] [facility] Work Phone: CT Chest WO contrastOrdered By: Vinayak Estrella on 04-13-2023 [facility] Work Phone: CT CHEST WO IV CONTRASTon CT CHEST WO IV CONTRAST Interpreted By: Ramin Estrella and Baker Zachary STUDY: CT CHEST WO IV CONTRAST; 04/12/2023 10:02 pm INDICATION: Signs/Symptoms:rule out lung mets in new glottic squamous cell carcinoma. COMPARISON: CT neck on 04/05/2022.. ACCESSION NUMBER(S): [id number] ORDERING CLINICIAN: JULISA PRIETO TECHNIQUE: Helical data acquisition of the chest was obtained without IV contrast material. Images were reformatted in axial, coronal, and sagittal planes. FINDINGS: LUNGS AND AIRWAYS: The trachea and central airways are patent. Tracheostomy cannula visualized in place. No endobronchial lesion. Bandlike opacities in the bilateral lung bases, likely atelectasis. Otherwise no consolidation, pleural effusion, or pneumothorax. No lung masses or discrete pulmonary nodules identified. MEDIASTINUM AND JAQUI, LOWER NECK AND AXILLA: The visualized thyroid gland is within normal limits. No evidence of thoracic lymphadenopathy by CT criteria. Multiple air foci throughout the anterior mediastinum, likely postoperative in nature. Esophagus appears within normal limits as seen. Multiple foci of air within the visualized paraglottic space, likely postoperative in nature. Additional subcutaneous soft tissue gas within the neck bases, xyur-xsdqxox-hbnh-right. HEART AND VESSELS: The thoracic aorta is of normal course and caliber mild vascular calcifications. Main pulmonary artery and its branches are normal in caliber. Severe coronary artery calcifications. The study is not optimized for evaluation of coronary arteries. The cardiac chambers are not enlarged. No evidence of pericardial effusion. UPPER ABDOMEN: The visualized subdiaphragmatic structures demonstrate no remarkable findings. CHEST WALL AND OSSEOUS STRUCTURES: There are no suspicious osseous lesions. Multilevel degenerative changes are present IMPRESSION: 1. No evidence of metastatic disease within the chest. Evaluation is somewhat [...] as stated. This study was interpreted at [place], [place]. MACRO: None Signed by: Ramin Estrella 04/13/2023 7:53 AM Dictation workstation: [id number] [facility] CT Chest WO contraston 04-12 Radiology Study observation (narrative) [facility] Work Phone: Surgical pathology studyOrde red By: Gabriel Gaming on 04-12-2023 Laboratory comment Sean (Report) z1wlwEQxFVCln7xdMNVowPUlRuW wMzNcZnRuYmpcdWMxIHtccnRmMV sjf6GdO3JiZfGfZIytiwXcMGWgR fdfxgdvKCVyUFM4kqBgBQSpJKzv GHNjYItgTm7zpCGvuHuaCvLsQMQ wr4vpgyIKQUwkEJUVRSe1a1eeCJ WhIkP6pYZgNSsiP9gswdKluHNaZ 7Wpe9RdXOn8jG81YDTnxS6cqIXf QSueedXdEjQ6IZqlSOQqPpD5BPR vkYDnVSYhV5zlQFIwXXyhMMNmUR evcRWoMDS3vEdqu0I4wLGzeZAnq IpwSjTcCcXxHdPKp4RfBFf7gPmr G6PlJVAaEoC1sZWuMOXmHHqeBZZ fNKBdyoK0sB89MSahqqJ0kAFno0 Hwb02pb532eS4vzXSkXWD2NWYsX AKsiLDrBPQhEHY5RIYzcTUjH5vb HyRdkVJdF8HtHoYkvXOlD4DyArH ymBClA4RkYiVkgVCuQUZfmQJ7IZ zpk501ZJS4HhFcAI3rZ1Nlh5O2l R7ojBFrLHEwrCShDfXpFRFaen7s bLNnCZuyl1NxVLD9ssX8cERxuVF tJMTeCJ40Kpofe9NsDnliDJU1AS TtmbEuj8Ver6wvEhPpfrIpK4ptO 6UqVAIgOUKpPGMiAhUxtoZbw2Xh h6UycMYsoXv5q2ciQRDxXLMlpQb gk4nvBJV1KJEqL0U2eQQko3jcPN pbBOLuaKX4weB8DLxcKIIuyjN2t kN3EJhxYIVmxBR4lzE4XGkkEWJj ZqI5ftH5VFobEGBbABX4ErQfMXT vt0DngprvStXdp5RayNElYHfjK8 7ib435YLMdoiKnA0ivvIJvalwve MNdgherREnpoeF9HGMgVFDlWNrq XGYxXGZzMjBcbGFuZzEwMzNcaGl soCssSLozLgFfTAImYPanN9osPi YyCiKzNOQAyLP8uMPge6snibW6b AExPG4gZWRiiGQlymVhl3O6FSJ9 pKPsjY5voAYzJVEpjSAfcuYxvu3 8lWCbhCM4JEFpZFUolYZryI7qJZ GmXKOFlF8nlYYGqnTynfJuBPUwd Xfjua9DdTFkhw0dxMDdZ8OvpHus aWVzIHRoYXQgdGhleSBoYXZlIHJ fwfzxm2QeGIOlmRTxT3FoCI1hDX Bhcn19 [facility] Work Phone: Pathology report Cancer Narrative Surgical Pathology Case: [id number] Authorizing Provider: Guillermo Chand MD Collected: 04/05/2023 1807 Ordering Location: [facility] Received: 04/05/2023 1847 [facility] OR Pathologist: Gabriel Gaming MD Specimens: A) - SOFT TISSUE MASS BIOPSY, GLOTTIC MASS FOR FROZEN B) - SOFT TISSUE MASS BIOPSY, GLOTTIC MASS FOR PERMANENT [facility] Work Phone: Pathology report final diagnosis Narrative c0pswULhOODpbEVoFTTbOWnzuxM qFWZlbDExF7XuctkfRXgwTN8nEI 4rsAhucJLpkYXhHQPfBuSjc5ksn 102kVZug7iyTLPULKtzWCWQZOq4 mJgjR50ys9I6FpwmZ47swRMiTNB 5AYFoDHBeyHXyBYOqILL4PAZtoP VvY7tgMSJmPL3wirctUVvgLHdkM LOxqAQ3WFLpnDYzR9VmJIUfCLvs RCUevvy1BjFrVv1fsWPzbCgvCMb jQGAyNSAzDHvyZQNlPnUiFG4rKY pqj5M3qGPylLSjtxpyIksvqTE6A xkbOWAnMI7oSIIpHZFOsvWpy4z7 XFGca3JebqB6PJk8METyEeGwfcH acWsjpMLyOQqnspM3fQ0ggjghBu ZmrNPksM94ewKiIUxuPOBaruZww s3ePV9buDOeWBOrmsRXGyLvG5ms oFMjEiZqOPCcDGPziW5ou8g3IIC tfddbcbPqe7bpJYvabtMjyGFrEE 5uIOZyQYCcbMocMZgoZyUbJE74u QP0NVDlz1CtRQOrybq3wJ1fKXOh aBCcj6PzUCNeoUrqN1HrK5fdn89 pOkfbQLBdlQGtYGxsz1bgNHA0 [facility] Work Phone: Pathology report relevant history Narrative a9izxSNrOVWew0hpIHAvnCIpAwB uXwFjIrTeFqx1UWGxhwX3Yhn1GB AvBNthvS4gZSStTGgzR3cuzzHey ACaZ3Iuq8VxJUe3kP7bhTgybE4u JuPjWtKlXKZHaeGgd8YcHZaxV23 jc4fxHidlGYZnNVKepL6aWZ8uFP con5L3yPMmN3kfKK42JBogZVXts Q== [facility] Work Phone: [facility] Work Phone: Renal function 2000 panelon 04-11-2023 Albumin BCP dye [Mass/Vol] 4.1 g/dL 3.4 - 5.0 g/dL [facility] Anion gap [Moles/Vol] 15 mmol/L 10 - 20 mmol/L [facility] Calcium [Mass/Vol] 9.6 mg/dL 8.6 - 10. 6 mg/dL [facility] Chloride [Moles/Vol] 104 mmol/L 98 - 107 mmol/L [facility] CO2 [Moles/Vol] 28 mmol/L 21 - 32 mmol/L [facility] Creatinine [Mass/Vol] 0.74 mg/dL 0.50 - 1.30 mg/dL [facility] GFR/1.73 sq M.predicted MDRD (S/P/Bld) [Vol rate/Area] - PINF [facility] Comment on above: Calculations of kourtney mated GFR are performed using the 2020 CKD-EPI Study Refit equation without the race variable for the IDMS-Traceable creatinine methods. https://jasn.asnjournals.org/content//ASN.03395985 88 Glucose [Mass/Vol] 87 mg/dL 74 - 99 mg/dL [facility] Interpretation and review of laboratory results Abnormal [facility] Phosphate [Mass/Vol] 3.2 mg/dL 2.5 - 4.9 mg/dL [facility] Comment on above: The performance rodriguez acteristics of phosphorus testing in heparinized plasma have been validated by the individual laboratory site where testing is performed. Testing on heparinized plasma is not approved by the FDA; however, such approval is not necessary. Potassium [Moles/Vol] 3.7 mmol/L 3.5 - 5.3 mmol/L [facility] Sodium [Moles/Vol] 143 mmol/L 136 - 145 mmol/L [facility] Urea nitrogen [Mass/Vol] 24 mg/dL High 6 - 23 mg/dL [facility] Albumin BCP dye [Mass/Vol] 4.1 g/dL Normal 3.4-5.0 [facility] Comment on above: Performed By: #### 2 4323-8 #### CHYNA Neil ([id number]) [facility] ([facility]) [id number] [place] [address] 86316 Anion gap [Moles/Vol] 15 mmol/L Normal 10-20 [facility] Comment on above: Performed By: #### 2 4323-8 #### CHYNA Neil ([id number]) [facility] ([facility]) [address] [place] [address] 86854 Calcium [Mass/Vol] 9.6 mg/dL Normal 8.6-10.6 [facility] Comment on above: Performed By: #### 2 4323-8 #### CHYNA Neil ([id number]) [facility] ([facility]) [address] [place] [address] 42336 Chloride [Moles/Vol] 104 mmol/L Normal 98-107 [facility] Comment on above: Performed By: #### 2 4323-8 #### CHYNA Neil ([id number]) [facility] ([facility]) [address] [place] [address] 54674 CO2 [Moles/Vol] 28 mmol/L Normal 21-32 [facility] Comment on above: Performed By: #### 2 4323-8 #### CHYNA Neil ([id number]) [facility] ([facility]) [address] [place] [address] 64620 Creatinine [Mass/Vol] 0.74 mg/dL Normal 0.50-1.30 [facility] Comment on above: Performed By: #### 2 4323-8 #### CHYNA Neil ([id number]) [facility] ([facility]) [address] [place] [address] 48452 GFR/1.73 sq M.predicted MDRD (S/P/Bld) [Vol rate/Area] mL/min/{1.73_m2} Normal >60 [facility] Comment on above: Result Comment: Calc ulations of estimated GFR are performed using the 2020 CKD-EPI Study Refit equation without the race variable for the IDMS-Traceable creatinine methods. https://jasn.asnjournals.org/content//ASN.69570551 88 Performed By: #### 2 4323-8 #### CHYNA Neil ([id number]) [facility] ([facility]) [address] [place] [address] Glucose [Mass/Vol] 87 mg/dL Normal 74-99 [facility] Comment on above: Performed By: #### 2 4323-8 #### CHYNA Neil ([id number]) [facility] ([facility]) [address] [place] [address] 95884 Phosphate [Mass/Vol] 3.2 mg/dL Normal 2.5-4.9 [facility] Comment on above: Result Comment: The performance characteristics of phosphorus testing in heparinized plasma have been validated by the individual laboratory site where testing is performed. Testing on heparinized plasma is not approved by the FDA; however, such approval is not necessary. Performed By: #### 2 4323-8 #### CHYNA Neil ([id number]) [facility] ([facility]) [address] [place] [address] 14885 Potassium [Moles/Vol] 3.7 mmol/L Normal 3.5-5.3 [facility] Comment on above: Performed By: #### 2 4323-8 #### CHYNA Neil ([id number]) [facility] ([facility]) [address] [place] [address] 74564 Sodium [Moles/Vol] 143 mmol/L Normal 136-145 [facility] Comment on above: Performed By: #### 2 4323-8 #### CHYNA Neil ([id number]) [facility] ([facility]) [address] [place] [address] 47391 Urea nitrogen [Mass/Vol] 24 mg/dL High 6-23 [facility] Comment on above: Performed By: #### 2 4323-8 #### CHYNA Neil ([id number]) [facility] ([facility]) [address] [place] [address] 06252 CBC panel Auto (Bld)on 04-10 Erythrocyte distribution width (RBC) [Ratio] 12.4 % 11.5 - 14.5 % [facility] Hematocrit (Bld) [Volume fraction] 45.2 % 41.0 - 52.0 % [facility] Hemoglobin (Bld) [Mass/Vol] 15.1 g/dL 13.5 - 17.5 g/dL [facility] Interpretation and review of laboratory results Normal [facility] MCH (RBC) [Entitic mass] 30.8 pg 26.0 - 34.0 pg [facility] MCHC (RBC) [Mass/Vol] 33.4 g/dL 32.0 - 36.0 g/dL [facility] MCV (RBC) [Entitic vol] 92 fL 80 - 100 fL [facility] Nucleated RBC/100 WBC (Bld) [Ratio] 0.0 % [facility] Platelets (Bld) [#/Vol] 242 10*3/uL [facility] RBC (Bld) [#/Vol] 4.90 10*6/uL [facility] WBC (Bld) [#/Vol] 7.9 10*3/uL [facility] Erythrocyte distribution width (RBC) [Ratio] 12.4 % Normal 11.5-14.5 [facility] Comment on above: Performed By: #### 2 4323-8 #### CHYNA Neil ([id number]) [facility] ([facility]) [address] [place] [address] Hematocrit (Bld) [Volume fraction] 45.2 % Normal 41.0-52.0 [facility] Comment on above: Performed By: #### 2 4323-8 #### CHYNA Neil ([id number]) [facility] ([facility]) [address] [place] [address] Hemoglobin (Bld) [Mass/Vol] 15.1 g/dL Normal 13.5-17.5 [facility] Comment on above: Performed By: #### 2 4323-8 #### CHYNA Neil ([id number]) [facility] ([facility]) [address] [place] [address] 52575 MCH (RBC) [Entitic mass] 30.8 pg Normal 26.0-34.0 [facility] Comment on above: Performed By: #### 2 4323-8 #### CHYNA Neil ([id number]) [facility] ([facility]) [address] [place] [address] 92047 MCHC (RBC) [Mass/Vol] 33.4 g/dL Normal 32.0-36.0 [facility] Comment on above: Performed By: #### 2 4323-8 #### CHYNA Neil ([id number]) [facility] ([facility]) [address] [place] [address] 47075 MCV (RBC) [Entitic vol] 92 fL Normal 80-100 [facility] Comment on above: Performed By: #### 2 4323-8 #### CHYNA Neil ([id number]) [facility] ([facility]) [address] [place] [address] 61125 Nucleated RBC/100 WBC (Bld) [Ratio] 0.0 /100 WBCs Normal 0.0-0.0 [facility] Comment on above: Performed By: #### 2 4323-8 #### CHYNA Neil ([id number]) [facility] ([facility]) [address] [place] [address] 77436 Platelets (Bld) [#/Vol] 242 x10*3/uL Normal 150-450 [facility] Comment on above: Performed By: #### 2 4323-8 #### CHYNA Neil ([id number]) [facility] ([facility]) [address] [place] [address] 08613 RBC (Bld) [#/Vol] 4.90 x10*6/uL Normal 4.50-5.90 [facility] Comment on above: Performed By: #### 2 4323-8 #### CHYNA Neil ([id number]) [facility] ([facility]) [address] [place] [address] WBC (Bld) [#/Vol] 7.9 x10*3/uL Normal 4.4-11.3 [facility] Comment on above: Performed By: #### 2 4323-8 #### CHYNA Neil ([id number]) [facility] ([facility]) [address] [place] [address] 18308 Magnesiumon 04-10-2023 Magnesium [Mass/Vol] 2.11 mg/dL 1.60 - 2.40 mg/dL [facility] Magnesium [Mass/Vol] 2.11 mg/dL Normal 1.60-2.40 [facility] Comment on above: Performed By: #### 2 4323-8 #### CHYNA Neil ([id number]) [facility] ([facility]) [address] [place] [address] 07480 Magnesium [Mass/Vol]on 04-10 Interpretation and review of laboratory results Normal [facility] No Panel Informationon 04-10 [facility] Renal function 2000 panelon 04-10-2023 Albumin BCP dye [Mass/Vol] 3.8 g/dL 3.4 - 5.0 g/dL [facility] Anion gap [Moles/Vol] 14 mmol/L 10 - 20 mmol/L [facility] Calcium [Mass/Vol] 9.0 mg/dL 8.6 - 10. 6 mg/dL [facility] Chloride [Moles/Vol] 105 mmol/L 98 - 107 mmol/L [facility] CO2 [Moles/Vol] 27 mmol/L 21 - 32 mmol/L [facility] Creatinine [Mass/Vol] 0.64 mg/dL 0.50 - 1.30 mg/dL [facility] GFR/1.73 sq M.predicted MDRD (S/P/Bld) [Vol rate/Area] - PINF [facility] Comment on above: Calculations of kourtney mated GFR are performed using the 2020 CKD-EPI Study Refit equation without the race variable for the IDMS-Traceable creatinine methods. https://jasn.asnjournals.org/content//ASN.64102558 88 Glucose [Mass/Vol] 116 mg/dL High 74 - 99 mg/dL [facility] Interpretation and review of laboratory results Abnormal [facility] Phosphate [Mass/Vol] 3.5 mg/dL 2.5 - 4.9 mg/dL [facility] Comment on above: The performance rodriguez acteristics of phosphorus testing in heparinized plasma have been validated by the individual laboratory site where testing is performed. Testing on heparinized plasma is not approved by the FDA; however, such approval is not necessary. Potassium [Moles/Vol] 3.8 mmol/L 3.5 - 5.3 mmol/L [facility] Sodium [Moles/Vol] 142 mmol/L 136 - 145 mmol/L [facility] Urea nitrogen [Mass/Vol] 23 mg/dL 6 - 23 mg/dL [facility] Albumin BCP dye [Mass/Vol] 3.8 g/dL Normal 3.4-5.0 [facility] Comment on above: Performed By: #### 2 4323-8 #### CHYNA Neil ([id number]) [facility] ([facility]) [address] [place] [address] 74244 Anion gap [Moles/Vol] 14 mmol/L Normal 10-20 [facility] Comment on above: Performed By: #### 2 4323-8 #### CHYNA Neil ([id number]) [facility] ([facility]) [address] [place] [address] 04881 Calcium [Mass/Vol] 9.0 mg/dL Normal 8.6-10.6 [facility] Comment on above: Performed By: #### 2 4323-8 #### CHYNA Neil ([id number]) [facility] ([facility]) [address] [place] [address] 78895 Chloride [Moles/Vol] 105 mmol/L Normal 98-107 [facility] Comment on above: Performed By: #### 2 4323-8 #### CHYNA Neil ([id number]) [facility] ([facility]) [address] [place] [address] CO2 [Moles/Vol] 27 mmol/L Normal 21-32 [facility] Comment on above: Performed By: #### 2 4323-8 #### CHYNA Neil ([id number]) [facility] ([facility]) [address] [place] [address] Creatinine [Mass/Vol] 0.64 mg/dL Normal 0.50-1.30 [facility] Comment on above: Performed By: #### 2 4323-8 #### CHYNA Neil ([id number]) [facility] ([facility]) [address] [place] [address] GFR/1.73 sq M.predicted MDRD (S/P/Bld) [Vol rate/Area] mL/min/{1.73_m2} Normal >60 [facility] Comment on above: Result Comment: Calc ulations of estimated GFR are performed using the 2020 CKD-EPI Study Refit equation without the race variable for the IDMS-Traceable creatinine methods. https://jasn.asnjournals.org/content//ASN.56727530 88 Performed By: #### 2 4323-8 #### CHYNA Neil ([id number]) [facility] ([facility]) [address] [place] [address] Glucose [Mass/Vol] 116 mg/dL High 74-99 [facility] Comment on above: Performed By: #### 2 4323-8 #### CHYNA Neil ([id number]) [facility] ([facility]) [address] [place] [address] Phosphate [Mass/Vol] 3.5 mg/dL Normal 2.5-4.9 [facility] Comment on above: Result Comment: The performance characteristics of phosphorus testing in heparinized plasma have been validated by the individual laboratory site where testing is performed. Testing on heparinized plasma is not approved by the FDA; however, such approval is not necessary. Performed By: #### 2 4323-8 #### CHYNA Neil ([id number]) [facility] ([facility]) [address] [place] [address] 11532 Potassium [Moles/Vol] 3.8 mmol/L Normal 3.5-5.3 [facility] Comment on above: Performed By: #### 2 4323-8 #### CHYNA Neil ([id number]) [facility] ([facility]) [address] [place] [address] 10093 Sodium [Moles/Vol] 142 mmol/L Normal 136-145 [facility] Comment on above: Performed By: #### 2 4323-8 #### CHYNA Neil ([id number]) [facility] ([facility]) [address] [place] [address] 84081 Urea nitrogen [Mass/Vol] 23 mg/dL Normal 6-23 [facility] Comment on above: Performed By: #### 2 4323-8 #### CHYNA Neil ([id number]) [facility] ([facility]) [address] [place] [address] 71313 CBC panel Auto (Bld)on 04-09 Erythrocyte distribution width (RBC) [Ratio] 12.2 % 11.5 - 14.5 % [facility] Hematocrit (Bld) [Volume fraction] 44.9 % 41.0 - 52.0 % [facility] Hemoglobin (Bld) [Mass/Vol] 14.4 g/dL 13.5 - 17.5 g/dL [facility] Interpretation and review of laboratory results Normal [facility] MCH (RBC) [Entitic mass] 29.9 pg 26.0 - 34.0 pg [facility] MCHC (RBC) [Mass/Vol] 32.1 g/dL 32.0 - 36.0 g/dL [facility] MCV (RBC) [Entitic vol] 93 fL 80 - 100 fL [facility] Nucleated RBC/100 WBC (Bld) [Ratio] 0.0 % [facility] Platelets (Bld) [#/Vol] 214 10*3/uL [facility] RBC (Bld) [#/Vol] 4.82 10*6/uL [facility] WBC (Bld) [#/Vol] 8.0 10*3/uL [facility] Erythrocyte distribution width (RBC) [Ratio] 12.2 % Normal 11.5-14.5 [facility] Comment on above: Performed By: #### 2 4323-8 #### CHYNA Neil ([id number]) [facility] ([facility]) [address] [place] [address] 80031 Hematocrit (Bld) [Volume fraction] 44.9 % Normal 41.0-52.0 [facility] Comment on above: Performed By: #### 2 432-8 #### CHYNA Neil ([id number]) [facility] ([facility]) [address] [place] [address] 54492 Hemoglobin (Bld) [Mass/Vol] 14.4 g/dL Normal 13.5-17.5 [facility] Comment on above: Performed By: #### 2 432-8 #### CHYNA Neil ([id number]) [facility] H[facility]ITAL [facility] ([facility]) [address] [place] [address] 90637 MCH (RBC) [Entitic mass] 29.9 pg Normal 26.0-34.0 [facility] Comment on above: Performed By: #### 2 4323-8 #### CHYNA Neil ([id number]) [facility] ([facility]) [address] [place] [address] 13999 MCHC (RBC) [Mass/Vol] 32.1 g/dL Normal 32.0-36.0 [facility] Comment on above: Performed By: #### 2 4323-8 #### CHYNA Neil ([id number]) [facility] ([facility]) [address] [place] [address] 41932 MCV (RBC) [Entitic vol] 93 fL Normal 80-100 [facility] Comment on above: Performed By: #### 2 432-8 #### CHYNA Neil ([id number]) [facility] ([facility]) [address] [place] [address] Nucleated RBC/100 WBC (Bld) [Ratio] 0.0 /100 WBCs Normal 0.0-0.0 [facility] Comment on above: Performed By: #### 2 4323-8 #### CHYNA Neil ([id number]) [facility] ([facility]) [address] [place] [address] Platelets (Bld) [#/Vol] 214 x10*3/uL Normal 150-450 [facility] Comment on above: Performed By: #### 2 4323-8 #### CHYNA Neil ([id number]) [facility] ([facility]) [address] [place] [address] 12192 RBC (Bld) [#/Vol] 4.82 x10*6/uL Normal 4.50-5.90 [facility] Comment on above: Performed By: #### 2 4323-8 #### CHYNA Neil ([id number]) [facility] ([facility]) [address] [place] [address] 05153 WBC (Bld) [#/Vol] 8.0 x10*3/uL Normal 4.4-11.3 [facility] Comment on above: Performed By: #### 2 4323-8 #### CHYNA Neil ([id number]) [facility] ([facility]) [address] [place] [address] 50860 Magnesiumon 04-09-2023 Magnesium [Mass/Vol] 2.15 mg/dL 1.60 - 2.40 mg/dL [facility] Magnesium [Mass/Vol] 2.15 mg/dL Normal 1.60-2.40 [facility] Comment on above: Performed By: #### 2 4323-8 #### CHYNA Neil ([id number]) [facility] ([facility]) [address] [place] [address] 29266 No Panel Informationon 04-09 Interpretation and review of laboratory results Normal [facility] Renal function 2000 panelon 04-09-2023 Albumin BCP dye [Mass/Vol] 3.9 g/dL 3.4 - 5.0 g/dL [facility] Anion gap [Moles/Vol] 14 mmol/L 10 - 20 mmol/L [facility] Calcium [Mass/Vol] 9.4 mg/dL 8.6 - 10. 6 mg/dL [facility] Chloride [Moles/Vol] 105 mmol/L 98 - 107 mmol/L [facility] CO2 [Moles/Vol] 25 mmol/L 21 - 32 mmol/L [facility] Creatinine [Mass/Vol] 0.63 mg/dL 0.50 - 1.30 mg/dL [facility] GFR/1.73 sq M.predicted MDRD (S/P/Bld) [Vol rate/Area] - PINF [facility] Comment on above: Calculations of kourtney mated GFR are performed using the 2020 CKD-EPI Study Refit equation without the race variable for the IDMS-Traceable creatinine methods. https://jasn.asnjournals.org/content/early//ASN.52612551 88 Glucose [Mass/Vol] 88 mg/dL 74 - 99 mg/dL [facility] Phosphate [Mass/Vol] 3.3 mg/dL 2.5 - 4.9 mg/dL [facility] Comment on above: The performance rodriguez acteristics of phosphorus testing in heparinized plasma have been validated by the individual laboratory site where testing is performed. Testing on heparinized plasma is not approved by the FDA; however, such approval is not necessary. Potassium [Moles/Vol] 3.9 mmol/L 3.5 - 5.3 mmol/L [facility] Sodium [Moles/Vol] 140 mmol/L 136 - 145 mmol/L [facility] Urea nitrogen [Mass/Vol] 22 mg/dL 6 - 23 mg/dL [facility] Albumin BCP dye [Mass/Vol] 3.9 g/dL Normal 3.4-5.0 [facility] Comment on above: Performed By: #### 2 4323-8 #### CHYNA Neil ([id number]) [facility] ([facility]) [address] [place] [address] Anion gap [Moles/Vol] 14 mmol/L Normal 10-20 [facility] Comment on above: Performed By: #### 2 4323-8 #### CHYNA EDWARDS L ([id number]) [facility] ([facility]) [address] [place] [address] Calcium [Mass/Vol] 9.4 mg/dL Normal 8.6-10.6 [facility] Comment on above: Performed By: #### 2 4323-8 #### CHYNA EDWARDS L ([id number]) [facility] ([facility]) [address] [place] [address] 15736 Chloride [Moles/Vol] 105 mmol/L Normal 98-107 [facility] Comment on above: Performed By: #### 2 4323-8 #### CHYNA EDWARDS L ([id number]) [facility] ([facility]) [address] [place] [address] CO2 [Moles/Vol] 25 mmol/L Normal 21-32 [facility] Comment on above: Performed By: #### 2 4323-8 #### CHYNA Neil ([id number]) [facility] ([facility]) [address] [place] [address] Creatinine [Mass/Vol] 0.63 mg/dL Normal 0.50-1.30 [facility] Comment on above: Performed By: #### 2 4323-8 #### CHYNA EDWARDS L ([id number]) [facility] ([facility]) [address] [place] [address] 02725 GFR/1.73 sq M.predicted MDRD (S/P/Bld) [Vol rate/Area] mL/min/{1.73_m2} Normal >60 [facility] Comment on above: Result Comment: Calc ulations of estimated GFR are performed using the 2020 CKD-EPI Study Refit equation without the race variable for the IDMS-Traceable creatinine methods. https://jasn.asnjournals.org/content//ASN.44202849 88 Performed By: #### 2 4323-8 #### CHYNA Neil ([id number]) [facility] ([facility]) [address] [place] [address] 94074 Glucose [Mass/Vol] 88 mg/dL Normal 74-99 [facility] Comment on above: Performed By: #### 2 4323-8 #### CHYNA Neil ([id number]) [facility] ([facility]) [address] [place] [address] 64614 Phosphate [Mass/Vol] 3.3 mg/dL Normal 2.5-4.9 [facility] Comment on above: Result Comment: The performance characteristics of phosphorus testing in heparinized plasma have been validated by the individual laboratory site where testing is performed. Testing on heparinized plasma is not approved by the FDA; however, such approval is not necessary. Performed By: #### 2 4323-8 #### CHYNA Neil ([id number]) [facility] ([facility]) [address] [place] [address] 24289 Potassium [Moles/Vol] 3.9 mmol/L Normal 3.5-5.3 [facility] Comment on above: Performed By: #### 2 4323-8 #### CHYNA Neil ([id number]) [facility] ([facility]) [address] [place] [address] 79191 Sodium [Moles/Vol] 140 mmol/L Normal 136-145 [facility] Comment on above: Performed By: #### 2 4323-8 #### CHYNA Neil ([id number]) [facility] ([facility]) [address] [place] [address] 44220 Urea nitrogen [Mass/Vol] 22 mg/dL Normal 6-23 [facility] Comment on above: Performed By: #### 2 4323-8 #### CHYNA EDWARDS L ([id number]) [facility] ([facility]) [address] [place] [address] 69937 CBC panel Auto (Bld)on 04-08 Erythrocyte distribution width (RBC) [Ratio] 12.5 % Normal 11.5-14.5 [facility] Comment on above: Performed By: #### 3 4529-8 #### CHYNA Neil ([id number]) [facility] ([facility]) [address] [place] [address] 58574 Hematocrit (Bld) [Volume fraction] 43.6 % Normal 41.0-52.0 [facility] Comment on above: Performed By: #### 3 4529-8 #### CHYNA Neil ([id number]) [facility] ([facility]) [address] [place] [address] 94822 Hemoglobin (Bld) [Mass/Vol] 14.2 g/dL Normal 13.5-17.5 [facility] Comment on above: Performed By: #### 3 4529-8 #### CHYNA Neil ([id number]) [facility] ([facility]) [address] [place] [address] 59949 Interpretation and review of laboratory results Normal [facility] MCH (RBC) [Entitic mass] 30.0 pg Normal 26.0-34.0 [facility] Comment on above: Performed By: #### 3 4529-8 #### CHYNA Neil ([id number]) [facility] ([facility]) [address] [place] [address] 26878 MCHC (RBC) [Mass/Vol] 32.6 g/dL Normal 32.0-36.0 [facility] Comment on above: Performed By: #### 3 4529-8 #### CHYNA Neil ([id number]) [facility] ([facility]) [address] [place] [address] 81387 MCV (RBC) [Entitic vol] 92 fL Normal 80-100 [facility] Comment on above: Performed By: #### 3 4529-8 #### CHYNA Neil ([id number]) [facility] ([facility]) [address] [place] [address] 96046 Nucleated RBC/100 WBC (Bld) [Ratio] 0.0 % [facility] Platelets (Bld) [#/Vol] 226 10*3/uL [facility] RBC (Bld) [#/Vol] 4.73 10*6/uL [facility] WBC (Bld) [#/Vol] 9.6 10*3/uL [facility] Nucleated RBC/100 WBC (Bld) [Ratio] 0.0 /100 WBCs Normal 0.0-0.0 [facility] Comment on above: Performed By: #### 3 4529-8 #### CHYNA Neil ([id number]) [facility] ([facility]) [address] [place] [address] 37737 Platelets (Bld) [#/Vol] 226 x10*3/uL Normal 150-450 [facility] Comment on above: Performed By: #### 3 4529-8 #### CHYNA Neil ([id number]) [facility] ([facility]) [address] [place] [address] 15105 RBC (Bld) [#/Vol] 4.73 x10*6/uL Normal 4.50-5.90 [facility] Comment on above: Performed By: #### 3 4529-8 #### CHYNA Neil ([id number]) [facility] ([facility]) [address] [place] [address] 18974 WBC (Bld) [#/Vol] 9.6 x10*3/uL Normal 4.4-11.3 [facility] Comment on above: Performed By: #### 3 4529-8 #### CHYNA Neil ([id number]) [facility] ([facility]) [address] [place] [address] 71558 Glucose Test strip manual (B ld) [Mass/Vol]on 04-08-2023 Glucose [Mass/Vol] 96 mg/dL 74 - 99 mg/dL [facility] Glucose [Mass/Vol] 104 mg/dL High 74 - 99 mg/dL [facility] Interpretation and review of laboratory results Normal [facility] Interpretation and review of laboratory results Abnormal [facility] - Chemistry and C hemistry - challengeon 04-08-2023 Magnesium [Mass/Vol] 2.11 mg/dL Normal 1.60-2.40 [facility] Comment on above: Performed By: #### 3 4529-8 #### CHYNA Neil ([id number]) [facility] ([facility]) [address] [place] [address] No Panel Informationon 04-08 Interpretation and review of laboratory results Normal [facility] RF videography Hypopharynx a nd Esophagus Views for swallowing function W speech and W barium contrast Tre 04-08-2023 Interpreted By: Derrell Riddle and Nahra Alexis STUDY: [place] MODIFIED BARIUM SWALLOW STUDY;; 04/07/2023 11:48 am INDICATION: Signs/Symptoms:new trach, known glottic mass. COMPARISON: None. ACCESSION NUMBER(S): [id number] ORDERING CLINICIAN: ENOC GARCIA TECHNIQUE: MBSS completed. Informed verbal consent obtained prior to completion of exam. Trials of thin, nectar thick, puree, soft-solids, and regular solids given. Fluoro time: 1.1 minutes DISABILITY SERVICES COORDINATOR: Jaswinder Alvarenga MA CCC-DISABILITY SERVICES COORDINATOR SPEECH FINDINGS: Reason for referral: Concern for dysphagia s/p trach. Respiratory status: Tracheostomy tube without PMSV Previous diet: NPO FINAL SPEECH RECOMMENDATIONS Diet recommendations/feeding strategies: Regular diet with Thin liquids. PO meds as tolerated. Complete oral care frequently throughout the day. Follow up with DISABILITY SERVICES COORDINATOR as an outpatient at [facility] pending diagnosis and treatment pathway. PMSV once cleared by MD. Follow-up speech therapy recommended: See future notes. Mechanics of the swallow summary: *Oral phase: Intact. *Pharyngeal phase: Intact. *Esophageal phase: Intact. DISABILITY SERVICES COORDINATOR impressions with severity rating: Oropharyngeal phases of the swallow WFL. Pt currently with cuffed tracheostomy tube Shiley #6 with cuff deflated and no PMSV. Patient with slowed oral prepping skills but adequate bolus formulation and propulsion across all consistencies. No evidence of penetration or aspiration with before, during or after the swallow on all consistencies. Following the swallow no evidence of pharyngeal stasis throughout the lumen. Thin Liquids (MBSS) Rosenbek's Penetration Aspiration Scale, Thin Liquids (MBSS): 1. NO ASPIRATION & NO PENETRATION - no aspiration, contrast does not enter airway [place] Thick Liquids (MBSS) Rosenbek's Penetration Aspiration Scale, [place] thick liquids (MBSS): 1. NO ASPIRATION & NO PENETRATION - no aspiration, contrast does not enter airway Purees (MBSS) Rosenbek's Penetration Aspiration Scale, Purees (MBSS): 1. NO ASPIRATION & NO PENETRATION - no aspiration, contrast does not enter airway Solids (MBSS) Rosenbek's Penetration Aspiration Scale, Solids (MBSS): 1. NO ASPIRATION & NO PENETRATION - no aspiration, contrast does not enter airway Speech Therapy section of this report signed by Jaswinder Alvarenga MA CCC-DISABILITY SERVICES COORDINATOR on 04/07/2023 at 1:57 pm. RADIOLOGY FINDINGS: No radiographic evidence of acute osseous abnormality within limits of current examination. Tracheostomy tube in place. Radiology section of this report signed by Dr. Olson. MMODAL Derrell Correa MD - 04/08/2023 Interpreted By: Derrell Correa and Nahra Alexis STUDY: [place] MODIFIED BARIUM SWALLOW STUDY;; 04/07/2023 11:48 am INDICATION: Signs/Symptoms:new trach, known glottic mass. COMPARISON: None. ACCESSION NUMBER(S): [id number] ORDERING CLINICIAN: ENOC GARCIA TECHNIQUE: MBSS completed. Informed verbal consent obtained prior to completion of exam. Trials of thin, nectar thick, puree, soft-solids, and regular solids given. Fluoro time: 1.1 minutes DISABILITY SERVICES COORDINATOR: Jaswinder Alvarenga MA [facility]-DISABILITY SERVICES COORDINATOR SPEECH FINDINGS: Reason for referral: Concern for dysphagia s/p trach. Respiratory status: Tracheostomy tube without PMSV Previous diet: NPO FINAL SPEECH RECOMMENDATIONS Diet recommendations/feeding strategies: Regular diet with Thin liquids. PO meds as tolerated. Complete oral care frequently throughout the day. Follow up with DISABILITY SERVICES COORDINATOR as an outpatient at the [facility] pending diagnosis and treatment pathway. PMSV once cleared by MD. Follow-up speech therapy recommended: See future notes. Mechanics of the swallow summary: *Oral phase: Intact. *Pharyngeal phase: Intact. *Esophageal phase: Intact. DISABILITY SERVICES COORDINATOR impressions with severity rating: Oropharyngeal phases of the swallow WFL. Pt currently with cuffed tracheostomy tube Shiley #6 with cuff deflated and no PMSV. Patient with slowed oral prepping skills but adequate bolus formulation and propulsion across all consistencies. No evidence of penetration or aspiration with before, during or after the swallow on all consistencies. Following the swallow no evidence of pharyngeal stasis throughout the lumen. Thin Liquids (MBSS) Rosenbek's Penetration Aspiration Scale, Thin Liquids (MBSS): 1. NO ASPIRATION & NO PENETRATION - no aspiration, contrast does not enter airway [place] Thick Liquids (MBSS) Rosenbek's Penetration Aspiration Scale, [place] thick liquids (MBSS): 1. NO ASPIRATION & NO PENETRATION - no aspiration, contrast does not enter airway Purees (MBSS) Rosenbek's Penetration Aspiration Scale, Purees (MBSS): 1. NO ASPIRATION & NO PENETRATION - no aspiration, contrast does not enter airway Solids (MBSS) Rosenbek's Penetration Aspiration Scale, Solids (MBSS): 1. NO ASPIRATION & NO PENETRATION - no aspiration, contrast does not enter airway Speech Therapy section of this report signed by Jaswinder Alvarenga MA CCC-DISABILITY SERVICES COORDINATOR on 04/07/2023 at 1:57 pm. RADIOLOGY FINDINGS: No radiographic evidence of acute osseous abnormality within limits of current examination. Tracheostomy tube in place. Radiology section of this report signed by Dr. Olson. IMPRESSION: Swallow evaluation as dictated above by speech pathology. I personally reviewed the image(s)/study and resident interpretation. I agree with the findings as stated by resident Maxwell Canela. Data analyzed and images interpreted at [facility], [place], [place]. MACRO: None Signed by: Derrell Fagan 04/08/2023 2:24 AM Dictation workstation: [id number] [facility] Work Phone: RF videography Hypopharynx a nd Esophagus Views for swallowing function W speech and W barium contrast POOrdered By: Derrell Fagan on 04-08-2023 [facility] Work Phone: Renal function 2000 panelon 04-08-2023 Albumin BCP dye [Mass/Vol] 4.0 g/dL Normal 3.4-5.0 [facility] Comment on above: Performed By: #### 2 4323-8 #### CHYNA RENETZER L ([id number]) [facility] ([facility]) [address] [place] [address] 62771 Anion gap [Moles/Vol] 14 mmol/L Normal 10-20 [facility] Comment on above: Performed By: #### 2 4323-8 #### CHYNA LESLIEMOTZER L ([id number]) [facility] ([facility]) [address] [place] [address] 88797 Calcium [Mass/Vol] 9.0 mg/dL Normal 8.6-10.6 [facility] Comment on above: Performed By: #### 2 4323-8 #### CHYNA SCHMOTZER L ([id number]) [facility] ([facility]) [address] [place] [address] 73755 Chloride [Moles/Vol] 104 mmol/L Normal 98-107 [facility] Comment on above: Performed By: #### 2 4323-8 #### CHYNA LESLIEMOTZER L ([id number]) [facility] ([facility]) [address] [place] [address] 73775 CO2 [Moles/Vol] 27 mmol/L Normal 21-32 [facility] Comment on above: Performed By: #### 2 4323-8 #### CHYNA LESLIEMOTZER L ([id number]) [facility] ([facility]) [address] [place] [address] 40102 Creatinine [Mass/Vol] 0.68 mg/dL Normal 0.50-1.30 [facility] Comment on above: Performed By: #### 2 4323-8 #### CHYNA LESLIEMOTZER L ([id number]) [facility] ([facility]) [address] [place] [address] 46191 GFR/1.73 sq M.predicted MDRD (S/P/Bld) [Vol rate/Area] - PINF [facility] Comment on above: Calculations of kourtney mated GFR are performed using the 2020 CKD-EPI Study Refit equation without the race variable for the IDMS-Traceable creatinine methods. https://jasn.asnjournals.org/content/early/ASN.14488151 88 Glucose [Mass/Vol] 83 mg/dL Normal 74-99 [facility] Comment on above: Performed By: #### 2 4323-8 #### CHYNA Neil ([id number]) [facility] ([facility]) [address] [place] [address] 14505 Phosphate [Mass/Vol] 3.3 mg/dL Normal 2.5-4.9 [facility] Comment on above: The performance rodriguez acteristics of phosphorus testing in heparinized plasma have been validated by the individual laboratory site where testing is performed. Testing on heparinized plasma is not approved by the FDA; however, such approval is not necessary. Result Comment: The performance characteristics of phosphorus testing in heparinized plasma have been validated by the individual laboratory site where testing is performed. Testing on heparinized plasma is not approved by the FDA; however, such approval is not necessary. Performed By: #### 2 4323-8 #### CHYNA Neil ([id number]) [facility] ([facility]) [address] [place] [address] 25171 Potassium [Moles/Vol] 3.7 mmol/L Normal 3.5-5.3 [facility] Comment on above: Performed By: #### 2 4323-8 #### CHYNA Neil ([id number]) [facility] ([facility]) [address] [place] [address] 60345 Sodium [Moles/Vol] 141 mmol/L Normal 136-145 [facility] Comment on above: Performed By: #### 2 4323-8 #### CHYNA Neil ([id number]) [facility] ([facility]) [address] [place] [address] 71520 Urea nitrogen [Mass/Vol] 21 mg/dL Normal 6-23 [facility] Comment on above: Performed By: #### 2 4323-8 #### CHYNA Neil ([id number]) [facility] ([facility]) [address] [place] [address] 82708 GFR/1.73 sq M.predicted MDRD (S/P/Bld) [Vol rate/Area] mL/min/{1.73_m2} Normal >60 [facility] Comment on above: Result Comment: Calc ulations of estimated GFR are performed using the 2020 CKD-EPI Study Refit equation without the race variable for the IDMS-Traceable creatinine methods. https://jasn.asnjournals.org/content//ASN.06899608 88 Performed By: #### 2 4323-8 #### CHYNA Neil ([id number]) [facility] ([facility]) [address] [place] [address] CBC panel Auto (Bld)Ordered By: Deepa Todd on 04-07-2023 Erythrocyte distribution width (RBC) [Ratio] 12.3 % 11.5 - 14.5 % [facility] Hematocrit (Bld) [Volume fraction] 47.7 % 41.0 - 52.0 % [facility] Hemoglobin (Bld) [Mass/Vol] 16.0 g/dL 13.5 - 17.5 g/dL [facility] Interpretation and review of laboratory results Abnormal [facility] MCH (RBC) [Entitic mass] 31.2 pg 26.0 - 34.0 pg [facility] MCHC (RBC) [Mass/Vol] 33.5 g/dL 32.0 - 36.0 g/dL [facility] MCV (RBC) [Entitic vol] 93 fL 80 - 100 fL [facility] Nucleated RBC/100 WBC (Bld) [Ratio] 0.0 % [facility] Platelets (Bld) [#/Vol] 230 10*3/uL [facility] RBC (Bld) [#/Vol] 5.13 10*6/uL [facility] WBC (Bld) [#/Vol] 12.2 10*3/uL [facility] CBC panel Auto (Bld)on 04-07 Erythrocyte distribution width (RBC) [Ratio] 12.3 % Normal 11.5-14.5 [facility] Comment on above: Performed By: #### 5 7021-8 #### CHYNA Neil ([id number]) [facility] ([facility]) [address] [place] [address] 21881 Hematocrit (Bld) [Volume fraction] 47.7 % Normal 41.0-52.0 [facility] Comment on above: Performed By: #### 5 7021-8 #### CHYNA Neil ([id number]) [facility] ([facility]) [address] [place] [address] 35237 Hemoglobin (Bld) [Mass/Vol] 16.0 g/dL Normal 13.5-17.5 [facility] Comment on above: Performed By: #### 5 7021-8 #### CHYNA Neil ([id number]) [facility] ([facility]) [address] [place] [address] 15833 MCH (RBC) [Entitic mass] 31.2 pg Normal 26.0-34.0 [facility] Comment on above: Performed By: #### 5 7021-8 #### CHYNA Neil ([id number]) [facility] ([facility]) [address] [place] [address] 58210 MCHC (RBC) [Mass/Vol] 33.5 g/dL Normal 32.0-36.0 [facility] Comment on above: Performed By: #### 5 7021-8 #### CHYNA Neil ([id number]) [facility] ([facility]) [address] [place] [address] 01146 MCV (RBC) [Entitic vol] 93 fL Normal 80-100 [facility] Comment on above: Performed By: #### 5 7021-8 #### CHYNA Neil ([id number]) [facility] ([facility]) [address] [place] [address] 21895 Nucleated RBC/100 WBC (Bld) [Ratio] 0.0 /100 WBCs Normal 0.0-0.0 [facility] Comment on above: Performed By: #### 5 7021-8 #### CHYNA Neil ([id number]) [facility] ([facility]) [address] [place] [address] [place] [address] Platelets (Bld) [#/Vol] 230 x10*3/uL Normal 150-450 [facility] Comment on above: Performed By: #### 5 7021-8 #### CHYNA Neil ([id number]) [facility] ([facility]) [address] [place] [address] RBC (Bld) [#/Vol] 5.13 x10*6/uL Normal 4.50-5.90 [facility] Comment on above: Performed By: #### 5 7021-8 #### CHYNA Neil ([id number]) [facility] ([facility]) [address] [place] [address] 78256 WBC (Bld) [#/Vol] 12.2 x10*3/uL High 4.4-11.3 [facility] Comment on above: Performed By: #### 5 7021-8 #### CHYNA Neil ([id number]) [facility] ([facility]) [address] [place] [address] 75270 Glucose Test strip manual (B ld) [Mass/Vol]on 04-07-2023 Glucose [Mass/Vol] 86 mg/dL 74 - 99 mg/dL [facility] Interpretation and review of laboratory results Normal [facility] Glucose [Mass/Vol] 86 mg/dL Normal 74-99 [facility] Comment on above: Performed By: #### 3 4529-8 #### CHYNA Neil ([id number]) [facility] ([facility]) [address] [place] [address] 75131 Glucose [Mass/Vol] 87 mg/dL 74 - 99 mg/dL [facility] Interpretation and review of laboratory results Normal [facility] Glucose [Mass/Vol] 87 mg/dL Normal 74-99 [facility] Comment on above: Performed By: #### 3 4529-8 #### CHYNA Neil ([id number]) [facility] ([facility]) [address] [place] [address] 86921 Glucose [Mass/Vol] 104 mg/dL High 74-99 [facility] Comment on above: Performed By: #### 2 4323-8 #### CHYNA Neil ([id number]) [facility] ([facility]) [address] [place] [address] 40269 Glucose [Mass/Vol] 96 mg/dL Normal 74-99 [facility] Comment on above: Performed By: #### 2 4323-8 #### CHYNA Neil ([id number]) [facility] ([facility]) [address] [place] [address]30 Glucose [Mass/Vol] 88 mg/dL 74 - 99 mg/dL [facility] Interpretation and review of laboratory results Normal [facility] Glucose [Mass/Vol] 88 mg/dL Normal 74-99 [facility] Comment on above: Performed By: #### 5 7021-8 #### CHYNA Neil ([id number]) [facility] ([facility]) [address] [place] [address] 24255 Magnesiumon 04-07-2023 Magnesium [Mass/Vol] 2.24 mg/dL 1.60 - 2.40 mg/dL [facility] Work Phone: Magnesium [Mass/Vol] 2.24 mg/dL Normal 1.60-2.40 [facility] Comment on above: Performed By: #### 3 4529-8 #### CHYNA Neil ([id number]) [facility] ([facility]) [address] [place] [address] 29408 No Panel InformationOrdered By: Teofilo Little on 04-07-2023 Interpretation and review of laboratory results Normal [facility] RF videography Hypopharynx a nd Esophagus Views for swallowing function W speech and W barium contrast Tre 04-07-2023 Radiology Study observation (narrative) [facility] Work Phone: Renal function 2000 panelOrd ered By: Teofilo Little on 04-07-2023 Albumin BCP dye [Mass/Vol] 4.2 g/dL 3.4 - 5.0 g/dL [facility] Anion gap [Moles/Vol] 16 mmol/L 10 - 20 mmol/L [facility] Calcium [Mass/Vol] 9.0 mg/dL 8.6 - 10. 6 mg/dL [facility] Chloride [Moles/Vol] 102 mmol/L 98 - 107 mmol/L [facility] CO2 [Moles/Vol] 24 mmol/L 21 - 32 mmol/L [facility] Creatinine [Mass/Vol] 0.70 mg/dL 0.50 - 1.30 mg/dL [facility] GFR/1.73 sq M.predicted MDRD (S/P/Bld) [Vol rate/Area] - PINF [facility] Comment on above: Calculations of kourtney mated GFR are performed using the 2020 CKD-EPI Study Refit equation without the race variable for the IDMS-Traceable creatinine methods. https://jasn.asnjournals.org/content//ASN.89681846 88 Glucose [Mass/Vol] 96 mg/dL 74 - 99 mg/dL [facility] Phosphate [Mass/Vol] 2.8 mg/dL 2.5 - 4.9 mg/dL [facility] Potassium [Moles/Vol] 4.1 mmol/L 3.5 - 5.3 mmol/L [facility] Sodium [Moles/Vol] 138 mmol/L 136 - 145 mmol/L [facility] Urea nitrogen [Mass/Vol] 21 mg/dL 6 - 23 mg/dL [facility] Renal function 2000 panelon 04-07-2023 Albumin BCP dye [Mass/Vol] 4.2 g/dL Normal 3.4-5.0 [facility] Comment on above: Performed By: #### 3 4529-8 #### CHYNA Neil ([id number]) [facility] ([facility]) [address] [place] [address] 58414 Anion gap [Moles/Vol] 16 mmol/L Normal 10-20 [facility] Comment on above: Performed By: #### 3 4529-8 #### CHYNA Neil ([id number]) [facility] ([facility]) [address] [place] [address] Calcium [Mass/Vol] 9.0 mg/dL Normal 8.6-10.6 [facility] Comment on above: Performed By: #### 3 4529-8 #### CHYNA Neil ([id number]) [facility] ([facility]) [address] [place] [address] Chloride [Moles/Vol] 102 mmol/L Normal 98-107 [facility] Comment on above: Performed By: #### 3 4529-8 #### CHYNA Neil ([id number]) [facility] ([facility]) [address] [place] [address] 54137 CO2 [Moles/Vol] 24 mmol/L Normal 21-32 [facility] Comment on above: Performed By: #### 3 4529-8 #### CHYNA Neil ([id number]) [facility] ([facility]) [address] [place] [address] 04328 Creatinine [Mass/Vol] 0.70 mg/dL Normal 0.50-1.30 [facility] Comment on above: Performed By: #### 3 4529-8 #### CHYNA Neil ([id number]) [facility] ([facility]) [address] [place] [address] 12906 GFR/1.73 sq M.predicted MDRD (S/P/Bld) [Vol rate/Area] mL/min/{1.73_m2} Normal >60 [facility] Comment on above: Result Comment: Calc ulations of estimated GFR are performed using the 2020 CKD-EPI Study Refit equation without the race variable for the IDMS-Traceable creatinine methods. https://jasn.asnjournals.org/content/early//ASN.19709684 88 Performed By: #### 3 4529-8 #### CHYNA Neil ([id number]) [facility] ([facility]) [address] [place] [address] Glucose [Mass/Vol] 96 mg/dL Normal 74-99 [facility] Comment on above: Performed By: #### 3 4529-8 #### CHYNA Neil ([id number]) [facility] ([facility]) [address] [place] [address] 22634 Phosphate [Mass/Vol] 2.8 mg/dL Normal 2.5-4.9 [facility] Comment on above: Performed By: #### 3 4529-8 #### CHYNA EDWARDS L ([id number]) [facility] ([facility]) [address] [place] [address] 45679 Potassium [Moles/Vol] 4.1 mmol/L Normal 3.5-5.3 [facility] Comment on above: Performed By: #### 3 4529-8 #### CHYNA Neil ([id number]) [facility] ([facility]) [address] [place] [address] 46490 Sodium [Moles/Vol] 138 mmol/L Normal 136-145 [facility] Comment on above: Performed By: #### 3 4529-8 #### CHYNA EDWARDS L ([id number]) [facility] ([facility]) [address] [place] [address] 82268 Urea nitrogen [Mass/Vol] 21 mg/dL Normal 6-23 [facility] Comment on above: Performed By: #### 3 4529-8 #### CHYNA Neil ([id number]) [facility] ([facility]) [address] [place] [address]75 DISABILITY SERVICES COORDINATOR Modified Barium Swallow Evaluationon 04-07-2023 Jaswinder Alvarenga [facility]- DISABILITY SERVICES COORDINATOR 04/07/2023 1:48 PM Speech-Language Pathology Modified Barium Swallow Study Patient Name: Fabricio Nunes : 1960 Today's Date: 04/07/23 Recommendations: Regular diet with Thin liquids. PO meds as tolerated. Complete oral care frequently throughout the day. Follow up with DISABILITY SERVICES COORDINATOR as an outpatient at the voice and [...] pharyngeal stasis throughout the lumen. Full detailed DISABILITY SERVICES COORDINATOR/Radiologist Modified Barium Swallow study report can be found under Chart Review tab, Imaging tab and titled [place] Modified Barium Swallow Study Pt. Presenting with safe and efficient swallow mechanics for a PO diet. Plan: Treatment/Interventions: Pharyngeal exercises and Patient/family education, pending POC for laryngeal ulcerations. DISABILITY SERVICES COORDINATOR Plan: No treatment needs identified at this time DISABILITY SERVICES COORDINATOR Frequency: To be determined, pending tx POC Duration: 30 days Discussed POC: Patient, Discussed Risks/Benefits: Yes Patient/Caregiver Agreeable: Yes GOALS: Pt. to tolerate least restrictive diet without pulmonary compromise Education: Pt. Educated on results of MBS study, recommended diet and recommended safe swallow strategies [facility] Work Phone: XR CHEST 1 VIEWon 04-07-2023 XR CHEST 1 VIEW Interpreted By: Joe Jesus, STUDY: XR CHEST 1 VIEW; 04/07/2023 3:55 pm INDICATION: Signs/Symptoms:s/p CT removal. COMPARISON: 04/07/2023 ACCESSION NUMBER(S): [id number] ORDERING CLINICIAN: SARAH BEASLEY FINDINGS: Portable upright chest. Patient has a tracheostomy tube in place. The right pigtail catheter chest tube has been removed. CARDIOMEDIASTINAL SILHOUETTE: Cardiomediastinal silhouette is stable and appears mildly enlarged. LUNGS: Lungs show moderate volumes. The right chest shows no convincing evidence of significant pneumothorax. There is lucency in the medial right diaphragmatic area but this is small and can be followed on interval films there is bibasilar atelectasis. There is mild blunting of the right and left costophrenic angle. ABDOMEN: No remarkable upper abdominal findings. BONES: No acute osseous changes. IMPRESSION: 1. No convincing evidence of right pneumothorax. Bibasilar atelectasis. Similar findings to previous exam. MACRO: None Signed by: Joe Bryan 04/07/2023 5:35 PM Dictation workstation: [id number] [facility] XR CHEST 1 VIEW Interpreted By: Joe Jesus, STUDY: XR CHEST 1 VIEW; 04/07/2023 12:48 pm INDICATION: Signs/Symptoms:clamp for ptx. COMPARISON: 04/07/2023 at 855 hours a.m. ACCESSION NUMBER(S): [id number] ORDERING CLINICIAN: TAMMY GARCIA FINDINGS: Upright portable chest. Patient has a tracheostomy. There is stable right chest pigtail catheter. CARDIOMEDIASTINAL SILHOUETTE: Cardiomediastinal silhouette is stable and again appears mildly enlarged. LUNGS: Lung enriquez show bibasilar atelectasis. This is more prominent in the right chest in the left. There is no evidence of pneumothorax. There is no infiltrate or mass. There is right and left costophrenic angle blunting. There may be trace bilateral pleural effusions. ABDOMEN: No remarkable upper abdominal findings. BONES: No acute osseous changes. IMPRESSION: 1. No evidence of pneumothorax. Bibasilar atelectasis. Possible trace effusions. MACRO: None Signed by: Joe Bryan 04/07/2023 5:23 PM Dictation workstation: [id number] [facility] XR CHEST 1 VIEW Interpreted By: Joe Jesus, STUDY: XR CHEST 1 VIEW; 04/07/2023 9:20 am INDICATION: Signs/Symptoms:pneumothorax . COMPARISON: 03/29/2023 ACCESSION NUMBER(S): [id number] ORDERING CLINICIAN: ENOC GARCIA FINDINGS: Upright portable chest. Patient has a tracheostomy tube. There is a right chest pigtail catheter as noted on previous exam. CARDIOMEDIASTINAL SILHOUETTE: Cardiomediastinal silhouette is stable and appears enlarged. LUNGS: Lungs show mild low volumes with bibasilar atelectasis. There is no evidence of pneumothorax. There is no infiltrate or mass there is blunting of the right and left costophrenic angles which suggests possible trace effusions. No convincing evidence of pneumothorax. ABDOMEN: No remarkable upper abdominal findings. BONES: No acute osseous changes. IMPRESSION: 1. Bibasilar atelectasis. No convincing evidence of right-sided pneumothorax. Similar findings to previous exam. MACRO: None Signed by: Joe Bryan 04/07/2023 4:36 PM Dictation workstation: [id number] [facility] XR Chest Single viewon 04-07 1. No convincing sary dence of right pneumothorax. Bibasilar atelectasis. Similar findings to previous exam. MACRO: None Signed by: Joe Bryan 04/07/2023 5:35 PM Dictation workstation: [id number] MMODAL Interpreted By: Joe Jesus, STUDY: XR CHEST 1 VIEW; 04/07/2023 3:55 pm INDICATION: Signs/Symptoms:s/p CT removal. COMPARISON: 04/07/2023 ACCESSION NUMBER(S): [id number] ORDERING CLINICIAN: SARAH BEASLEY FINDINGS: Portable upright chest. Patient has a tracheostomy tube in place. The right pigtail catheter chest tube has been removed. CARDIOMEDIASTINAL SILHOUETTE: Cardiomediastinal silhouette is stable and appears mildly enlarged. LUNGS: Lungs show moderate volumes. The right chest shows no convincing evidence of significant pneumothorax. There is lucency in the medial right diaphragmatic area but this is small and can be followed on interval films there is bibasilar atelectasis. There is mild blunting of the right and left costophrenic angle. ABDOMEN: No remarkable upper abdominal findings. BONES: No acute osseous changes. MMODAL Joe Salazar M D - 04/07/2023 Interpreted By: Joe Bryan, STUDY: XR CHEST 1 VIEW; 04/07/2023 3:55 pm INDICATION: Signs/Symptoms:s/p CT removal. COMPARISON: 04/07/2023 ACCESSION NUMBER(S): [id number] ORDERING CLINICIAN: SARAH BEASLEY FINDINGS: Portable upright chest. Patient has a tracheostomy tube in place. The right pigtail catheter chest tube has been removed. CARDIOMEDIASTINAL SILHOUETTE: Cardiomediastinal silhouette is stable and appears mildly enlarged. LUNGS: Lungs show moderate volumes. The right chest shows no convincing evidence of significant pneumothorax. There is lucency in the medial right diaphragmatic area but this is small and can be followed on interval films there is bibasilar atelectasis. There is mild blunting of the right and left costophrenic angle. ABDOMEN: No remarkable upper abdominal findings. BONES: No acute osseous changes. IMPRESSION: 1. No convincing evidence of right pneumothorax. Bibasilar atelectasis. Similar findings to previous exam. MACRO: None Signed by: Joe Bryan 04/07/2023 5:35 PM Dictation workstation: [id number] [facility] Work Phone: [facility] Work Phone: 1. No evidence of pneumothorax. Bibasilar atelectasis. Possible trace effusions. MACRO: None Signed by: Joe Bryan 04/07/2023 5:23 PM Dictation workstation: [id number] [facility] MM[facility]AL Interpreted By: Joe Jesus, STUDY: XR CHEST 1 VIEW; 04/07/2023 12:48 pm INDICATION: Signs/Symptoms:clamp for ptx. COMPARISON: 04/07/2023 at 855 hours a.m. ACCESSION NUMBER(S): [id number] ORDERING CLINICIAN: TAMMY GARCIA FINDINGS: Upright portable chest. Patient has a tracheostomy. There is stable right chest pigtail catheter. CARDIOMEDIASTINAL SILHOUETTE: Cardiomediastinal silhouette is stable and again appears mildly enlarged. LUNGS: Lung enriquez show bibasilar atelectasis. This is more prominent in the right chest in the left. There is no evidence of pneumothorax. There is no infiltrate or mass. There is right and left costophrenic angle blunting. There may be trace bilateral pleural effusions. ABDOMEN: No remarkable upper abdominal findings. BONES: No acute osseous changes. MMODAL OJoe Dowd M D - 04/07/2023 Interpreted By: Joe Bryan, STUDY: XR CHEST 1 VIEW; 04/07/2023 12:48 pm INDICATION: Signs/Symptoms:clamp for ptx. COMPARISON: 04/07/2023 at 855 hours a.m. ACCESSION NUMBER(S): [id number] ORDERING CLINICIAN: TAMMY GARCIA FINDINGS: Upright portable chest. Patient has a tracheostomy. There is stable right chest pigtail catheter. CARDIOMEDIASTINAL SILHOUETTE: Cardiomediastinal silhouette is stable and again appears mildly enlarged. LUNGS: Lung enriquez show bibasilar atelectasis. This is more prominent in the right chest in the left. There is no evidence of pneumothorax. There is no infiltrate or mass. There is right and left costophrenic angle blunting. There may be trace bilateral pleural effusions. ABDOMEN: No remarkable upper abdominal findings. BONES: No acute osseous changes. IMPRESSION: 1. No evidence of pneumothorax. Bibasilar atelectasis. Possible trace effusions. MACRO: None Signed by: Joe Bryan 04/07/2023 5:23 PM Dictation workstation: [id number] [facility] Work Phone: [facility] Work Phone: 1. Bibasilar atelect asis. No convincing evidence of right-sided pneumothorax. Similar findings to previous exam. MACRO: None Signed by: Joe Bryan 04/07/2023 4:36 PM Dictation workstation: [id number] [facility] MMODAL Interpreted By: Joe Jesus, STUDY: XR CHEST 1 VIEW; 04/07/2023 9:20 am INDICATION: Signs/Symptoms:pneumothorax . COMPARISON: 03/29/2023 ACCESSION NUMBER(S): [id number] ORDERING CLINICIAN: ENOC GARCIA FINDINGS: Upright portable chest. Patient has a tracheostomy tube. There is a right chest pigtail catheter as noted on previous exam. CARDIOMEDIASTINAL SILHOUETTE: Cardiomediastinal silhouette is stable and appears enlarged. LUNGS: Lungs show mild low volumes with bibasilar atelectasis. There is no evidence of pneumothorax. There is no infiltrate or mass there is blunting of the right and left costophrenic angles which suggests possible trace effusions. No convincing evidence of pneumothorax. ABDOMEN: No remarkable upper abdominal findings. BONES: No acute osseous changes. [facility] MMODAL Joe Salazar M D - 04/07/2023 Interpreted By: Joe Bryan, STUDY: XR CHEST 1 VIEW; 04/07/2023 9:20 am INDICATION: Signs/Symptoms:pneumothorax . COMPARISON: 03/29/2023 ACCESSION NUMBER(S): [id number] ORDERING CLINICIAN: ENOC GARCIA FINDINGS: Upright portable chest. Patient has a tracheostomy tube. There is a right chest pigtail catheter as noted on previous exam. CARDIOMEDIASTINAL SILHOUETTE: Cardiomediastinal silhouette is stable and appears enlarged. LUNGS: Lungs show mild low volumes with bibasilar atelectasis. There is no evidence of pneumothorax. There is no infiltrate or mass there is blunting of the right and left costophrenic angles which suggests possible trace effusions. No convincing evidence of pneumothorax. ABDOMEN: No remarkable upper abdominal findings. BONES: No acute osseous changes. IMPRESSION: 1. Bibasilar atelectasis. No convincing evidence of right-sided pneumothorax. Similar findings to previous exam. MACRO: None Signed by: Joe Bryan 04/07/2023 4:36 PM Dictation workstation: [id number] [facility] Work Phone: [facility] Work Phone: Radiology Study observation (narrative) [facility] Work Phone: Radiology Study observation (narrative) [facility] Work Phone: Radiology Study observation (narrative) [facility] Work Phone: CBC panel Auto (Bld)on 04-06 Erythrocyte distribution width (RBC) [Ratio] 12.1 % 11.5 - 14.5 % [facility] Hematocrit (Bld) [Volume fraction] 44.3 % 41.0 - 52.0 % [facility] Hemoglobin (Bld) [Mass/Vol] 15.2 g/dL 13.5 - 17.5 g/dL [facility] Interpretation and review of laboratory results Abnormal [facility] MCH (RBC) [Entitic mass] 30.3 pg 26.0 - 34.0 pg [facility] MCHC (RBC) [Mass/Vol] 34.3 g/dL 32.0 - 36.0 g/dL [facility] MCV (RBC) [Entitic vol] 88 fL 80 - 100 fL [facility] Nucleated RBC/100 WBC (Bld) [Ratio] 0.0 % [facility] Platelets (Bld) [#/Vol] 249 10*3/uL [facility] RBC (Bld) [#/Vol] 5.01 10*6/uL [facility] WBC (Bld) [#/Vol] 11.6 10*3/uL [facility] Erythrocyte distribution width (RBC) [Ratio] 12.1 % Normal 11.5-14.5 [facility] Comment on above: Performed By: #### 5 8410-2 ####CHYNA Neil ([id number])[facility] ([facility])[address] [place] [address] 41006 Hematocrit (Bld) [Volume fraction] 44.3 % Normal 41.0-52.0 [facility] Comment on above: Performed By: #### 5 8410-2 ####CHYNA Neil ([id number])[facility] ([facility])[address] [place] [address]16 Hemoglobin (Bld) [Mass/Vol] 15.2 g/dL Normal 13.5-17.5 [facility] Comment on above: Performed By: #### 5 8410-2 ####CHYNA Neil ([id number])[facility] ([facility])[address] [place] [address] 76567 MCH (RBC) [Entitic mass] 30.3 pg Normal 26.0-34.0 [facility] Comment on above: Performed By: #### 5 8410-2 ####CHYNA Neil ([id number])[facility] ([facility])[address] [place] [address] 66236 MCHC (RBC) [Mass/Vol] 34.3 g/dL Normal 32.0-36.0 [facility] Comment on above: Performed By: #### 5 8410-2 ####CHYNA Neil ([id number])[facility] ([facility])[address] [place] [address] MCV (RBC) [Entitic vol] 88 fL Normal 80-100 [facility] Comment on above: Performed By: #### 5 8410-2 ####CHYNA Neil ([id number])[facility] ([facility])[address] [place] [address] Nucleated RBC/100 WBC (Bld) [Ratio] 0.0 /100 WBCs Normal 0.0-0.0 [facility] Comment on above: Performed By: #### 5 8410-2 ####CHYNA Neil ([id number])[facility] ([facility])[address] [place] [address] Platelets (Bld) [#/Vol] 249 x10*3/uL Normal 150-450 [facility] Comment on above: Performed By: #### 5 8410-2 ####CHYNA Neil ([id number])[facility] ([facility])[address] [place] [address] 01742 RBC (Bld) [#/Vol] 5.01 x10*6/uL Normal 4.50-5.90 [facility] Comment on above: Performed By: #### 5 8410-2 ####CHYNA Neil ([id number])[facility] ([facility])[address] [place] [address] 03138 WBC (Bld) [#/Vol] 11.6 x10*3/uL High 4.4-11.3 [facility] Comment on above: Performed By: #### 5 8410-2 ####CHYNA Neil ([id number])[facility] ([facility])[address] [place] [address] Erythrocyte distribution width (RBC) [Ratio] 12.1 % 11.5 - 14.5 % [facility] Hematocrit (Bld) [Volume fraction] 47.2 % 41.0 - 52.0 % [facility] Hemoglobin (Bld) [Mass/Vol] 16.4 g/dL 13.5 - 17.5 g/dL [facility] Interpretation and review of laboratory results Abnormal [facility] MCH (RBC) [Entitic mass] 30.8 pg 26.0 - 34.0 pg [facility] MCHC (RBC) [Mass/Vol] 34.7 g/dL 32.0 - 36.0 g/dL [facility] MCV (RBC) [Entitic vol] 89 fL 80 - 100 fL [facility] Nucleated RBC/100 WBC (Bld) [Ratio] 0.0 % [facility] Platelets (Bld) [#/Vol] 267 10*3/uL [facility] RBC (Bld) [#/Vol] 5.33 10*6/uL [facility] WBC (Bld) [#/Vol] 13.0 10*3/uL [facility] Calcium, Ionizedon Calcium.ionized (Bld) [Moles/Vol] 1.16 mmol/L 1.1 - 1.33 mmol/L [facility] Comment on above: The performance rodriguez acteristics of ionized calcium tested in heparinized plasma or serum have been validated by the individual laboratory site where testing is performed. Testing on heparinized plasma or serum is not approved by the FDA; however, such approval is not necessary. Calcium.ionized (Bld) [Moles/Vol] 1.15 mmol/L 1.1 - 1.33 mmol/L [facility] Comment on above: The performance rodriguez acteristics of ionized calcium tested in heparinized plasma or serum have been validated by the individual laboratory site where testing is performed. Testing on heparinized plasma or serum is not approved by the FDA; however, such approval is not necessary. Calcium.ionizedon 04-06-2023 Calcium.ionized (Bld) [Moles/Vol] 1.16 mmol/L Normal 1.1-1.33 [facility] Comment on above: Result Comment: The performance characteristics of ionized calcium tested in heparinized plasma or serum have been validated by the individual laboratory site where testing is performed. Testing on heparinized plasma or serum is not approved by the FDA; however, such approval is not necessary. Performed By: #### 1 994-3 ####CHYNA Neil ([id number])[facility] ([facility])[address] [place] [id number] Calcium.ionized (Bld) [Moles /Vol]on 04-06-2023 Interpretation and review of laboratory results Normal [facility] Interpretation and review of laboratory results Normal [facility] ECG 12 leadOrdered By: Raymundo Stinson on 04-06-2023 Atrial Rate 104 BPM [facility] Work Phone: P [place] 35 degrees [facility] Work Phone: P Offset 188 ms [facility] Work Phone: P Onset 139 ms [facility] Work Phone: [place] Interval 156 ms [facility] Work Phone: Q Onset 217 ms [facility] Work Phone: QRS Count 17 beats [facility] Work Phone: QRS Duration 92 ms [facility] Work Phone: QT Interval 346 ms [facility] Work Phone: QTC Calculation(Bazett) 454 [facility] Work Phone: QTC Fredericia 415 ms [facility] Work Phone: R [place] 3 degrees [facility] Work Phone: T [place] 59 degrees [facility] Work Phone: T Offset 390 ms [facility] Work Phone: Ventricular Rate 104 BPM [facility] Work Phone: [facility] Work Phone: ECG 12 leadon 04-06-2023 Sinus tachycardia Otherwise normal ECG No previous ECGs available See ED provider note for full interpretation and clinical correlation Confirmed by Colby Stinson ([id number]) on 04/06/2023 4:30:02 AM Colby Barrera PA-C - 04/06/2023 Sinus tachycardia Otherwise normal ECG No previous ECGs available See ED provider note for full interpretation and clinical correlation Confirmed by Colby Stinson ([id number]) on 04/06/2023 4:30:02 AM [facility] Work Phone: ECG 12-LEADon 04-06-2023 ECG 12-LEAD Ventricular Rate 107 Atrial Rate 107 P-R Interval 160 QRS Duration 90 Q-T Interval 356 QTC Calculation(Bazett) 475 P [place] 34 R [place] -14 T [place] 111 QRS Count 18 Q Onset 218 P Onset 138 P Offset 200 T Offset 396 QTC Fredericia 431 Diagnosis Sinus tachycardia with Premature supraventricular complexes Possible Left atrial enlargement Left ventricular hypertrophy Inferior infarct , age undetermined T wave abnormality, consider lateral ischemia Abnormal ECG When compared with ECG of 05-APR-2023 12:32, Premature supraventricular complexes are now Present Inferior infarct is now Present T wave inversion now evident in Lateral leads Confirmed by Roosevelt Shaffer ([id number]) on 04/13/2023 9:05:34 PM Normal [facility] [place] MODIFIED BARIUM SWALLOW S CORIN 04-06-2023 [place] MODIFIED BARIUM SWALLOW STUDY Interpreted By: Derrell Correa and Nahra Alexis STUDY: ID MODIFIED BARIUM SWALLOW STUDY;; 04/07/2023 11:48 am INDICATION: Signs/Symptoms:new trach, known glottic mass. COMPARISON: None. ACCESSION NUMBER(S): [id number] ORDERING CLINICIAN: ENOC GARCIA TECHNIQUE: MBSS completed. Informed verbal consent obtained prior to completion of exam. Trials of thin, nectar thick, puree, soft-solids, and regular solids given. Fluoro time: 1.1 minutes DISABILITY SERVICES COORDINATOR: Jaswinder Alvarenga MA [facility]-DISABILITY SERVICES COORDINATOR SPEECH FINDINGS: Reason for referral: Concern for dysphagia s/p trach. Respiratory status: Tracheostomy tube without PMSV Previous diet: NPO FINAL SPEECH RECOMMENDATIONS Diet recommendations/feeding strategies: Regular diet with Thin liquids. PO meds as tolerated. Complete oral care frequently throughout the day. Follow up with DISABILITY SERVICES COORDINATOR as an outpatient at [facility] pending diagnosis and treatment pathway. PMSV once cleared by MD. Follow-up speech therapy recommended: See future notes. Mechanics of the swallow summary: *Oral phase: Intact. *Pharyngeal phase: Intact. *Esophageal phase: Intact. DISABILITY SERVICES COORDINATOR impressions with severity rating: Oropharyngeal phases of the swallow WFL. Pt currently with cuffed tracheostomy tube Shiley #6 with cuff deflated and no PMSV. Patient with slowed oral prepping skills but adequate bolus formulation and propulsion across all consistencies. No evidence of penetration or aspiration with before, during or after the swallow on all consistencies. Following the swallow no evidence of pharyngeal stasis throughout the lumen. Thin Liquids (MBSS) Rosenbek's Penetration Aspiration Scale, Thin Liquids (MBSS): 1. NO ASPIRATION & NO PENETRATION - no aspiration, contrast does not enter airway [place] Thick Liquids (MBSS) Rosenbek's Penetration Aspiration Scale, [place] thick liquids (MBSS): 1. NO ASPIRATION & NO PENETRATION - no aspiration, contrast does not enter airway Purees (MBSS) Rosenbek's Penetration Aspiration Scale, Purees (MBSS): 1. NO ASPIRATION & NO PENETRATION - no aspiration, contrast does not enter airway Solids (MBSS) Rosenbek's Penetration Aspiration Scale, Solids (MBSS): 1. NO ASPIRATION & NO PENETRATION - no aspiration, contrast does not enter airway Speech Therapy section of this report signed by Jaswinder Alvarenga MA [facility]-DISABILITY SERVICES COORDINATOR on 04/07/2023 at 1:57 pm. RADIOLOGY FINDINGS: No radiographic evidence of acute osseous abnormality within limits of current examination. Tracheostomy tube in place. Radiology section of this report signed by Dr. Olson. IMPRESSION: Swallow evaluation as dictated above by speech pathology. I personally reviewed the image(s)/study and resident interpretation. I agree with the findings as stated by resident Maxwell Canela. Data analyzed and images interpreted at [facility], [place], [place]. MACRO: None Signed by: Derrell Fagan 04/08/2023 2:24 AM Dictation workstation: [id number] Normal [facility] Glucose Test strip manual (B ld) [Mass/Vol]on 04-06-2023 Glucose [Mass/Vol] 119 mg/dL High 74 - 99 mg/dL [facility] Interpretation and review of laboratory results Abnormal [facility] Glucose [Mass/Vol] 119 mg/dL High 74-99 [facility] Comment on above: Performed By: #### 5 7021-8 #### CHYNA Neil ([id number]) [facility] ([facility]) [address] [place] [address] Glucose [Mass/Vol] 122 mg/dL High 74 - 99 mg/dL [facility] Interpretation and review of laboratory results Abnormal [facility] Glucose [Mass/Vol] 122 mg/dL High 74-99 [facility] Comment on above: Performed By: #### 5 7021-8 #### CHYNA Neil ([id number]) [facility] ([facility]) [address] [place] [address] Glucose [Mass/Vol] 97 mg/dL 74 - 99 mg/dL [facility] Interpretation and review of laboratory results Normal [facility] Glucose [Mass/Vol] 97 mg/dL Normal 74-99 [facility] Comment on above: Performed By: #### 5 7021-8 #### CHYNA Neil ([id number]) [facility] ([facility]) [address] [place] [address] Glucose [Mass/Vol] 126 mg/dL High 74 - 99 mg/dL [facility] Interpretation and review of laboratory results Abnormal [facility] Glucose [Mass/Vol] 126 mg/dL High 74-99 [facility] Comment on above: Performed By: #### 5 7021-8 #### CHYNA Neil ([id number]) [facility] ([facility]) [address] [place] [address] Glucose [Mass/Vol] 144 mg/dL High 74 - 99 mg/dL [facility] Interpretation and review of laboratory results Abnormal [facility] Glucose [Mass/Vol] 144 mg/dL High 74-99 [facility] Comment on above: Performed By: #### 2 341-6 ####CHYNA Neil ([id number])[facility] ([facility])[address] [place] [address] Magnesiumon 04-06-2023 Magnesium [Mass/Vol] 2.04 mg/dL 1.60 - 2.40 mg/dL [facility] Magnesium [Mass/Vol] 2.04 mg/dL Normal 1.60-2.40 [facility] Comment on above: Performed By: #### 1 9123-9 ####CHYNA Neil ([id number])[facility] ([facility])[address] [place] [address] Magnesium [Mass/Vol] 2.22 mg/dL 1.60 - 2.40 mg/dL [facility] Magnesium [Mass/Vol]on 04-06 Interpretation and review of laboratory results Normal [facility] Interpretation and review of laboratory results Normal [facility] No Panel Informationon 04-06 [facility] PT and aPTT panel Coag (PPP) on 04-06-2023 aPTT Coag (PPP) [Time] 34 s [facility] INR Coag (PPP) [Relative time] 1.0 {INR} 0.9 - 1.1 [facility] Interpretation and review of laboratory results Normal [facility] PT Coag (PPP) [Time] 11.8 s [facility] The APTT is no longe r used for monitoring Unfractionated Heparin Therapy. For monitoring Heparin Therapy, use the Heparin Assay. [facility] aPTT Coag (PPP) [Time] 34 s Normal 27-38 [facility] Comment on above: Order Comment: The A PTT is no longer used for monitoring Unfractionated Heparin Therapy. For monitoring Heparin Therapy, use the Heparin Assay. Performed By: #### 3 4529-8 ####CHYAN Neil ([id number])[facility] ([facility])[address] [place] [address] INR Coag (PPP) [Relative time] 1.0 Normal 0.9-1.1 [facility] Comment on above: Order Comment: The A PTT is no longer used for monitoring Unfractionated Heparin Therapy. For monitoring Heparin Therapy, use the Heparin Assay. Performed By: #### 3 4529-8 ####CHYNA Neil ([id number])[facility] ([facility])[address] [place] [address] PT Coag (PPP) [Time] 11.8 s Normal 9.8-12.8 [facility] Comment on above: Order Comment: The A PTT is no longer used for monitoring Unfractionated Heparin Therapy. For monitoring Heparin Therapy, use the Heparin Assay. Performed By: #### 3 4529-8 ####CHYNA LESLIEMOTZER L ([id number])[facility] ([facility])[address] [place] [address] aPTT Coag (PPP) [Time] 33 s [facility] INR Coag (PPP) [Relative time] 1.0 {INR} 0.9 - 1.1 [facility] Interpretation and review of laboratory results Normal [facility] PT Coag (PPP) [Time] 11.1 s [facility] The APTT is no longe r used for monitoring Unfractionated Heparin Therapy. For monitoring Heparin Therapy, use the Heparin Assay. [facility] Renal function 2000 panelon 04-06-2023 Albumin BCP dye [Mass/Vol] 4.2 g/dL 3.4 - 5.0 g/dL [facility] Anion gap [Moles/Vol] 14 mmol/L 10 - 20 mmol/L [facility] Calcium [Mass/Vol] 9.3 mg/dL 8.6 - 10. 6 mg/dL [facility] Chloride [Moles/Vol] 100 mmol/L 98 - 107 mmol/L [facility] CO2 [Moles/Vol] 30 mmol/L 21 - 32 mmol/L [facility] Creatinine [Mass/Vol] 0.75 mg/dL 0.50 - 1.30 mg/dL [facility] GFR/1.73 sq M.predicted MDRD (S/P/Bld) [Vol rate/Area] - PINF [facility] Comment on above: Calculations of kourtney mated GFR are performed using the 2020 CKD-EPI Study Refit equation without the race variable for the IDMS-Traceable creatinine methods. https://jasn.asnjournals.org/content//ASN.72676406 88 Glucose [Mass/Vol] 132 mg/dL High 74 - 99 mg/dL [facility] Interpretation and review of laboratory results Abnormal [facility] Phosphate [Mass/Vol] 4.8 mg/dL 2.5 - 4.9 mg/dL [facility] Comment on above: The performance rodriguez acteristics of phosphorus testing in heparinized plasma have been validated by the individual laboratory site where testing is performed. Testing on heparinized plasma is not approved by the FDA; however, such approval is not necessary. Potassium [Moles/Vol] 4.5 mmol/L 3.5 - 5.3 mmol/L [facility] Sodium [Moles/Vol] 139 mmol/L 136 - 145 mmol/L [facility] Urea nitrogen [Mass/Vol] 21 mg/dL 6 - 23 mg/dL [facility] Albumin BCP dye [Mass/Vol] 4.2 g/dL Normal 3.4-5.0 [facility] Comment on above: Performed By: #### 2 4362-6 ####CHYNA Neil ([id number])[facility] ([facility])[address] [place] [address] Anion gap [Moles/Vol] 14 mmol/L Normal 10-20 [facility] Comment on above: Performed By: #### 2 4362-6 ####CHYNA Neil ([id number])[facility] ([facility])[address] [place] [address] Calcium [Mass/Vol] 9.3 mg/dL Normal 8.6-10.6 [facility] Comment on above: Performed By: #### 2 4362-6 ####CHYNA EDWARDS L ([id number])[facility] ([facility])[address] [place] [address] Chloride [Moles/Vol] 100 mmol/L Normal 98-107 [facility] Comment on above: Performed By: #### 2 4362-6 ####CHYNA Neil ([id number])[facility] ([facility])[address] [place] [address] CO2 [Moles/Vol] 30 mmol/L Normal 21-32 [facility] Comment on above: Performed By: #### 2 4362-6 ####CHYNA Neil ([id number])[facility] ([facility])[address] [place] [address] Creatinine [Mass/Vol] 0.75 mg/dL Normal 0.50-1.30 [facility] Comment on above: Performed By: #### 2 4362-6 ####CHYNA Neil ([id number])[facility] ([facility])[address] [place] [address] GFR/1.73 sq M.predicted MDRD (S/P/Bld) [Vol rate/Area] mL/min/{1.73_m2} Normal >60 [facility] Comment on above: Result Comment: Calc ulations of estimated GFR are performed using the 2020 CKD-EPI Study Refit equation without the race variable for the IDMS-Traceable creatinine methods. https://jasn.asnjournals.org/content/early//ASN.92793204 88 Performed By: #### 2 4362-6 ####CHYNA Neil ([id number])[facility] ([facility])[address] [place] [address] Glucose [Mass/Vol] 132 mg/dL High 74-99 [facility] Comment on above: Performed By: #### 2 4362-6 ####CHYNA Neil ([id number])[facility] ([facility])[address] [place] [address] Phosphate [Mass/Vol] 4.8 mg/dL Normal 2.5-4.9 [facility] Comment on above: Result Comment: The performance characteristics of phosphorus testing in heparinized plasma have been validated by the individual laboratory site where testing is performed. Testing on heparinized plasma is not approved by the FDA; however, such approval is not necessary. Performed By: #### 2 4362-6 ####CHYNA EDWARDS L ([id number])[facility] ([facility])[address] [place] [address] Potassium [Moles/Vol] 4.5 mmol/L Normal 3.5-5.3 [facility] Comment on above: Performed By: #### 2 4362-6 ####CHYNA RENETZER L ([id number])[facility] ([facility])[address] [place] [address] Sodium [Moles/Vol] 139 mmol/L Normal 136-145 [facility] Comment on above: Performed By: #### 2 4362-6 ####CHYNA RENETZER L ([id number])[facility] ([facility])[address] [place] [address] Urea nitrogen [Mass/Vol] 21 mg/dL Normal 6-23 [facility] Comment on above: Performed By: #### 2 4362-6 ####CHYNA LESLIEMOTZER L ([id number])[facility] ([facility])[address] [place] [address] Albumin BCP dye [Mass/Vol] 4.7 g/dL 3.4 - 5.0 g/dL [facility] Anion gap [Moles/Vol] 15 mmol/L 10 - 20 mmol/L [facility] Calcium [Mass/Vol] 9.6 mg/dL 8.6 - 10. 6 mg/dL [facility] Chloride [Moles/Vol] 98 mmol/L 98 - 107 mmol/L [facility] CO2 [Moles/Vol] 30 mmol/L 21 - 32 mmol/L [facility] Creatinine [Mass/Vol] 0.83 mg/dL 0.50 - 1.30 mg/dL [facility] GFR/1.73 sq M.predicted MDRD (S/P/Bld) [Vol rate/Area] - PINF [facility] Comment on above: Calculations of kourtney mated GFR are performed using the 2020 CKD-EPI Study Refit equation without the race variable for the IDMS-Traceable creatinine methods. https://jasn.asnjournals.org/content//ASN.73251607 88 Glucose [Mass/Vol] 147 mg/dL High 74 - 99 mg/dL [facility] Interpretation and review of laboratory results Abnormal [facility] Phosphate [Mass/Vol] 4.4 mg/dL 2.5 - 4.9 mg/dL [facility] Comment on above: MILD HEMOLYSIS DETEC RINKU. The result may be falsely elevated due to hemolysis or other interferents. Clinical correlation is recommended. Repeat testing may be considered. The performance characteristics of phosphorus testing in heparinized plasma have been validated by the individual laboratory site where testing is performed. Testing on heparinized plasma is not approved by the FDA; however, such approval is not necessary. Potassium [Moles/Vol] 4.8 mmol/L 3.5 - 5.3 mmol/L [facility] Comment on above: MILD HEMOLYSIS DETEC RINKU. The result may be falsely elevated due to hemolysis or other interferents. Clinical correlation is recommended. Repeat testing may be considered. Sodium [Moles/Vol] 138 mmol/L 136 - 145 mmol/L [facility] Urea nitrogen [Mass/Vol] 19 mg/dL 6 - 23 mg/dL [facility] XR CHEST 1 VIEWon 04-06-2023 XR CHEST 1 VIEW Interpreted By: Pepe Su, STUDY: XR CHEST 1 VIEW; 04/06/2023 6:42 am INDICATION: Signs/Symptoms:Pneumothorax monitoring. COMPARISON: Chest radiograph dated 04/05/2023 ACCESSION NUMBER(S): [id number] ORDERING CLINICIAN: JEANETTE HOPKINS FINDINGS: AP radiograph of the chest. The patient is now slightly rotated towards right. Stable positioning of right-sided pigtail chest tube. Tracheostomy cannula again seen in place. CARDIOMEDIASTINAL SILHOUETTE: The cardiomediastinal silhouette is persistently enlarged and grossly unchanged from prior, accounting for differences in patient positioning and inspiratory effort. LUNGS: Slightly better inspiratory effort resulting in improvement of bronchovascular crowding. There is no pulmonary edema. There is similar bibasilar presumed atelectasis. No pneumothorax seen on present study. ABDOMEN: No remarkable upper abdominal findings. BONES: No acute osseous abnormality. IMPRESSION: 1. No pneumothorax seen on present study. Stable positioning of right sided pigtail chest tube. 2. Similar bibasilar presumed atelectasis. Signed by: Pepe White 04/06/2023 7:57 AM Dictation workstation: [id number] Normal [facility] XR Chest Single viewon 04-06 1. Interval re-expan leila of the right lung status post pigtail catheter placement with suspected trace residual right apical pneumothorax. 2. Streaky bibasilar and right mid lung opacities favored to represent atelectasis. I personally reviewed the images/study and I agree with Samantha Bales DO's (administration vice president) findings as stated. This study was interpreted at [place], [place]. MACRO: None Signed by: Joe Bryan 04/06/2023 12:00 PM Dictation workstation: [id number] GERM[place]N MMODAL Interpreted By: Joe Jesus and Stephens Katherine STUDY: XR CHEST 1 VIEW; 04/05/2023 9:32 pm INDICATION: Signs/Symptoms:s/p right pigtail placement. COMPARISON: Same day chest radiograph. ACCESSION NUMBER(S): [id number] ORDERING CLINICIAN: SCOOBY SANTACRUZ FINDINGS: AP radiograph of the chest was provided. Interval placement of right-sided pigtail catheter. Tracheostomy cannula in place. Re-demonstration of subcutaneous emphysema overlying the neck. CARDIOMEDIASTINAL SILHOUETTE: Cardiomediastinal silhouette is stable in size and configuration. LUNGS: Interval re-expansion of the right lung with suspected trace residual pneumothorax. Streaky right midlung and bibasilar opacities favored to represent atelectasis. ABDOMEN: No remarkable upper abdominal findings. BONES: No acute osseous changes. MMODAL Joe Salazar M D - 04/06/2023 Interpreted By: Joe Bryan and Stephens Katherine STUDY: XR CHEST 1 VIEW; 04/05/2023 9:32 pm INDICATION: Signs/Symptoms:s/p right pigtail placement. COMPARISON: Same day chest radiograph. ACCESSION NUMBER(S): [id number] ORDERING CLINICIAN: SCOOBY SANTACRUZ FINDINGS: AP radiograph of the chest was provided. Interval placement of right-sided pigtail catheter. Tracheostomy cannula in place. Re-demonstration of subcutaneous emphysema overlying the neck. CARDIOMEDIASTINAL SILHOUETTE: Cardiomediastinal silhouette is stable in size and configuration. LUNGS: Interval re-expansion of the right lung with suspected trace residual pneumothorax. Streaky right midlung and bibasilar opacities favored to represent atelectasis. ABDOMEN: No remarkable upper abdominal findings. BONES: No acute osseous changes. IMPRESSION: 1. Interval re-expansion of the right lung status post pigtail catheter placement with suspected trace residual right apical pneumothorax. 2. Streaky bibasilar and right mid lung opacities favored to represent atelectasis. I personally reviewed the images/study and I agree with Samantha Bales DO's (administration vice president) findings as stated. This study was interpreted at [place], [place]. MACRO: None Signed by: Joe Bryan 04/06/2023 12:00 PM Dictation workstation: [id number] [facility] Work Phone: [facility] Work Phone: 1. Large right-sided pneumothorax with collapse of the right lung. Mild leftward mediastinal shift raising concern for tension pneumothorax. Suspect pneumomediastinum. 2. Large volume subcutaneous emphysema in the lateral neck bilaterally with tracheostomy cannula. Findings were discussed in person with member of the treatment team but did not obtain providers name. Critical finding chatted to ordering provider as well. I personally reviewed the images/study and I agree with the findings as stated by Emmie Tamayo MD. This study was interpreted at [place], [place]. MACRO: Emmie Tamayo discussed the significance and urgency of this critical finding by secure chat with PRASAD ALBERTS on 04/05/2023 at 8:18 pm. (-RCF-) Findings: Pneumothorax. Signed by: Joe Bryan 04/06/2023 11:19 AM Dictation workstation: [id number] [facility] MMODAL Interpreted By: Joe Jesus, Chitra Olea STUDY: XR CHEST 1 VIEW; 04/05/2023 7:43 pm INDICATION: Signs/Symptoms:postop after trach, crepitus to chest. COMPARISON: Radiograph 04/05/2023 ACCESSION NUMBER(S): [id number] ORDERING CLINICIAN: PRASAD ALBERTS FINDINGS: AP radiograph of the chest was provided. Tracheostomy cannula is seen. Large volume subcutaneous emphysema in the lateral neck bilaterally. CARDIOMEDIASTINAL SILHOUETTE: Cardiomediastinal silhouette is normal in size and configuration. Mild leftward mediastinal shift. LUNGS: Large right-sided pneumothorax with collapse of the right lung. ABDOMEN: No remarkable upper abdominal findings. BONES: No acute osseous changes. MMODAL O'Joe Stewart M D - 04/06/2023 Interpreted By: Joe Bryan and Tippareddy Charit STUDY: XR CHEST 1 VIEW; 04/05/2023 7:43 pm INDICATION: Signs/Symptoms:postop after trach, crepitus to chest. COMPARISON: Radiograph 04/05/2023 ACCESSION NUMBER(S): [id number] ORDERING CLINICIAN: PRASAD ALBERTS FINDINGS: AP radiograph of the chest was provided. Tracheostomy cannula is seen. Large volume subcutaneous emphysema in the lateral neck bilaterally. CARDIOMEDIASTINAL SILHOUETTE: Cardiomediastinal silhouette is normal in size and configuration. Mild leftward mediastinal shift. LUNGS: Large right-sided pneumothorax with collapse of the right lung. ABDOMEN: No remarkable upper abdominal findings. BONES: No acute osseous changes. IMPRESSION: 1. Large right-sided pneumothorax with collapse of the right lung. Mild leftward mediastinal shift raising concern for tension pneumothorax. Suspect pneumomediastinum. 2. Large volume subcutaneous emphysema in the lateral neck bilaterally with tracheostomy cannula. Findings were discussed in person with member of the treatment team but did not obtain providers name. Critical finding chatted to ordering provider as well. I personally reviewed the images/study and I agree with the findings as stated by Emmie Tamayo MD. This study was interpreted at [place], [place]. MACRO: Emmie Tamayo discussed the significance and urgency of this critical finding by secure chat with PRASAD ALBERTS on 04/05/2023 at 8:18 pm. (-RCF-) Findings: Pneumothorax. Signed by: Joe Bryan 04/06/2023 11:19 AM Dictation workstation: [id number] [facility] Work Phone: 1. No pneumothorax s een on present study. Stable positioning of right sided pigtail chest tube. 2. Similar bibasilar presumed atelectasis. Signed by: Pepe White 04/06/2023 7:57 AM Dictation workstation: [id number] MMODAL Interpreted By: Pepe Su, STUDY: XR CHEST 1 VIEW; 04/06/2023 6:42 am INDICATION: Signs/Symptoms:Pneumothorax monitoring. COMPARISON: Chest radiograph dated 04/05/2023 ACCESSION NUMBER(S): [id number] ORDERING CLINICIAN: JEANETTE HOPKINS FINDINGS: AP radiograph of the chest. The patient is now slightly rotated towards right. Stable positioning of right-sided pigtail chest tube. Tracheostomy cannula again seen in place. CARDIOMEDIASTINAL SILHOUETTE: The cardiomediastinal silhouette is persistently enlarged and grossly unchanged from prior, accounting for differences in patient positioning and inspiratory effort. LUNGS: Slightly better inspiratory effort resulting in improvement of bronchovascular crowding. There is no pulmonary edema. There is similar bibasilar presumed atelectasis. No pneumothorax seen on present study. ABDOMEN: No remarkable upper abdominal findings. BONES: No acute osseous abnormality. MMODAL Pepe White MD - 04/06/2023 Interpreted By: Pepe White, STUDY: XR CHEST 1 VIEW; 04/06/2023 6:42 am INDICATION: Signs/Symptoms:Pneumothorax monitoring. COMPARISON: Chest radiograph dated 04/05/2023 ACCESSION NUMBER(S): [id number] ORDERING CLINICIAN: JEANETTE HOPKINS FINDINGS: AP radiograph of the chest. The patient is now slightly rotated towards right. Stable positioning of right-sided pigtail chest tube. Tracheostomy cannula again seen in place. CARDIOMEDIASTINAL SILHOUETTE: The cardiomediastinal silhouette is persistently enlarged and grossly unchanged from prior, accounting for differences in patient positioning and inspiratory effort. LUNGS: Slightly better inspiratory effort resulting in improvement of bronchovascular crowding. There is no pulmonary edema. There is similar bibasilar presumed atelectasis. No pneumothorax seen on present study. ABDOMEN: No remarkable upper abdominal findings. BONES: No acute osseous abnormality. IMPRESSION: 1. No pneumothorax seen on present study. Stable positioning of right sided pigtail chest tube. 2. Similar bibasilar presumed atelectasis. Signed by: Pepe White 04/06/2023 7:57 AM Dictation workstation: [id number] [facility] Work Phone: [facility] Work Phone: 1. Linear lucency of the right lung base which may represent trace residual pneumothorax. The right lung apex is incompletely assessed secondary to overlying medical devices. 2. Similar bibasilar atelectasis. 3. Medical devices as described above. I personally reviewed the images/study and I agree with Samantha Bales DO's (administration vice president) findings as stated. This study was interpreted at [place], [place]. MACRO: None Signed by: Pepe White 04/06/2023 7:56 AM Dictation workstation: [id number] MMODAL Interpreted By: Pepe Su and Stephens Katherine STUDY: XR CHEST 1 VIEW; 04/05/2023 11:50 pm INDICATION: Signs/Symptoms:Pneumothorax . COMPARISON: Same day chest radiograph ACCESSION NUMBER(S): [id number] ORDERING CLINICIAN: AMY GAMBINO FINDINGS: AP radiograph of the chest was provided. Right-sided pigtail chest tube in similar position. Tracheostomy cannula again seen in place, satisfactory positioning. Similar subcutaneous emphysema overlying visualized neck. CARDIOMEDIASTINAL SILHOUETTE: Cardiomediastinal silhouette appears enlarged, again exaggerated by low lung volumes and AP projection. LUNGS: Very poor inspiratory effort contributing to bronchovascular crowding. Linear lucency of the right lung base may represent residual trace pneumothorax. Difficult to assess right lung apex secondary to overlying medical devices. Streaky mid to basilar opacities favored to represent atelectasis. ABDOMEN: No remarkable upper abdominal findings. BONES: No acute osseous changes. [facility] Pepe White MD - 04/06/2023 Interpreted By: Pepe White and Stephens Katherine STUDY: XR CHEST 1 VIEW; 04/05/2023 11:50 pm INDICATION: Signs/Symptoms:Pneumothorax . COMPARISON: Same day chest radiograph ACCESSION NUMBER(S): [id number] ORDERING CLINICIAN: AMY GAMBINO FINDINGS: AP radiograph of the chest was provided. Right-sided pigtail chest tube in similar position. Tracheostomy cannula again seen in place, satisfactory positioning. Similar subcutaneous emphysema overlying visualized neck. CARDIOMEDIASTINAL SILHOUETTE: Cardiomediastinal silhouette appears enlarged, again exaggerated by low lung volumes and AP projection. LUNGS: Very poor inspiratory effort contributing to bronchovascular crowding. Linear lucency of the right lung base may represent residual trace pneumothorax. Difficult to assess right lung apex secondary to overlying medical devices. Streaky mid to basilar opacities favored to represent atelectasis. ABDOMEN: No remarkable upper abdominal findings. BONES: No acute osseous changes. IMPRESSION: 1. Linear lucency of the right lung base which may represent trace residual pneumothorax. The right lung apex is incompletely assessed secondary to overlying medical devices. 2. Similar bibasilar atelectasis. 3. Medical devices as described above. I personally reviewed the images/study and I agree with Samantha Bales DO's (administration vice president) findings as stated. This study was interpreted at [place], [place]. MACRO: None Signed by: Pepe White 04/06/2023 7:56 AM Dictation workstation: [id number] [facility] Work Phone: Radiology Study observation (narrative) [facility] Work Phone: XR Chest Single viewOrdered By: Joe Salazar on 04-06-2023 [facility] Work Phone: XR Chest Single viewOrdered By: Pepe White on 04-06-2023 [facility] Work Phone: Blood type and Indirect anti body screen panel (Bld)on 04-05-2023 ABO group Nom (Bld) O [facility] Blood group antibody screen Ql Negative [facility] D Ag Ql (Bld) Positive [facility] ABO group Nom (Bld) O Normal [facility] Comment on above: Performed By: #### 3 4532-2 #### CHYNA Neil ([id number]) [facility] ([facility]) [address] [place] [address] Blood group antibody screen Ql Negative [facility] Comment on above: Performed By: #### 3 4532-2 #### CHYNA Neil ([id number]) [facility] ([facility]) [address] [place] [address] D Ag Ql (Bld) Positive [facility] Comment on above: Performed By: #### 3 4532-2 #### CHYNA Neil ([id number]) [facility] ([facility]) [address] [place] [address] CBC W Auto Differential pane l (Bld)on 04-05-2023 Basophils (Bld) [#/Vol] 0.07 10*3/uL [facility] Basophils/100 WBC (Bld) 0.8 % 0.0 - 2.0 % [facility] Eosinophils (Bld) [#/Vol] 0.09 10*3/uL [facility] Eosinophils/100 WBC (Bld) 1.1 % 0.0 - 6.0 % [facility] Erythrocyte distribution width (RBC) [Ratio] 11.8 % 11.5 - 14.5 % [facility] Hematocrit (Bld) [Volume fraction] 47.1 % 41.0 - 52.0 % [facility] Hemoglobin (Bld) [Mass/Vol] 16.9 g/dL 13.5 - 17.5 g/dL [facility] Immature granulocytes (Bld) [#/Vol] 0.03 10*3/uL [facility] Immature granulocytes/100 WBC (Bld) 0.4 % 0.0 - 0.9 % [facility] Comment on above: Immature Granulocyte Count (IG) includes promyelocytes, myelocytes and metamyelocytes but does not include bands. Percent differential counts (%) should be interpreted in the context of the absolute cell counts (cells/UL). Lymphocytes (Bld) [#/Vol] 1.62 10*3/uL [facility] Lymphocytes/100 WBC (Bld) 19.1 % 13.0 - 44.0 % [facility] MCH (RBC) [Entitic mass] 30.5 pg 26.0 - 34.0 pg [facility] MCHC (RBC) [Mass/Vol] 35.9 g/dL 32.0 - 36.0 g/dL [facility] MCV (RBC) [Entitic vol] 85 fL 80 - 100 fL [facility] Monocytes (Bld) [#/Vol] 0.73 10*3/uL [facility] Monocytes/100 WBC (Bld) 8.6 % 2.0 - 10.0 % [facility] Neutrophils (Bld) [#/Vol] 5.96 10*3/uL [facility] Comment on above: Percent differential counts (%) should be interpreted in the context of the absolute cell counts (cells/uL). Neutrophils/100 WBC (Bld) 70.0 % 40.0 - 80.0 % [facility] Nucleated RBC/100 WBC (Bld) [Ratio] 0.0 % [facility] Platelets (Bld) [#/Vol] 278 10*3/uL [facility] RBC (Bld) [#/Vol] 5.54 10*6/uL [facility] WBC (Bld) [#/Vol] 8.5 10*3/uL [facility] Basophils (Bld) [#/Vol] 0.07 x10*3/uL Normal 0.00-0.10 [facility] Comment on above: Performed By: #### 5 7021-8 #### CHYNA Neil ([id number]) [facility] ([facility]) [address] [place] [address] Basophils/100 WBC (Bld) 0.8 % Normal 0.0-2.0 [facility] Comment on above: Performed By: #### 5 7021-8 #### CHYNA Neil ([id number]) [facility] ([facility]) [address] [place] [address] Eosinophils (Bld) [#/Vol] 0.09 x10*3/uL Normal 0.00-0.70 [facility] Comment on above: Performed By: #### 5 7021-8 #### CHYNA Neil ([id number]) [facility] ([facility]) [id number] [place] [address] Eosinophils/100 WBC (Bld) 1.1 % Normal 0.0-6.0 [facility] Comment on above: Performed By: #### 5 7021-8 #### CHYNA Neil ([id number]) [facility] ([facility]) [address] [place] [address] Erythrocyte distribution width (RBC) [Ratio] 11.8 % Normal 11.5-14.5 [facility] Comment on above: Performed By: #### 5 7021-8 #### CHYNA Neil ([id number]) [facility] ([facility]) [address] [place] [address] Hematocrit (Bld) [Volume fraction] 47.1 % Normal 41.0-52.0 [facility] Comment on above: Performed By: #### 5 7021-8 #### CHYNA Neil ([id number]) [facility] ([facility]) [address] [place] [address] 19270 Hemoglobin (Bld) [Mass/Vol] 16.9 g/dL Normal 13.5-17.5 [facility] Comment on above: Performed By: #### 5 7021-8 #### CHYNA EDWARDS L ([id number]) [facility] ([facility]) [address] [place] [address] Immature granulocytes (Bld) [#/Vol] 0.03 x10*3/uL Normal 0.00-0.70 [facility] Comment on above: Performed By: #### 5 7021-8 #### CHYNA Neil ([id number]) [facility] ([facility]) [address] [place] [address]608 Immature granulocytes/100 WBC (Bld) 0.4 % Normal 0.0-0.9 [facility] Comment on above: Result Comment: Nancie ture Granulocyte Count (IG) includes promyelocytes, myelocytes and metamyelocytes but does not include bands. Percent differential counts (%) should be interpreted in the context of the absolute cell counts (cells/UL). Performed By: #### 5 7021-8 #### CHYNA Neil ([id number]) [facility] ([facility]) [address] [place] [address]88[address] Lymphocytes (Bld) [#/Vol] 1.62 x10*3/uL Normal 1.20-4.80 [facility] Comment on above: Performed By: #### 5 7021-8 #### CHYNA Neil ([id number]) [facility] ([facility]) [address] [place] [address] 207[address] Lymphocytes/100 WBC (Bld) 19.1 % Normal 13.0-44.0 [facility] Comment on above: Performed By: #### 5 7021-8 #### CHYNA EDWARDS L ([id number]) [facility] ([facility]) [address] [place] [address] 66114 MCH (RBC) [Entitic mass] 30.5 pg Normal 26.0-34.0 [facility] Comment on above: Performed By: #### 5 7021-8 #### CHYNA Neil ([id number]) [facility] ([facility]) [address] [place] [address] 90069 MCHC (RBC) [Mass/Vol] 35.9 g/dL Normal 32.0-36.0 [facility] Comment on above: Performed By: #### 5 7021-8 #### CHYNA LESLIEMOCK L ([id number]) [facility] ([facility]) [address] [place] [address]23 MCV (RBC) [Entitic vol] 85 fL Normal 80-100 [facility] Comment on above: Performed By: #### 5 7021-8 #### CHYNA Neil ([id number]) [facility] ([facility]) [address] [place] [address] [place] [address] Monocytes (Bld) [#/Vol] 0.73 x10*3/uL Normal 0.10-1.00 [facility] Comment on above: Performed By: #### 5 7021-8 #### CHYNA RENETZER L ([id number]) [facility] ([facility]) [address] [place] [address] Monocytes/100 WBC (Bld) 8.6 % Normal 2.0-10.0 [facility] Comment on above: Performed By: #### 5 7021-8 #### CHYNA LESLIEMOSILVANAER L ([id number]) [facility] ([facility]) [address] [place] [address] 23029 Neutrophils (Bld) [#/Vol] 5.96 x10*3/uL Normal 1.20-7.70 [facility] Comment on above: Result Comment: Perc ent differential counts (%) should be interpreted in the context of the absolute cell counts (cells/uL). Performed By: #### 5 7021-8 #### CHYNA EDWARDS L ([id number]) [facility] ([facility]) [address] [place] [address] 34232 Neutrophils/100 WBC (Bld) 70.0 % Normal 40.0-80.0 [facility] Comment on above: Performed By: #### 5 7021-8 #### CHYNA LESLIEMOCK L ([id number]) [facility] ([facility]) [address] [place] [address] 14467 Nucleated RBC/100 WBC (Bld) [Ratio] 0.0 /100 WBCs Normal 0.0-0.0 [facility] Comment on above: Performed By: #### 5 7021-8 #### CHYNA EDWARDS L ([id number]) [facility] ([facility]) [address] [place] [address] 45991 Platelets (Bld) [#/Vol] 278 x10*3/uL Normal 150-450 [facility] Comment on above: Performed By: #### 5 7021-8 #### CHYNA LESLIEMOTZORA L ([id number]) [facility] ([facility]) [address] [place] [address] 72950 RBC (Bld) [#/Vol] 5.54 x10*6/uL Normal 4.50-5.90 [facility] Comment on above: Performed By: #### 5 7021-8 #### CHYNA Neil ([id number]) [facility] ([facility]) [address] [place] [address] 13392 WBC (Bld) [#/Vol] 8.5 x10*3/uL Normal 4.4-11.3 [facility] Comment on above: Performed By: #### 5 7021-8 #### CHYNA Neil ([id number]) [facility] ([facility]) [address] [place] [address] 70725 CBC panel Auto (Bld)on 04-05 Erythrocyte distribution width (RBC) [Ratio] 12.1 % Normal 11.5-14.5 [facility] Comment on above: Performed By: #### 5 8410-2 #### CHYNA Neil ([id number]) [facility] ([facility]) [address] [place] [address] 85978 Hematocrit (Bld) [Volume fraction] 47.2 % Normal 41.0-52.0 [facility] Comment on above: Performed By: #### 5 8410-2 #### CHYNA Neil ([id number]) [facility] ([facility]) [address] [place] [address] 61967 Hemoglobin (Bld) [Mass/Vol] 16.4 g/dL Normal 13.5-17.5 [facility] Comment on above: Performed By: #### 5 8410-2 #### CHYNA Neil ([id number]) [facility] ([facility]) [address] [place] [address] 51641 MCH (RBC) [Entitic mass] 30.8 pg Normal 26.0-34.0 [facility] Comment on above: Performed By: #### 5 8410-2 #### CHYNA Neil ([id number]) [facility] ([facility]) [address] [place] [address] MCHC (RBC) [Mass/Vol] 34.7 g/dL Normal 32.0-36.0 [facility] Comment on above: Performed By: #### 5 8410-2 #### CHYNA Neil ([id number]) [facility] ([facility]) [address] [place] [address] 87474 MCV (RBC) [Entitic vol] 89 fL Normal 80-100 [facility] Comment on above: Performed By: #### 5 8410-2 #### CHYNA Neil ([id number]) [facility] ([facility]) [address] [place] [address] 30814 Nucleated RBC/100 WBC (Bld) [Ratio] 0.0 /100 WBCs Normal 0.0-0.0 [facility] Comment on above: Performed By: #### 5 8410-2 #### CHYNA Neil ([id number]) [facility] ([facility]) [address] [place] [address] 73968 Platelets (Bld) [#/Vol] 267 x10*3/uL Normal 150-450 [facility] Comment on above: Performed By: #### 5 8410-2 #### CHYNA Neil ([id number]) [facility] ([facility]) [address] [place] [address] 92054 RBC (Bld) [#/Vol] 5.33 x10*6/uL Normal 4.50-5.90 [facility] Comment on above: Performed By: #### 5 8410-2 #### CHYNA Neil ([id number]) [facility] ([facility]) [address] [place] [address] 73056 WBC (Bld) [#/Vol] 13.0 x10*3/uL High 4.4-11.3 [facility] Comment on above: Performed By: #### 5 8410-2 #### CHYNA Neil ([id number]) [facility] ([facility]) [address] [place] [id number] CT Neck W contrast Enriqueta 12-2 There is nonspecific narrowing of the airway [...] Guillermo Martinez 04/05/2023 3:37 PM Dictation workstation: [id number] [facility] Interpreted By: Guillermo Rowland, STUDY: CT SOFT TISSUE NECK W IV CONTRAST; 04/05/2023 2:49 pm INDICATION: Signs/Symptoms:concern for airway mass. COMPARISON: None. ACCESSION NUMBER(S): [id number] ORDERING CLINICIAN: ARIS SLAUGHTER TECHNIQUE: Axial CT [...] noted at the C5/6 and C6/7 levels. [facility] Guillermo Martinez M D - 04/05/2023 Interpreted By: Guillermo Martinez, STUDY: CT SOFT TISSUE NECK W IV CONTRAST; 04/05/2023 2:49 pm INDICATION: Signs/Symptoms:concern for airway mass. COMPARISON: None. ACCESSION NUMBER(S): [id number] ORDERING CLINICIAN: ARIS SLAUGHTER TECHNIQUE: Axial CT [...] noted at the C5/6 and C6/7 levels. IMPRESSION: There is nonspecific narrowing of the airway [...] Guillermo Martinez 04/05/2023 3:37 PM Dictation workstation: [id number] [facility] Work Phone: Radiology Study observation (narrative) [facility] Work Phone: CT Neck W contrast IVOrdered By: Guillermo Martinez on 04-05-2023 [facility] Work Phone: CT SOFT TISSUE NECK W IV CON TRASTon 04-05-2023 CT SOFT TISSUE NECK W IV CONTRAST Interpreted By: Guillermo Martinez, STUDY: CT SOFT TISSUE NECK W IV CONTRAST; 04/05/2023 2:49 pm INDICATION: Signs/Symptoms:concern for airway mass. COMPARISON: None. ACCESSION NUMBER(S): [id number] ORDERING CLINICIAN: ARIS SLAUGHTER TECHNIQUE: Axial CT [...] noted at the C5/6 and C6/7 levels. IMPRESSION: There is nonspecific narrowing of the airway [...] Guillermo Martinez 04/05/2023 3:37 PM Dictation workstation: [id number] Normal [facility] Calcium.ionizedon 04-05-2023 Calcium.ionized (Bld) [Moles/Vol] 1.15 mmol/L Normal 1.1-1.33 [facility] Comment on above: Result Comment: The performance characteristics of ionized calcium tested in heparinized plasma or serum have been validated by the individual laboratory site where testing is performed. Testing on heparinized plasma or serum is not approved by the FDA; however, such approval is not necessary. Performed By: #### 1 994-3 ####CHYNA Neil ([id number])[facility] ([facility])[address] [place] [address] Chest Tube Insertionon 04-05 Scooby Santacruz MD 04/05/2023 10:22 PM Chest Tube Insertion Date/Time: 04/05/2023 9:58 PM Performed by: Scooby Santacruz MD Authorized by: Kirsten Clarke MD Consent: Consent obtained: Written Consent given by: Spouse and patient Risks discussed: Damage to surrounding structures, bleeding, infection, nerve damage and pain Alternatives discussed: No treatment, delayed treatment and alternative treatment [place] protocol: Procedure explained and questions answered to [...] R lateral Scalpel size: 11 Tube size (German): 14 Fr pigtail. Ultrasound guidance: no Tension [facility] Work Phone: Chest Tube InsertionOrdered By: Kirsten Clarke on 04-05-2023 [facility] Work Phone: Comprehensive metabolic 2000 panelon 04-05-2023 Albumin BCP dye [Mass/Vol] 4.7 g/dL 3.4 - 5.0 g/dL [facility] ALP [Catalytic activity/Vol] 60 U/L 33 - 136 U/L [facility] ALT With P-5'-P [Catalytic activity/Vol] 22 U/L 10 - 52 U/L [facility] Comment on above: Patients treated wit h Sulfasalazine may generate falsely decreased results for ALT. Anion gap [Moles/Vol] 12 mmol/L 10 - 20 mmol/L [facility] AST With P-5'-P [Catalytic activity/Vol] 18 U/L 9 - 39 U/L [facility] Bilirubin [Mass/Vol] 0.6 mg/dL 0.0 - 1.2 mg/dL [facility] Calcium [Mass/Vol] 9.9 mg/dL 8.6 - 10. 6 mg/dL [facility] Chloride [Moles/Vol] 99 mmol/L 98 - 107 mmol/L [facility] CO2 [Moles/Vol] 30 mmol/L 21 - 32 mmol/L [facility] Creatinine [Mass/Vol] 0.73 mg/dL 0.50 - 1.30 mg/dL [facility] GFR/1.73 sq M.predicted MDRD (S/P/Bld) [Vol rate/Area] - PINF [facility] Comment on above: Calculations of kourtney mated GFR are performed using the 2020 CKD-EPI Study Refit equation without the race variable for the IDMS-Traceable creatinine methods. https://jasn.asnjournals.org/content/early//ASN.99939049 88 Glucose [Mass/Vol] 109 mg/dL High 74 - 99 mg/dL [facility] Interpretation and review of laboratory results Abnormal [facility] Potassium [Moles/Vol] 3.8 mmol/L 3.5 - 5.3 mmol/L [facility] Protein [Mass/Vol] 7.3 g/dL 6.4 - 8.2 g/dL [facility] Sodium [Moles/Vol] 137 mmol/L 136 - 145 mmol/L [facility] Urea nitrogen [Mass/Vol] 14 mg/dL 6 - 23 mg/dL [facility] Albumin BCP dye [Mass/Vol] 4.7 g/dL Normal 3.4-5.0 [facility] Comment on above: Performed By: #### 2 4323-8 #### CHYNA Neil ([id number]) [facility] ([facility]) [address] [place] [address] ALP [Catalytic activity/Vol] 60 U/L Normal 33-136 [facility] Comment on above: Performed By: #### 2 4323-8 #### CHYNA Neil ([id number]) [facility] ([facility]) [address] [place] [address] ALT With P-5'-P [Catalytic activity/Vol] 22 U/L Normal 10-52 [facility] Comment on above: Result Comment: Rafia ents treated with Sulfasalazine may generate falsely decreased results for ALT. Performed By: #### 2 4323-8 #### CHYNA EDWARDS L ([id number]) [facility] ([facility]) [address] [place] [address] Anion gap [Moles/Vol] 12 mmol/L Normal 10-20 [facility] Comment on above: Performed By: #### 2 4323-8 #### CHYNA Neil ([id number]) [facility] ([facility]) [address] [place] [address] AST With P-5'-P [Catalytic activity/Vol] 18 U/L Normal 9-39 [facility] Comment on above: Performed By: #### 2 4323-8 #### CHYNA Neil ([id number]) [facility] ([facility]) [address] [place] [address] Bilirubin [Mass/Vol] 0.6 mg/dL Normal 0.0-1.2 [facility] Comment on above: Performed By: #### 2 4323-8 #### CHYNA EDWARDS L ([id number]) [facility] ([facility]) [address] [place] [address] Calcium [Mass/Vol] 9.9 mg/dL Normal 8.6-10.6 [facility] Comment on above: Performed By: #### 2 4323-8 #### CHYNA EDWARDS L ([id number]) [facility] ([facility]) [address] [place] [address] Chloride [Moles/Vol] 99 mmol/L Normal 98-107 [facility] Comment on above: Performed By: #### 2 4323-8 #### CHYNA Neil ([id number]) [facility] ([facility]) [address] [place] [address] CO2 [Moles/Vol] 30 mmol/L Normal 21-32 [facility] Comment on above: Performed By: #### 2 4323-8 #### CHYNA Neil ([id number]) [facility] ([facility]) [address] [place] [address] Creatinine [Mass/Vol] 0.73 mg/dL Normal 0.50-1.30 [facility] Comment on above: Performed By: #### 2 4323-8 #### CHYNA Neil ([id number]) [facility] ([facility]) [address] [place] [address] GFR/1.73 sq M.predicted MDRD (S/P/Bld) [Vol rate/Area] mL/min/{1.73_m2} Normal >60 [facility] Comment on above: Result Comment: Calc ulations of estimated GFR are performed using the 2020 CKD-EPI Study Refit equation without the race variable for the IDMS-Traceable creatinine methods. https://jasn.asnjournals.org/content/early//ASN.91306564 88 Performed By: #### 2 4323-8 #### CHYNA Neil ([id number]) [facility] ([facility]) [address] [place] [address] Glucose [Mass/Vol] 109 mg/dL High 74-99 [facility] Comment on above: Performed By: #### 2 4323-8 #### CHYNA Neil ([id number]) [facility] ([facility]) [address] [place] [address] Potassium [Moles/Vol] 3.8 mmol/L Normal 3.5-5.3 [facility] Comment on above: Performed By: #### 2 4323-8 #### CHYNA Neil ([id number]) [facility] ([facility]) [address] [place] [address] Protein [Mass/Vol] 7.3 g/dL Normal 6.4-8.2 [facility] Comment on above: Performed By: #### 2 4323-8 #### CHYNA Neil ([id number]) [facility] ([facility]) [address] [place] [address] Sodium [Moles/Vol] 137 mmol/L Normal 136-145 [facility] Comment on above: Performed By: #### 2 4323-8 #### CHYNA Neil ([id number]) [facility] ([facility]) [address] [place] [address] Urea nitrogen [Mass/Vol] 14 mg/dL Normal 6-23 [facility] Comment on above: Performed By: #### 2 4323-8 #### CHYNA Neil ([id number]) [facility] ([facility]) [address] [place] [address] ECG 12-LEADon 04-05-2023 ECG 12-LEAD Ventricular Rate 104 Atrial Rate 104 P-R Interval 156 QRS Duration 92 Q-T Interval 346 QTC Calculation(Bazett) 454 P [place] 35 R [place] 3 T [place] 59 QRS Count 17 Q Onset 217 P Onset 139 P Offset 188 T Offset 390 QTC Fredericia 415 Diagnosis Sinus tachycardia Otherwise normal ECG No previous ECGs available See ED provider note for full interpretation and clinical correlation Confirmed by Colby Stinson ([id number]) on 04/06/2023 4:30:02 AM Normal [facility] Gas and Carbon monoxide and Electrolytes panel (BldA)on 04-05-2023 Anion gap 4 (BldA) [Moles/Vol] 6 Low [facility] Base excess Calc (Bld) [Moles/Vol] 5.3 mmol/L High -2.0 - 3.0 mmol/L [facility] Calcium.ionized (BldA) [Moles/Vol] 1.17 mmol/L 1.10 - 1.33 mmol/L [facility] Chloride (BldA) [Moles/Vol] 101 mmol/L 98 - 107 mmol/L [facility] CO2 (Bld) [Partial pressure] 48 mm[Hg] High [facility] Glucose [Mass/Vol] 165 mg/dL High 74 - 99 mg/dL [facility] HCO3 (Bld) [Moles/Vol] 31.1 mmol/L High 22.0 - 26.0 mmol/L [facility] Hematocrit Est (Bld) [Volume fraction] 51.0 % 41.0 - 52.0 % [facility] Hemoglobin (Bld) [Mass/Vol] 17.0 g/dL 13.5 - 17.5 g/dL [facility] Inhaled oxygen concentration 70 % [facility] Interpretation and review of laboratory results Abnormal [facility] Lactate (BldA) [Moles/Vol] 1.2 mmol/L 0.4 - 2.0 mmol/L [facility] Oxygen (Bld) [Partial pressure] 100 mm[Hg] High [facility] Oxyhemoglobin (BldA) [Mass fraction] 96.6 % 94.0 - 98.0 % [facility] pH (Bld) 7.42 [pH] 7.38 - 7.42 pH [facility] Potassium (BldA) [Moles/Vol] 4.8 mmol/L 3.5 - 5.3 mmol/L [facility] Sodium (BldA) [Moles/Vol] 133 mmol/L Low 136 - 145 mmol/L [facility] Anion gap 4 (BldA) [Moles/Vol] 6 mmo/L Low 10-25 [facility] Comment on above: Performed By: #### 9 3685-6 #### CHYNA Neil ([id number]) [facility] ([facility]) [address] [place] [address] Base excess Calc (Bld) [Moles/Vol] 5.3 mmol/L High -2.0-3.0 [facility] Comment on above: Performed By: #### 9 3685-6 #### CHYNA Neil ([id number]) [facility] ([facility]) [address] [place] [address] Calcium.ionized (BldA) [Moles/Vol] 1.17 mmol/L Normal 1.10-1.33 [facility] Comment on above: Performed By: #### 9 3685-6 #### CHYNA Neil ([id number]) [facility] ([facility]) [address] [place] [address] Chloride (BldA) [Moles/Vol] 101 mmol/L Normal 98-107 [facility] Comment on above: Performed By: #### 9 7645-6 #### CHYNA Neil ([id number]) [facility] ([facility]) [address] [place] [address] CO2 (Bld) [Partial pressure] 48 mm Hg High 38-42 [facility] Comment on above: Performed By: #### 9 82056 #### CHYNA Neil ([id number]) [facility] ([facility]) [address] [place] [address] Glucose [Mass/Vol] 165 mg/dL High 74-99 [facility] Comment on above: Performed By: #### 9 0902-6 #### CHYNA Neil ([id number]) [facility] ([facility]) [address] [place] [address] HCO3 (Bld) [Moles/Vol] 31.1 mmol/L High 22.0-26.0 [facility] Comment on above: Performed By: #### 9 1025-6 #### CHYNA Neil ([id number]) [facility] ([facility]) [address] [place] [address] Hematocrit Est (Bld) [Volume fraction] 51.0 % Normal 41.0-52.0 [facility] Comment on above: Performed By: #### 9 4595-6 #### CHYNA Neil ([id number]) [facility] ([facility]) [address] [place] [address]44[address] Hemoglobin (Bld) [Mass/Vol] 17.0 g/dL Normal 13.5-17.5 [facility] Comment on above: Performed By: #### 9 2289-6 #### CHYNA Neil ([id number]) [facility] ([facility]) [address] [place] [address]87[address] Inhaled oxygen concentration 70 % Normal [facility] Comment on above: Performed By: #### 9 3685-6 #### CHYNA Neil ([id number]) [facility] ([facility]) [address] [place] [address] Lactate (BldA) [Moles/Vol] 1.2 mmol/L Normal 0.4-2.0 [facility] Comment on above: Performed By: #### 9 3685-6 #### CHYNA Neil ([id number]) [facility] ([facility]) [address] [place] [address] Oxygen (Bld) [Partial pressure] 100 mm Hg High 85-95 [facility] Comment on above: Performed By: #### 9 3685-6 #### CHYNA Neil ([id number]) [facility] ([facility]) [address] [place] [address]10[address] Oxyhemoglobin (BldA) [Mass fraction] 96.6 % Normal 94.0-98.0 [facility] Comment on above: Performed By: #### 9 3685-6 #### CHYNA eNil ([id number]) [facility] ([facility]) [address] [place] [address] 23164 pH (Bld) 7.42 [pH] Normal 7.38-7.42 [facility] Comment on above: Performed By: #### 9 3685-6 #### CHYNA Neil ([id number]) [facility] ([facility]) [address] [place] [address] Potassium (BldA) [Moles/Vol] 4.8 mmol/L Normal 3.5-5.3 [facility] Comment on above: Performed By: #### 9 2465-6 #### CHYNA Neil ([id number]) [facility] ([facility]) [address] [place] [address] Sodium (BldA) [Moles/Vol] 133 mmol/L Low 136-145 [facility] Comment on above: Performed By: #### 9 3685-6 #### CHYNA Neil ([id number]) [facility] ([facility]) [address] [place] [address] Gas panel (BldV)on 3 Anion gap 4 (BldV) [Moles/Vol] 8.0 mmol/L Low 10.0 - 25.0 mmol/L [facility] Base excess Calc (BldV) [Moles/Vol] 6.9 mmol/L High -2.0 - 3.0 mmol/L [facility] Calcium.ionized (BldV) [Moles/Vol] 1.14 mmol/L 1.10 - 1.33 mmol/L [facility] Chloride (BldV) [Moles/Vol] 99 mmol/L 98 - 107 mmol/L [facility] CO2 (BldV) [Partial pressure] 48 mm[Hg] [facility] Glucose [Mass/Vol] 116 mg/dL High 74 - 99 mg/dL [facility] HCO3 (Bld) [Moles/Vol] 32.6 mmol/L High 22.0 - 26.0 mmol/L [facility] Hematocrit Est (Bld) [Volume fraction] 52.0 % 41.0 - 52.0 % [facility] Hemoglobin (Bld) [Mass/Vol] 17.3 g/dL 13.5 - 17.5 g/dL [facility] Interpretation and review of laboratory results Abnormal [facility] Lactate (BldV) [Moles/Vol] 0.9 mmol/L 0.4 - 2.0 mmol/L [facility] Oxygen (BldV) [Partial pressure] 56 mm[Hg] High [facility] Oxygen saturation in Venous blood 89 % High 45 - 75 % [facility] Oxyhemoglobin (BldV) [Mass fraction] 87.1 % High 45.0 - 75.0 % [facility] pH (BldV) 7.44 [pH] High 7.33 - 7.43 pH [facility] Potassium (BldV) [Moles/Vol] 4.1 mmol/L 3.5 - 5.3 mmol/L [facility] Sodium (BldV) [Moles/Vol] 135 mmol/L Low 136 - 145 mmol/L [facility] Anion gap 4 (BldV) [Moles/Vol] 8.0 mmol/L Low 10.0-25.0 [facility] Comment on above: Performed By: #### 2 4339-4 #### CHYNA Neil ([id number]) [facility] ([facility]) [address] [place] [address] Base excess Calc (BldV) [Moles/Vol] 6.9 mmol/L High -2.0-3.0 [facility] Comment on above: Performed By: #### 2 4339-4 #### CHYNA Neil ([id number]) [facility] ([facility]) [address] [place] [address] Calcium.ionized (BldV) [Moles/Vol] 1.14 mmol/L Normal 1.10-1.33 [facility] Comment on above: Performed By: #### 2 4339-4 #### CHYNA Neil ([id number]) [facility] ([facility]) [address] [place] [address]269 Chloride (BldV) [Moles/Vol] 99 mmol/L Normal 98-107 [facility] Comment on above: Performed By: #### 2 4339-4 #### CHYNA Neil ([id number]) [facility] ([facility]) [address] [place] [address]67 CO2 (BldV) [Partial pressure] 48 mm Hg Normal 41-51 [facility] Comment on above: Performed By: #### 2 4339-4 #### CHYNA Neil ([id number]) [facility] ([facility]) [address] [place] [address]3575 Glucose [Mass/Vol] 116 mg/dL High 74-99 [facility] Comment on above: Performed By: #### 2 4339-4 #### CHYNA Neil ([id number]) [facility] ([facility]) [address] [place] [address]1216 HCO3 (Bld) [Moles/Vol] 32.6 mmol/L High 22.0-26.0 [facility] Comment on above: Performed By: #### 2 4339-4 #### CHYNA Neil ([id number]) [facility] ([facility]) [address] [place] [address]892 Hematocrit Est (Bld) [Volume fraction] 52.0 % Normal 41.0-52.0 [facility] Comment on above: Performed By: #### 2 4339-4 #### CHYNA Neil ([id number]) [facility] ([facility]) [address] [place] [address]3718 Hemoglobin (Bld) [Mass/Vol] 17.3 g/dL Normal 13.5-17.5 [facility] Comment on above: Performed By: #### 2 4339-4 #### CHYNA Neil ([id number]) [facility] ([facility]) [address] [place] [address]387 Lactate (BldV) [Moles/Vol] 0.9 mmol/L Normal 0.4-2.0 [facility] Comment on above: Performed By: #### 2 4339-4 #### CHYNA Neil ([id number]) [facility] ([facility]) [address] [place] [address]65 Oxygen (BldV) [Partial pressure] 56 mm Hg High 35-45 [facility] Comment on above: Performed By: #### 2 4339-4 #### CHYNA Neil ([id number]) [facility] ([facility]) [address] [place] [address]012 Oxygen saturation in Venous blood 89 % High 45-75 [facility] Comment on above: Performed By: #### 2 4339-4 #### CHYNA Neil ([id number]) [facility] ([facility]) [address] [place] [address]1964 Oxyhemoglobin (BldV) [Mass fraction] 87.1 % High 45.0-75.0 [facility] Comment on above: Performed By: #### 2 4339-4 #### CHYNA EDWARDS L ([id number]) [facility] ([facility]) [address] [place] [address]4982 pH (BldV) 7.44 [pH] High 7.33-7.43 [facility] Comment on above: Performed By: #### 2 4339-4 #### CHYNA LESLIEMOTZER L ([id number]) [facility] ([facility]) [address] [place] [address]55 Potassium (BldV) [Moles/Vol] 4.1 mmol/L Normal 3.5-5.3 [facility] Comment on above: Performed By: #### 2 4339-4 #### CHYNA MALHOTRAER L ([id number]) [facility] ([facility]) [address] [place] [address]47 Sodium (BldV) [Moles/Vol] 135 mmol/L Low 136-145 [facility] Comment on above: Performed By: #### 2 4339-4 #### CHYNA LESLIEMOTZER L ([id number]) [facility] ([facility]) [address] [place] [address] 13437 Influenza virus A and B and SARS-CoV-2 (COVID-19) identified LIBERTY+probe Nom (Resp)on 04-05-2023 FLUAV RNA LIBERTY+probe Ql (Resp) Not detected Not Detected [facility] FLUBV RNA LIBERTY+probe Ql (Resp) Not detected Not Detected [facility] Interpretation and review of laboratory results Normal [facility] SARS-CoV-2 (COVID-19) RNA LIBERTY+probe Ql (Resp) Not detected Not Detected [facility] This assay has recei davis FDA Emergency Use Authorization (EUA) and is only authorized for the duration of time that circumstances exist to justify the authorization of the emergency use of in vitro diagnostic tests for the detection of SARS-CoV-2 virus and/or diagnosis of COVID-19 infection under section 564(b)(1) of the Act, 21 U.S.C. 360bbb-3(b)(1). Testing for SARS-CoV-2 is only recommended for patients who meet current clinical and/or epidemiological criteria as defined by federal, state, or local public health directives. This assay is an in vitro diagnostic nucleic acid amplification test for the qualitative detection of SARS-CoV-2, Influenza A, and Influenza B from nasopharyngeal specimens and has been validated for use at [facility]. Negative results do not preclude COVID-19 infections or Influenza A/B infections, and should not be used as the sole basis for diagnosis, treatment, or other management decisions. If Influenza A/B and RSV PCR results are negative, testing for Parainfluenza virus, Adenovirus and Metapneumovirus is routinely performed for [facility] pediatric oncology and intensive care inpatients, and is available on other patients by placing an add-on request. [facility] FLUAV RNA LIBERTY+probe Ql (Resp) Not detected Normal Not Detected [facility] Comment on above: Order Comment: This assay has received FDA Emergency Use Authorization (EUA) and is only authorized for the duration of time that circumstances exist to justify the authorization of the emergency use of in vitro diagnostic tests for the detection of SARS-CoV-2 virus and/or diagnosis of COVID-19 infection under section 564(b)(1) of the Act, 21 U.S.C. 360bbb-3(b)(1). Testing for SARS-CoV-2 is only recommended for patients who meet current clinical and/or epidemiological criteria as defined by federal, state, or local public health directives. This assay is an in vitro diagnostic nucleic acid amplification test for the qualitative detection of SARS-CoV-2, Influenza A, and Influenza B from nasopharyngeal specimens and has been validated for use at [facility]. Negative results do not preclude COVID-19 infections or Influenza A/B infections, and should not be used as the sole basis for diagnosis, treatment, or other management decisions. If Influenza A/B and RSV PCR results are negative, testing for Parainfluenza virus, Adenovirus and Metapneumovirus is routinely performed for [facility] pediatric oncology and intensive care inpatients, and is available on other patients by placing an add-on request. Performed By: #### 9 5423-0 #### CHYNA Neil ([id number]) [facility] ([facility]) [address] [place] [address] FLUBV RNA LIBERTY+probe Ql (Resp) Not detected Normal Not Detected [facility] Comment on above: Order Comment: This assay has received FDA Emergency Use Authorization (EUA) and is only authorized for the duration of time that circumstances exist to justify the authorization of the emergency use of in vitro diagnostic tests for the detection of SARS-CoV-2 virus and/or diagnosis of COVID-19 infection under section 564(b)(1) of the Act, 21 U.S.C. 360bbb-3(b)(1). Testing for SARS-CoV-2 is only recommended for patients who meet current clinical and/or epidemiological criteria as defined by federal, state, or local public health directives. This assay is an in vitro diagnostic nucleic acid amplification test for the qualitative detection of SARS-CoV-2, Influenza A, and Influenza B from nasopharyngeal specimens and has been validated for use at [facility]. Negative results do not preclude COVID-19 infections or Influenza A/B infections, and should not be used as the sole basis for diagnosis, treatment, or other management decisions. If Influenza A/B and RSV PCR results are negative, testing for Parainfluenza virus, Adenovirus and Metapneumovirus is routinely performed for [facility] pediatric oncology and intensive care inpatients, and is available on other patients by placing an add-on request. Performed By: #### 9 5423-0 #### CHYNA Neil ([id number]) [facility] ([facility]) [address] [place] [address] SARS-CoV-2 (COVID-19) RNA LIBERTY+probe Ql (Resp) Not detected Normal Not Detected [facility] Comment on above: Order Comment: This assay has received FDA Emergency Use Authorization (EUA) and is only authorized for the duration of time that circumstances exist to justify the authorization of the emergency use of in vitro diagnostic tests for the detection of SARS-CoV-2 virus and/or diagnosis of COVID-19 infection under section 564(b)(1) of the Act, 21 U.S.C. 360bbb-3(b)(1). Testing for SARS-CoV-2 is only recommended for patients who meet current clinical and/or epidemiological criteria as defined by federal, state, or local public health directives. This assay is an in vitro diagnostic nucleic acid amplification test for the qualitative detection of SARS-CoV-2, Influenza A, and Influenza B from nasopharyngeal specimens and has been validated for use at [facility]. Negative results do not preclude COVID-19 infections or Influenza A/B infections, and should not be used as the sole basis for diagnosis, treatment, or other management decisions. If Influenza A/B and RSV PCR results are negative, testing for Parainfluenza virus, Adenovirus and Metapneumovirus is routinely performed for [facility] pediatric oncology and intensive care inpatients, and is available on other patients by placing an add-on request. Performed By: #### 9 5423-0 #### CHYNA Neil ([id number]) [facility] ([facility]) [id number] [place] [address] 44240 Magnesiumon 04-05-2023 Magnesium [Mass/Vol] 2.22 mg/dL Normal 1.60-2.40 [facility] Comment on above: Performed By: #### 1 9123-9 ####CHYNA Neil ([id number])[facility] ([facility])[address] [place] [address]88 PT and aPTT panel Coag (PPP) on 04-05-2023 aPTT Coag (PPP) [Time] 33 s Normal 27-38 [facility] Comment on above: Order Comment: The A PTT is no longer used for monitoring Unfractionated Heparin Therapy. For monitoring Heparin Therapy, use the Heparin Assay. Performed By: #### 3 4529-8 ####CHYNA Neil ([id number])[facility] ([facility])[address] [place] [address] INR Coag (PPP) [Relative time] 1.0 Normal 0.9-1.1 [facility] Comment on above: Order Comment: The A PTT is no longer used for monitoring Unfractionated Heparin Therapy. For monitoring Heparin Therapy, use the Heparin Assay. Performed By: #### 3 4529-8 ####CHYNA Neil ([id number])[facility] ([facility])[address] [place] [address] PT Coag (PPP) [Time] 11.1 s Normal 9.8-12.8 [facility] Comment on above: Order Comment: The A PTT is no longer used for monitoring Unfractionated Heparin Therapy. For monitoring Heparin Therapy, use the Heparin Assay. Performed By: #### 3 4529-8 ####CHYNA Neil ([id number])[facility] ([facility])[address] [place] [address] 72168 aPTT Coag (PPP) [Time] 37 s [facility] INR Coag (PPP) [Relative time] 1.0 {INR} 0.9 - 1.1 [facility] Interpretation and review of laboratory results Normal [facility] PT Coag (PPP) [Time] 11.3 s [facility] The APTT is no longe r used for monitoring Unfractionated Heparin Therapy. For monitoring Heparin Therapy, use the Heparin Assay. [facility] aPTT Coag (PPP) [Time] 37 s Normal 27-38 [facility] Comment on above: Order Comment: The A PTT is no longer used for monitoring Unfractionated Heparin Therapy. For monitoring Heparin Therapy, use the Heparin Assay. Performed By: #### 3 4529-8 #### CHYNA Neil ([id number]) [facility] ([facility]) [address] [place] [address] 72033 INR Coag (PPP) [Relative time] 1.0 Normal 0.9-1.1 [facility] Comment on above: Order Comment: The A PTT is no longer used for monitoring Unfractionated Heparin Therapy. For monitoring Heparin Therapy, use the Heparin Assay. Performed By: #### 3 4529-8 #### CHYNA Neil ([id number]) [facility] ([facility]) [address] [place] [address] 19746 PT Coag (PPP) [Time] 11.3 s Normal 9.8-12.8 [facility] Comment on above: Order Comment: The A PTT is no longer used for monitoring Unfractionated Heparin Therapy. For monitoring Heparin Therapy, use the Heparin Assay. Performed By: #### 3 4529-8 #### CHYNA Neil ([id number]) [facility] ([facility]) [address] [place] [address] Renal function 2000 panelon 04-05-2023 Albumin BCP dye [Mass/Vol] 4.7 g/dL Normal 3.4-5.0 [facility] Comment on above: Performed By: #### 2 4362-6 ####CHYNA Neil ([id number])[facility] ([facility])[address] [place] [address] Anion gap [Moles/Vol] 15 mmol/L Normal 10-20 [facility] Comment on above: Performed By: #### 2 4362-6 ####CHYNA Neil ([id number])[facility] ([facility])[address] [place] [address] Calcium [Mass/Vol] 9.6 mg/dL Normal 8.6-10.6 [facility] Comment on above: Performed By: #### 2 4362-6 ####CHYNA Neil ([id number])[facility] ([facility])[address] [place] [address] Chloride [Moles/Vol] 98 mmol/L Normal 98-107 [facility] Comment on above: Performed By: #### 2 4362-6 ####CHYNA Neil ([id number])[facility] ([facility])[address] [place] [address] CO2 [Moles/Vol] 30 mmol/L Normal 21-32 [facility] Comment on above: Performed By: #### 2 4362-6 ####CHYNA Neil ([id number])[facility] ([facility])[address] [place] [address] Creatinine [Mass/Vol] 0.83 mg/dL Normal 0.50-1.30 [facility] Comment on above: Performed By: #### 2 4362-6 ####CHYNA Neil ([id number])[facility] ([facility])[address] [place] [address] GFR/1.73 sq M.predicted MDRD (S/P/Bld) [Vol rate/Area] mL/min/{1.73_m2} Normal >60 [facility] Comment on above: Result Comment: Calc ulations of estimated GFR are performed using the 2020 CKD-EPI Study Refit equation without the race variable for the IDMS-Traceable creatinine methods. https://jasn.asnjournals.org/content//ASN.82419842 88 Performed By: #### 2 4362-6 ####CHYNA Neil ([id number])[facility] ([facility])[address] [place] [address] Glucose [Mass/Vol] 147 mg/dL High 74-99 [facility] Comment on above: Performed By: #### 2 4362-6 ####CHYNA Neil ([id number])[facility] ([facility])[address] [place] [address] Phosphate [Mass/Vol] 4.4 mg/dL Normal 2.5-4.9 [facility] Comment on above: Result Comment: MILD HEMOLYSIS DETECTED. The result may be falsely elevated due to hemolysis or other interferents. Clinical correlation is recommended. Repeat testing may be considered. The performance characteristics of phosphorus testing in heparinized plasma have been validated by the individual laboratory site where testing is performed. Testing on heparinized plasma is not approved by the FDA; however, such approval is not necessary. Performed By: #### 2 4362-6 ####CHYNA Neil ([id number])[facility] ([facility])[address] [place] [address] Potassium [Moles/Vol] 4.8 mmol/L Normal 3.5-5.3 [facility] Comment on above: Result Comment: MILD HEMOLYSIS DETECTED. The result may be falsely elevated due to hemolysis or other interferents. Clinical correlation is recommended. Repeat testing may be considered. Performed By: #### 2 4362-6 ####CHYNA Neil ([id number])[facility] ([facility])[address] [place] [address] Sodium [Moles/Vol] 138 mmol/L Normal 136-145 [facility] Comment on above: Performed By: #### 2 4362-6 ####CHYNA Neil ([id number])[facility] ([facility])[address] [place] [address] Urea nitrogen [Mass/Vol] 19 mg/dL Normal 6-23 [facility] Comment on above: Performed By: #### 2 4362-6 ####CHYNA Neil ([id number])[facility] ([facility])[address] [place] [address] Surgical pathology studyon 1 06-06-2022 Surgical pathology study Pathology report.total SEE COMMENT Surgical Pathology Case: [id number] Authorizing Provider: Guillermo Chand MD Collected: 04/05/2023 1807 Ordering Location: [facility] Received: 04/05/2023 1847 [facility] Pathologist: Gabriel Gaming MD Specimens: A) - SOFT TISSUE MASS BIOPSY, GLOTTIC MASS FOR FROZEN B) - SOFT TISSUE MASS BIOPSY, GLOTTIC MASS FOR PERMANENT Path report.final diagnosis SEE COMMENT A. 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 B. 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 jkw Laboratory comment By the signature on this report, the individual or group listed as making the Final Interpretation/Diagnosis certifies that they have reviewed this case. Path report.relevant Hx SEE COMMENT Pre-op diagnosis: Lesion of glottis [J38.7] Path report.gross observation SEE COMMENT A: Received fresh for intraoperative consultation, labeled with the patient's name, hospital number and GLOTTIC MASS FOR FROZEN are multiple fragment of mucosal covered soft tissue measuring 0.7 x 0.4 x 0.3 cm. The specimen is entirely submitted for frozen section analysis in 1 cassette. CINDY B: Received in formalin, labeled with the patient's name and hospital number and glottic mass for permanent, are multiple brown-menendez cauterized soft tissue fragments aggregating to 0.9 x 0.5 x 0.2 cm. The specimen is submitted in toto in 1 cassette. [facility] AP INTRAOPERATIVE CONSULTATION SEE COMMENT Received Date and Time: 04/05/2023 at 6:35 PM Called Date and Time: 04/05/2023 at 7:[address] Brooks Intraoperative Diagnosis: FSA1: Squamous epithelium with severe atypia, suspicious for at least carcinoma in situ Intraoperative Consult Pathologist(s): Scooby Gutierrez [facility] Comment on above: Order Comment: Pre-o p diagnosis:Lesion of glottis [J38.7] XR CHEST 1 VIEWon 04-05-2023 XR CHEST 1 VIEW Interpreted By: Pepe Su and Stephens Katherine STUDY: XR CHEST 1 VIEW; 04/05/2023 11:50 pm INDICATION: Signs/Symptoms:Pneumothorax . COMPARISON: Same day chest radiograph ACCESSION NUMBER(S): [id number] ORDERING CLINICIAN: AMY GAMBINO FINDINGS: AP radiograph of the chest was provided. Right-sided pigtail chest tube in similar position. Tracheostomy cannula again seen in place, satisfactory positioning. Similar subcutaneous emphysema overlying visualized neck. CARDIOMEDIASTINAL SILHOUETTE: Cardiomediastinal silhouette appears enlarged, again exaggerated by low lung volumes and AP projection. LUNGS: Very poor inspiratory effort contributing to bronchovascular crowding. Linear lucency of the right lung base may represent residual trace pneumothorax. Difficult to assess right lung apex secondary to overlying medical devices. Streaky mid to basilar opacities favored to represent atelectasis. ABDOMEN: No remarkable upper abdominal findings. BONES: No acute osseous changes. IMPRESSION: 1. Linear lucency of the right lung base which may represent trace residual pneumothorax. The right lung apex is incompletely assessed secondary to overlying medical devices. 2. Similar bibasilar atelectasis. 3. Medical devices as described above. I personally reviewed the images/study and I agree with Samantha Bales DO's (administration vice president) findings as stated. This study was interpreted at [facility], [place], [place]. MACRO: None Signed by: Pepe White 04/06/2023 7:56 AM Dictation workstation: [id number] [facility] XR CHEST 1 VIEW Interpreted By: Joe Jesus and Stephens Katherine STUDY: XR CHEST 1 VIEW; 04/05/2023 9:32 pm INDICATION: Signs/Symptoms:s/p right pigtail placement. COMPARISON: Same day chest radiograph. ACCESSION NUMBER(S): [id number] ORDERING CLINICIAN: SCOOBY SANTACRUZ FINDINGS: AP radiograph of the chest was provided. Interval placement of right-sided pigtail catheter. Tracheostomy cannula in place. Re-demonstration of subcutaneous emphysema overlying the neck. CARDIOMEDIASTINAL SILHOUETTE: Cardiomediastinal silhouette is stable in size and configuration. LUNGS: Interval re-expansion of the right lung with suspected trace residual pneumothorax. Streaky right midlung and bibasilar opacities favored to represent atelectasis. ABDOMEN: No remarkable upper abdominal findings. BONES: No acute osseous changes. IMPRESSION: 1. Interval re-expansion of the right lung status post pigtail catheter placement with suspected trace residual right apical pneumothorax. 2. Streaky bibasilar and right mid lung opacities favored to represent atelectasis. I personally reviewed the images/study and I agree with Samantha Bales DO's (administration vice president) findings as stated. This study was interpreted at [place], [place]. MACRO: None Signed by: Joe Bryan 04/06/2023 12:00 PM Dictation workstation: [id number] Normal [facility] Comment on above: Order Comment: Hugo nt in PACU XR CHEST 1 VIEW Interpreted By: Joe Jesus and Tippareddy Charit STUDY: XR CHEST 1 VIEW; 04/05/2023 7:43 pm INDICATION: Signs/Symptoms:postop after trach, crepitus to chest. COMPARISON: Radiograph 04/05/2023 ACCESSION NUMBER(S): [id number] ORDERING CLINICIAN: PRASAD ALBERTS FINDINGS: AP radiograph of the chest was provided. Tracheostomy cannula is seen. Large volume subcutaneous emphysema in the lateral neck bilaterally. CARDIOMEDIASTINAL SILHOUETTE: Cardiomediastinal silhouette is normal in size and configuration. Mild leftward mediastinal shift. LUNGS: Large right-sided pneumothorax with collapse of the right lung. ABDOMEN: No remarkable upper abdominal findings. BONES: No acute osseous changes. IMPRESSION: 1. Large right-sided pneumothorax with collapse of the right lung. Mild leftward mediastinal shift raising concern for tension pneumothorax. Suspect pneumomediastinum. 2. Large volume subcutaneous emphysema in the lateral neck bilaterally with tracheostomy cannula. Findings were discussed in person with member of the treatment team but did not obtain providers name. Critical finding chatted to ordering provider as well. I personally reviewed the images/study and I agree with the findings as stated by Emmie Tamayo MD. This study was interpreted at [facility], [place], [place]. MACRO: Emmie Tamayo discussed the significance and urgency of this critical finding by secure chat with PRASAD ALBERTS on 04/05/2023 at 8:18 pm. (-RCF-) Findings: Pneumothorax. Signed by: Joe Bryan 04/06/2023 11:19 AM Dictation workstation: [id number] [facility] XR CHEST 1 VIEW STUDY: Chest Radiograph; 04/05/2023 at 12:09 PM. INDICATION: Shortness of breath. COMPARISON: None available. ACCESSION NUMBER(S): [id number] ORDERING CLINICIAN: ARIS SLAUGHTER TECHNIQUE: Frontal chest was obtained at 12:09 hours. FINDINGS: CARDIOMEDIASTINAL SILHOUETTE: Cardiomediastinal silhouette is normal in size and configuration. LUNGS: There is mild elevation the right hemidiaphragm with right basilar subsegmental atelectasis. ABDOMEN: No remarkable upper abdominal findings. BONES: No acute osseous changes. IMPRESSION: Subsegmental atelectasis of the right lung base. Signed by Zachary Nunes MD [facility] XR Chest Single viewon 04-05 Radiology Study observation (narrative) [facility] Work Phone: Radiology Study observation (narrative) [facility] Work Phone: Radiology Study observation (narrative) [facility] Work Phone: Subsegmental atelect asis of the right lung base. Signed by Zachary Nunes MD TELERADIOLOGY STUDY: Chest Radiograph; 04/05/2023 at 12:09 PM. INDICATION: Shortness of breath. COMPARISON: None available. ACCESSION NUMBER(S): [id number] ORDERING CLINICIAN: ARIS SLAUGHTER TECHNIQUE: Frontal chest was obtained at 12:09 hours. FINDINGS: CARDIOMEDIASTINAL SILHOUETTE: Cardiomediastinal silhouette is normal in size and configuration. LUNGS: There is mild elevation the right hemidiaphragm with right basilar subsegmental atelectasis. ABDOMEN: No remarkable upper abdominal findings. BONES: No acute osseous changes. TELERADIOLOGY Zachary Nunes MD - 04/05/2023 STUDY: Chest Radiograph; 04/05/2023 at 12:09 PM. INDICATION: Shortness of breath. COMPARISON: None available. ACCESSION NUMBER(S): [id number] ORDERING CLINICIAN: ARIS SLAUGHTER TECHNIQUE: Frontal chest was obtained at 12:09 hours. FINDINGS: CARDIOMEDIASTINAL SILHOUETTE: Cardiomediastinal silhouette is normal in size and configuration. LUNGS: There is mild elevation the right hemidiaphragm with right basilar subsegmental atelectasis. ABDOMEN: No remarkable upper abdominal findings. BONES: No acute osseous changes. IMPRESSION: Subsegmental atelectasis of the right lung base. Signed by Zachary Nunes MD [facility] Work Phone: Radiology Study observation (narrative) [facility] Work Phone: XR Chest Single viewOrdered By: Zachary Nunes on 04-05-2023 [facility] Work Phone: Absolute lymphocyte countOrd ered By: Logan Callejas on 03-01-2023 Lymphocytes Auto (Unsp spec) [#/Vol] 1.52 10*3/uL 0.83-4.[address] [facility] Basophil percentageOrdered B y: Logan Callejas on 03-01-2023 Lactate [Moles/Vol] 3.1 mmol/L 0.4-2.0 [facility] Comment on above: Critical Result(s) C alled at: 19:39:12 03/01/2023 by: [address]. Results read back by same. Basophils/100 WBC (Bld) 0.9 % 0-[address] [facility] Bilirubin [Mass/Vol] 0.40 mg/dL 0.20-1.[address] [facility] Comment on above: For patients on eltr ombopag therapy, use of Dimension Brunson TBIL is not recommended. Chloride [Moles/Vol] 103 mmol/L 98-[address] [facility] Eosinophils/100 WBC (Bld) 1.6 % 0-[address] [facility] Glucose [Mass/Vol] 191 mg/dL 74-106 [facility] Comment on above: Fasting Glucose resu lt greater than or equal to 126 mg/dL suggests DIABETES MELLITUS per A.D.A. criteria. Neutrophils (Bld) [#/Vol] 6.0 10*3/uL 2.0-7.[address] [facility] Neutrophils/100 WBC (Bld) 69.3 % 47-[address] [facility] Potassium [Moles/Vol] 3.4 mmol/L 3.5-5.[address] [facility] Protein [Mass/Vol] 7.3 g/dL 6.4-8.2 [facility] Sodium [Moles/Vol] 136 mmol/L 136-145 [facility] WBC (Bld) [#/Vol] 8.6 10*3/uL 4.4-11.0 [facility] Blood erythrocytes count (nu mber/volume)Ordered By: Logan Callejas on 03-01-2023 RBC (Bld) [#/Vol] 5.17 10*6/uL 4.6-6.2 [facility] Blood hemoglobin measurement (mass/volume)Ordered By: Logan Callejas on 03-01-2023 Hemoglobin (Bld) [Mass/Vol] 15.5 g/dL 13.0-16.[address] [facility] Blood lymphocytes/100 leukoc ytesOrdered By: Logan Callejas on 03-01-2023 Lymphocytes/100 WBC (Bld) 17.6 % 19-[address] [facility] Blood monocytes/100 leukocyt esOrdered By: Loganchristopher Callejas on 03-01-2023 Monocytes/100 WBC (Bld) 10.3 % 0-[address] [facility] Blood platelet mean volumeOr dered By: Logan Callejas on 03-01-2023 Platelet mean volume (Bld) [Entitic vol] 8.4 fL 6.2-12.[address] [facility] Determination of erythrocyte mean corpuscular volume (MCV)Ordered By: Logan Callejas on 03-01-2023 MCV (RBC) [Entitic vol] 89.6 fL 80-[address] [facility] Hematocrit Auto (Bld) [Volum e fraction]Ordered By: Loganchristopher Callejas on 03-01-2023 Hematocrit (Bld) [Volume fraction] 46.3 % 40-[address] [facility] Laboratory - Chemistry and C hemistry - challengeOrdered By: Loganchristopher Callejas on 03-01-2023 ALP [Catalytic activity/Vol] 86 U/L 45-[address] [facility] ALT [Catalytic activity/Vol] 34 U/L 16-[address] [facility] CO2 [Moles/Vol] 27.0 mmol/L 21.0-32.[address] [facility] Globulin (S) [Mass/Vol] 3.5 g/dL 2.2-4.[address] [facility] Urea nitrogen/Creatinine [Mass ratio] 22.7 mg/mg 10-[address] [facility] Laboratory - Hematology and Cell countsOrdered By: Loganchristopher Callejas on 03-01-2023 Erythrocyte distribution width (RBC) [Entitic vol] 40.7 fL 35.1-43.[address] [facility] Erythrocyte distribution width (RBC) [Ratio] 12.3 % 11.6-14.[address] [facility] Immature granulocytes/100 WBC (Bld) 0.300 % 0.0-0.[address] [facility] Comment on above: IG% - Immature Granu locytes (promyelocytes, myelocytes and metamyelocytes) > 1% indicates that a LEFT SHIFT is Present. MCH (RBC) [Entitic mass] 30.0 pg 27.0-32.[address] [facility] Nucleated RBC/100 WBC (Bld) [Ratio] 0 % 0-[address] [facility] MCHC Auto (RBC) [Mass/Vol]Or dered By: Loganchristopher Callejas on 03-01-2023 MCHC (RBC) [Mass/Vol] 33.5 g/dL 32-[address] [facility] No Panel InformationOrdered By: Loganchristopher Callejas on 03-01-2023 Estimated Creatinine Clearance Calc 82.05 ml/min [facility] Estimated GFR (MDRD) Amer 112 mL/min >[address] [facility] Comment on above: GFR Calc Estimated GFR (MDRD) Non-Af Amer 92 mL/min >[address] [facility] Comment on above: Non- GFR Calc Troponin I High Sensitivity 60 pg/mL 3.0-78.[address] [facility] Comment on above: Please Note: New Zoe t Units and Gender Specific Reference Ranges. For more information see Policy Stat Procedure Brunson High Sensitivity Troponin (TNIH) and attachments. Platelets bldOrdered By: Loganchristopher Callejas on 03-01-2023 Platelets (Bld) [#/Vol] 230 10*3/uL 150-[address] [facility] Serum or plasma albumin radha urement (mass/volume)[facility] Albumin [Mass/Vol] 3.8 g/dL 3.2-5.0 [facility] Serum or plasma albumin/glob ulin mass ratioOrdered By: [facility] on 03-01-2023 Albumin/Globulin [Mass ratio] 1.1 {ratio} 0.9-2.[address] [facility] Serum or plasma calcium radha urement (mass/volume)Ordered By: Logan Callejas on 03-01-2023 Calcium [Mass/Vol] 8.8 mg/dL 8.5-10.1 [facility] Serum or plasma creatinine m easurement (mass/volume)Ordered By: [facility] on 03-01-2023 Creatinine [Mass/Vol] 0.88 mg/dL 0.70-1.[address] [facility] Comment on above: The validity of the calculated GFR & GFRAA in patients over 70 years has not been determined. Clinical correlation is essential. Serum or plasma urea nitroge n measurement (mass/volume)Ordered By: [facility] 03-01-2023 Urea nitrogen [Mass/Vol] 20 mg/dL 7-[address] [facility] Thin prep Papanicolaou smear with manual screeningOrdered By: [facility] 03-01-2023 Thin prep Papanicolaou smear with manual screening 16 U/L 15-[address] [facility] Thin prep Papanicolaou smear with manual screening 6 5-[address] [facility] Vital Signs Date Time Vital Sign Value Performing Clinician Facility 06-22-2023 12:50-0400 Body temperature 97.6 [degF] No Primary Care Physician [facility] 06-22-2023 12:50-0400 Diastolic blood pressure 67 mm[Hg] No Primary Care Physician [facility] 06-22-2023 12:50-0400 Heart rate 75 /min No Primary Care Physician [facility] 06-22-2023 12:50-0400 Respiratory rate 16 /min No Primary Care Physician [facility] 06-22-2023 12:50-0400 SaO2% (BldA) [Mass fraction] 92 % No Primary Care Physician [facility] 06-22-2023 12:50-0400 Systolic blood pressure 96 mm[Hg] No Primary Care Physician [facility] 06-22-2023 10:07-0400 Body height 170.18 cm No Primary Care Physician [facility] 06-22-2023 10:07-0400 Body mass index (BMI) [Ratio] 32.3 kg/m2 No Primary Care Physician [facility] 06-22-2023 10:07-0400 Body weight 93.6 kg No Primary Care Physician [facility] 06-15-2023 08:57-0500 Body mass index (BMI) [Ratio] 32.4 kg/m2 No Primary Care Physician [facility] 06-15-2023 08:57-0500 Body temperature 99.5 [degF] No Primary Care Physician [facility] 06-15-2023 08:57-0500 Body weight 93.92 kg No Primary Care Physician [facility] 06-15-2023 08:57-0500 Diastolic blood pressure 82 mm[Hg] No Primary Care Physician [facility] 06-15-2023 08:57-0500 Heart rate 89 /min No Primary Care Physician [facility] 06-15-2023 08:57-0500 Respiratory rate 18 /min No Primary Care Physician [facility] 06-15-2023 08:57-0500 SaO2% (BldA) [Mass fraction] 96 % No Primary Care Physician [facility] 06-15-2023 08:57-0500 Systolic blood pressure 148 mm[Hg] No Primary Care Physician [facility] 06-14-2023 09:53-0500 Body mass index (BMI) [Ratio] 32.5 kg/m2 No Primary Care Physician [facility] 06-14-2023 09:53-0500 Body temperature 99.2 [degF] No Primary Care Physician [facility] 06-14-2023 09:53-0500 Body weight 94.12 kg No Primary Care Physician [facility] 06-14-2023 09:53-0500 Diastolic blood pressure 80 mm[Hg] No Primary Care Physician [facility] 06-14-2023 09:53-0500 Heart rate 82 /min No Primary Care Physician [facility] 06-14-2023 09:53-0500 Respiratory rate 18 /min No Primary Care Physician [facility] 06-14-2023 09:53-0500 SaO2% (BldA) [Mass fraction] 94 % No Primary Care Physician [facility] 06-14-2023 09:53-0500 Systolic blood pressure 130 mm[Hg] No Primary Care Physician [facility] 06-06-2023 11:26-0500 Body temperature 97.6 [degF] No Primary Care Physician [facility] 06-06-2023 11:26-0500 Diastolic blood pressure 98 mm[Hg] No Primary Care Physician [facility] 06-06-2023 11:26-0500 Heart rate 80 /min No Primary Care Physician [facility] 06-06-2023 11:26-0500 Respiratory rate 12 /min No Primary Care Physician [facility] 06-06-2023 11:26-0500 SaO2% (BldA) [Mass fraction] 93 % No Primary Care Physician [facility] 06-06-2023 11:26-0500 Systolic blood pressure 129 mm[Hg] No Primary Care Physician [facility] 06-06-2023 09:48-0500 Body mass index (BMI) [Ratio] 32.1 kg/m2 No Primary Care Physician [facility] 06-06-2023 09:48-0500 Body weight 92.98 kg No Primary Care Physician [facility] 06-02-2023 09:04-0500 Body mass index (BMI) [Ratio] 32.9 kg/m2 No Primary Care Physician [facility] 06-02-2023 09:04-0500 Body temperature 98.5 [degF] No Primary Care Physician [facility] 06-02-2023 09:04-0500 Body weight 95.48 kg No Primary Care Physician [facility] 06-02-2023 09:04-0500 Diastolic blood pressure 75 mm[Hg] No Primary Care Physician [facility] 06-02-2023 09:04-0500 Heart rate 94 /min No Primary Care Physician [facility] 06-02-2023 09:04-0500 Respiratory rate 18 /min No Primary Care Physician [facility] 06-02-2023 09:04-0500 SaO2% (BldA) [Mass fraction] 95 % No Primary Care Physician [facility] 06-02-2023 09:04-0500 Systolic blood pressure 122 mm[Hg] No Primary Care Physician [facility] 05-26-2023 09:00-0500 Body mass index (BMI) [Ratio] 32.1 kg/m2 No Primary Care Physician [facility] 05-26-2023 09:00-0500 Body temperature 97.9 [degF] No Primary Care Physician [facility] 05-26-2023 09:00-0500 Body weight 95.84 kg No Primary Care Physician [facility] 05-26-2023 09:00-0500 Diastolic blood pressure 82 mm[Hg] No Primary Care Physician [facility] 05-26-2023 09:00-0500 Heart rate 83 /min No Primary Care Physician [facility] 05-26-2023 09:00-0500 Respiratory rate 18 /min No Primary Care Physician [facility] 05-26-2023 09:00-0500 SaO2% (BldA) [Mass fraction] 91 % No Primary Care Physician [facility] 05-26-2023 09:00-0500 Systolic blood pressure 138 mm[Hg] No Primary Care Physician [facility] 04-13-2023 08:56-0500 Body temperature 98.1 [degF] Guillermo Chand MD Work Phone: [facility] [facility]-13-2023 08:56-0500 Diastolic blood pressure 76 mm[Hg] Guillermo Chand MD Work Phone: [facility] 04-13-2023 08:56-0500 Heart rate 74 /min Guillermo Chand MD Work Phone: [facility] 04-13-2023 08:56-0500 Respiratory rate 18 /min Guillermo Chand MD Work Phone: [facility] 04-13-2023 08:56-0500 SaO2% (BldA) [Mass fraction] 93 % Guillermo Chand MD Work Phone: [facility] 04-13-2023 08:56-0500 Systolic blood pressure 116 mm[Hg] Guillermo Chand MD Work Phone: [facility] 04-06-2023 04:00-0500 Body mass index (BMI) [Ratio] 30.64 kg/m2 Guillermo Chand MD Work Phone: [facility] 04-06-2023 04:00-0500 Body weight 91.4 kg Guillermo Chand MD Work Phone: [facility] 04-05-2023 23:29-0500 Body temperature 37.0 Guillermo Chand MD Work Phone: [facility] 04-05-2023 23:29-0500 SaO2% (BldA) [Mass fraction] 98 % Guillermo Chand MD Work Phone: [facility] 04-05-2023 23:27-0500 Body temperature 37.0 degrees Celsius NO GENERIC PROVIDER [facility] Comment on above: Performed By: #### [id number] #### CHYNA Neil ([id number]) [facility] ([facility]) [address] [place] [address] 04-05-2023 23:27-0500 SaO2% (BldA) [Mass fraction] 98 % NO GENERIC PROVIDER [facility] Comment on above: Performed By: #### [id number] #### CHYNA Neil ([id number]) [facility] ([facility]) [address] [place] [address] 04-05-2023 12:24-0500 Body temperature 37.0 Guillermo Chand MD Work Phone: [facility] Comment on above: NOTE: Patient Results are Not Corrected for Temperature 04-05-2023 12:08-0500 Body temperature 37.0 degrees Celsius NO GENERIC PROVIDER [facility] Comment on above: Result Comment: NOTE: Patient Results ar e Not Corrected for Temperature Performed By: #### 2 [id number] #### CHYNA Neil ([id number]) [facility] ([facility]) [address] [place] [address] 04-05-2023 11:16-0500 Body height 172.7 cm Guillermo Chand MD Work Phone: [facility] 03-01-2023 21:14-0500 Heart rate 100 /min [facility] 03-01-2023 21:14-0500 Respiratory rate 20 /min [facility] 03-01-2023 21:14-0500 SaO2% (BldA) [Mass fraction] 95 % [facility] 03-01-2023 20:23-0500 Body temperature 97 [degF] [facility] 03-01-2023 20:23-0500 Diastolic blood pressure 98 mm[Hg] [facility] 03-01-2023 20:23-0500 Systolic blood pressure 174 mm[Hg] [facility] 03-01-2023 18:36-0500 Body height 172.72 cm [facility] 03-01-2023 18:36-0500 Body mass index (BMI) [Ratio] 31.4 kg/m2 [facility] 03-01-2023 18:36-0500 Body weight 93.9 kg [facility] Encounters Encounter Date Encounter Type Care Provider Facility Start: 11-29-2024 ambulatory Nikolas Lyudmila Facility: [facility] Start: 11-22-2024 ambulatory Nikolas Lostine Facility: [facility] Start: 08-19-2024 ambulatory No Primary Car e Physician Facility:[facility] Start: 08-19-2024 End: 08-19-2024 ambulatory Clarence Ng Facility:[facility] Start: 05-24-2024 End: 05-24-2024 ambulatory Nikolas Coreas Facility:[facility] Start: 03-27-2024 End: 03-27-2024 ambulatory Justine Hou NP Facility:[facility] Start: 01-24-2024 End: 01-24-2024 ambulatory Rasheed Alcaraz Facility:[facility] Start: 12-04-2023 End: 12-04-2023 ambulatory Rasheed Alcaraz Facility:[facility] Start: 11-24-2023 End: 11-24-2023 ambulatory No Primary Care Physician Facility:[facility] Start: 06-22-2023 Non-patient / Non-visit No Megan Becker Physician [facility] [id number]-[id number]-[id number] Start: 06-22-2023 End: 06-22-2023 Admission to same day surgery center No Primary Care Physician [facility] Start: 06-22-2023 End: 06-22-2023 ambulatory No Primary Care Physician [facility] Work Phone: Start: 06-15-2023 End: 06-15-2023 Patient encounter procedure No Primary Care Physician [facility] Work Phone: Start: 06-14-2023 Registered Recurring No Primar y Care Physician [facility] Start: 06-14-2023 End: 06-14-2023 Patient encounter procedure No Primary Care Physician [facility] Work Phone: Start: 06-07-2023 Non-patient / Non-visit No Megan Becker Physician [facility] Qchtzozu-DET-LGF Start: 06-06-2023 Non-patient / Non-visit No Megan Becker Physician [facility] Lfmjiige-VBH-QXQ Start: 06-06-2023 End: 06-06-2023 Admission to same day surgery center No Primary Care Physician [facility]End[facility] Work Phone: Start: 06-02-2023 End: 06-02-2023 Patient encounter procedure No Primary Care Physician [facility] Work Phone: Start: 05-29-2023 Non-patient / Non-visit No Megan Becker Physician [facility] [id number]-[id number] Start: 05-29-2023 Patient encounter status No Primary Care Physician [facility] Start: 05-26-2023 End: 05-26-2023 Patient encounter procedure No Primary Care Physician [facility] Work Phone: Start: 04-05-2023 End: 04-05-2023 Emergency department patient visit ARIS Choi [facility] Start: 04-05-2023 End: 04-13-2023 Evaluation and management of inpatient Guillermo Chand MD Work Phone: [facility] 5 Comment on above: Lesion of glottis (P rimary Dx); Shortness of breath; Stridor; Postprocedural pneumothorax; Airway obstruction, anatomic; Acute on chronic respiratory failure with hypoxia ([facility]/HCC) Start: 03-01-2023 End: 03-01-2023 Emergency department patient visit [facility]Emer[facility] Work Phone: Procedures Date Procedure Procedure Detail Performing Clinician Start: 06-22-2023 Radiographic procedu re of chest No Primary Care Physician Start: 06-22-2023 Implantation to cardiovascular system No Primary Care Physician Start: 06-22-2023 Fluoroscopic guidance N o Primary Care Physician Start: 04-13-2023 DISCHARGE PATIENT NO GE NERIC PROVIDER Start: 04-13-2023 DISCHARGE TRACH CARE NO GENERIC PROVIDER Start: 04-13-2023 STOMA CARE NO GENERIC PROVIDER Start: 04-13-2023 CT CHEST WO IV CONTRAST NO GENERIC PROVIDER Start: 04-12-2023 Ct thorax w/o contra st material Julisa A Zaki CONTRERAS Work Phone: Start: 04-11-2023 RENAL FUNCTION PANEL [...] Glucose quantitative blood xcpt reagent strip Enoc Brooks MD Work Phone: Start: 04-07-2023 Glucose [Mass/volume ] in Serum or Plasma NO GENERIC PROVIDER Start: 04-07-2023 XR CHEST 1 VIEW NO GENE ANGELITO PROVIDER Start: 04-07-2023 Glucose quantitative blood xcpt reagent strip Enoc Brooks MD Work Phone: Start: 04-07-2023 Radiologic exam ches t single view Sarah Beasley PA-C Work Phone: Start: 04-07-2023 Glucose [Mass/volume ] in Serum or Plasma NO GENERIC PROVIDER Start: 04-07-2023 DISABILITY SERVICES COORDINATOR MODIFIED BARIUM SWALLOW EVALUATION NO GENERIC PROVIDER Start: 04-07-2023 XR CHEST 1 VIEW NO GENE ANGELITO PROVIDER Start: 04-07-2023 ADULT DISCHARGE DIET NO GENERIC PROVIDER Start: 04-07-2023 DISCHARGE ACTIVITY NO G ENERIC PROVIDER Start: 04-07-2023 DISCHARGE INSTRUCTIONS NO GENERIC PROVIDER Start: 04-07-2023 FL MODIFIED BARIUM S WALLOW STUDY NO GENERIC PROVIDER Start: 04-07-2023 Glucose quantitative blood xcpt reagent strip Enoc Brooks MD Work Phone: Start: 04-07-2023 DISABILITY SERVICES COORDINATOR MODIFIED BARIUM SWALLOW EVALUATION Enoc Garcia MD [...] Start: 04-07-2023 Renal function panel Os car J Donyn DO Start: 04-07-2023 Glucose quantitative blood xcpt reagent strip Enoc Brooks MD Work Phone: Start: 04-07-2023 Glucose [Mass/volume ] in Serum or Plasma NO GENERIC PROVIDER Start: 04-07-2023 Glucose quantitative blood xcpt reagent strip Enoc Brooks MD Work Phone: Start: 04-07-2023 Glucose [Mass/volume ] in Serum or Plasma NO GENERIC PROVIDER Start: 04-06-2023 Glucose quantitative blood xcpt reagent strip Enoc Brooks MD Work Phone: Start: 04-06-2023 Glucose [Mass/volume ] in Serum or Plasma NO GENERIC PROVIDER Start: 04-06-2023 TRANSFER PATIENT TO NEW UNIT NO GENERIC PROVIDER Start: 04-06-2023 Glucose quantitative blood xcpt reagent strip Enoc Brooks MD Work Phone: Start: 04-06-2023 Glucose [Mass/volume ] in Serum or Plasma NO GENERIC PROVIDER Start: 04-06-2023 CHEST TUBE CARE NO GENE ANGELITO PROVIDER Start: 04-06-2023 Glucose quantitative blood xcpt reagent strip Enoc Brooks MD Work Phone: Start: 04-06-2023 ECG 12-LEAD NO GENERIC PROVIDER Start: 04-06-2023 Glucose [Mass/volume ] in Serum or Plasma NO GENERIC PROVIDER Start: 04-06-2023 XR CHEST 1 VIEW NO GENE ANGELITO PROVIDER Start: 04-06-2023 Ecg routine ecg w/le ast 12 lds trcg only w/o i&r Enoc Garcia MD Work Phone: Start: 04-06-2023 Glucose quantitative blood xcpt reagent strip Enoc Brooks MD Work Phone: Start: 04-06-2023 Radiologic exam ches t single view DeSarai Hopkins MD Work Phone: Start: 04-06-2023 CALCIUM, [...] 04-06-2023 End: 04-06-2023 Renal function panel Amy Meyers Work Phone: Start: 04-06-2023 XR CHEST 1 [...] Radiologic exam ches t single view Amy Gambino DO Work Phone: Start: 04-05-2023 XR CHEST 1 VIEW NO GENE ANGEILTO PROVIDER Start: 04-05-2023 End: 04-05-2023 Chloride bld [...] NO GENERIC PROVIDER Start: 04-05-2023 End: 04-05-2023 [facility] brushing/protected brushings Enoc Brooks MD Work Phone: Start: 04-05-2023 End: 04-05-2023 Esophagoscopy flexible transoral diagnostic Enoc Brooks MD Work Phone: Start: 04-05-2023 End: 04-05-2023 Tracheostomy emergency procedure transtracheal Enoc Brooks MD Work Phone: Start: 04-05-2023 CT SOFT TISSUE NECK W IV CONTRAST [...] single view Aris Slaughter PA-C Work Phone: Start: 03-01-2023 Plain chest X-ray Plan of Treatment Date Care Activity Detail Author Start: 06-22-2023 Patient discharge [facility] Start: 06-14-2023 Patient referral [facility] Work Phone: Start: 06-06-2023 Egd percutaneous placement gastrostomy tube EGD PLACE GASTROSTOMY TUBE [facility] Start: 06-06-2023 [facility] Start: 05-26-2023 Patient referral [facility] Work Phone: Start: 04-28-2023 End: 04-28-2023 Patient encounter procedure 04/28/2023 1:30 PM EST Office Visit [facility] [address] [place] [address] John [place] [address] [place], [place] [id number] [facility] Start: 03-01-2023 [facility] Start: 12-09-2022 Influenza vaccination Influenza Vacc ine (#1) [facility] Start: 2009 Zoster Vaccines (1 o f 2) Zoster Vaccines (1 of 2) [facility] Start: 1981 DTaP/Tdap/Td Vaccine s (1 - Tdap) DTaP/Tdap/Td Vaccines (1 - Tdap) [facility] Start: 1977 Hepatitis C screening Hepatitis C [facility] Start: 1965 Pneumococcal Vaccine : 65+ Years (1 - PCV) Pneumococcal Vaccine: 65+ Years (1 - PCV) [facility] Start: 1965 Pneumococcal Vaccine : Pediatrics (0 to 5 Years) and At-Risk Patients (6 to 64 Years) (1 - PCV) Pneumococcal Vaccine: Pediatrics (0 to 5 Years) and At-Risk Patients (6 to 64 Years) (1 - PCV) [facility] Start: 02-16-1960 MMR Vaccines (1 of 1 - Standard series) MMR Vaccines (1 of 1 - Standard series) [facility] Start: 1959 COVID-19 Vaccine (#1) COVID-19 Vacci ne (#1) [facility] Start: 1959 HIV screening HIV Screening [facility] Start: 1959 Lipid panel Lipid Panel [facility] Start: 1959 Screening for malign ant neoplasm of colon [facility] Start: 1959 Yearly Adult Physical Yearly Adult P hysical [facility] Electrocardiogram, 12-lead PRN ACS symptoms Electrocardiogram, 12-lead PRN ACS symptoms ECG Routine As needed until discontinued starting 04/05/2023, 1 completed [facility] Work Phone: Comment on above: As needed until disc ontinued starting 04/05/2023, 1 completed Electrocardiogram, 12-lead PRN ACS symptoms Electrocardiogram, 12-lead PRN ACS symptoms ECG Routine 04/06/2023 8:09 AM EST [facility] Work Phone: End: 04-08-2023 Encourage deep breathing and coughing Encourage deep breathing and coughing Respiratory Care Routine Every 1 hour for 72 Hours starting 04/05/2023 until 04/08/2023 [email or web address] Service Area Work Phone: Comment on above: Every 1 hour for 72 Hours starting 04/05/2023 until 04/08/2023 Patient referral [facility] Work Phone: End: 04-05-2023 Pulse oximetry, continuous Pulse oximetry, continuous Respiratory Care Routine Continuous until discontinued starting 04/05/2023 [facility] Work Phone: Comment on above: Continuous until dis continued starting 04/05/2023 Radiation oncology AND/OR radiotherapy [facility] Payers Date Payer Category Payer Self-pay 2023 Unknown [id number] 2023 Unknown [employer] [facility] [employer] [id number] 2023-Present [address] [place] [address] [id number] 2023 Unknown [id number] 1960 Unknown [id number] 1959 Unknown [id number] Unknown [facility] [id number] Unknown [id number] Unknown [id number] Unknown [id number] Unknown [id number] Unknown [id number] Unknown [id number] Unknown [id number] Unknown [id number] Unknown [id number] Unknown [id number] Social History Date Type Detail Facility Start: 03-01-2023 End: 06-19-2023 Tobacco smoking status [facility] Unknown if ever smoked [facility] Start: 1960 Sex Assigned At Male [facility] Start: 04-06-2023 Tobacco smoking status NHIS Ex-smoker [facility] Start: 04-10-1984 End: 04-10-1989 History of tobacco use Current smoker [facility] Work Phone: Start: 04-10-1984 End: 04-10-1989 History of tobacco use Cigarette Smoker [facility] Work Phone: Start: 04-06-2023 Cigarettes smoked current (pack per day) - Reported 0.5 [facility] Work Phone: Start: 04-06-2023 Tobacco use and exposure Smokeless tobacco non-user [facility] Work Phone: Start: 04-06-2023 Alcohol Use Disorder Identification Test - Consumption [AUDIT-C] [facility] Work Phone: How often to you hav e a drink containing alcohol? Never [facility] Work Phone: How many standard dr inks containing alcohol do you have on a typical day? Patient does not drink [facility] Work Phone: In the past 12 month s, was there a time when you were not able to pay the mortgage or rent on time? No [facility] Work Phone: At any time in the p ast 12 months, were you homeless or living in prison [including now]? Yes [facility] Work Phone: Start: 1960 Sex Assigned At Not on file [facility] Work Phone: Start: 03-26-2023 End: 04-05-2023 Exposure to SARS-CoV-2 (event) Not sure [facility] Medical Equipment Procedure Code Equipment Code Equipment Origin al Text Equipment Identifier Dates EGD, with monitored anesthesia care Gastrostomy tube kit, medicated [id number] [facility] Start: 06-06-2023 Goals Date Patient Goal Desired Activity /State Mental Status Date Assessment Result Facility 06-22-2023 Cognitive function Voice/Name [facility] Work Phone: 06-06-2023 Cognitive function Voice/Name [facility] Work Phone: Clinical Notes 03-01-2023 to 06-22-2023 Note Date & Type Note Facility 06-22-2023 History and physical note Note Date/Time June 22, 2023 11:33am [facility] [address] [place] [address] History & Physical Exam 06/22/23 1132 MR#: [id number] Acct: [id number] Name: FABRICIO NUNES Rep #:[id number] : 1960 63 From: Rasheed pride MD PCP: Care Physician,No Primary Status :[facility] Location: [place] [address] History and Physical Date of Admission: 06/22/23 Intake Vital Signs 05/26/2408:00 06/02/2408:04 Height 5 ft 8 in 5 ft 7 in Weight: 211 lb 5 oz 210 lb 8 oz BMI 32.1 32.9 BP 138/82 H 122/75 H Blood Pressure Location Rt brachial Rt brachial Position Sitting Sitting Respiration 18 18 Pulse 83 94 Pulse Source Monitor Monitor Temp 97.9 F 98.5 F Temp Source Temporal Pulse Oximetry (%) 91 95 Oxygen Delivery Method room air room air Intake Visit Reasons: Peg Tube Placement Consult Chief Complaint: Peg tube placement Security Tester Required: No Accompanied by: Is patient in pain?: No Allergies bee venom protein (honey bee) Allergy (Severe, Verified 06/02/23 09:06) AnaphylaxisPenicillins Allergy (Mild, Verified 06/02/23 09:06) Hives Medications omega 7-fzp-acf-fish oil 60 mg-90 mg-500 mg capsule (Fish Oil) 1 cap PO DAILY 06/02/23 [History Confirmed 06/02/23] PFSH Medical History Cancer of glottis DVT (deep venous thrombosis) Dysphonia Tracheostomy present Family History Grandmother CancerGrandmother Cancer Social History household members: spouse Smoking Status: Former smoker alcohol intake: former substance use type: does not use HPI HPI HPI: The patient is here for PEG tube placement before his radiation for his laryngeal cancer. He already underwent chemotherapy. He has a tracheostomy in place. ROS General General: No weight change, appetite, fatigue, colon cancer, breast cancer or weakness HEENT HEENT: No difficulty swallowing, eye injury, eye surgery, swollen glands or hoarseness Endo Endocrine: No thyroid disease, diabetes mellitus, thyroid cancer, Hair loss, heat intolerance or cold intolerance Skin Skin: No rash or changing moles Musc Musculoskeletal: No back problems, arthritis, rheumatoid arthritis, gout or joint pain Cardio Cardiovascular: No murmur, pacemaker, heart disease, atrial fibrillation, high blood pressure, heart attack, heart stent, palpitations, shortness of breat withexertion or chest pain Psych Psychiatric: No depression, anxiety or hearing voices Resp Respiratory: No shortness of breath, No sleep apnea, No cough, No COPD, No asthma, No emphysema and No wheezing Gastro Gastrointestinal: No abdominal pain, No nausea or vomiting, No diarrhea, No constipation, No blood in stool, No acid reflux, No hemorrhoids, No ulcers, No gallbladder problem and No black,tarry stools Go Hematologic: No blood thinners, No blood disorders, No bleeding, No anemia and No blood clots Neuro Neurologic: No numbness and No weakness Exam Const General: cooperative Orientation: alert and oriented x3 HENMT Head: normal to inspection Neck Neck: normal visual inspection and full ROM Chest Chest palpation & inspection: normal inspection of the chest Resp Effort & Inspection: normal respiratory effort Auscultation: clear to auscultation bilaterally Cardio Rate: regular rate Rhythm: regular rhythm GI Inspection: non-distended Palpation: soft and nontender Skin General: no rashes or lesions noted Neuro General: patient alert and patient oriented x3 Extrem General: full ROM Psych Appearance: grossly normal Mental Status: mental status grossly normal Assessment and Plan Assessment and Plan (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 I discussed this with him in detail. I explained endoscopy in detail to the patient. I explained the risks including but not limited to stroke or heart attack with anesthesia, perforationof the GI tract, bleeding, infection. I explained that any of these could necessitate further emergency surgery. The patient understands and all questions were answered sufficiently. The patient wishes to proceed with procedure. Rasheed Alcaraz MD Pager: [facility] [address] [place] [address] [address], [address] [place] [address] Office: The patient had PEG tube placed successfully but he returns for placement of port. Nothing is changed on his physical exam and he is doing well. I discussed right chest port placement with him in detail. I discussed the risks including but not limited to bleeding, infection, pneumothorax or line infectionor DVT. Patient understands the risks and is willing to proceed. 06/22/23 1132 <Electronically signed by Rasheed Alcaraz MD> Cosigner Signature (if applicable): CC: Dr. Rasheed Alcaraz MD; No Primary Care Physician~ Signed [facility] Work Phone: 1(953) 785-533003-14-2024 Procedure [facility] 04-13-2023 Nurse Note* Rae Torres RN - 04/13/2023 11:11 AM EST Discharge Planning Note: 04/13/2022 @ 1100: Patient [...] be charged prior to leaving home. RN emphasizedtaking trach kit and suction machine whenever leaving the home. RN also gave patient's spouse written prescriptions for normal saline bottles and irrigation. RN explained these prescriptions and whatthey are for and recommended they be taken [...] unit when ride arrives. Rae Torres RN [facility]01-04-2024 Nurse Note* Rae Torres RN - 04/13/2023 11:11 AM EST Discharge Planning Note: 04/13/2022 @ 1100: Patient [...] be charged prior to leaving home. RN emphasizedtaking trach kit and suction machine whenever leaving the home. RN also gave patient's spouse written prescriptions for normal saline bottles and irrigation. RN explained these prescriptions and whatthey are for and recommended they be taken [...] arrives. Rae Torres RN [facility] Phone: 1(603) 822-598101-04-2024 Plan of care note* Care Plan - Rae Torres RN - 04/13/2023 10:36 AM EST The patient's goals for the shift include [...] >/=300ft with proper form and no balance deficitsfor safe home going. Outcome: Adequate for Discharge [...] to following goals. Patient was free from respiratorydistress and independent with trach care and suctioning. [facility] Work Phone: 1(899) 664-301901-04-2024 Miscellaneous Notes* Care Plan - Rae Torres RN - 04/13/2023 10:36 AM EST The patient's goals for the shift include [...] >/=300ft with proper form and no balance deficitsfor safe home going. Outcome: Adequate for Discharge [...] to following goals. Patient was free from respiratorydistress and independent with trach care and suctioning. * Care Plan - Barbara Madera RN - 04/12/2023 11:40 PM EST The patient's goals for the shift include The clinical goals for the shift include Pt will maintin patent airway overnight * Care Plan - Nessa Gray RN - 04/12/2023 7:49 AM EST The patient's goals for the shift include [...] pain meds throughout the shift Outcome: Progressing * Care Plan - Barbara Madera RN - 04/11/2023 8:32 PM EST The patient's goals for the shift include [...] Goal: My pain/discomfort is manageable Outcome: Progressing * Care Je - Nessa Gray RN - 04/11/2023 10:07 AM EST The patient's goals for the shift include [...] RN Outcome: Progressing 04/11/2023 1006 by Nessa Grya RN Outcome: Progressing Problem: Daily Care Goal: [...] 1006 by Nessa Gray RN Outcome: Progressing * Care Plan - Grace Layne RN - 04/10/2023 9:55 PM EST The clinical goals for the shift include pt will remain HDS by shift Patient remained safe and VSS during shift. Pt and at bedside have been able to suction and clean trach independently. * Care Plan - Edwige Jackson RN - 04/10/2023 2:48 PM EST The patient's & clinical goals for the shift include free of respiratory distress. Patient with stable VS. No pain or SOB. Refused pain meds. Patient suctioned self with 's assistance and cleaned inner cannula. Patient did very well! Continue to promote patient suctioning himself and have his due again. Patient remained safe this shift. Edwige Jackson RN * Care Plan - Barbara Madera RN - 04/10/2023 3:30 AM EST The patient's goals for the shift include [...] by end of the shift Outcome: Progressing * Care Plan - Barbara Madera RN - 04/08/2023 9:19 PM EST The patient's goals for the shift include The clinical goals for the shift include Pt will remain HD stable with adequate pain control overnight. * Care Plan - Cece Chavez RN - 04/08/2023 5:54 PM EST Problem: Fall/Injury Goal: Not fall by end [...] Patient's airway will remain patent throughout shift * Significant Event - Cece Chavez RN - 04/08/2023 1:32 PM EST Patient now on humidified room air. * Care Plan - Barbara Madera RN - 04/07/2023 10:26 PM EST The patient's goals for the shift include [...] 04/07/[id number] by Barbara Madera RN Outcome: Progressing * Hospital Course - Cheo Crockett MD - 04/07/2023 11:00 AM EST Fabricio Nunes is a 63 y.o. male with bilateral ulcerative glottic lesions with stridor who presented for emergent tracheostomy, triple endoscopy with biopsy from ED by Dr Brooks on 04/05. Patient had an uncomplicated surgical course. While in PACU, patient was found to have large right pneumothorax necessitating pigtail catheter placement by thoracic surgery. Patient recovered in PACU and was transferred to [place] [address] for post-operative care. Patient post-operative course was uncomplicated. Tracheostomy cuff was deflated 04/07. Daily chest imaging was followed and once pneumothorax was resolved chest catheter was removed by thoracic surgery. DISABILITY SERVICES COORDINATOR was consulted as well and MBS was [...] to the patient's bedside prior to discharge. * Care Plan - Barbara Madera RN - 04/06/2023 8:30 PM EST The patient's goals for the shift include [...] by end of the shift Outcome: Progressing * Care Plan - Kim Payan RN - 04/06/2023 2:31 AM EST The patient's goals for the shift include [...] barriers include request order for iv diladid. * Op Note - Enoc Brooks MD - 04/05/2023 5:22 PM EST Creation Tracheostomy, Direct Laryngoscopy, Bronchoscopy, Esophagoscopy Operative Note Date: 04/05/2023 OR Location: [facility] OR Name: Fabricio Nunes, : 1960, Age: 63 y.o., , Sex: male Diagnosis Pre-op Diagnosis * Lesion of glottis [J38.7] Post-op Diagnosis * Lesion of glottis [J38.7] Procedures Creation Tracheostomy 51846 - [place] TRACHEOSTOMY EMERGENCY PROCEDURE TRANSTRACHEAL Bronchoscopy 09572 - NH [facility] BRUSHING/PROTECTED BRUSHINGS Esophagoscopy 52450 - [place] ESOPHAGOSCOPY FLEXIBLE TRANSORAL DIAGNOSTIC Surgeons * Enoc Brooks - Primary Resident/Fellow/Other Taker Off Hemp Fiber: Surgeon(s) and Role: * Jeanette Hopkins - Resident, Assisting * Lyndsay Mccrary - Resident, Assisting Procedure Summary Anesthesia: * No anesthesia type entered * ASA: III Anesthesia Staff: Anesthesiologist: Cristina Bailey MD C-AA: HERMELINDA Garcia Salvage Mechanic: Darryl Burch MD Estimated Blood Loss: 10mL [...] TISSUE MASS BIOPSY SURGICAL PATHOLOGY EXAM Enoc Brooks MD 04/05/2023 180 2 : GLOTTIC MASSFOR PERMANENT Tissue SOFT TISSUE MASS BIOPSY SURGICAL PATHOLOGY EXAM Enoc Brooks MD 04/05/2023 1828 Staff: Foreign Food Cook Specialty: Negrita Mike RN; Arina Matos RN Scrub Person: SORG, TIMO Drains and/or Catheters: * None in log * Findings: 1) Awake tracheostomy completed with 6.0 cuffed Shiley placed via tracheal incision between rings 1-2 (no Henrik or window). Patient with vigorous coughing throughout, desaturation to mid-high 80s andlow 90s partway through procedure, otherwise uncomplicated 2) [...] commissure, involves entire length of vocal cords bilaterallybut spares arytenoids and extends superiorly to involve the ventricles bilaterally; vocal cords fixed in paramedian position, extremely difficult to pass whistle tip suction through posterior glotticinlet - this also made passage of the [...] 1 year of dysphonia and 1 month ofstridor. Flexible laryngoscopy and CT imaging demonstrated irregular [...] A safety check was performed. The patient wasstrapped to the surgical table, and a shoulder roll was placed. The neck landmarks were palpated. Aplanned horizontal incision was traced over the cricoid, and the overlying soft tissues were infiltrated with 1% lidocaine with 1:100,000 epinephrine. An oxygen facemask was applied, and precedex wasinfused by our Anesthesia colleagues. A timeout was [...] rings 1 and 2, and a trach plant worker was used to widen the tracheal opening. [...] palpated over the left lateral neck. We dis connected the circuit and performed a flexible bronchoscopy by passing the Ambu flexible bronchoscope through the trach inner cannula. The right and left mainstem bronchi as well as the subsegmental bronchi were visualized bilaterally. No concerning lesions or sources of tracheal injury were identif ied. Due to appropriate ventilation per the anesthesia [...] uvula, soft palate, tonsils, vallecula, epiglottis, base oftongue, arytenoids, false and true vocal cords, post-cricoid region and pyriform sinuses. There wasnoted to be a lesion of the bilateral true vocal cords as described in the findings. Multiple biopsi es were obtained from this lesion and submitted for both frozen and permanent pathology. 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 The Ambuflexible bronchoscope was inserted and passed through the Dedo scope and the posterior glottic inlet to better visualize the subglottis, with findings as above. No areas of tracheal injury were noted, though the true vocal cord mass was noted to extend into the subglottis anteriorly to at least thelevel of the cricoid. The scope was then removed, and the Dedo was taken out of suspension and remov ed. Flexible esophagoscopy was performed with the scope [...] crepitus. Oxygenation remained stable. The trach cuff wasslightly overinflated, and the crepitus appeared to subside [...] and scrubbed for the entire procedure. Enoc Brooks documented in this [facility] Work Phone: 1(273) 528-559001-04-2024 Hospital course Narrative* Terri Noonan, PHYSICAL THERAPIST ASSISTANT-HEALTH EDITOR - 04/13/2023 10:18 AM EST Discharge Diagnosis Lesion of glottis Issues Requiring Follow-Up Follw up tracheostomy and to discuss plan of car Test Results Pending At Discharge Pending Labs No current pending labs. Hospital Course Fabricio Nunes is a 63 y.o. male with bilateral ulcerative glottic lesions with stridor who presented for emergent tracheostomy, triple endoscopy with biopsy from ED by Dr Brooks on 04/05. Patient had an uncomplicated surgical course. While in PACU, patient was found to have large right pneumothorax necessitating pigtail catheter placement by thoracic surgery. Patient recovered in PACU and was transferred to [place] [address] for post-operative care. Patient post-operative course was uncomplicated. Tracheostomy cuff was deflated 04/07. Daily chest imaging was followed and once pneumothorax was resolved chest catheter was removed by thoracic surgery. DISABILITY SERVICES COORDINATOR was consulted as well and MBS was [...] Center 04/28/2023 1:30 PM John López MD [id number] [facility] Terri Noonan APRN, HEALTH EDITOR Certified Family Nurse Practitioner Nurse Practitioner III Department of Otolaryngology: Head & Neck Surgery Personal Pager [phone] ENT Team Head and Neck Phone: [phone] [facility] Work Phone: [phone]) 972-306401-04-2024 Note1. No evidence of metastatic disease within the chest. Evaluation is somewhat [...] as stated. This study was interpreted at [facility], [place], [place]. MACRO: None Signed by: Ramin Estrella 04/13/2023 7:53 AM Dictation workstation: [id number] Plan of care note* Care Plan - Barbara Madera RN - 04/12/2023 11:40 PM EST The patient's goals for the shift include The clinical goals for the shift include Pt will maintin patent airway overnight [facility]01-03-2024 NoteReceived Date and Time: 04/05/2023 at 6:35 PM Called Date and Time: 04/05/2023 at 7:[address] 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 The specimen is entirely submitted for frozen section analysis in 1 cassette. CINDY B: Received in formalin, labeled with the patient's name and hospital number and glottic mass forpermanent, are multiple brown-menendez cauterized soft tissue fragments aggregating to 0.9 x 0.5 x 0.2 cm. The specimen is submitted in toto in 1 cassette. R [facility] Work Phone: 1(849) 226-257401-03-2024 History of Present illness Narrative* Nikolay Garcia PTA - 04/12/2023 1:26 PM EST Physical Therapy Physical Therapy Treatment Patient Name: [...] of Assistance 1: Modified independent Outcome Measures: [facility] Basic Mobility Turning from your back to [...] D/C. (Progressing) Start: 04/06/23 Expected End: 04/13/23 * Jose Teague MD - 04/12/2023 12:46 PM EST Fabricio Nunes is a 63 y.o. male [...] resp. rate 18, height 1.727 m (5' 8), weight 91.4 kg (201 lb 8 oz), SpO2 97 %. Intake/Output last 3 Shifts: No intake/output data recorded. Assessment/Plan Principal Problem: Lesion of glottis Active Problems: Shortness of breath Biphasic stridor Acute on chronic respiratory failure with hypoxia (CMS/HCC) Airway obstruction, anatomic Fabricio Nunes is a 63 y.o. male with one year of dysphonia and one month of stridor who presented to [facility] ED with SOB and transferred to [facility] for further ENT evaluation. Scope exam with [...] while awake, thoracics signed off; PMV per DISABILITY SERVICES COORDINATOR if able to tolerate with glottis lesion, [...] on delivery now Cheo Crockett MD ENT [id number] * Ozzy Sams RN - 04/12/2023 10:40 AM EST Fabricio Nunes is a 63 y.o. male on day 7 of admission presenting with Lesion of glottis. Medical service company no longer can accept patient for supplies. TCC sent out blanket referrals to [employer] for trach supplies. Team updated on barrier. TCC will continue to follow 04/11/22 4:46pm- [facility] will begin order for suction machine. TCC will continue to follow. 04/12/22 1035am- TCC contacted [facility] at [phone] to pay for patients medical supplies. [facility] gave fax number of [phone]. TCC called [facility] [employer] with fax number to get payment for supplies. TCC will continue to follow. OZZY SAMS RN * Ozzy Sams RN - 04/11/2023 4:47 PM EST Fabricio Nunes is a 63 y.o. male on day 6 of admission presenting with Lesion of glottis. Medical service company no longer can accept patient for supplies. TCC sent out blanket referrals to [employer] for trach supplies. Team updated on barrier. TCC will continue to follow 04/11/22 4:46pm- [facility] will begin order for suction machine. TCC will continue to follow. OZZY SAMS RN * Ozzy Sams RN - 04/11/2023 4:41 PM EST Fabricio Nunes is a 63 y.o. male on day 6 of admission presenting with Lesion of glottis. Medical service [employer] no longer can accept patient for supplies. TCC sent out blanket referrals to [employer] for trach supplies. Team updated on barrier. TCC will continue to follow OZZY SAMS RN * MARGARET Sheikh - 04/11/2023 12:57 PM EST Speech-Language Pathology Adult Inpatient Swallow Treatment Patient Name: Fabricio Nunes Today's Date: 04/11/2023 Start Time: 1030 Stop Time: 1045 Time Calculation (min): 15 minutes Impression: Dysphagia tx completed to ensure tolerance of recommended oral diet. DISABILITY SERVICES COORDINATOR educ pt's re: MBSS results/recommendations. Pt consuming thin liquids - Water via straw via single sips. Pt reported no difficulty swallowing current oral diet. Given unknown results of biopsy, DISABILITY SERVICES COORDINATOR unable to dictate dysphagia POC at this time. DISABILITY SERVICES COORDINATOR educ pt re: role in dysphagia management pending results of biopsy. Pt's /pt verbalized understanding and in agreement. DISABILITY SERVICES COORDINATOR to follow peripherally to determine ongoing dysphagia needs/intervention POC. Recommendations: Regular diet w/ Thin liquids Frequent, aggressive oral care is strongly recommended to improve infection control as well as reduce dental plaque and bacteria on oropharyngeal surfaces which may increase the risk nosocomial infections, including pneumonia. DISABILITY SERVICES COORDINATOR to follow-up pending dx Goal: Pt will tolerate least restrictive diet and recall/utilize safe swallow guidelines independently with no clinical s/s of aspiration 100% of time Plan: DISABILITY SERVICES COORDINATOR Services Indicated: Yes Frequency: 2x week Discussed POC with patient and spouse DISABILITY SERVICES COORDINATOR - OK to Discharge Pain: 0-10 0 = No pain. Inpatient Education: Extensive education provided to patient and spouse regarding current swallow function, recommendations/results, and POC. Consultations/Referrals/Coordination of Services: N/A * MARGARET Hernandez - 04/11/2023 12:33 PM EST Speech-Language Pathology Adult Inpatient External Speaking Valve Placement (PMSV) Patient Name: Fabricio Nunes Today's Date: 04/11/2023 Start Time: 950 Stop Time: 1030 Time Calculation (min): 40 History of Present Illness: Fabricio Nunes is a 63 y.o. male with no pmhx presenting with one year of hoarseness and one month of inspiratory stridor. Notably, he recently presented to [facility] ED with dysphonia and SOB where he was treated for bronchitis and discharged. Today, patient presented to [facility] ED today and transferred to [facility] for further evaluation by ENT for possible tracheostomy placement, after Scope exam showed bilateral ulcerative lesions and minimal glottic gap patient was taken to the OR with ENT for tracheostomy due to concerns for impending airway compromise,post operatively patient was noted to have crepitus around right neck and chest and patient had desaturations to 85% and had increasing oxygen r equirements. CXR obtained showed a large right sided [...] pain, fever, chills, productive cough, or previous historyof SOB. Tracheostomy Type: 6 Shiley, cuffless On Vent: No Impression: Initial external speaking valve placement completed. Pt received awake/alert and upright in bed with at bedside. reports pt with significant difficulty breathing + dysphonia/aphonia prior to admission/tracheostomy procedure. Pt communicated via written word/mouthing throughout session; end orses significant improvement in respiratory status s/p trach. [...] Finger occlusion trialed w/o success; pt unable toproduce voice and with air escaping through trach around occlusion. Further trials deferred 2/2 pt request/performance with finger occlusion. Education provided re: utility of PMSV and subsequent POC. Pt and spouse verbalized understanding. PMSV remained with DISABILITY SERVICES COORDINATOR upon exit. Recommend Speech Therapy Services: Yes; Targeting PMSV trials as pt able/schedule permits. Goal(s): Pt will complete PMSV trials with no significant changes to vital signs >30 min at a time. Plan: DISABILITY SERVICES COORDINATOR Services Indicated: Yes Frequency: 2x week Discussed POC with patient and spouse DISABILITY SERVICES COORDINATOR - OK to Discharge Pain: 0-10 0 = No pain. Inpatient Education: Extensive education provided to patient and spouse regarding current function, recommendations/results, and POC. Consultations/Referrals/Coordination of Services: N/A * Lyndsay Mccrary MD - 04/10/2023 8:33 AM EST Fabricio Nunes is a 63 y.o. male [...] bleeding noted, very minimal L supraclavicular crepitus improvedfrom prior exam Last Recorded Vitals Blood pressure 123/82, pulse 85, temperature 37.3 C (99.1 F), temperature source Temporal, resp. rate 18, height 1.727 m (5' 8), weight 91.4 kg (201 lb 8 oz), [...] one month of stridor who presented to [facility] ED with SOB and transferred to [facility] for further ENT evaluation. Scope exam with [...] while awake, thoracics signed off; PMV per DISABILITY SERVICES COORDINATOR if able to tolerate with glottis lesion, [...] discussed with Dr. Zahida Mccrary MD ENT [id number] * Benjamin Kurtz MD - 04/08/2023 8:16 AM EST Fabricio Nunes is a 63 y.o. male [...] resp. rate 16, height 1.727 m (5' 8), weight 91.4 kg (201 lb 8 oz), [...] one month of stridor who presented to [facility] ED with SOB and transferred to [facility] for further ENT evaluation. Scope exam with [...] pigtail chest catheter removed, thoracics signed off ;Continue trach care every 4-6 hours as per nursing protocol; clean inner cannula daily; sutures outPOD 5 - CV: hydralazine prn; Vitals q4h [...] with Dr. Teague. Benjamin Kurtz MD ENT [id number] * Tammy Devine RN - 04/07/2023 1:57 PM EST Transitional Care Coordination Progress Note: Patient discussed during interdisciplinary rounds. Team members present: HEALTH EDITOR, SW, RD, TCC and PCN Plan per Medical/Surgical team: Fabricio Nunes is a 63 y.o. male with one year of dysphonia and one month of stridor who presented to [facility] ED with SOB and transferred to [facility] for further ENT evaluation. 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 -- Pt passed swallow evaluation today and will advance to regular diet. Pt to have chest tube removed tomorrow most likely per team. Status: IP Payor source: [facility] Discharge disposition: home with , HC TBD; Met with pt and at the bedside to complete admission assessment. Pt lives with and is normally independent with ADLs. Pt lives in [facility]. Pt and are willing to learn trach care. Pt is open to receiving home care. However no accepting HC agencies at this time. Referral sent to Medical Service for trach supplies. Medical services asked for cost breakdown for supplies. Potential Barriers: none ADOD: 04/10-2 Tammy Devine RN, TCC Doc [facility] * MARGARET Hernandez - 04/07/2023 7:51 AM EST Speech-Language Pathology Therapy Communication Note Patient Name: Fabricio Nunes Today's Date: 04/07/2023 Time: 745 Discipline: Speech-Language Pathology Reason: Attempt Comment: Passy marv speaking valve (PMSV) deferred at this time per attending. MBSS to be completed as pt able/radiology schedule permits. * Tammy Garcia MD - 04/07/2023 7:02 AM EST Fabricio Nunes is a 63 y.o. male [...] resp. rate 18, height 1.727 m (5' 8), weight 91.4 kg (201 lb 8 oz), [...] Rate 107 BPM Atrial Rate 107 BPM NH Interval 160 ms QRS Duration 90 ms QT Interval 356 ms QTC Calculation(Bazett) 475 ms P [place] 34 degrees R [place] -14 degrees T [place] 111 degrees QRS Count 18 beats Q [...] Garcia MD General Surgery PGY2 Thoracic surgery [id number] * Victor Manuel Lomax, - 04/07/2023 6:21 AM EST Fabricio Nunes is a 63 y.o. male [...] resp. rate 18, height 1.727 m (5' 8), weight 91.4 kg (201 lb 8 oz), [...] one month of stridor who presented to [facility] ED with SOB and transferred to [facility] for further ENT evaluation. Scope exam with [...] pigtail chest catheter clamp trial today per thoracic;repeat am CXR pending; appreciate thoracic recs; Continue trach care every 4-6 hours as per nursingprotocol; clean inner cannula daily; sutures out POD5 [...] Dr. Whitt. Victor Manuel Lomax, DO ENT [id number] * Dayton Nicholson RN - 04/06/2023 4:28 PM EST PLAN: SICU from OR s/p awake trach, bronchoscopy, endoscopy and biopsy with Dr Brooks 04/05: serial exams with symptom management, MAP goals, R pigtail- thoracics following, pulm toilet PRN, nutrition consult, plan for MBS tomorrow, trend labs, skin, line, ICU tlc. PAYOR: [employer] DISPO: home vs home with [facility] SUPPORT/CONTACT: Olivia (spouse) [phone] Met with patient and spouse to complete assessment. Confirmed demographics on file. Patient lives on ground level of home with 1STE. IPTA, active with [facility]. No barriers to follow-up care. Patient and spouse state he will have 24/7 assist at discharge and would be amenable toHC if needed. Available to assist with any developing needs. * Kim Guillaume OT - 04/06/2023 3:36 PM EST Occupational Therapy Evaluation Patient Name: Fabricio Nunes Today's Date: 04/06/2023 Time: 7794-2717 Assessment IP OT Assessment OT Assessment: Pt [...] General: Reason for Referral: Pt transferred to [facility] for further ENT evaluation. 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 Past Medical History Relevant to Rehab: No PMH on file. Does endorse one year of hoarseness and onemonth of inspiratory stridor. Prior to Session Communication: Bedside nurse Patient Position Received: Bed, 3 rail up, Alarm on Family/Caregiver Present: Yes Caregiver Feedback: present during session General Comment: Pt is pleasant and cooperative. He puts forth good effort and able to complete alltasks asked of him. nHe has a dry [...] Layout: One level Prior Function: Level of Wheeler: Independent with ADLs and functional transfers, Independent [...] Hand Function Gross Grasp: Functional Outcome Measures: [facility] Daily Activity Putting on and taking off [...] 3:35 PM Kim Guillaume OT Rehab Office: [phone] * Zakia Merritt Scooter, PT - 04/06/2023 3:31 PM EST Physical Therapy Physical Therapy Evaluation & Treatment [...] ability to complete bed mobility, sit<>stand transfer andambulation. No instability noted during session. Vital stable [...] Prior Function Per Pt/Caregiver Report Level of Wheeler: Independent with ADLs and functional transfers, Independent with homemaking with ambulation Receives Help From: Family ADL Assistance: Independent Homemaking Assistance: Independent Ambulatory Assistance: Independent Vocational: part time employment Precautions: Precautions Hearing/Visual Limitations: WFL Medical [...] to attempt to use urinal. x2 sit<>stand transferfrom chair, x1 sit<>stand transfer from toilet, pt demonstrating ability to complete BM cleanup from toilet without assistance. Pt completed chair<>toilet transfer without use of AD, CGAvia therapist. Outcome Measures: [facility] Basic Mobility Turning from your back to [...] only Sitting: Supervision or set-up only Transfer Ydh-oe-Nzxuo: Supervision or set-up only Transfer Axkduc-uj-Oow: Supervision or set-up only Total Score: 25 [...] Demonstrated Understanding Education Comments No comments found. * Enoc Garcia MD - 04/06/2023 9:49 AM EST Fabricio Nunes is a 63 y.o. male [...] rate (!) 35, height 1.727 m (5' 8), weight 91.4 kg (201 lb 8 oz), [...] one month of stridor who presented to [facility] ED with SOB and transferred to [facility] for further ENT evaluation. 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 - Follow up thoracic recommendations re pigtail management - Recommend DISABILITY SERVICES COORDINATOR for swallow eval, consider DHT if fails [...] and agree with the note as written. * MARGARET Sheikh - 04/06/2023 8:20 AM EST Speech-Language Pathology Therapy Communication Note Patient Name: Fabricio Nunes Today's Date: 04/06/2023 Discipline: Speech Language Pathology Missed Visit Reason: New orders placed for a swallow evaluation. Spoke w/ ENT, requesting PMSV (notswallow evaluation at this time). Given pt had trach placed at 1700 previous date, DISABILITY SERVICES COORDINATOR to hold for 24 hrs and complete valve trials next date in AM as appropriate. ENT aware and in agreement. Missed Time: Attempt Comment: * Devon Silva MD - 04/06/2023 7:36 AM EST Fabricio Nunes is a 63 y.o. male [...] resp. rate 23, height 1.727 m (5' 8), weight 91.4 kg (201 lb 8 oz), [...] Rate 104 BPM Atrial Rate 104 BPM NH Interval 156 ms QRS Duration 92 ms QT Interval 346 ms QTC Calculation(Bazett) 454 ms P [place] 35 degrees R [place] 3 degrees T [place] 59 degrees QRS Count 17 beats Q [...] OR s/p awake trach, bronchoscopy, endoscopy and biopsywith Dr Brooks 04/05, presenting with one year of hoarseness and one month of inspiratory stridor, after Scope exam showed bilateral ulcerative lesions and minimal glottic gap patient was taken to the OR with ENT for tracheostomy due to concerns for impending airway compromise,post operatively patient was noted to have crepitus around right neck and chest and patient had desaturations to 85% andhad increasing oxygen requirements. CXR obtained showed a [...] ulcerative lesions and minimal glottic gap representing likelymalignant lesion and concerning for impending airway compromise, s/p awake trach, bronchoscopy, endoscopy and biopsy,post OP patient was noted to have crepitus around right neck and chest and patienthad desaturations to 85% and had increasing oxygen [...] with ICU attending Dr. Marroquin. SICU phone [phone] Devon Silva MD Associated attestation - Jonathan Marroquin MD - 04/06/2023 12:35 PM EST I evaluated this patient with a house rn. I oversaw this patient's care, and I participated intheir medical decision-making. Patient arrived to SICU care [...] floor transfer Lopez CONTRERAS SICU Staff P. [phone] * Tammy Garcia MD - 04/06/2023 7:06 AM EST Fabricio Nunes is a 63 y.o. male [...] resp. rate 21, height 1.727 m (5' 8), weight 91.4 kg (201 lb 8 oz), [...] Rate 104 BPM Atrial Rate 104 BPM NH Interval 156 ms QRS Duration 92 ms QT Interval 346 ms QTC Calculation(Bazett) 454 ms P [place] 35 degrees R [place] 3 degrees T [place] 59 degrees QRS Count 17 beats Q [...] expansion of lung. - maintain CT to for 24 hours - obtain dailly morning CXR to evaluate for stability of pneumothorax - thoracic surgery will continue to follow Patient seen and discussed with fellow Dr. Oconnell and attending Dr. Vince Garcia MD General Surgery PGY2 Thoracic surgery [id number] Associated attestation - Kirsten Clarke MD - [...] critical illness/injury that acutely impairs one or morevital organ systems such that there is a high probability of imminent or life threatening deterioration in the patient's condition. Time involved in the performance of separately reportable procedures was not counted toward critical care time. Critical Care Time 30min Thank you for involving me in the care of this patient. Kirsten Clarke MD Thoracic Surgeon [facility] Pearl Makerspecial machine operator [facility] [employer] Office phone: Pager: [phone] [facility] Work Phone: 1(471) 912-605001-03-2024 Plan of care note* Care Plan - Nessa Gray RN - 04/12/2023 7:49 AM EST The patient's goals for the shift include [...] pain meds throughout the shift Outcome: [facility]01-02-2024 Plan of care note* Care Plan - Barbara Madera RN - 04/11/2023 8:32 PM EST The patient's goals for the shift include [...] Goal: My pain/discomfort is manageable Outcome: [facility] Work Phone: 1(794) 497-686401-02-2024 Plan of care note* Care Plan - Nessa Gray RN - 04/11/2023 10:07 AM EST The patient's goals for the shift include [...] of the shift 04/11/2023 1007 by Nessa rGay RN Outcome: Progressing 04/11/2023 1006 by Nessa [...] 1006 by Nessa Gray RN Outcome: [facility] Work Phone: 1(491) 202-971901-01-2024 Plan of care note* Care Plan - Grace Layne RN - 04/10/2023 9:55 PM EST The clinical goals for the shift include pt will remain HDS by shift Patient remained safe and VSS during shift. Pt and at bedside have been able to suction and clean trach independently. [facility] Plan of care note* Care Plan - Edwige Jackson RN - 04/10/2023 2:48 PM EST The patient's & clinical goals for the shift include free of respiratory distress. Patient with stable VS. No pain or SOB. Refused pain meds. Patient suctioned self with 's assistance and cleaned inner cannula. Patient did very well! Continue to promote patient suctioning himself and have his due again. Patient remained safe this shift. Edwige Jackson RN [facility]01-01-2024 Plan of care note* Care Plan - Barbara Madera RN - 04/10/2023 3:30 AM EST The patient's goals for the shift include [...] [facility] Work Phone: 1(468) 985-628712-30-2023 Plan of care note* Care Plan - Barbara Madera RN - 04/08/2023 9:19 PM EST The patient's goals for the shift include The clinical goals for the shift include Pt will remain HD stable with adequate pain control overnight. [facility] Work Phone: 1(709) 930-736112-30-2023 Plan of care note* Care Plan - Cece Chavez RN - 04/08/2023 5:54 PM EST Problem: Fall/Injury Goal: Not fall by end [...] throughout shift [facility]12-30-2023 Note* Significant Event - Cece Chavez RN - 04/08/2023 1:32 PM EST Patient now on humidified room air. [facility] Work Phone: 1(382) 280-749212-30-2023 NoteSwallow evaluation as dictated above by speech pathology. I personally reviewed the image(s)/study and resident interpretation. I agree with the findings as stated by resident Maxwell Canela. Data analyzed and images interpreted at [facility], [place], [place]. MACRO: None Signed by: Derrell Fagan 04/08/2023 2:24 AM Dictation workstation: [id number] Plan of care note* Care Plan - Barbara Madera RN - 04/07/2023 10:26 PM EST The patient's goals for the shift include [...] 04/07/20232225 by Barbara Madera RN Outcome: Progressing [facility] Work Phone: 1(945) 488-437312-29-2023 Procedure note* Jaswinder Alvarenga, [facility]-DISABILITY SERVICES COORDINATOR - 04/07/2023 1:35 PM ESTAssociated Order(s): DISABILITY SERVICES COORDINATOR MODIFIED BARIUM SWALLOW EVALUATION Speech-Language Pathology Modified Barium Swallow Study Patient Name: Fabricio Nunes : 1960 Today's Date: 04/07/23 Recommendations: Regular diet with Thin liquids. PO meds as tolerated. Complete oral care frequently throughout the day. Follow up with DISABILITY SERVICES COORDINATOR as an outpatient at the voice and swallow center pending diagnosis and treatmentpathway. PMSV once cleared by MD. Assessment/Impression: Oropharyngeal phases of the swallow WFL. Pt currently with cuffed tracheostomy tube Shiley #6 with cuff deflated and no PMSV. Patient with slowed oral prepping skills but adequate bolus formulation and propulsion across all consistencies. No evidence of penetration or aspiration with before, duringor after the swallow on all consistencies. Following the swallow no evidence of pharyngeal stasis th roughout the lumen. Full detailed DISABILITY SERVICES COORDINATOR/Radiologist Modified Barium Swallow study report can be found under Chart Review tab, Imaging tab and titled [place] Modified Barium Swallow Study Pt. Presenting with safe and efficient swallow mechanics for a PO diet. Plan: Treatment/Interventions: Pharyngeal exercises and Patient/family education, pending POC for laryngeal ulcerations. DISABILITY SERVICES COORDINATOR Plan: No treatment needs identified at this time DISABILITY SERVICES COORDINATOR Frequency: To be determined, pending tx POC Duration: 30 days Discussed POC: Patient, Discussed Risks/Benefits: Yes Patient/Caregiver Agreeable: Yes GOALS: Pt. to tolerate least restrictive diet without pulmonary compromise Education: Pt. Educated on results of MBS study, recommended diet and recommended safe swallow strategies [facility] Work Phone: 1(792) 316-348212-29-2023 Procedure note* KRISTINA CeronDISABILITY SERVICES COORDINATOR - 04/07/2023 1:35 PM ESTAssociated Order(s): DISABILITY SERVICES COORDINATOR MODIFIED BARIUM SWALLOW EVALUATION Speech-Language Pathology Modified Barium Swallow Study Patient Name: Fabricio Nunes : 1960 Today's Date: 04/07/23 Recommendations: Regular diet with Thin liquids. PO meds as tolerated. Complete oral care frequently throughout the day. Follow up with DISABILITY SERVICES COORDINATOR as an outpatient at the voice and swallow center pending diagnosis and treatmentpathway. PMSV once cleared by MD. Assessment/Impression: Oropharyngeal phases of the swallow WFL. Pt currently with cuffed tracheostomy tube Shiley #6 with cuff deflated and no PMSV. Patient with slowed oral prepping skills but adequate bolus formulation and propulsion across all consistencies. No evidence of penetration or aspiration with before, duringor after the swallow on all consistencies. Following the swallow no evidence of pharyngeal stasis th roughout the lumen. Full detailed DISABILITY SERVICES COORDINATOR/Radiologist Modified Barium Swallow study report can be found under Chart Review tab, Imaging tab and titled FL Modified Barium Swallow Study Pt. Presenting with safe and efficient swallow mechanics for a PO diet. Plan: Treatment/Interventions: Pharyngeal exercises and Patient/family education, pending POC for laryngeal ulcerations. DISABILITY SERVICES COORDINATOR Plan: No treatment needs identified at this time DISABILITY SERVICES COORDINATOR Frequency: To be determined, pending tx POC Duration: 30 days Discussed POC: Patient, Discussed Risks/Benefits: Yes Patient/Caregiver Agreeable: Yes GOALS: Pt. to tolerate least restrictive diet without pulmonary compromise Education: Pt. Educated on results of MBS study, recommended diet and recommended safe swallow strategies * Scooby Santacruz MD - 04/05/2023 9:53 PM ESTAssociated Order(s): Chest Tube Insertion Post-Procedure Diagnose(s): Postprocedural pneumothorax Chest Tube Insertion Date/Time: 04/05/2023 9:58 PM Performed by: Scooby Santacruz MD Authorized by: Kirsten Clarke MD Consent: Consent obtained: Written Consent given by: Spouse and patient Risks discussed: Damage to surrounding structures, bleeding, infection, nerve damage and pain Alternatives discussed: No treatment, delayed treatment and alternative treatment [place] protocol: Procedure explained and questions answered to [...] R lateral Scalpel size: 11 Tube size (German): 14 Fr pigtail. Ultrasound guidance: no Tension [...] through the needle and the needle was removed.A stab incision was made at the skin [...] catheter positioning. Patient tolerated procedure with no i ssues. documented in this [facility] Work Phone: 1(119) 184-217512-29-2023 Hospital Note* Hospital Course - Cheo Crockett MD - 04/07/2023 11:00 AM EST Fabricio Nunes is a 63 y.o. male with bilateral ulcerative glottic lesions with stridor who presented for emergent tracheostomy, triple endoscopy with biopsy from ED by Dr Brooks on 04/05. Patient had an uncomplicated surgical course. While in PACU, patient was found to have large right pneumothorax necessitating pigtail catheter placement by thoracic surgery. Patient recovered in PACU and was transferred to [place] [id number] for post-operative care. Patient post-operative course was uncomplicated. Tracheostomy cuff was deflated 04/07. Daily chest imaging was followed and once pneumothorax was resolved chest catheter was removed by thoracic surgery. DISABILITY SERVICES COORDINATOR was consulted as well and MBS was [...] [facility] Work Phone: 1(774) 232-802112-28-2023 Plan of care note* Care Plan - Barbara Madera RN - 04/06/2023 8:30 PM EST The patient's goals for the shift include [...] by end of the shift Outcome: [facility] Work Phone: [phone]) 491-541712-28-2023 Plan of care note* Care Plan - Kim Payan RN - 04/06/2023 2:31 AM EST The patient's goals for the shift include [...] barriers include request order for iv diladid. [facility]12-27-2023 History and physical note* Ricky Brown MD - 04/05/2023 10:30 PM EST SICU History & Physical Subjective HPI: Fabricio Nunes is a 63 y.o. male with no pmhx presenting with one year of hoarseness and one month of inspiratory stridor. Notably, he recently presented to [facility] ED with dysphonia and SOB where he was treated for bronchitis and discharged. Today, patient presented to [facility] ED today and transferred to [facility] for further evaluation by ENT for possible tracheostomy placement, after Scope exam showed bilateral ulcerative lesions and minimal glottic gap patient was taken to the OR with ENT for tracheostomy due to concerns for impending airway compromise,post operatively patient was noted to have crepitus around right neck and chest and patient had desaturations to 85% and had increasing oxygen r equirements. CXR obtained showed a large right sided [...] pain, fever, chills, productive cough, or previous historyof SOB. Cardiac Testing: TTE: No echocardiogram results [...] PRN medications: albuterol, diphenhydrAMINE, droperidol, hydrALAZINE, HYDROmorphone, HYDROmorphone,HYDROmorphone, labetaloL, meperidine, naloxone, ondansetron, ondansetron, oxyCODONE, oxyCODONE, [...] H2O): [5 cm H20] 5 cm H20 NH SUP: [12 cm H20] 12 cm H20 [...] to chest. COMPARISON: Radiograph 04/05/2023 ACCESSION NUMBER(S): [id number] ORDERING CLINICIAN: PRASAD ALBERTS FINDINGS: AP radiograph [...] Large volume subcutaneous emphysema in the lateral neckbilaterally with tracheostomy cannula. Findings were discussed in person with member of the treatment team but did not obtain providers name. Critical finding chatted to ordering provider as well. I personally reviewed the images/study and I agree with the findings as stated by Emmie Tamayo MD. This study was interpreted at [facility], [place], [place]. MACRO: Emmie Tamayo discussed the significance and urgency of this critical finding by secure chatwith PRASAD ALBERTS on 04/05/2023 at 8:18 pm. (-RCF-) Findings: Pneumothorax. Dictation workstation: [id number] CT soft tissue neck w IV contrast Result Date: 04/05/2023 Interpreted By: Guillermo Martinez, STUDY: CT SOFT TISSUE NECK W IV CONTRAST; 04/05/2023 2:49 pm INDICATION: Signs/Symptoms:concern for airway mass. COMPARISON: None. ACCESSION NUMBER(S): [id number] ORDERING CLINICIAN: ARIS SLAUGHTER TECHNIQUE: Axial CT [...] lesion. There is minimal asymmetric prominence of theright laryngeal ventricle when compared with the left [...] with the left which may represent an incidentalfinding although asymmetric prominence of the laryngeal ventricle can be seen with ipsilateral vocal cord dysfunction and this latter possibility therefore can not be completely excluded. There are scattered morphologically normal size lymph nodes noted within the neck. No abnormally enlarged lymphnodes are noted within the neck. MACRO: None. Signed by: Guillermo Martinez 04/05/2023 3:37 PM Dictation workstation: [id number] XR chest 1 view Result Date: 04/05/2023 STUDY: Chest Radiograph; 04/05/2023 at 12:09 PM. INDICATION: Shortness of breath. COMPARISON: None available. ACCESSION NUMBER(S): [id number] ORDERING CLINICIAN: ARIS SLAUGHTER TECHNIQUE: Frontal chest was obtained at 12:09 hours. FINDINGS: CARDIOMEDIASTINAL SILHOUETTE: Cardiomediastinal silhouette is normal in size and configuration. LUNGS: There is mild elevation the right hemidiaphragm withright basilar subsegmental atelectasis. ABDOMEN: No remarkable upper abdominal findings. BONES: No acute osseous changes. Subsegmental atelectasis of the right lung base. Signed by Zachary Nunes MD Assessment/Plan Assessment: Fabricio Emery Nunes is a 63 y.o. male with no pmhx presenting with one year of hoarseness and one month of inspiratory stridor presenting to SICU from OR s/p awake trach, bronchoscopy, endoscopy and biopsywith Dr Brooks 04/05,presenting with one year of hoarseness and [...] showed a large right sided pneumothorax, Thoracic dougherty rgery placed a right sided chest tube. Plan: [...] ulcerative lesions and minimal glottic gap representing likelymalignant lesion and concerning for impending airway compromise, s/p awake trach, bronchoscopy, endoscopy and biopsy,post OP patient was noted to have crepitus around right neck and chest and patienthad desaturations to 85% and had increasing oxygen [...] with ICU attending Dr. Villarreal. SICU phone [phone] Associated attestation - Darlene Villarreal MD - 04/06/2023 5:52 AM EST Brief Attending Summary: 63 yo M presenting to OSH with h/o hoarseness and inspiratory stridor complaining of dysphonia and SOB. Transferred to [facility]. ENT consulted - scope with b/l ulcerating [...] Billing Provider Critical Care Time: 41 minutes [facility] Work Phone: [phone] History and physical note* Ricky Brown MD - 04/05/2023 10:30 PM EST SICU History & Physical Subjective HPI: Fabricio Nunes is a 63 y.o. male with no pmhx presenting with one year of hoarseness and one month of inspiratory stridor. Notably, he recently presented to [facility] ED with dysphonia and SOB where he was treated for bronchitis and discharged. Today, patient presented to [facility] ED today and transferred to [facility] for further evaluation by ENT for possible tracheostomy placement, after Scope exam showed bilateral ulcerative lesions and minimal glottic gap patient was taken to the OR with ENT for tracheostomy due to concerns for impending airway compromise,post operatively patient was noted to have crepitus around right neck and chest and patient had desaturations to 85% and had increasing oxygen r equirements. CXR obtained showed a large right sided [...] pain, fever, chills, productive cough, or previous historyof SOB. Cardiac Testing: TTE: No echocardiogram results [...] PRN medications: albuterol, diphenhydrAMINE, droperidol, hydrALAZINE, HYDROmorphone, HYDROmorphone,HYDROmorphone, labetaloL, meperidine, naloxone, ondansetron, ondansetron, oxyCODONE, oxyCODONE, [...] H2O): [5 cm H20] 5 cm H20 NH SUP: [12 cm H20] 12 cm H20 [...] to chest. COMPARISON: Radiograph 04/05/2023 ACCESSION NUMBER(S): [id number] ORDERING CLINICIAN: PRASAD ALBERTS FINDINGS: AP radiograph [...] Large volume subcutaneous emphysema in the lateral neckbilaterally with tracheostomy cannula. Findings were discussed in person with member of the treatment team but did not obtain providers name. Critical finding chatted to ordering provider as well. I personally reviewed the images/study and I agree with the findings as stated by Emmie Tamayo MD. This study was interpreted at [facility], [place], [place]. MACRO: Emmie Tamayo discussed the significance and urgency of this critical finding by secure chatwith PRASAD ALBERTS on 04/05/2023 at 8:18 pm. (-RCF-) Findings: Pneumothorax. Dictation workstation: [id number] CT soft tissue neck w IV contrast Result Date: 04/05/2023 Interpreted By: Guillermo Martinez, STUDY: CT SOFT TISSUE NECK W IV CONTRAST; 04/05/2023 2:49 pm INDICATION: Signs/Symptoms:concern for airway mass. COMPARISON: None. ACCESSION NUMBER(S): [id number] ORDERING CLINICIAN: ARIS SLAUGHTER TECHNIQUE: Axial CT [...] lesion. There is minimal asymmetric prominence of theright laryngeal ventricle when compared with the left [...] with the left which may represent an incidentalfinding although asymmetric prominence of the laryngeal ventricle can be seen with ipsilateral vocal cord dysfunction and this latter possibility therefore can not be completely excluded. There are scattered morphologically normal size lymph nodes noted within the neck. No abnormally enlarged lymphnodes are noted within the neck. MACRO: None. Signed by: Guillermo Martinez 04/05/2023 3:37 PM Dictation workstation: [id number] XR chest 1 view Result Date: 04/05/2023 STUDY: Chest Radiograph; 04/05/2023 at 12:09 PM. INDICATION: Shortness of breath. COMPARISON: None available. ACCESSION NUMBER(S): [id number] ORDERING CLINICIAN: ARIS SLAUGHTER TECHNIQUE: Frontal chest was obtained at 12:09 hours. FINDINGS: CARDIOMEDIASTINAL SILHOUETTE: Cardiomediastinal silhouette is normal in size and configuration. LUNGS: There is mild elevation the right hemidiaphragm withright basilar subsegmental atelectasis. ABDOMEN: No remarkable upper abdominal findings. BONES: No acute osseous changes. Subsegmental atelectasis of the right lung base. Signed by Zachary Nunes MD Assessment/Plan Assessment: Fabricio Nunes is a 63 y.o. male with no pmhx presenting with one year of hoarseness and one month of inspiratory stridor presenting to SICU from OR s/p awake trach, bronchoscopy, endoscopy and biopsywith Dr Brooks 04/05,presenting with one year of hoarseness and [...] showed a large right sided pneumothorax, Thoracic dougherty rgery placed a right sided chest tube. Plan: [...] ulcerative lesions and minimal glottic gap representing likelymalignant lesion and concerning for impending airway compromise, s/p awake trach, bronchoscopy, endoscopy and biopsy,post OP patient was noted to have crepitus around right neck and chest and patienthad desaturations to 85% and had increasing oxygen [...] with ICU attending Dr. Villarreal. SICU phone [phone] Associated attestation - Darlene Villarreal MD - 04/06/2023 5:52 AM EST Brief Attending Summary: 63 yo M presenting to OSH with h/o hoarseness and inspiratory stridor complaining of dysphonia and SOB. Transferred to [facility]. ENT consulted - scope with b/l ulcerating [...] Billing Provider Critical Care Time: 41 minutes * Eleni Pierce MD - 04/05/2023 5:00 PM EST History Of Present Illness Fabricio Nunes is a 63 y.o. male with no pmhx presenting with one year of hoarseness and one month of inspiratory stridor. Notably, he recently presented to [facility] ED with dysphonia and SOB where he was treated for bronchitis and discharged. Today, patient presented to [facility] ED today and transferred to [facility] for further evaluation by ENT for possible [...] history of smoking 1/2 ppd for 4-5 years,but quit smoking 30 years ago. Family History [...] membranes, normal floor of mouth/tongue/OP, no masses orlesions Pharynx: no masses or lesions Neck/Lymph: No LAD, no thyroid masses, trachea midline Skin: Neck skin is without scar or injury Psych: Alert and oriented with appropriate mood and affect Last Recorded Vitals Blood pressure 137/87, pulse 97, temperature 36.3 C (97.3 F), temperature source Temporal, resp. rate 18, height 1.727 m (5' 8), weight 91.4 kg (201 lb 8 oz), [...] It was placed in the bilateral nares. Followingan appropriate amount of time to allow for [...] one month of stridor who presented to [facility] ED with SOB and transferred to [facility] for further ENT evaluation. 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 Recs: - Emergently taken to OR for awake trach, triple endoscopy and biopsy - Admit to ENT Patient seen and discussed with Dr. Brooks who agrees with plan. Eleni Pierce MD PGY-1 Otolaryngology - Head & Neck Surgery [facility] ENT Consult Pager: [phone] Head and Neck Phone: [phone] ENT Peds Pager: [phone] ENT Subspecialty Team: EpicChat Associated attestation - Enoc Brooks MD - 04/07/2023 5:58 PM EST I saw and evaluated the patient. I personally obtained the guzman and critical portions of the historyand physical exam or was physically present for guzman and critical portions performed by the resident/fellow. I reviewed the resident/fellow's documentation and discussed the patient with the resident/milly jauregui. I agree with the resident/fellow's medical decision making as documented in the note. This patient presents with srkxm-pu-[id number] respiratory failure due to airway obstruction from glottic mass, suspicious for malignancy or possible inflammatory process. Due to 1mm glottic airway and risk for decompensation, discussion was had to proceed with urgent awake tracheostomy and direct graciela ngoscopy with biopsy, bronchoscopy, and esophagoscopy. Patient and are agreeable and consent was signed. I spent over 90 minutes evaluating the patient, including supervision of the flexible laryngoscopy, coordination of OR procedure, and discussion with anesthesiology staff. documented in this [facility] Work Phone: [phone] Procedure note* Scooby Santacruz MD - 04/05/2023 9:53 PM ESTAssociated Order(s): Chest Tube Insertion Post-Procedure Diagnose(s): Postprocedural pneumothorax Chest Tube Insertion Date/Time: 04/05/2023 9:58 PM Performed by: Scooby Santacruz MD Authorized by: Kirsten Clarke MD Consent: Consent obtained: Written Consent given by: Spouse and patient Risks discussed: Damage to surrounding structures, bleeding, infection, nerve damage and pain Alternatives discussed: No treatment, delayed treatment and alternative treatment [place] protocol: Procedure explained and questions answered to [...] R lateral Scalpel size: 11 Tube size (German): 14 Fr pigtail. Ultrasound guidance: no Tension [...] through the needle and the needle was removed.A stab incision was made at the skin at the guide wire insertion site and a dilator was inserted over the wire to dilated the track for the pigtail. The pigtail catheter with stylette in place was ins erted over the guide wire and the stylette [...] [facility] Work Phone: [phone] Consult note* Scooby Santacruz MD - 04/05/2023 9:34 PM EST Reason For Consult Right sided pneumothorax History [...] C (96.8 F), temperature source Tympanic, resp. rate11, height 1.727 m (5' 8), weight 90.7 kg (200 lb), SpO2 95 %. Relevant Results XR chest 1 view Result Date: 04/05/2023 1. Large right-sided pneumothorax with collapse of the right lung. Mild leftward mediastinal shift raising concern for tension pneumothorax. 2. Large volume subcutaneous emphysema in the lateral neckbilaterally with tracheostomy cannula. Assessment/Plan 63 yo M with glottic lesion s/p tracheostomy presenting with new large right sided pneumothorax andincreased oxygen requirements. Recs: Thoracic surgery will place a right sided chest tube. Post procedure CXR obtained. Please obtain daily CXR while pigtail is in place. Patient seen and discussed with Dr. Clarke. Scooby Santacruz MD Thoracic surgery [id number] Associated attestation - Kirsten Clarke MD - [...] the guzman and critical portions of the historyand physical exam or was physically present for guzman and critical portions performed by the resident/fellow. I reviewed the resident/fellow's documentation and discussed the patient with the resident/f shania. I agree with the resident/fellow's medical decision making as documented in the note. Kirsten Clarke MD Thoracic Surgeon [facility] [employer] Makerspecial machine operator [facility] Office phone: Pager: [phone] [facility] Work Phone: [phone] Consult note* Scooby Santacruz MD - 04/05/2023 9:34 PM EST Reason For Consult Right sided pneumothorax History [...] C (96.8 F), temperature source Tympanic, resp. rate11, height 1.727 m (5' 8), weight 90.7 kg (200 lb), SpO2 95 %. Relevant Results XR chest 1 view Result Date: 04/05/2023 1. Large right-sided pneumothorax with collapse of the right lung. Mild leftward mediastinal shift raising concern for tension pneumothorax. 2. Large volume subcutaneous emphysema in the lateral neckbilaterally with tracheostomy cannula. Assessment/Plan 63 yo M with glottic lesion s/p tracheostomy presenting with new large right sided pneumothorax andincreased oxygen requirements. Recs: Thoracic surgery will place a right sided chest tube. Post procedure CXR obtained. Please obtain daily CXR while pigtail is in place. Patient seen and discussed with Dr. Clarke. Scooby Santacruz MD Thoracic surgery [id number] Associated attestation - Kirsten Clarke MD - [...] the guzman and critical portions of the historyand physical exam or was physically present for guzman and critical portions performed by the resident/fellow. I reviewed the resident/fellow's documentation and discussed the patient with the resident/milly jauregui. I agree with the resident/fellow's medical decision making as documented in the note. Kirsten Clarke MD Thoracic Surgeon [facility] [employer] machine operator [facility] Office phone: Pager: [phone] [facility] Work Phone: [phone] Note* Op Note - Enoc Brokos MD - 04/05/2023 5:22 PM EST Creation Tracheostomy, Direct Laryngoscopy, Bronchoscopy, Esophagoscopy Operative Note Date: 04/05/2023 OR Location: [facility] OR Name: Fabricio Nunes, : 1960, Age: 63 y.o., , Sex: male Diagnosis Pre-op Diagnosis * Lesion of glottis [J38.7] Post-op Diagnosis * Lesion of glottis [J38.7] Procedures Creation Tracheostomy 95490 - [place] TRACHEOSTOMY EMERGENCY PROCEDURE TRANSTRACHEAL Bronchoscopy 33638 - [place] BRNCHSC BRUSHING/PROTECTED BRUSHINGS Esophagoscopy 05578 - [place] ESOPHAGOSCOPY FLEXIBLE TRANSORAL DIAGNOSTIC Surgeons * Enoc Brooks - Primary Resident/Fellow/Other Taker Off Hemp Fiber: Surgeon(s) and Role: * Jeanette Hopkins - Resident, Assisting * Lyndsay Mccrary - Resident, Assisting Procedure Summary Anesthesia: * No anesthesia type entered * ASA: III Anesthesia Staff: Anesthesiologist: Cristina Bailey MD C-AA: HERMELINDA Garcia Salvage Mechanic: Darryl Burch MD Estimated Blood Loss: 10mL [...] TISSUE MASS BIOPSY SURGICAL PATHOLOGY EXAM Enoc Brooks MD 04/05/2023 1807 2 : GLOTTIC MASSFOR PERMANENT Tissue SOFT TISSUE MASS BIOPSY SURGICAL PATHOLOGY EXAM Enoc Brooks MD 04/05/2023 1828 Staff: Foreign Food Cook Specialty: Negrita Mike RN; Arina Matos RN Scrub Person: TIMO GREER Drains and/or Catheters: * None in log * Findings: 1) Awake tracheostomy completed with 6.0 cuffed Shiley placed via tracheal incision between rings 1-2 (no Henrik or window). Patient with vigorous coughing throughout, desaturation to mid-high 80s andlow 90s partway through procedure, otherwise uncomplicated 2) [...] commissure, involves entire length of vocal cords bilaterallybut spares arytenoids and extends superiorly to involve the ventricles bilaterally; vocal cords fixed in paramedian position, extremely difficult to pass whistle tip suction through posterior glotticinlet - this also made passage of the [...] 1 year of dysphonia and 1 month ofstridor. Flexible laryngoscopy and CT imaging demonstrated irregular [...] A safety check was performed. The patient wasstrapped to the surgical table, and a shoulder roll was placed. The neck landmarks were palpated. Aplanned horizontal incision was traced over the cricoid, and the overlying soft tissues were infiltrated with 1% lidocaine with 1:100,000 epinephrine. An oxygen facemask was applied, and precedex wasinfused by our Anesthesia colleagues. A timeout was [...] rings 1 and 2, and a trach plant worker was used to widen the tracheal opening. [...] palpated over the left lateral neck. We dis connected the circuit and performed a flexible bronchoscopy by passing the Ambu flexible bronchoscope through the trach inner cannula. The right and left mainstem bronchi as well as the subsegmental bronchi were visualized bilaterally. No concerning lesions or sources of tracheal injury were identif ied. Due to appropriate ventilation per the anesthesia [...] uvula, soft palate, tonsils, vallecula, epiglottis, base oftongue, arytenoids, false and true vocal cords, post-cricoid region and pyriform sinuses. There wasnoted to be a lesion of the bilateral true vocal cords as described in the findings. Multiple biopsi es were obtained from this lesion and submitted for both frozen and permanent pathology. 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 The Ambuflexible bronchoscope was inserted and passed through the Dedo scope and the posterior glottic inlet to better visualize the subglottis, with findings as above. No areas of tracheal injury were noted, though the true vocal cord mass was noted to extend into the subglottis anteriorly to at least thelevel of the cricoid. The scope was then removed, and the Dedo was taken out of suspension and [facility] ed. Flexible esophagoscopy was performed with the scope [...] crepitus. Oxygenation remained stable. The trach cuff wasslightly overinflated, and the crepitus appeared to subside [...] and scrubbed for the entire procedure. Enoc [facility] Work Phone: [phone] History and physical note* Eleni Pierce MD - 04/05/2023 5:00 PM EST History Of Present Illness Fabricio Nunes is a 63 y.o. male with no pmhx presenting with one year of hoarseness and one month of inspiratory stridor. Notably, he recently presented to [facility] ED with dysphonia and SOB where he was treated for bronchitis and discharged. Today, patient presented to [facility] ED today and transferred to [facility] for further evaluation by ENT for possible [...] history of smoking 1/2 ppd for 4-5 years,but quit smoking 30 years ago. Family History [...] membranes, normal floor of mouth/tongue/OP, no masses orlesions Pharynx: no masses or lesions Neck/Lymph: No LAD, no thyroid masses, trachea midline Skin: Neck skin is without scar or injury Psych: Alert and oriented with appropriate mood and affect Last Recorded Vitals Blood pressure 137/87, pulse 97, temperature 36.3 C (97.3 F), temperature source Temporal, resp. rate 18, height 1.727 m (5' 8), weight 91.4 kg (201 lb 8 oz), [...] It was placed in the bilateral nares. Followingan appropriate amount of time to allow for [...] one month of stridor who presented to [facility] ED with SOB and transferred to [facility] for further ENT evaluation. 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 Recs: - Emergently taken to OR for awake trach, triple endoscopy and biopsy - Admit to ENT Patient seen and discussed with Dr. Brooks who agrees with plan. Eleni Pierce MD PGY-1 Otolaryngology - Head & Neck Surgery [facility] ENT Consult Pager: [phone] Head and Neck Phone: [phone] ENT Peds Pager: [phone] ENT Subspecialty Team: EpicChat Associated attestation - Enoc Brooks MD - 04/07/2023 5:58 PM EST I saw and evaluated the patient. I personally obtained the guzman and critical portions of the historyand physical exam or was physically present for guzman and critical portions performed by the resident/fellow. I reviewed the resident/fellow's documentation and discussed the patient with the resident/f shania. I agree with the resident/fellow's medical decision making as documented in the note. This patient presents with keiri-ar-lrialnb respiratory failure due to airway obstruction from glottic mass, suspicious for malignancy or possible inflammatory process. Due to 1mm glottic airway and risk for decompensation, discussion was had to proceed with urgent awake tracheostomy and direct graciela ngoscopy with biopsy, bronchoscopy, and esophagoscopy. Patient and are agreeable and consent was signed. I spent over 90 minutes evaluating the patient, including supervision of the flexible laryngoscopy, coordination of OR procedure, and discussion with anesthesiology staff. [facility] Work Phone: [phone] Emergency department Note* Aris Slaughter PA-C - 04/05/2023 11:04 AM EST This is a 63-year-old male with past medical history of bronchitis who presents to the ED for shortness of breath. Patient was initially evaluated at [facility] ED today and was sent here for further evaluation as well as evaluation by ENT for possible tracheostomy placement. History was obtained fromthe patient and his who was at bedside. Per them over the past 1 year patient has had progressi ve hoarseness of his voice and over the past 1 month has had an 8 pound weight loss. He states overthe past 2 weeks has had progressive shortness [...] History provided by: Patient and significant other chemical analytical sampler used: No Visit Vitals BP (!) 157/96 Pulse 109 Temp 36.8 C (98.2 F) Resp 18 Ht 1.727 m (5' 8) Wt 90.7 kg (200 lb) SpO2 94% [...] No palpable organomegaly. No rebound or guarding. NoCVA tenderness. Back: No midline or paraspinal T [...] Guillermo Martinez 04/05/2023 3:37 PM Dictation workstation: [id number] XR chest 1 view Final Result Subsegmental atelectasis of the right lung base. Signed by Zachary Nunes MD ED Course & MDM Medical Decision Making This is a 63-year-old male with no significant past medical history presents to the ED with concernfor upper airway obstruction with obvious stridor. Upon [...] of 04/05/23 1543 Shortness of breath Procedures Aris Wilch, MMS, SILVINA Slaughter PA-C 04/05/23 1544 Associated attestation [...] him with likely plan for surgical intervention. * Denise Moid RN - 04/05/2023 11:04 AM EST Pt reports he has been SOB for a while and his voice is hoarse. States it has been like that for 2-3 weeks. Was sent here from [facility] for ENT and possible trach. When asked what caused the breathingissue, they report that they are unsure but that the pt has bronchitis. [facility] Work Phone: [phone] Emergency department Triage note* Denise Modi RN - 04/05/2023 11:04 AM EST Pt reports he has been SOB for a while and his voice is hoarse. States it has been like that for 2-3 weeks. Was sent here from [facility] for ENT and possible trach. When asked what caused the breathingissue, they report that they are unsure but that the pt has bronchitis. [facility] Work Phone: [phone] Physician Emergency department Note* Aris E SILVINA Slaughter - 04/05/2023 11:04 AM EST This is a 63-year-old male with past medical history of bronchitis who presents to the ED for shortness of breath. Patient was initially evaluated at [facility] ED today and was sent here for further evaluation as well as evaluation by ENT for possible tracheostomy placement. History was obtained fromthe patient and his who was at bedside. Per them over the past 1 year patient has had progressi ve hoarseness of his voice and over the past 1 month has had an 8 pound weight loss. He states overthe past 2 weeks has had progressive shortness [...] History provided by: Patient and significant other chemical analytical sampler used: No Visit Vitals BP (!) 157/96 Pulse 109 Temp 36.8 C (98.2 F) Resp 18 Ht 1.727 m (5' 8) Wt 90.7 kg (200 lb) SpO2 94% [...] No palpable organomegaly. No rebound or guarding. NoCVA tenderness. Back: No midline or paraspinal T [...] Guillermo Martinez 04/05/2023 3:37 PM Dictation workstation: [id number] XR chest 1 view Final Result Subsegmental atelectasis of the right lung base. Signed by Zachary Nunes MD ED Course & MDM Medical Decision Making This is a 63-year-old male with no significant past medical history presents to the ED with concernfor upper airway obstruction with obvious stridor. Upon [...] him with likely plan for surgical intervention. [facility] Work Phone: 1([phone]) 479-131311-22-2023 Discharge summary Author Logan Callejas [facility] March 01, 2023 9:00pm Note Date/Time March 01, 2023 8:53pm [facility] Medical Records Department [address] [place] [address] Emergency Department Summary 03/01/23 MR#: [id number] Acct: [id number] Name: FABRICIO NUNES Rep #:[id number] : 1960 63 From: Logan Callejas MD PCP: Care Physician,No Primary Status :REG ER Location: ED ADDENDUM by Dr. Logan Callejas MD on 03/01/23 at 2058 Sinus tachycardia rate of 110. NH interval is 176 ms. QRS duration 98 ms. QT duration 326 ms. [place] is normal. There is nonseptic changes noted laterally which is all likelihood artifact. There is evidence of LVH by voltage criteria. 03/01/232058<Electronically signed by Logan Callejas MD> Cosigner Signature (if applicable): cc: No Primary Care Physician ~* Signed HPI History of Present Illness Chief Complaint: Shortness of Breath Detail of Chief Complaint: Respiratory symptoms that started 2 to 3 weeks ago Informant: patient and spouse/S.O. Onset/Context/Timing Onset: Weeks Context: Gradual Onset Timing: Continuous and Waxes and wanes Quality: Cough, wheezing and dyspnea Location: Respiratory Current Severity: Mild Maximum Severity: Severe Worsened by: Activity Relieved by: Nothing Associated Symptoms Associated Symptoms: Upper respiratory symptoms. Narrative Narrative: Patient is a 63-year-old male who is a former smoker. He denies history of asthma or COPD. He denies fever or chills. He denies headache. He denies visual, ocular auditory symptoms. He has had problems with dysphonia for 1 year. Etiology of his voice change is unknown. He has a remote history of DVT,2011. He is presently on no anticoagulant. He reports a cough and shortness ofbreath that started 2 to 3 weeks ago. His symptoms got worse today. He denies pleuritic chest pain. He denies abdominal pain, nausea, vomiting or diarrhea. He denies leg pain, swelling or discoloration. Prior similar symptoms: Yes Recent Illness/Hospitalization: No PFSH PFS Medical History (Updated 03/01/23 @ 20:[address] Logan Callejas MD) DVT (deep venous thrombosis) Medical History no medical history Home Medications albuterol sulfate 90 mcg/actuation aerosol inhaler (Ventolin HFA) 2 puff inhalation Q4H PRN PRN Wheezing ##1 03/01/23 [Rx Last Taken Unknown] doxycycline monohydrate 100 mg capsule 100 mg PO BID #13 CAPSULES 03/01/23 [Rx Last Taken Unknown] prednisone 20 mg tablet 60 mg (3 x 20 mg) PO DAILY #12 TABLETS 03/01/23 [Rx Last Taken Unknown] Allergy/AdvReac Type Severity Reaction Status Date / Time bee venom protein (honey bee) Allergy Severe Anaphylaxis Verified 03/01/23 18:41 Penicillins Allergy Mild Hives Verified 03/01/23 18:41 Family History no significant family his Surgical History no surgical history Social History (Updated 03/01/23 @ 20:[address] Logan Callejas MD) household members: spouse Smoking Status: Former smoker alcohol intake: former substance use type: does not use ROS ROS ED Constitutional Constitutional ED: Denies chills, fever(s), subjective, sweats or weight loss Eyes Eyes: Denies blurry vision, change in vision or diplopia ENT ENT ED: Reports rhinorrhea; Denies ear pain or sore throat Cardiovascular Cardiovascular: Denies chest pain, orthopnea, palpitations, paroxysmal nocturnaldyspnea or racing heartbeat Respiratory/Chest Respiratory/Chest: Reports cough, dyspnea and dyspnea on exertion; Denies orthopnea, paroxysmal nocturnal dyspnea or sputum Gastrointestinal Gastrointestinal: Denies abdominal pain, diarrhea, nausea or vomiting Genitourinary Genitourinary ED: Denies dysuria, hematuria or urinary frequency Musculoskeletal Musculoskeletal: Denies arthralgias, myalgias or neck pain Integumentary Denies rash Neurologic Neurologic: Denies headache(s), paresthesias or weakness Psychiatric Psychiatric: Denies anxiety Hematologic/Lymphatic Hematologic/Lymphatic: Reports systems reviewed and no addt'l complaints, exceptas documented EXAM Physical Exam Const Vital Signs: 03/01/23 18:36 03/01/23 18:44 03/01/23 19:31 Temperature 98.1 F Temperature Source Oral Pulse Rate 112 H 108 H Respiratory Rate 24 H 20 H Respiratory Effort Short of Breath Labored Respiratory Pattern Blood Pressure 174/98 H Blood Pressure Mean 123 Pulse Ox 95 91 Oxygen Delivery Method Room Air Room Air Room Air 03/01/23 18:58 03/01/23 20:23 Temperature 97 F L Temperature Source Temporal Pulse Rate 117 H 102 H Respiratory Rate 20 H 15 Respiratory Effort Respiratory Pattern Normal Blood Pressure 174/98 H Blood Pressure Mean 123 Pulse Ox 100 Oxygen Delivery Method Room Air Positive well nourished, well developed and obese Constitutional Narrative: Patient speaks in short sentences. He is tachypneic. He does have dysphonia ofunknown etiology. General Appearance ED: well developed; Negative for cyanotic, diaphoretic, NAD or pallor Nutritional Appearance: obese HEENT Reports moist mucous membranes HEENT Narrative: Head is atraumatic and normocephalic. Ears are normal. TMs are normal. Posterior pharynx not erythema or exudate. Nose remarkable for slight clear drainage. There is no frontal, ethmoid or maxillary sinus tenderness. Eyes PERRL and EOMs intact bilaterally General Eye ED: Negative for pale conjunctiva or scleral icterus Neck no lymphadenopathy, supple and no JVD Chest Wall inspection of chest normal and palpation of chest normal Resp No normal respiratory effort and No clear to auscultation bilaterally Resp Narrative: There is minimal use of accessory muscles. Effort and Inspection: Negative for retractions or pain with movement Auscultation: wheezes expiratory wheezes and throughout (There is delayed expiratory phase.) Cardio regular rhythm, S1 normal heart sound, S2 normal heart sound and no murmurs Rate: tachycardic GI normal to inspection, nondistended, normoactive bowel sounds, non-tender, non-distended and no masses; Negative for hepatosplenomegaly Back/Spine no CVA tenderness Extremity normal to inspection Extremity Narrative: There is no asymmetry, swelling, discoloration, leg vein distention, palpable cords or tenderness along the distribution of the deep venous system. General Extremety ED: Negative for edema or tenderness General Extremity: Negative for edema Neuro oriented x3, CN's II-XII intact bilaterally and no sensory deficits noted Sensorium / Orientation: alert Psych mental status grossly normal Skin no rashes or lesions noted, no wounds and skin turgor normal General Skin Exam: Negative for jaundice or pallor MDM MDM MDM Narrative Medical decision making narrative: With patient having respiratory symptoms started 2 to 3 weeks ago need to evaluate for chronic bronchitis versus pneumonia. Doubt pulmonary embolus. Patient's history and symptoms were not consistent with CHF. To evaluate patient's presentation chest x-ray was obtained as well as appropriate blood work to assess for endorgan dysfunction as well as white count differential. EKG was obtained per nurse protocol. History & Record Review Discussion w/independent historian: Patient and Significant other Lab Data Attestation: I reviewed the patient's lab results. Lab results narrative: Count is normal. Differential is normal. Comprehensive metabolic panel is remarkable for glucose of 191 with a normal CO2 and anion gap. Lactate is elevated. Labs: Laboratory Results - last 24 hr 03/01/23 03/01/23 18:45 19:01 WBC 8.6 RBC 5.17 Hgb 15.5 Hct 46.3 MCV 89.6 MCH 30.0 MCHC 33.5 RDW Std Deviation 40.7 RDW Coeff of Ruddy 12.3 Plt Count 230 MPV 8.4 Immature Gran % (Auto) 0.300 Neut % (Auto) 69.3 Lymph % (Auto) 17.6 L Spencer % (Auto) 10.3 H Eos % (Auto) 1.6 Baso % (Auto) 0.9 Absolute Neuts (auto) 6.0 Absolute Lymphs (auto) 1.52 Nucleated RBC % 0 Sodium 136 Potassium 3.4 L Chloride 103 Carbon Dioxide 27.0 Anion Gap 6 BUN 20 H Creatinine 0.88 Estim Creat Clear Calc 82.05 Est GFR (MDRD) Af Amer 112 Est GFR (MDRD) Non-Af 92 BUN/Creatinine Ratio 22.7 H Glucose 191 H Lactic Acid 3.1 H* Calcium 8.8 Total Bilirubin 0.40 AST 16 ALT 34 Alkaline Phosphatase 86 Troponin I High Sens 60 Total Protein 7.3 Albumin 3.8 Globulin 3.5 Albumin/Globulin Ratio 1.1 Radiography Chest X-Ray - ED: 2 View and Read by ED Physician (2 view chest x-ray was independently reviewed interpreted by me as negative for any acute process. Cardiac silhouette and size normal. Lung parenchyma normal. Perihilar region normal. Osseous structures were unremarkable.) Diagnostic Testing: Clinical Impression(s) from Imaging Studies Chest X-Ray 03/01/23 19:15 IMPRESSION: No acute cardiopulmonary process. Electronically Signed: Kel Morales MD (Brooks) at 19:30 EST Reading Location ID and State: [facility] / [place] , Service support , Differential Diagnosis Chest pain/SOB: pneumothorax Reason(s) pneumothorax less likely: Positive for bilateral breath sounds and [employer] withhout PTX, pneumonia Reason(s) pneumonia lesslikely: Positive for no infiltrate on CXR, no elevation in WBC count and no noted fever, aortic dissection Reason(s) Aortic dissection less likely:: Positive for normal vascular exam, no history of HTN, normal neurological exam, no significant risk factors for dissection, no widened mediastinum on CXR, pain not sudden onset, no ripping/tearing pain, no pain to back and blood pressure appropriate in ED and CHF Reason(s) CHF less likely: Positive for no significantperipheral edema, no orthopnea and no evidence of fluid overload on CXR Treatment and Re-Evaluation :: Patient was reassessed at 2049. He is moving significantly more air. There is slight wheeze at the left base on forced expiration. Patient was discharged with prescription for albuterol metered-dose inhaler and burst of prednisone. He received his first dose of prednisone in the emergency department. Discharge Plan Triage Chief Complaint: Shortness of Breath ED Provider: Logan Callejas Dx/Rx/DC Orders Clinical Impression: Dyspnea, Acute bronchospasm, Chronic bronchitis Prescriptions: New prednisone 20 mg tablet 60 mg PO DAILY Qty: 12 0RF doxycycline monohydrate 100 mg capsule 100 mg PO BID Qty: 13 0RF albuterol sulfate [Ventolin HFA] 90 mcg/actuation HFA aerosol inhaler 2 puff inhalation Q4H PRN PRN (Reason: Wheezing) Qty: 1 0RF Primary Care Provider: Care Physician,No Primary Referrals: Xander Correia MD [Non-Staff] - 3-5 Days if not improving Care Physician,No Primary [Primary Care Provider] - Disposition Disposition: Home, Self Care What to do if you have Problems For any increased pain, shortness of breath, bleeding, nausea or vomiting, chestpain, or any unexpected problems, contact your Primary Care Provider. Call [facility] ([phone]) or report to the closest Emergency Room. Call 911 if necessary. 03/01/232057 <Electronically signed by Logan Callejas MD> Cosigner Signature (if applicable): CC: No Primary Care Physician ~ Signed [facility] Work Phone: Discharge summary Author Rasheed Alcaraz [facility] June 22, 2023 12:32pm Note Date/Time June 22, 2023 12: 32pm [facility] Medical Records Department [address] [place] [address] Instructions for Home/Discharge Instructions 06/22/23 1231 MR#: [id number] Acct: [id number] Name: FABRICIO NUNES Rep #:[id number] : 1960 63 From: Rasheed pride MD PCP: Care Physician,No Primary Status :[facility] Discharge Instructions Diet Discharge Diet: Light diet - advance as tolerated Activity Discharge Activity: Return to Normal Activity and May Shower (with your bandage in place in 1 to 2 days after surgery. DO NOT SHOWER WHEN YOUR PORT IS ACCESSED.) Dressing / Incision Call your doctor if your incision/area has: Continuous Slow Oozing, Sudden Increased Bleeding, Increased Pain/ Swelling, Increased Redness and Foul Smelling Discharge Call your doctor if you observe: Fever of 101 or Higher Remove Dressing in: 2 days (Remove steri strips in 7-10 days) Cleanse incision/area with: Soap & Water Follow Up Care Please Follow Up With: Rasheed Alcaraz MD When: As needed at [phone] Test Results: Test results from this visit will be discussed in further detail at your follow- up appointment, if applicable. Discharge Plan Admission Attending Provider: Rasheed Alcaraz Primary Care Provider: Eugenio Physician,Cynthia Primary Discharge Orders/Prescriptions Prescriptions: No Action omega 7-[id number]-fish oil [Fish Oil] 60-90-500 mg capsule 1 cap PO DAILY ondansetron 8 mg tablet,disintegrating 8 mg PO Q8H PRN (Reason: nausea and vomiting) Qty: 30 2RF lidocaine-prilocaine 2.5-2.5 % cream 1 applic topical ONCE PRN (Reason: port access) 30 Days Qty: 30 2RF dexamethasone 4 mg tablet 8 mg PO .COMPLEX Qty: 42 0RF Rx Instructions: 8 mg orally daily ONLY days 2, 3, 4 of chemotherapy cycle ascorbic acid (vitamin C) [Vitamin C] 500 mg tablet 500 mg PO DAILY PRN (Reason: supplement) vitamin B complex Tablet 1 tab PO DAILY vitamin E 268 mg (400 unit) capsule 268 mg PO DAILY thiamine HCl (vitamin B1) [Vitamin B-1] 50 mg tablet 50 mg PO DAILY oxycodone 5 mg tablet 5 mg PO Q6H PRN (Reason: pain) 5 Days Qty: 10 0RF Referrals / Follow Up: Care Physician,No Primary [Primary Care Provider] - Disposition Disposition (needs filled in before D/C Order can be placed): Home, Self Care 06/22/23 1232<Electronically signed by Rasheed Alcaraz MD>Rasheed Alcaraz MD CC: No Primary Care Physician ~ Signed [facility] Work Phone: Evaluation noteNo assessment information available 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 Work Phone: Chief Complaint and Reason for Visit Chief Complaint SOB Chief Complaint SOB CONSULT - LARYNGEAL Peg Tube Placement Consult NEW . 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 Encounter for education Squamous cell carcinoma of larynx Advance Directives No Advanced Directives Records Found Advance Directive Response Recorded Date/ Time Living Will No March 01 6:41pm Power of Is/It Project Manager No March 01, 2023 6:41pm Latest Code Status on File Code Status Date Activated Date Inactivated Comments Full Code 04/05/2023 6:42 PM Question Answer Comments Plan of Care: Code Status Discussion Completed Decision Maker: Patient Advance Directive Response Recorded Date/ Time Living Will No June 19, 2023 3:18pm Power of Is/It Project Manager No June 18 3:18pm Summary Purpose Family History No Family History Records Found Relationship Condition Age at Onset Recorded Date/T chasidy grandmother Malignant neoplasm Unknown Additional Source Comments Care Teams (unrecognized sec tion and content) Team Status: Active Member Role Status Dates No Primary Care Physician Primary Care Provider Active Team Status: Inactive Member Role Status Dates Dr. Logan Callejas MD Emergency Provider Active No Primary Care Physician Primary Care Provider Active Public Address Systems Mechanic Relationship Specialty Start Date End Date Generic Provider, No Assigned [facility] [address] [place] [address] PCP - General Family Medicine 04/05/23 Team Status: Inactive Member Role Status Dates No Primary Care Physician Primary Care Provider Active Dr. Nikolas Coreas DO Attending Provider Active Dr. Prasad Myers MD Referring Provider Activ e Team Status: Active Member Role Status Dates No Primary Care Physician Primary Care Provider Active Dr. Nikolas Coreas DO Attending Provider, Referring P andryrafa Active Team Status: Inactive Member Role Status Dates No Primary Care Physician Primary Care Provider Active Dr. Rasheed Alcaraz MD Attending Provider Active Dr. Nikolas Coreas DO Referring Provider Active Team Status: Active Member Role Status Dates No Primary Care Physician Primary Care Provider Active Dr. Rasheed Alcaraz MD Attending Pr ovider, Referring Provider, Other Provider Active Team Status: Inactive Member Role Status Dates No Primary Care Physician Primary Care Provider, Refer ring Provider Active Dr. Clarence Ng MD Attending Provider Active Team Status: Inactive Member Role Status Dates No Primary Care Physician Primary Care Provider, Refer ring Provider Active Justine Hou YOUTH PROGRAM DIRECTOR, YOUTH PROGRAM DIRECTOR-C Attending Provider Active Team Status: Inactive Member Role Status Dates Dr. Logan Callejas MD Attending Provider, Emergency Provi rafa Active No Primary Care Physician Primary Care Provider Active Team Status: Inactive Member Role Status Dates No Primary Care Physician Primary Care Provider Active Dr. Rasheed Alcaraz MD Attending Provider, Referr ing Provider Active Goals (unrecognized section and content) Goals may be documented in a n alternate section Reason for Visit (unrecogniz ed section and content) Reason Comments Shortness of Breath Specialty Diagnoses / Procedures Referred By Contac t Referred To Contact Diagnoses Shortness of breath Stridor Lesion of glottis Procedures n/[place] [address] [place] [address] [facility] [address] [place] [address] Referral ID Status Reason Start Date Expiration Date Visits Re quested Visits Authorized [id number] 1 1 Scheduled Active and Recently Administ ered Medications (unrecognized section and content) Medication Order 04/11/2023 04/12/2023 04/13/2023 acetaminophen (Tylenol) oral liquid 1,000 mg 1,000 mg, oral, Every 8 hours scheduled, First dose (after last modification) on Mon04/07/23 at 2200, If NPO 0600 (Not Given - Provider: Barbara Madera RN - Reason: Patient/family refused)1400 (Not Given - Provider: Nessa Gray RN - Reason: Patient/family refused)2200 (Not Given - Provider: Barbara Madera RN - Reason: Patient/family refused) 0600 (Not Given - Provider: Barbara Madera RN - Reason: Patient/family refused)1400 (Not Given - Provider: Nessa Gray RN - Reason: Patient/family refused)2200 (Not Given - Provider: Barbara Madera RN - Reason: Patient/family refused) 0600 (Not Given - Provider: Barbara Madera RN - Reason: Patient/family refused)1400 (Due)2200 (Due) chlorhexidine (Peridex) 0.12 % solution 15 mL 15 mL, Mouth/Throat, 3 times daily after meals, First dose (after last modification) on [facility] 04/06/23 at 2100, Apply to mouth via mouth swabs 3 times a day after meals. 0932 (Given - Provider: Aris Bowden)1241 (Given - Provider: Aris Bowden)1705 (Given - Provider: Aris Bowden) 1034 (Given - Provider: Nessa Gray RN)1357 (Given - Provider: Nessa Gray RN)1807 (Given - Provider: Nessa Gray RN) 0818 (Given - Provider: Rae Torres RN)1300 (Due)1800 (Due) heparin (porcine) injection 5,000 Units 5,000 Units, subcutaneous, Every 8 hours, First dose (after last modification) on [facility] 04/06/23 at 1800 0229 (Given - Provider: Barbara Madera RN)0932 (Given - Provider: Aris Bowden)1706 (Given - Provider: Aris Bowden) 0221 (Given - Provider: Barbara Madera RN)1034 (Given - Provider: Nessa Gray RN)1807 (Given - Provider: Nessa Gray RN) 0225 (Given - Provider: Barbara Madera RN)1000 (Not Given - Provider: Rae Torres RN - Reason: Other - Comment: patient d/c)1800 (Due) lidocaine 4 % patch 1 patch 1 patch, transdermal, Administer over 12 Hours, Daily, First dose (after last modification) on [facility] 04/06/23 at 0800, Apply to R Chest Tube. Patch will remain on for 12 hours, then removed for [address] patch directly over any surgical incisions or wounds. 0900 (Not Given - Provider: Nessa Gray RN - Reason: Patient/family refused) 0900 (Not Given - Provider: Nessa Gray RN - Reason: Patient/family refused) 0900 (Not Given - Provider: Rae Torres RN - Reason: Patient/family refused) polyethylene glycol (Glycolax, Miralax) packet 17 g 17 g, nasoduodenal tube, Daily, First dose (after last modification) on Mon04/07/23 at 0900, Bowel Regimen - for prevention of constipation. 0900 (Not Given - Provider: Nessa Gray RN - Reason: Patient/family refused) 09 (Not Given - Provider: Nessa Gray RN - Reason: Patient/family refused) 0900 (Not Given - Provider: Rae Torres RN - Reason: Patient/family refused) senna (Senokot) 8.8 mg/5 mL syrup 10 mL 10 mL, nasoduodenal tube, 2 times daily, First dose (after last modification) on [facility] 04/06/23 at 2100, Bowel Regimen - for prevention of constipation Give oral liquid if patient prefers or per feeding tube if present Hold for loose stools 0900 (Not Given - Provider: Nessa Gray RN - Reason: Patient/family refused)2100 (Not Given - Provider: Barbara Madera RN - Reason: Patient/family refused - Comment: loose stools) 0900 (Not Given - Provider: Nessa Gray RN - Reason: Patient/family refused)2100 (Not Given - Provider: Barbara Madera RN - Reason: Patient/family refused) 0900 (Not Given - Provider: Rae Torres RN - Reason: Patient/family refused)2100 (Due) PRN Medication Order 04/11/2023 04/12/2023 04/13/2023 albuterol [...] (Rate/Dose Verify - Provider: Edmar De Souza, MODELING AGENCY MANAGER) (unrecognized sect ion and content) No Status Records FoundNo Status Records FoundNo Status Records Found INFORMATION SOURCE (unrecogn ized section and content) DATE CREATED AUTHOR 04/14/2023 [facility] DATE CREATED AUTHOR AUTHOR'S ORGANIZ ATION 12/30/2023 [facility] DATE CREATED AUTHOR AUTHOR'S ORGANIZ ATION 11/21/2024 [facility] FOR RECORDS PERTAINING TO PATIENTS WHO ARE [...] BE BASED ON THE PRIMARY CLINICAL RECORDS. [employer] [facility]. provides no warranty or guarantee of the accuracy or completeness of information in this document.
== END | disposition home or self-care (01) ==
LOC: CT 07:50
PROVIDERS: Referring Provider Student in an Organized Health Care Education/Training Program; Visit Provider Student in an Organized Health Care Education/Training Program
DX: C32.9 Malignant neoplasm of larynx, unspecified (principal)
CPT/HCPCS: 70491; 71260; Q9967

== ENCOUNTER → 2024-11-29 | Outpatient (CLI) | payer OTHER, SELFPAY ==
--- NOTE | 2024-11-29 09:06 | ST.MBS ---
Modified Barium Swallow Patient Information Study Date: 11/29/24 Study Time: 08:25 Direct Billable Minutes: 102 Total Minutes procedure & reportin Diagnosis: SCC of larynx C32.9 Referring Physician: Nikolas Coreas Reason for Referral: MBSS recommended s/p radiation treatment for laryngeal cancer as the patient is at risk for worsening dysphagia due to supervisor intermediates effects of radiation treatment.? DIRECTOR OF ENTERPRISE APPLICATIONS will objectively assess swallow function, assess risk for aspiration, and determine recommendations for least restrictive diet textures and compensatory strategies to improve safety of swallow. 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 06/26/2023 ? 08/11/2023 he received definitive chemoradiation. Dysphagia hx: MBSS 10/10/2023, which revealed mild pharyngoesophageal dysphagia w/ recommendations for Regular textures / Thin liquids w/ the following strategies: Small Bites, Small Sips, Slow Rate, Alternate bites/solids and sips/liquids (Take 2-3 sips after every 1-2 bites), Sitting upright and Remain sitting upright for 30 minutes after PO intake. Currently, pt denies swallowing difficulty other than occ sensation of pharyngeal retention of dry foods, which clears w/ liquid wash. Pt reports he is planned for trial of speaking valve w/ ENT in near future. Current Diet Ordered: Regular textures / Thin liquids Dentition: Natural Teeth and Missing Teeth Mental Status: WNL Respiratory Status: Oxygenating on Room Air (Trach) Penetration-Aspiration Scale Penetration-Aspiration Scale: OBJECTIVE ASSESSMENT OF SWALLOW FUNCTION (QUANTITATIVE ? PER TRIAL): PENETRATION / ASPIRATION SCALE (TORRES): 1 = does not enter airway 2 = enters airway/above vocal folds/ejected 3 = enters airway/above vocal folds/not ejected 4 = enters airway/contacts vocal folds/ejected 5 = enters airway/contacts vocal folds/not ejected 6 = enters airway/below vocal folds/ejected 7 = enters airway/below vocal folds/not ejected despite effort 8 = enters airway/below vocal folds/no effort VIDEOFLOROSCOPIC SCALE SCORE (TORRES): Grade I = aspiration of material that has penetrated into the laryngeal vestibule, intact cough reflex Grade II = aspiration < 10 % of the bolus, intact cough reflex Grade III = aspiration of < 10 % of the bolus, reduced cough reflex or aspiration of > 10 % of the bolus, intact cough reflex Grade IV = aspiration of > 10 % of the bolus, reduced cough reflex Penetration-Aspiration Scale Score Thin Liquid via teaspoon: Result: 1= does not enter airway Thin Liquid via teaspoon Trial 2: Result: 1= does not enter airway Thin Liquid via small single sip: cup: Result: 1= does not enter airway Thin Liquid via sequential sips: cup: Result: 1= does not enter airway [place] Thick Liquid via small single sip: cup: Result: 1= does not enter airway Pudding via teaspoon: Result: 1= does not enter airway Comment: Esophageal screen - Complete clearance. 1/2 Cookie: Result: 1= does not enter airway Comment: Esophageal screen - Retention in the upper and middle esophagus. Thin Liquid via single sip: straw: Result: 1= does not enter airway Comment: Esophageal screen - Liquid wash X1 somewhat cleared cookie retention from previous trial. Liquid wash X2 fully cleared liquid wash from previous trial. Thin Liquid via sequential sips:straw: Result: 1= does not enter airway Oral Phase Labial Seal: No Labial Escape Tongue Control During Bolus Hold: Escape to lateral buccal cavity/floor of mouth Bolus Preparation/Mastication: Timely and efficient chewing and mashing Bolus Transport/Lingual Motion: Brisk tongue motion Oral Residue: Trace residue lining oral structures Pharyngeal Phase Initiation of Pharyngeal Swallow: Bolus head at posterior laryngeal surgace of epiglottis (sequential cup) Soft Palate Elevation: Trace column of contrast/air between soft palate and pharyngeal wall Laryngeal Elevation: Comp. Superior move thyroid cart w/comp. apprx arytenoid cart-epig pet Anterior Hyoid Excursion: Partial anterior movement Epiglottic Movement: Complete inversion Laryngeal Vestibule Closure at Height of Swallow: Complete; no air/contrast in laryngeal vestibule Pharyngeal Stripping Wave: Present - complete Pharyngoesophageal Segment Opening: Complete distension and complete duration; no obstruction of flow Tongue Base Retraction: Trace column of contrast between tongue base & post. pharyngeal wall Pharyngeal Residue: Trace residue within or on pharyngeal structures Esophageal Phase Esophageal Clearance: Esophageal retention Diagnosis/Impression Diagnosis: Oropharyngeal swallow function grossly WNL; Esophageal retention observed MBS Impressions: Oropharyngeal swallow function is grossly WNL. The esophageal phase is primarily marked by... -Retention of cookie in the upper and middle esophagus, which fully cleared w/ two thin liquid washes. Recommendations Diet: Regular Textures and Thin Liquids Compensatory Strategies: Small Bites, Small Sips, Slow Rate, Alternate bites/solids and sips/liquids (1-2 swallows after each bite), Sitting upright and Remain sitting upright for 30 minutes after PO intake Recommend Repeat Modified Barium Swallow: Yes Comment: Plan for repeat MBSS in 6-12 months to continue to monitor swallow function s/p radiation, as pt is at increased risk for worsening dysphagia and aspiration risk related to usp effects of radiation. Need for Skilled Speech Therapy Services: No Comment: No dysphagia therapy warranted at this time. Will recommend continued completion of home oropharyngeal exercise program to maintain optimal swallow function s/p radiation treatment for HNC. Education Completed: 1. Described result of evaluation. Comment: No GI consult recommended at this time; however, if worsening sensation of retention, regurgitation, or s/s of reflux, please consider discussing GI consult w/ PCP. Status Active ST Patient: Active Contact Information [facility]:: Annia Mcnulty M.A. [facility]-DIRECTOR OF ENTERPRISE APPLICATIONS Speech-Language Pathologist [facility] [address] [place] [address] [email or web address] [phone]
== END | disposition home or self-care (01) ==
PROVIDERS: Referring Provider Student in an Organized Health Care Education/Training Program; Visit Provider Student in an Organized Health Care Education/Training Program
DX: C32.9 Malignant neoplasm of larynx, unspecified (principal)
CPT/HCPCS: 74230; 92611

== ENCOUNTER 2025-02-06 09:24 | Outpatient (RCR) | payer SELFPAY, OTHER ==
--- NOTE | 2025-02-06 14:58 | HP.SP.EVAL ---
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 06/26/2023 – 08/11/2023 he received definitive chemoradiation.” Prior Speech Therapy: This patient has participated in 2 MBSS and 1 bedside dysphagia evaluation w/ [employer]LECT[employer] MACHINE [employer]DER since treatment for assessment of swallow function s/p chemoradiation treatment for hx of SCC of the larynx, as well as for training in oropharyngeal exercise program. Most recent MBSS 11/29/2024 revealed oropharyngeal swallow function grossly WNL and no further dysphagia therapy warranted. Please complete home oropharyngeal exercise program to maintain swallow function s/p chemoradiation treatment for hx of SCC of the larynx. Medical History Encounter for education Heartburn Wears glasses Depression Alcohol use History of steroid therapy Former smoker History of rheumatic fever Tracheostomy present Dysphonia Cancer of glottis DVT (deep venous thrombosis) Smoking Status: Former smoker Pain Is pain an issue with your current prescribed condition?: No Personal Preferred language: Turkmen Patient Allergies Allergies Allergies: Allergies bee venom protein (honey bee) Allergy (Severe, Verified 11/29/24 08:58) Anaphylaxis Penicillins Allergy (Mild, Verified 11/29/24 08:58) Hives Reference: Neuro-QoL instrument Radiation Oncology Patient Other Comments PMSV Voice Evaluation: -: Tracheostomy Inspection: Size and Brand - Shiley 7.5mm, 10.8mm Fenestrated - No. Cuffed - No. If yes, is cuff deflated - N/A. Sputum - Moderate phlegm production per pt report, white, thick, and thin phlegm, Passy [place] Speaking Valve (PMSV) Assessment Vocal quality prior to placement of PMSV – Aphonic. SpO2 prior to placement of PMSV – 93%. Breathing observations prior to placement of PMSV - WNL. Vocal quality after placement of PMSV – Moderate hoarseness w/ single word to sentence length responses in structured speaking tasks and w/ simple conversation. Vocal quality somewhat improved after using PMSV for >15 min and w/ instruction in vocal adduction exercises. SpO2 during placement of PMSV – 94%. Breathing observations during placement of PMSV – No changes in breathing. Duration of time patient tolerated – 25min. (E[employer] MACHINE BU[employer]DER okayed pt to wear the PMSV to his ENT appointment following this evaluation). Sustained “ah” – 4.13 seconds. S/Z ratio – 1.72 (WNL = 1.0-1.4). High S/Z ratio indicates vocal fold dysfunction. The patient presents w/ moderate dysphonia characterized by hoarse and breathy vocal quality, decreased vocal intensity, and decreased breath support. ELECT[employer] MACHINE BUILDER recommends wearing PMSV while he is upright and awake. Please doff the PMSV if resting or lying flat as pt declined assessment PMSV tolerance while lying flat. Plan Plan Plan: The patient is recommended for follow up OP voice therapy to address moderate dysphonia. POC to include training in vocal adduction exercises, including Stemrandi's vocal function exercises, vocal hygiene strategies, and breath support and resonance techniques to promote improved vocal quality. Additionally, would recommend follow up OP ST to assess ongoing tolerance of Passy [place] Speaking Valve. Recommendations Treatment Warranted: Yes Treatment Warranted: Voice Progress Prognosis: Good Frequency Frequency: 1x/Week Duration: 2-4 Weeks Goals that are Established Determination:: Goals will be added/modified as deemed necessary and appropriate. Therapy will be discontinued when results of re-evaluation indicate therapy is no longer needed or lack of progress has been documented. Goal #1-5 Goal #1: The patient will complete sustained phonation in vocal function exercises X20 seconds in each guzman (C, D, E, F, G) with minimal verbal cues for use of appropriate breath support and resonance techniques to improve vocal quality. Goal #2: The patient will vocalize sentence level responses demonstrating adequate phonation with 90% acc with minimal verbal cues for use of proper breath support and resonance-facilitation techniques to promote improved vocal quality. Goal #3: The patient will verbalize awareness of or demonstrate use of vocal hygiene strategies provided minimal verbal cues to promote improved vocal quality. Education Patient has Indicated that the Following The Patient has indicated that they have no educational or learning abilities that may effect their care.: Yes Patient Instruction Patient Education: Diagnosis, Treatment Plan, Goals and Home Exercise Program Other Education: E[employer] MACHINE [employer]DER trained the patient in two vocal adduction exercises and one exercise for resonance training. He demonstrated completion of each exercise w/ minimal-moderate verbal cues and models. Trained the patient to don/doff the PMSV, which he did 2X independently w/o difficulty. Trained the patient in cleaning of PMSV. Pt and verbalized understanding. Person Taught: Patient and Significant Other Teaching Method: Discussion, Demonstration and Handout Response to teaching: Return Demonstration, Verbalize Understanding and Reinforcement Needed
--- NOTE | 2025-03-11 08:56 | HP.SP.DC ---
ST Discharge Summary Discharged: Discharge: The patient participated in ST evaluation 02/06/2025 to assess pt for use of Passy Lisa Speaking Valve due to dysphonia secondary to SCC of the larynx s/p total laryngectomy. Pt tolerated the PMSV w/o s/s of respiratory distress and was recommended to wear it when upright and awake. He was recommended for follow up OP voice therapy to address moderate dysphonia. POC to include training in vocal adduction exercises, including Stemple's vocal function exercises, vocal hygiene strategies, and breath support and resonance techniques to promote improved vocal quality. Additionally, would recommend follow up OP ST to assess ongoing tolerance of Passy [place] Speaking Valve. The patient did not feel he required additional voice therapy and has not returned. Will discharge the patient from ST POC. Please re-consult if pt experiences continued dysphonia and would like to participate in voice therapy POC.
== END 2025-02-06 19:00 | disposition home or self-care (01) ==
LOC: SP 09:24
PROVIDERS: Referring Provider Student in an Organized Health Care Education/Training Program; Visit Provider Student in an Organized Health Care Education/Training Program
DX: C32.9 Malignant neoplasm of larynx, unspecified (principal)
CPT/HCPCS: 92524